=== PATIENT | male | born 1955 | race African-American/Black ===

== ENCOUNTER 2019-10-05 00:14 | Emergency (ER) | payer SELFPAY ==
--- OUTSIDE RECORDS SUMMARY | 2019-10-05 00:24 | XMS REPORT ---
:1955 Author Organization [facility] Address [address] [place] [address] Care Team Providers Name Role Phone KARIME HILLS Unavailable Unavailable Problems This patient has no known problems. Allergies, Adverse Reactions, Alerts This patient has no known allergies or adverse reactions. Medications This patient has no known medications. Results Test Description Test Time Test Comments Text Results Atomic Results Result Comments PROTHROMBIN TIME/INR 2017-04-21 08:17:00 Test Item Value Reference Range Comments PROTIME (BEAKER) (test rvqe=781) 22.7 seconds 11.7-14.7 INR (BEAKER) (test tbxl=096) 2.0 <=5.9 RECOMMENDED COUMADIN/WARFARIN INR THERAPY RANGESSTANDARD DOSE: 2.0 - 3.0 Includes: PROPHYLAXIS forvenous thrombosis, systemic embolization; TREATMENT for venous thrombosis and/or pulmonary embolus.HIGH RISK: Target INR is 2.5-3.5 for patients with mechanical heart valves.While on warfarin.BASIC METABOLIC [id number] 07:33:00 Test Item Value Reference Range Comments SODIUM (BEAKER) (test 139 meq/L 136-145 glkx=198) POTASSIUM (BEAKER) (test 4.4 meq/L 3.5-5.1 muwt=602) CHLORIDE (BEAKER) (test 107 meq/L 98-107 ecwm=095) CO2 (BEAKER) (test 24 meq/L 22-29 ndvf=283) BLOOD UREA NITROGEN 9 mg/dL 7-21 (BEAKER) (test nkue=307) CREATININE (BEAKER) (test 0.91 mg/dL 0.57-1.25 btuw=716) GLUCOSE RANDOM (BEAKER) 84 mg/dL 70-105 (test kjvu=239) CALCIUM (BEAKER) (test 9.4 mg/dL 8.4-10.2 iabl=030) EGFR (BEAKER) (test 102 mL/min/1.73 sq m ESTIMATED GFR IS NOT fxvu=7652) ACCURATE CREATININE CLEARANCE IN PREDICTING GLOMERULAR FILTRATION RATE. ESTIMATED GFR IS NOT APPLICABLE FOR DIALYSIS PATIENTS. CBC W/PLT COUNT & AUTO [id number] 05:54:00 Test Item Value Reference Range Comments WHITE BLOOD CELL COUNT (BEAKER) (test ndfu=541) 7.9 K/ L 3.5-10.5 RED BLOOD CELL COUNT (BEAKER) (test xlxp=061) 4.70 M/ L 4.63-6.08 HEMOGLOBIN (BEAKER) (test insb=603) 12.4 GM/DL 13.7-17.5 HEMATOCRIT (BEAKER) (test nkxb=097) 39.8 % 40.1-51.0 MEAN CORPUSCULAR VOLUME (BEAKER) (test yngt=810) 84.7 fL 79.0-92.2 MEAN CORPUSCULAR HEMOGLOBIN (BEAKER) (test 26.4 pg 25.7-32.2 khdo=603) MEAN CORPUSCULAR HEMOGLOBIN CONC (BEAKER) (test 31.2 GM/DL 32.3-36.5 hhsn=035) RED CELL DISTRIBUTION WIDTH (BEAKER) (test 13.8 % 11.6-14.4 myoq=317) PLATELET COUNT (BEAKER) (test kavk=119) 384 K/CU MM 150-450 MEAN PLATELET VOLUME (BEAKER) (test pyze=514) 11.4 fL 9.4-12.4 NUCLEATED RED BLOOD CELLS (BEAKER) (test 0 /100 WBC 0-0 wyqf=159) NEUTROPHILS RELATIVE PERCENT (BEAKER) (test 49 % foqs=902) LYMPHOCYTES RELATIVE PERCENT (BEAKER) (test 38 % jkks=437) MONOCYTES RELATIVE PERCENT (BEAKER) (test 10 % rwuz=740) EOSINOPHILS RELATIVE PERCENT (BEAKER) (test 2 % rkfu=878) BASOPHILS RELATIVE PERCENT (BEAKER) (test 1 % ggrx=598) NEUTROPHILS ABSOLUTE COUNT (BEAKER) (test 3.87 K/ L 1.78-5.38 xysa=719) LYMPHOCYTES ABSOLUTE COUNT (BEAKER) (test 2.97 K/ L 1.32-3.57 slmp=622) MONOCYTES ABSOLUTE COUNT (BEAKER) (test 0.75 K/ L 0.30-0.82 jecl=471) EOSINOPHILS ABSOLUTE COUNT (BEAKER) (test 0.17 K/ L 0.04-0.54 jzdc=216) BASOPHILS ABSOLUTE COUNT (BEAKER) (test 0.05 K/ L 0.01-0.08 vxoe=783) IMMATURE GRANULOCYTES-RELATIVE PERCENT (BEAKER) 1 % 0-1 (test txvj=4186) BASIC METABOLIC [id number] 06:43:00 Test Item Value Reference Range Comments SODIUM (BEAKER) (test 138 meq/L 136-145 zble=696) POTASSIUM (BEAKER) (test 4.9 meq/L 3.5-5.1 Specimen moderately untb=553) hemolyzed CHLORIDE (BEAKER) (test 106 meq/L 98-107 wdpe=822) CO2 (BEAKER) (test 26 meq/L 22-29 msar=147) BLOOD UREA NITROGEN 9 mg/dL 7-21 (BEAKER) (test gslz=678) CREATININE (BEAKER) (test 0.89 mg/dL 0.57-1.25 Specimen moderately kcxj=512) hemolyzed GLUCOSE RANDOM (BEAKER) 90 mg/dL 70-105 (test duti=126) CALCIUM (BEAKER) (test 9.0 mg/dL 8.4-10.2 ujqh=824) EGFR (BEAKER) (test 105 mL/min/1.73 sq m ESTIMATED GFR IS NOT ayke=1466) ACCURATE CREATININE CLEARANCE IN PREDICTING GLOMERULAR FILTRATION RATE. ESTIMATED GFR IS NOT APPLICABLE FOR DIALYSIS PATIENTS. PROTHROMBIN [id number] 06:25:00 Test Item Value Reference Range Comments PROTIME (BEAKER) (test dlns=411) 18.8 seconds 11.7-14.7 INR (BEAKER) (test hrcd=401) 1.6 <=5.9 RECOMMENDED COUMADIN/WARFARIN INR THERAPY RANGESSTANDARD DOSE: 2.0 - 3.0 Includes: PROPHYLAXIS forvenous thrombosis, systemic embolization; TREATMENT for venous thrombosis and/or pulmonary embolus.HIGH RISK: Target INR is 2.5-3.5 for patients with mechanical heart valves.While on warfarin.CBC W/PLT COUNT &amp ; AUTO [id number] 06:12:00 Test Item Value Reference Range Comments WHITE BLOOD CELL COUNT (BEAKER) (test rims=200) 8.3 K/ L 3.5-10.5 RED BLOOD CELL COUNT (BEAKER) (test btae=809) 4.50 M/ L 4.63-6.08 HEMOGLOBIN (BEAKER) (test otpu=227) 11.9 GM/DL 13.7-17.5 HEMATOCRIT (BEAKER) (test ahyr=995) 38.3 % 40.1-51.0 MEAN CORPUSCULAR VOLUME (BEAKER) (test fayy=871) 85.1 fL 79.0-92.2 MEAN CORPUSCULAR HEMOGLOBIN (BEAKER) (test 26.4 pg 25.7-32.2 vsvg=901) MEAN CORPUSCULAR HEMOGLOBIN CONC (BEAKER) (test 31.1 GM/DL 32.3-36.5 mmlz=456) RED CELL DISTRIBUTION WIDTH (BEAKER) (test 14.6 % 11.6-14.4 wnbj=296) PLATELET COUNT (BEAKER) (test zinu=187) 385 K/CU MM 150-450 MEAN PLATELET VOLUME (BEAKER) (test jxay=918) 11.3 fL 9.4-12.4 NUCLEATED RED BLOOD CELLS (BEAKER) (test 0 /100 WBC 0-0 nfsq=635) NEUTROPHILS RELATIVE PERCENT (BEAKER) (test 54 % nrmn=184) LYMPHOCYTES RELATIVE PERCENT (BEAKER) (test 34 % esbr=940) MONOCYTES RELATIVE PERCENT (BEAKER) (test 9 % ucjp=839) EOSINOPHILS RELATIVE PERCENT (BEAKER) (test 2 % tbjt=592) BASOPHILS RELATIVE PERCENT (BEAKER) (test 1 % lmrw=754) NEUTROPHILS ABSOLUTE COUNT (BEAKER) (test 4.49 K/ L 1.78-5.38 cmlw=810) LYMPHOCYTES ABSOLUTE COUNT (BEAKER) (test 2.81 K/ L 1.32-3.57 mhyc=741) MONOCYTES ABSOLUTE COUNT (BEAKER) (test 0.71 K/ L 0.30-0.82 ewlk=204) EOSINOPHILS ABSOLUTE COUNT (BEAKER) (test 0.20 K/ L 0.04-0.54 vzkh=441) BASOPHILS ABSOLUTE COUNT (BEAKER) (test 0.05 K/ L 0.01-0.08 zlcp=308) IMMATURE GRANULOCYTES-RELATIVE PERCENT (BEAKER) 1 % 0-1 (test xtza=6305) BASIC METABOLIC [id number] 10:54:00 Test Item Value Reference Range Comments SODIUM (BEAKER) (test 138 meq/L 136-145 vikp=086) POTASSIUM (BEAKER) (test 4.2 meq/L 3.5-5.1 dyiu=228) CHLORIDE (BEAKER) (test 105 meq/L 98-107 lwpl=403) CO2 (BEAKER) (test 24 meq/L 22-29 kelp=233) BLOOD UREA NITROGEN 9 mg/dL 7-21 (BEAKER) (test stmb=106) CREATININE (BEAKER) (test 0.90 mg/dL 0.57-1.25 lsyi=087) GLUCOSE RANDOM (BEAKER) 88 mg/dL 70-105 (test vxxv=803) CALCIUM (BEAKER) (test 9.0 mg/dL 8.4-10.2 zznq=017) EGFR (BEAKER) (test 103 mL/min/1.73 sq m ESTIMATED GFR IS NOT rtdl=2556) ACCURATE CREATININE CLEARANCE IN PREDICTING GLOMERULAR FILTRATION RATE. ESTIMATED GFR IS NOT APPLICABLE FOR DIALYSIS PATIENTS. CBC W/PLT COUNT & AUTO [id number] 07:36:00 Test Item Value Reference Range Comments WHITE BLOOD CELL COUNT (BEAKER) (test lzzv=379) 7.2 K/ L 3.5-10.5 RED BLOOD CELL COUNT (BEAKER) (test vzgs=384) 4.54 M/ L 4.63-6.08 HEMOGLOBIN (BEAKER) (test aqan=579) 11.8 GM/DL 13.7-17.5 HEMATOCRIT (BEAKER) (test uajy=836) 38.1 % 40.1-51.0 MEAN CORPUSCULAR VOLUME (BEAKER) (test vcgo=955) 83.9 fL 79.0-92.2 MEAN CORPUSCULAR HEMOGLOBIN (BEAKER) (test 26.0 pg 25.7-32.2 zakz=244) MEAN CORPUSCULAR HEMOGLOBIN CONC (BEAKER) (test 31.0 GM/DL 32.3-36.5 wvfd=561) RED CELL DISTRIBUTION WIDTH (BEAKER) (test 13.7 % 11.6-14.4 eaar=878) PLATELET COUNT (BEAKER) (test nqpo=331) 356 K/CU MM 150-450 MEAN PLATELET VOLUME (BEAKER) (test oedh=926) 11.3 fL 9.4-12.4 NUCLEATED RED BLOOD CELLS (BEAKER) (test 0 /100 WBC 0-0 llun=817) NEUTROPHILS RELATIVE PERCENT (BEAKER) (test 49 % tklr=899) LYMPHOCYTES RELATIVE PERCENT (BEAKER) (test 37 % qqhn=914) MONOCYTES RELATIVE PERCENT (BEAKER) (test 10 % neda=192) EOSINOPHILS RELATIVE PERCENT (BEAKER) (test 3 % rpny=760) BASOPHILS RELATIVE PERCENT (BEAKER) (test 1 % phex=526) NEUTROPHILS ABSOLUTE COUNT (BEAKER) (test 3.54 K/ L 1.78-5.38 szjn=389) LYMPHOCYTES ABSOLUTE COUNT (BEAKER) (test 2.64 K/ L 1.32-3.57 ulzi=711) MONOCYTES ABSOLUTE COUNT (BEAKER) (test 0.73 K/ L 0.30-0.82 ajhc=657) EOSINOPHILS ABSOLUTE COUNT (BEAKER) (test 0.19 K/ L 0.04-0.54 jejv=202) BASOPHILS ABSOLUTE COUNT (BEAKER) (test 0.04 K/ L 0.01-0.08 xbua=167) IMMATURE GRANULOCYTES-RELATIVE PERCENT (BEAKER) 0 % 0-1 (test dlwv=2939) [id number] 06:27:00 Test Item Value Reference Range Comments PARTIAL THROMBOPLASTIN TIME (BEAKER) (test 77.4 seconds 22.5-36.0 xwvp=050) PROTHROMBIN [id number] 06:25:00 Test Item Value Reference Range Comments PROTIME (BEAKER) (test ppwg=356) 16.1 seconds 11.7-14.7 INR (BEAKER) (test awdx=966) 1.3 <=5.9 RECOMMENDED COUMADIN/WARFARIN INR THERAPY RANGESSTANDARD DOSE: 2.0 - 3.0 Includes: PROPHYLAXIS forvenous thrombosis, systemic embolization; TREATMENT for venous thrombosis and/or pulmonary embolus.HIGH RISK: Target INR is 2.5-3.5 for patients with mechanical heart valves.While on warfarin.[id number] 21:27 :00 Test Item Value Reference Range Comments PARTIAL THROMBOPLASTIN TIME (BEAKER) (test 50.7 seconds 22.5-36.0 rnwy=989) [id number] 13:53:00 Test Item Value Reference Range Comments PARTIAL THROMBOPLASTIN TIME (BEAKER) (test 93.2 seconds 22.5-36.0 srak=724) [id number] 08:10:00 Test Item Value Reference Range Comments PARTIAL THROMBOPLASTIN TIME (BEAKER) (test 70.0 seconds 22.5-36.0 hwfb=111) BASIC METABOLIC [id number] 07:13:00 Test Item Value Reference Range Comments SODIUM (BEAKER) (test 140 meq/L 136-145 oant=981) POTASSIUM (BEAKER) (test 4.7 meq/L 3.5-5.1 Specimen slightly erzg=530) hemolyzed CHLORIDE (BEAKER) (test 107 meq/L 98-107 tctj=668) CO2 (BEAKER) (test 25 meq/L 22-29 iypy=922) BLOOD UREA NITROGEN 7 mg/dL 7-21 (BEAKER) (test lskg=520) CREATININE (BEAKER) (test 0.96 mg/dL 0.57-1.25 Specimen slightly xupj=571) hemolyzed GLUCOSE RANDOM (BEAKER) 99 mg/dL 70-105 (test txyt=169) CALCIUM (BEAKER) (test 9.2 mg/dL 8.4-10.2 nkal=775) EGFR (BEAKER) (test 96 mL/min/1.73 sq m ESTIMATED GFR IS NOT nbyx=4362) ACCURATE CREATININE CLEARANCE IN PREDICTING GLOMERULAR FILTRATION RATE. ESTIMATED GFR IS NOT APPLICABLE FOR DIALYSIS PATIENTS. CBC W/PLT COUNT & AUTO [id number] 07:07:00 Test Item Value Reference Range Comments WHITE BLOOD CELL COUNT (BEAKER) (test zhdu=908) 7.6 K/ L 3.5-10.5 RED BLOOD CELL COUNT (BEAKER) (test tnoo=006) 4.94 M/ L 4.63-6.08 HEMOGLOBIN (BEAKER) (test mawi=871) 13.0 GM/DL 13.7-17.5 HEMATOCRIT (BEAKER) (test qgub=419) 41.5 % 40.1-51.0 MEAN CORPUSCULAR VOLUME (BEAKER) (test bwup=560) 84.0 fL 79.0-92.2 MEAN CORPUSCULAR HEMOGLOBIN (BEAKER) (test 26.3 pg 25.7-32.2 lbkr=461) MEAN CORPUSCULAR HEMOGLOBIN CONC (BEAKER) (test 31.3 GM/DL 32.3-36.5 qqrh=566) RED CELL DISTRIBUTION WIDTH (BEAKER) (test 13.5 % 11.6-14.4 cjoz=742) PLATELET COUNT (BEAKER) (test kymx=859) 323 K/CU MM 150-450 MEAN PLATELET VOLUME (BEAKER) (test nhrx=047) 11.4 fL 9.4-12.4 NUCLEATED RED BLOOD CELLS (BEAKER) (test 0 /100 WBC 0-0 hfqc=900) NEUTROPHILS RELATIVE PERCENT (BEAKER) (test 53 % jnqe=299) LYMPHOCYTES RELATIVE PERCENT (BEAKER) (test 35 % qoue=053) MONOCYTES RELATIVE PERCENT (BEAKER) (test 10 % qsxn=338) EOSINOPHILS RELATIVE PERCENT (BEAKER) (test 2 % sdwo=731) BASOPHILS RELATIVE PERCENT (BEAKER) (test 0 % ohmc=621) NEUTROPHILS ABSOLUTE COUNT (BEAKER) (test 3.98 K/ L 1.78-5.38 buds=763) LYMPHOCYTES ABSOLUTE COUNT (BEAKER) (test 2.64 K/ L 1.32-3.57 qvle=732) MONOCYTES ABSOLUTE COUNT (BEAKER) (test 0.73 K/ L 0.30-0.82 kdrj=234) EOSINOPHILS ABSOLUTE COUNT (BEAKER) (test 0.16 K/ L 0.04-0.54 poem=134) BASOPHILS ABSOLUTE COUNT (BEAKER) (test 0.03 K/ L 0.01-0.08 exer=903) IMMATURE GRANULOCYTES-RELATIVE PERCENT (BEAKER) 0 % 0-1 (test vrlh=6556) PROTHROMBIN [id number] 06:24:00 Test Item Value Reference Range Comments PROTIME (BEAKER) (test gonc=866) 15.2 seconds 11.7-14.7 INR (BEAKER) (test cvlt=743) 1.2 <=5.9 RECOMMENDED COUMADIN/WARFARIN INR THERAPY RANGESSTANDARD DOSE: 2.0 - 3.0 Includes: PROPHYLAXIS forvenous thrombosis, systemic embolization; TREATMENT for venous thrombosis and/or pulmonary embolus.HIGH RISK: Target INR is 2.5-3.5 for patients with mechanical heart valves.[id number] 00:36:00 Test Item Value Reference Range Comments PARTIAL THROMBOPLASTIN TIME (BEAKER) (test 49.7 seconds 22.5-36.0 cdrs=033) POCT-GLUCOSE [id number] 20:48:00 Test Item Value Reference Range Comments POC-GLUCOSE METER (BEAKER) 126 mg/dL 70-110 TESTED AT [address] (test dxin=0035) [place] [address] [id number] 18:09:00 Test Item Value Reference Range Comments PARTIAL THROMBOPLASTIN TIME (BEAKER) (test 36.3 seconds 22.5-36.0 bniw=662) Prior to initiating [id number] 11:06:00 Test Item Value Reference Range Comments ACTIVATED CLOTTING TIME 202 sec TESTED AT [address] (BEAKER) (test omeg=694) [place] [address] [id number] 10:32:00 Test Item Value Reference Range Comments ACTIVATED CLOTTING TIME 224 sec TESTED AT [address] (BEAKER) (test jwrv=071) [place] [address] [id number] 10:32:00 Test Item Value Reference Range Comments ACTIVATED CLOTTING TIME 467 sec TESTED AT [address] (BEAKER) (test ivnn=801) [place] [address] [id number] 09:51:00 Test Item Value Reference Range Comments ACTIVATED CLOTTING TIME 114 sec TESTED AT [address] (BEAKER) (test nmoh=232) [place] [address] POCT-GLUCOSE [id number] 08:10:00 Test Item Value Reference Range Comments POC-GLUCOSE METER (BEAKER) 67 mg/dL 70-110 Notified MARI SOLER/TESTED AT [facility] (test rovj=3208) [address] [place] [address] BASIC METABOLIC [id number] 08:04:00 Test Item Value Reference Range Comments SODIUM (BEAKER) (test 139 meq/L 136-145 ykog=160) POTASSIUM (BEAKER) (test 4.0 meq/L 3.5-5.1 mbbw=426) CHLORIDE (BEAKER) (test 107 meq/L 98-107 drdv=415) CO2 (BEAKER) (test 23 meq/L 22-29 fvyc=069) BLOOD UREA NITROGEN 8 mg/dL 7-21 (BEAKER) (test mukp=895) CREATININE (BEAKER) (test 0.89 mg/dL 0.57-1.25 ifmb=434) GLUCOSE RANDOM (BEAKER) 83 mg/dL 70-105 (test bcsn=763) CALCIUM (BEAKER) (test 9.0 mg/dL 8.4-10.2 hkmv=604) EGFR (BEAKER) (test 105 mL/min/1.73 sq m ESTIMATED GFR IS NOT nfeq=0822) ACCURATE CREATININE CLEARANCE IN PREDICTING GLOMERULAR FILTRATION RATE. ESTIMATED GFR IS NOT APPLICABLE FOR DIALYSIS PATIENTS. CBC W/PLT COUNT & AUTO [id number] 07:11:00 Test Item Value Reference Range Comments WHITE BLOOD CELL COUNT (BEAKER) (test ytte=925) 6.5 K/ L 3.5-10.5 RED BLOOD CELL COUNT (BEAKER) (test pjpb=649) 4.85 M/ L 4.63-6.08 HEMOGLOBIN (BEAKER) (test ytda=799) 13.0 GM/DL 13.7-17.5 HEMATOCRIT (BEAKER) (test wclv=149) 40.4 % 40.1-51.0 MEAN CORPUSCULAR VOLUME (BEAKER) (test pazp=586) 83.3 fL 79.0-92.2 MEAN CORPUSCULAR HEMOGLOBIN (BEAKER) (test 26.8 pg 25.7-32.2 jdju=565) MEAN CORPUSCULAR HEMOGLOBIN CONC (BEAKER) (test 32.2 GM/DL 32.3-36.5 erdm=236) RED CELL DISTRIBUTION WIDTH (BEAKER) (test 13.6 % 11.6-14.4 fpiz=362) PLATELET COUNT (BEAKER) (test uepv=873) 293 K/CU MM 150-450 MEAN PLATELET VOLUME (BEAKER) (test suvo=260) 11.6 fL 9.4-12.4 NUCLEATED RED BLOOD CELLS (BEAKER) (test 0 /100 WBC 0-0 qzfx=962) NEUTROPHILS RELATIVE PERCENT (BEAKER) (test 49 % xlde=587) LYMPHOCYTES RELATIVE PERCENT (BEAKER) (test 37 % fgzc=858) MONOCYTES RELATIVE PERCENT (BEAKER) (test 11 % uekd=334) EOSINOPHILS RELATIVE PERCENT (BEAKER) (test 2 % nkrw=753) BASOPHILS RELATIVE PERCENT (BEAKER) (test 1 % bnnu=573) NEUTROPHILS ABSOLUTE COUNT (BEAKER) (test 3.15 K/ L 1.78-5.38 ojot=842) LYMPHOCYTES ABSOLUTE COUNT (BEAKER) (test 2.39 K/ L 1.32-3.57 zaax=424) MONOCYTES ABSOLUTE COUNT (BEAKER) (test 0.71 K/ L 0.30-0.82 mexd=506) EOSINOPHILS ABSOLUTE COUNT (BEAKER) (test 0.15 K/ L 0.04-0.54 npkw=203) BASOPHILS ABSOLUTE COUNT (BEAKER) (test 0.04 K/ L 0.01-0.08 hnvd=849) IMMATURE GRANULOCYTES-RELATIVE PERCENT (BEAKER) 1 % 0-1 (test eeet=8016) PET, CARDIAC PET, [id number] 15:39:00Reason for exam:->MIFINAL REPORT PROCEDURE: MYOCARDIAL METABOLISM PET IMAGING with Rest MYOCARDIAL PERFUSION PET IMAGING\XA9\ CPT CODE: 26420, 70078 INDICATION: History of DE/Assess Viability HISTORY: Cardiac risk factors: CAD, hypertension, stroke. Current cardiovascular- related medications: Lisinopril. PROTOCOL: Limited low-dose CT imaging was performed for attenuation correction. 39.0 mCi of Rb-82 chloride was injected iv at rest,and gated PET (positron emission tomography) images were obtained. After appropriate dextrose/insulin administration, 10.9 mCi of F-18 FDG was injected iv at rest; limited low-dose CT imaging was repeated; and PET images were obtained. PERFUSION IMAGING FINDINGS: Study quality is good. Images obtained after Rb-82 injection show marked decrease in tracer uptake at the LV apex, mid to apical anterior LV wall and inferoapical LV wall. LV volume appears mildly increased. RV volume appears normal. Gated images obtained at rest show abnormal LV motion. The anterior apical LV wall and LV apex are akinetic. The septal wall is severely hypokinetic. LVEF at rest is 49%. METABOLIC IMAGING FINDINGS: Study quality is good. Images obtained after F- 18 FDG injection show marked but incomplete improvement.. IMPRESSION: 1. Abnormal study. 2. Resting imaging was performed for cardiac perfusion and metabolism. 3. Abnormal myocardial perfusion. There is a severe, medium size, perfusion defect in the mid to apical anterior LV wall, inferior apical LV wall and the LV apex LV. 4. Abnormal resting LV function. 5. Abnormal cardiac metabolism. There is marked but incomplete improvement demonstrating significant viable myocardium. 6. Combination of perfusion and metabolic images show viable myocardium at the LV apex. 7. Extracardiac tracer distribution is normal. 8. No previous [facility] study forcomparison. Signed: Lidya Marshall Verified Date/Time: 04/16/2017 15:39:23 Reading Location: [facility] 3rd Flr [id number] Nuc Med Reading Room CT, BRAIN, WITHOUT [id number] 11:48:00FINAL REPORT CT head without contrast 04/16/2017 11:46 AM CLINICAL HISTORY: StrokeR frontal gyrus hemorrhagic covnersion, evaluate for interval increase. TECHNIQUE: Axial noncontrast CT images through the head were obtained. This examination was performed according to our departmental dose optimization program, which includes automated exposure control, adjustment of the mA and/or kV according to patient size, and/or use of iterated reconstruction technique. COMPARISON: 04/13/2017 FINDINGS: A small volume recent infarct with trace petechial hemorrhage but no mass effect in the anterior right frontal lobe is unchanged. There is no new hemorrhage, extra-axial collection, mass, hydrocephalus, or midline shift. There is generalized parenchymal volume loss. The visualized paranasal sinuses and mastoid air cells are well aerated. The skull is intact. IMPRESSION: Since 04/13/2017, no new intracranial abnormality and no remarkable change in intracranial appearance. Signed: Tito Baron Verified Date/Time: 04/16/2017 11: 48:54 Reading Location: [facility] B1 C013V Neuro Reading Room BASIC METABOLIC [id number] 05:46:00 Test Item Value Reference Range Comments SODIUM (BEAKER) (test 141 meq/L 136-145 hlam=665) POTASSIUM (BEAKER) (test 4.1 meq/L 3.5-5.1 pcrs=578) CHLORIDE (BEAKER) (test 109 meq/L 98-107 ygdj=446) CO2 (BEAKER) (test 23 meq/L 22-29 cfdx=646) BLOOD UREA NITROGEN 12 mg/dL 7-21 (BEAKER) (test ulem=113) CREATININE (BEAKER) (test 0.91 mg/dL 0.57-1.25 wkdp=923) GLUCOSE RANDOM (BEAKER) 93 mg/dL 70-105 (test slim=519) CALCIUM (BEAKER) (test 8.8 mg/dL 8.4-10.2 qroj=285) EGFR (BEAKER) (test 102 mL/min/1.73 sq m ESTIMATED GFR IS NOT lzeg=7357) ACCURATE CREATININE CLEARANCE IN PREDICTING GLOMERULAR FILTRATION RATE. ESTIMATED GFR IS NOT APPLICABLE FOR DIALYSIS PATIENTS. [id number] 05:31:00 Test Item Value Reference Range Comments PROTIME (BEAKER) (test ugwu=428) 16.3 seconds 11.7-14.7 INR (BEAKER) (test zoxa=496) 1.3 <=5.9 PARTIAL THROMBOPLASTIN TIME (BEAKER) (test 59.8 seconds 22.5-36.0 kypu=597) RECOMMENDED COUMADIN/WARFARIN INR THERAPY RANGESSTANDARD DOSE: 2.0 - 3.0 Includes: PROPHYLAXIS forvenous thrombosis, systemic embolization; TREATMENT for venous thrombosis and/or pulmonary embolus.HIGH RISK: Target INR is 2.5-3.5 for patients with mechanical heart valves.CBC W/PLT COUNT & AUTO [id number] 05:23:00 Test Item Value Reference Range Comments WHITE BLOOD CELL COUNT (BEAKER) (test sbzz=094) 7.4 K/ L 3.5-10.5 RED BLOOD CELL COUNT (BEAKER) (test iljk=699) 4.74 M/ L 4.63-6.08 HEMOGLOBIN (BEAKER) (test urwu=163) 12.4 GM/DL 13.7-17.5 HEMATOCRIT (BEAKER) (test obya=688) 39.6 % 40.1-51.0 MEAN CORPUSCULAR VOLUME (BEAKER) (test rcxx=566) 83.5 fL 79.0-92.2 MEAN CORPUSCULAR HEMOGLOBIN (BEAKER) (test 26.2 pg 25.7-32.2 ycoc=229) MEAN CORPUSCULAR HEMOGLOBIN CONC (BEAKER) (test 31.3 GM/DL 32.3-36.5 kboi=843) RED CELL DISTRIBUTION WIDTH (BEAKER) (test 13.6 % 11.6-14.4 ldpk=465) PLATELET COUNT (BEAKER) (test zpuv=259) 253 K/CU MM 150-450 MEAN PLATELET VOLUME (BEAKER) (test omfy=764) 11.1 fL 9.4-12.4 NUCLEATED RED BLOOD CELLS (BEAKER) (test 0 /100 WBC 0-0 lvbm=967) NEUTROPHILS RELATIVE PERCENT (BEAKER) (test 53 % ocsp=924) LYMPHOCYTES RELATIVE PERCENT (BEAKER) (test 34 % aiqr=368) MONOCYTES RELATIVE PERCENT (BEAKER) (test 10 % bliz=654) EOSINOPHILS RELATIVE PERCENT (BEAKER) (test 2 % oshy=035) BASOPHILS RELATIVE PERCENT (BEAKER) (test 0 % tucx=225) NEUTROPHILS ABSOLUTE COUNT (BEAKER) (test 3.89 K/ L 1.78-5.38 vngb=232) LYMPHOCYTES ABSOLUTE COUNT (BEAKER) (test 2.50 K/ L 1.32-3.57 wocu=097) MONOCYTES ABSOLUTE COUNT (BEAKER) (test 0.77 K/ L 0.30-0.82 awgm=939) EOSINOPHILS ABSOLUTE COUNT (BEAKER) (test 0.18 K/ L 0.04-0.54 srtb=084) BASOPHILS ABSOLUTE COUNT (BEAKER) (test 0.03 K/ L 0.01-0.08 vgzu=275) IMMATURE GRANULOCYTES-RELATIVE PERCENT (BEAKER) 0 % 0-1 (test ynxg=1166) [id number] 15:23:00 Test Item Value Reference Range Comments PARTIAL THROMBOPLASTIN TIME (BEAKER) (test 52.5 seconds 22.5-36.0 nusq=574) [id number] 14:59:00 Test Item Value Reference Range Comments PARTIAL THROMBOPLASTIN TIME 23.0 seconds 22.5-36.0 Please disregard result. (BEAKER) (test dyfx=435) Specimen for aPTT was found to be clotted post analysis. [id number] notified to redraw aPTT.This is a corrected result. Previous result was 23.0 seconds on 04/15/2017 at 1411 CDT Specimen for aPTT was found to be clotted. [id number] notified to redraw.CBC W/PLT COUNT & AUTO [id number] 12:19:00 Test Item Value Reference Range Comments WHITE BLOOD CELL COUNT (BEAKER) (test rofl=080) 6.0 K/ L 3.5-10.5 RED BLOOD CELL COUNT (BEAKER) (test ezgv=572) 3.78 M/ L 4.63-6.08 HEMOGLOBIN (BEAKER) (test gctm=880) 10.0 GM/DL 13.7-17.5 HEMATOCRIT (BEAKER) (test qiit=009) 32.2 % 40.1-51.0 MEAN CORPUSCULAR VOLUME (BEAKER) (test naem=109) 85.2 fL 79.0-92.2 MEAN CORPUSCULAR HEMOGLOBIN (BEAKER) (test 26.5 pg 25.7-32.2 jxey=812) MEAN CORPUSCULAR HEMOGLOBIN CONC (BEAKER) (test 31.1 GM/DL 32.3-36.5 ucer=348) RED CELL DISTRIBUTION WIDTH (BEAKER) (test 13.5 % 11.6-14.4 xgwq=491) PLATELET COUNT (BEAKER) (test thap=818) 177 K/CU MM 150-450 MEAN PLATELET VOLUME (BEAKER) (test hbwl=088) 11.7 fL 9.4-12.4 NUCLEATED RED BLOOD CELLS (BEAKER) (test 0 /100 WBC 0-0 pvju=500) NEUTROPHILS RELATIVE PERCENT (BEAKER) (test 55 % srwg=122) LYMPHOCYTES RELATIVE PERCENT (BEAKER) (test 32 % xcwv=312) MONOCYTES RELATIVE PERCENT (BEAKER) (test 9 % ibhk=901) EOSINOPHILS RELATIVE PERCENT (BEAKER) (test 3 % ohbz=067) BASOPHILS RELATIVE PERCENT (BEAKER) (test 0 % hdkv=223) NEUTROPHILS ABSOLUTE COUNT (BEAKER) (test 3.32 K/ L 1.78-5.38 awjh=259) LYMPHOCYTES ABSOLUTE COUNT (BEAKER) (test 1.94 K/ L 1.32-3.57 ynnr=451) MONOCYTES ABSOLUTE COUNT (BEAKER) (test 0.55 K/ L 0.30-0.82 obkt=279) EOSINOPHILS ABSOLUTE COUNT (BEAKER) (test 0.16 K/ L 0.04-0.54 bgxu=971) BASOPHILS ABSOLUTE COUNT (BEAKER) (test 0.02 K/ L 0.01-0.08 pfvp=200) IMMATURE GRANULOCYTES-RELATIVE PERCENT (BEAKER) 1 % 0-1 (test ftki=3633) (MANUAL DIFFERENTIAL)2017-04-15 12:19:00 Test Item Value Reference Range Comments TOTAL COUNTED (BEAKER) (test ruas=2224) WBC MORPHOLOGY (BEAKER) (test oeuc=489) Normal PLT MORPHOLOGY (BEAKER) (test icof=718) Normal RBC MORPHOLOGY (BEAKER) (test ltaa=387) Normal [id number] 08:48:00 Test Item Value Reference Range Comments POTASSIUM (BEAKER) (test slhc=574) 4.7 meq/L 3.5-5.1 Check Serum Potassium level 2 hours after oral potassium replacement completed or 30 min after intravenous potassium replacement.[id number] 08:26:00 Test Item Value Reference Range Comments PARTIAL THROMBOPLASTIN TIME (BEAKER) (test 53.7 seconds 22.5-36.0 zuvh=863) BASIC METABOLIC [id number] 07:59:00 Test Item Value Reference Range Comments SODIUM (BEAKER) (test 142 meq/L 136-145 vqce=794) POTASSIUM (BEAKER) (test 6.0 meq/L 3.5-5.1 fcmw=954) CHLORIDE (BEAKER) (test 114 meq/L 98-107 yvea=860) CO2 (BEAKER) (test 24 meq/L 22-29 yruu=921) BLOOD UREA NITROGEN 13 mg/dL 7-21 (BEAKER) (test abkf=525) CREATININE (BEAKER) (test 0.84 mg/dL 0.57-1.25 eham=519) GLUCOSE RANDOM (BEAKER) 74 mg/dL 70-105 (test eiqd=556) CALCIUM (BEAKER) (test 7.7 mg/dL 8.4-10.2 yfpc=892) EGFR (BEAKER) (test 112 mL/min/1.73 sq m ESTIMATED GFR IS NOT extw=7381) ACCURATE CREATININE CLEARANCE IN PREDICTING GLOMERULAR FILTRATION RATE. ESTIMATED GFR IS NOT APPLICABLE FOR DIALYSIS PATIENTS. [id number] 22:41:00 Test Item Value Reference Range Comments PARTIAL THROMBOPLASTIN TIME (BEAKER) (test 39.7 seconds 22.5-36.0 btjz=488) POCT-GLUCOSE [id number] 18:35:00 Test Item Value Reference Range Comments POC-GLUCOSE METER (BEAKER) 121 mg/dL 70-110 TESTED AT [address] (test dvio=6898) [facility] [address] [place], ESOPH, SWALLOW FUNCTION, WITH CINE OR [id number] 17:08:00Reason for exam:->dysphagiaFINAL REPORT Modified barium swallow. CLINICAL HISTORY: dysphagia. COMPARISONSTUDY: None available. FINDINGS: Under the direction of patient's speech pathologist, the patient ingested thin barium , thick barium, barium-coated crackers and barium pur\XE9\e. Penetration is seen with thin barium. Please refer to the speech pathology notes for further discussion. Fluoroscopy time: 1.3 minutes. One image. Signed: Ronald Garcia MDReport Verified Date/Time: 04/14/2017 17:08:52 Reading Location: [address] Ortho Consult Reading Room POCT-GLUCOSE [id number] 13:42:00 Test Item Value Reference Range Comments POC-GLUCOSE METER (BEAKER) 77 mg/dL 70-110 TESTED AT [address] (test hbyp=7914) [place] [address] [id number] 12:15:00 Test Item Value Reference Range Comments PARTIAL THROMBOPLASTIN TIME (BEAKER) (test 44.5 seconds 22.5-36.0 ekqm=309) POCT-GLUCOSE [id number] 12:00:00 Test Item Value Reference Range Comments POC-GLUCOSE METER (BEAKER) 119 mg/dL 70-110 TESTED AT [address] (test ohfv=7718) [place] [id number] POCT-GLUCOSE [id number] 11:11:00 Test Item Value Reference Range Comments POC-GLUCOSE METER (BEAKER) 167 mg/dL 70-110 TESTED AT [address] (test hkxx=1824) [place] [id number] POCT-GLUCOSE [id number] 10:29:00 Test Item Value Reference Range Comments POC-GLUCOSE METER (BEAKER) 83 mg/dL 70-110 TESTED AT [address] (test kqnd=8591) [place] [id number] TROPONIN [id number] 08:12:00 Test Item Value Reference Range Comments TROPONIN I (BEAKER) (test bdoy=500) 21.40 ng/mL 0.00-0.03 Troponin I (TnI) levels must be interpreted in the context of the presenting symptoms and the clinical findings. Elevated TnI levels indicate myocardial damage, but are not specific for ischemic heart disease. Elevated TnI levels are seen in patients with other cardiac conditions (including myocarditis and congestive heart failure), and slight TnI elevations occur in patients with other conditions, including sepsis, renal failure, acidosis, acute neurological disease, and persistent tachyarrhythmia.CREATINE KINASE (CK), TOTAL AND [id number] 08:05:00 Test Item Value Reference Range Comments CREATINE KINASE TOTAL (BEAKER) (test fvwy=253) 193 U/L 29-200 CREATINE KINASE-MB (BEAKER) (test tttz=977) 2.9 ng/mL 0.0-6.6 CREATINE KINASE-MB INDEX (BEAKER) (test tmms=417) 1.5 % CK-MB Reference Range:<6.7 Normal6.7-10.0 Borderline>10.0 AbnormalPT/[id number] 04:53:00 Test Item Value Reference Range Comments PROTIME (BEAKER) (test jotl=181) 17.1 seconds 11.7-14.7 INR (BEAKER) (test tywp=460) 1.4 <=5.9 PARTIAL THROMBOPLASTIN TIME (BEAKER) (test 53.3 seconds 22.5-36.0 rjbz=066) RECOMMENDED COUMADIN/WARFARIN INR THERAPY RANGESSTANDARD DOSE: 2.0 - 3.0 Includes: PROPHYLAXIS forvenous thrombosis, systemic embolization; TREATMENT for venous thrombosis and/or pulmonary embolus.HIGH RISK: Target INR is 2.5-3.5 for patients with mechanical heart valves.PROTHROMBIN TIME/[id number] 04:52: 00 Test Item Value Reference Range Comments PROTIME (BEAKER) (test bbfn=844) 17.1 seconds 11.7-14.7 INR (BEAKER) (test keco=298) 1.4 <=5.9 RECOMMENDED COUMADIN/WARFARIN INR THERAPY RANGESSTANDARD DOSE: 2.0 - 3.0 Includes: PROPHYLAXIS forvenous thrombosis, systemic embolization; TREATMENT for venous thrombosis and/or pulmonary embolus.HIGH RISK: Target INR is 2.5-3.5 for patients with mechanical heart valves.BASIC METABOLIC [id number] 04:52: 00 Test Item Value Reference Range Comments SODIUM (BEAKER) (test 145 meq/L 136-145 jvkk=768) POTASSIUM (BEAKER) (test 4.3 meq/L 3.5-5.1 nvvc=284) CHLORIDE (BEAKER) (test 109 meq/L 98-107 ejcr=487) CO2 (BEAKER) (test 26 meq/L 22-29 ndkv=347) BLOOD UREA NITROGEN 14 mg/dL 7-21 (BEAKER) (test trrh=108) CREATININE (BEAKER) (test 0.98 mg/dL 0.57-1.25 npbf=211) GLUCOSE RANDOM (BEAKER) 85 mg/dL 70-105 (test ddrc=874) CALCIUM (BEAKER) (test 8.7 mg/dL 8.4-10.2 nwaf=492) EGFR (BEAKER) (test 94 mL/min/1.73 sq m ESTIMATED GFR IS NOT yjkl=7567) ACCURATE CREATININE CLEARANCE IN PREDICTING GLOMERULAR FILTRATION RATE. ESTIMATED GFR IS NOT APPLICABLE FOR DIALYSIS PATIENTS. CBC W/PLT COUNT & AUTO [id number] 04:38:00 Test Item Value Reference Range Comments WHITE BLOOD CELL COUNT (BEAKER) (test fxcx=148) 7.9 K/ L 3.5-10.5 RED BLOOD CELL COUNT (BEAKER) (test zdrv=855) 4.75 M/ L 4.63-6.08 HEMOGLOBIN (BEAKER) (test vvkl=860) 12.5 GM/DL 13.7-17.5 HEMATOCRIT (BEAKER) (test svzw=967) 40.0 % 40.1-51.0 MEAN CORPUSCULAR VOLUME (BEAKER) (test lwxu=135) 84.2 fL 79.0-92.2 MEAN CORPUSCULAR HEMOGLOBIN (BEAKER) (test 26.3 pg 25.7-32.2 xrjz=907) MEAN CORPUSCULAR HEMOGLOBIN CONC (BEAKER) (test 31.3 GM/DL 32.3-36.5 sryg=480) RED CELL DISTRIBUTION WIDTH (BEAKER) (test 13.6 % 11.6-14.4 wwei=805) PLATELET COUNT (BEAKER) (test fegy=528) 194 K/CU MM 150-450 MEAN PLATELET VOLUME (BEAKER) (test ezyv=779) 11.7 fL 9.4-12.4 NUCLEATED RED BLOOD CELLS (BEAKER) (test 0 /100 WBC 0-0 gnst=679) NEUTROPHILS RELATIVE PERCENT (BEAKER) (test 50 % ptyg=975) LYMPHOCYTES RELATIVE PERCENT (BEAKER) (test 33 % jcgv=511) MONOCYTES RELATIVE PERCENT (BEAKER) (test 15 % vjfx=025) EOSINOPHILS RELATIVE PERCENT (BEAKER) (test 2 % popg=622) BASOPHILS RELATIVE PERCENT (BEAKER) (test 1 % chgk=826) NEUTROPHILS ABSOLUTE COUNT (BEAKER) (test 3.93 K/ L 1.78-5.38 lclk=055) LYMPHOCYTES ABSOLUTE COUNT (BEAKER) (test 2.58 K/ L 1.32-3.57 jvvn=071) MONOCYTES ABSOLUTE COUNT (BEAKER) (test 1.18 K/ L 0.30-0.82 waen=557) EOSINOPHILS ABSOLUTE COUNT (BEAKER) (test 0.15 K/ L 0.04-0.54 dqir=527) BASOPHILS ABSOLUTE COUNT (BEAKER) (test 0.04 K/ L 0.01-0.08 vnyd=616) IMMATURE GRANULOCYTES-RELATIVE PERCENT (BEAKER) 0 % 0-1 (test lbxb=8623) PT/[id number] 22:59:00 Test Item Value Reference Range Comments PROTIME (BEAKER) (test qxxm=621) 17.2 seconds 11.7-14.7 INR (BEAKER) (test loay=740) 1.4 <=5.9 PARTIAL THROMBOPLASTIN TIME (BEAKER) (test 23.8 seconds 22.5-36.0 garb=535) RECOMMENDED COUMADIN/WARFARIN INR THERAPY RANGESSTANDARD DOSE: 2.0 - 3.0 Includes: PROPHYLAXIS forvenous thrombosis, systemic embolization; TREATMENT for venous thrombosis and/or pulmonary embolus.HIGH RISK: Target INR is 2.5-3.5 for patients with mechanical heart valves.CT, BRAIN, WITHOUT [id number] 22:32:00FINAL REPORT CT, BRAIN, WITHOUT CONTRAST INDICATION: Stroke TECHNIQUE: Noncontrast axial imaging was obtained from the vertex to the skull base. Axial images were reconstructed using a bone algorithm. DOSE REDUCTION: Dose modulation, iterative reconstruction, and/or weight-basedadjustment of the mA/kV was utilized to reduce the radiation dose to as low as reasonably achievable. COMPARISON: Correlation to MRI examination approximately 21 hours prior FINDINGS: Newly conspicuoushyperattenuation in the region of right middle frontal gyrus infarct. Additionally, there is a faintblood in the region of the right parieto-occipital sulcus adjacent to known small cortical infarcts identified in the reference MR examination. Small , bilateral cortical infarcts are not well characterized in the current examination. There is no new large territory ischemic injury. No midline shift orhydrocephalus has developed. Osseous structures are unremarkable. IMPRESSION: Appearance is concerning for hemorrhagic conversion of infarct in the right middle frontal gyrus. Additionally, findings suspicious for small volume parenchymal and subarachnoid blood in the region of the right parieto-occipital sulcus. Findings communicated to neurology housestaff at the time of dictation. Signed: JR Lowery Robert MDReport Verified Date/Time: 04/13/2017 22:32: 02 Reading Location: [address] Reading Room [id number] 15:59:00 Test Item Value Reference Range Comments PARTIAL THROMBOPLASTIN TIME (BEAKER) (test 40.7 seconds 22.5-36.0 ownb=960) CREATINE KINASE (CK), TOTAL AND [id number] 11:03:00 Test Item Value Reference Range Comments CREATINE KINASE TOTAL (BEAKER) (test jfnd=918) 304 U/L 29-200 CREATINE KINASE-MB (BEAKER) (test xoci=441) 4.2 ng/mL 0.0-6.6 CREATINE KINASE-MB INDEX (BEAKER) (test nbjh=614) 1.4 % CK-MB Reference Range:<6.7 Normal6.7-10.0 Borderline>10.0 AbnormalTROPONIN [id number] 10:57:00 Test Item Value Reference Range Comments TROPONIN I (BEAKER) (test bbpz=213) 27.33 ng/mL 0.00-0.03 Troponin I (TnI) levels must be interpreted in the context of the presenting symptoms and the clinical findings. Elevated TnI levels indicate myocardial damage, but are not specific for ischemic heart disease. Elevated TnI levels are seen in patients with other cardiac conditions (including myocarditis and congestive heart failure), and slight TnI elevations occur in patients with other conditions, including sepsis, renal failure, acidosis, acute neurological disease, and persistent tachyarrhythmia.[id number] 10:29:00 Test Item Value Reference Range Comments PARTIAL THROMBOPLASTIN TIME (BEAKER) (test 50.5 seconds 22.5-36.0 tgmh=718) CBC W/PLT COUNT & AUTO [id number] 04:51:00 Test Item Value Reference Range Comments WHITE BLOOD CELL COUNT (BEAKER) (test bmaz=935) 8.3 K/ L 3.5-10.5 RED BLOOD CELL COUNT (BEAKER) (test fwzk=608) 4.72 M/ L 4.63-6.08 HEMOGLOBIN (BEAKER) (test xinw=423) 12.1 GM/DL 13.7-17.5 HEMATOCRIT (BEAKER) (test fhcm=895) 38.7 % 40.1-51.0 MEAN CORPUSCULAR VOLUME (BEAKER) (test hoxv=261) 82.0 fL 79.0-92.2 MEAN CORPUSCULAR HEMOGLOBIN (BEAKER) (test 25.6 pg 25.7-32.2 mdxl=562) MEAN CORPUSCULAR HEMOGLOBIN CONC (BEAKER) (test 31.3 GM/DL 32.3-36.5 kqed=961) RED CELL DISTRIBUTION WIDTH (BEAKER) (test 13.5 % 11.6-14.4 cndm=226) PLATELET COUNT (BEAKER) (test xlxd=677) 176 K/CU MM 150-450 MEAN PLATELET VOLUME (BEAKER) (test jueg=950) 12.2 fL 9.4-12.4 NUCLEATED RED BLOOD CELLS (BEAKER) (test 0 /100 WBC 0-0 kvuf=471) NEUTROPHILS RELATIVE PERCENT (BEAKER) (test 69 % mgch=105) LYMPHOCYTES RELATIVE PERCENT (BEAKER) (test 20 % jmyk=153) MONOCYTES RELATIVE PERCENT (BEAKER) (test 10 % yyfc=817) EOSINOPHILS RELATIVE PERCENT (BEAKER) (test 1 % qdhx=670) BASOPHILS RELATIVE PERCENT (BEAKER) (test 0 % quvk=016) NEUTROPHILS ABSOLUTE COUNT (BEAKER) (test 5.72 K/ L 1.78-5.38 mdhj=767) LYMPHOCYTES ABSOLUTE COUNT (BEAKER) (test 1.64 K/ L 1.32-3.57 rssr=913) MONOCYTES ABSOLUTE COUNT (BEAKER) (test 0.84 K/ L 0.30-0.82 tklk=620) EOSINOPHILS ABSOLUTE COUNT (BEAKER) (test 0.05 K/ L 0.04-0.54 cgqx=462) BASOPHILS ABSOLUTE COUNT (BEAKER) (test 0.02 K/ L 0.01-0.08 ptxv=697) IMMATURE GRANULOCYTES-RELATIVE PERCENT (BEAKER) 0 % 0-1 (test ktou=6916) BASIC METABOLIC [id number] 04:38:00 Test Item Value Reference Range Comments SODIUM (BEAKER) (test 141 meq/L 136-145 owwq=170) POTASSIUM (BEAKER) (test 3.8 meq/L 3.5-5.1 Specimen slightly hqfa=882) hemolyzed CHLORIDE (BEAKER) (test 107 meq/L 98-107 hpdm=745) CO2 (BEAKER) (test 26 meq/L 22-29 edzx=740) BLOOD UREA NITROGEN 15 mg/dL 7-21 (BEAKER) (test hwdt=588) CREATININE (BEAKER) (test 1.12 mg/dL 0.57-1.25 Specimen slightly mhpc=465) hemolyzed GLUCOSE RANDOM (BEAKER) 106 mg/dL 70-105 (test sijl=318) CALCIUM (BEAKER) (test 8.6 mg/dL 8.4-10.2 phyu=141) EGFR (BEAKER) (test 80 mL/min/1.73 sq m ESTIMATED GFR IS NOT cgeu=9829) ACCURATE CREATININE CLEARANCE IN PREDICTING GLOMERULAR FILTRATION RATE. ESTIMATED GFR IS NOT APPLICABLE FOR DIALYSIS PATIENTS. FastingLIPID [id number] 04:38:00 Test Item Value Reference Range Comments TRIGLYCERIDES (BEAKER) (test 97 mg/dL Specimen slightly hemolyzed icpy=866) CHOLESTEROL (BEAKER) (test 166 mg/dL Specimen slightly hemolyzed ebyt=649) HDL CHOLESTEROL (BEAKER) (test 32 mg/dL ctqw=924) LDL CHOLESTEROL CALCULATED 115 mg/dL (BEAKER) (test qmya=658) Triglyceride Reference Range: Low Risk <150 Borderline 150- 199 High Risk 200-499 Very High Risk >=500Cholesterol Reference Range: Low Risk <200 Borderline 200-239 High Risk > 240HDL Cholesterol Reference Range: Low Risk >=60 High Risk <40LDL Cholesterol Reference Range: Optimal <100 Near Optimal 100-129 Borderline 130-159 High 160-189 Very High >=190 FastingTROPONIN [id number] 02:32:00 Test Item Value Reference Range Comments TROPONIN I (BEAKER) (test fqwz=487) 33.95 ng/mL 0.00-0.03 Troponin I (TnI) levels must be interpreted in the context of the presenting symptoms and the clinical findings. Elevated TnI levels indicate myocardial damage, but are not specific for ischemic heart disease. Elevated TnI levels are seen in patients with other cardiac conditions (including myocarditis and congestive heart failure), and slight TnI elevations occur in patients with other conditions, including sepsis, renal failure, acidosis, acute neurological disease, and persistent tachyarrhythmia.CREATINE KINASE (CK), TOTAL AND [id number] 02:25:00 Test Item Value Reference Range Comments CREATINE KINASE TOTAL (BEAKER) (test pwjf=520) 373 U/L 29-200 CREATINE KINASE-MB (BEAKER) (test jnkm=680) 4.5 ng/mL 0.0-6.6 CREATINE KINASE-MB INDEX (BEAKER) (test xnbg=485) 1.2 % CK-MB Reference Range:<6.7 Normal6.7-10.0 Borderline>10.0 [id number] 02:01:00 Test Item Value Reference Range Comments PARTIAL THROMBOPLASTIN TIME (BEAKER) (test 54.0 seconds 22.5-36.0 xbcp=193) Prior to initiating heparinMR, BRAIN, WITHOUT [id number] 01:51:00FINAL REPORT MR, BRAIN, WITHOUT CONTRAST, MR, MRA, NECK, WITHOUT IV CONTRAST,MR, MRA, BRAIN, WITHOUT CONTRAST INDICATION: Strokewith LV thrombus TECHNIQUE: Multiplanar, multisequence MR images of the brain. 3-D time of flight MRA of the cranial and cervical circulation. 2-D time of flight MRA of the neck. 3D MIP angiographic post-processing was performed. Stenosis evaluation utilized NASCET criteria. COMPARISON: None FINDINGS: MRI BRAIN: There are multiple bilateral small supratentorial and infratentorial infarcts. The punctate infarcts involve the parietal lobes, left occipital lobe, left insular cortex, and both cerebellar lobes. There is a small to moderate-sized cortical infarct involving the right frontal lobe. There is correlating T2 and FLAIR signal abnormality. There is no hemorrhagic transformation. The overall distribution of these infarcts is consistent with the history of an LV thrombus. No acute hydrocephalus.Preserved flow voids in the major intracranial vascular structures. Symmetric globes.The paranasal sinuses and mastoid air cells are well aerated. MRA NECK: On the right, there is no significant atherosclerotic plaque at the CCA bifurcation. No flow-limiting stenosis or dissection.On the left, there is no significant atherosclerotic plaque at the CCA bifurcation. No flow-limiting stenosis or dissection.Co-dominant vertebral artery system. No flow-limiting stenosis of vertebral arteries. MRA HEAD: No flow-limiting stenosis, dissection, or aneurysmof the anterior circulation.No flow-limiting stenosis, dissection, or aneurysm of the posterior circulation. IMPRESSION:Multiple small bilateral supratentorial and infratentorial infarcts suggesting acentral embolic source. This is consistent with the history of an LV thrombus.Unremarkable MRA of the head and neck. Signed: Willian Sawyer MDReport Verified Date/Time: 04/13/2017 01:51:59 Reading Location: [address] Consult Reading Room MR, MRA, BRAIN, WITHOUT [id number] 01:51: 00FINAL REPORT MR, BRAIN, WITHOUT CONTRAST, MR, MRA, NECK , WITHOUT IV CONTRAST,MR, MRA, BRAIN, WITHOUT CONTRAST INDICATION: Strokewith LV thrombus TECHNIQUE: Multiplanar, multisequence MR images of the brain. 3-D time of flight MRA of the cranial and cervical circulation. 2-D time of flight MRA of the neck. 3D MIP angiographic post-processing was performed. Stenosis evaluation utilized NASCET criteria. COMPARISON: None FINDINGS: MRI BRAIN: There are multiple bilateral small supratentorial and infratentorial infarcts. The punctate infarcts involve the parietal lobes, left occipital lobe, left insular cortex, and both cerebellar lobes. There is a small to moderate-sized cortical infarct involving the right frontal lobe. There is correlating T2 and FLAIR signal abnormality. There is no hemorrhagic transformation. The overall distribution of these infarcts is consistent with the history of an LV thrombus. No acute hydrocephalus.Preserved flow voids in the major intracranial vascular structures. Symmetric globes.The paranasal sinuses and mastoid air cells are well aerated. MRA NECK: On the right, there is no significant atherosclerotic plaque at the CCA bifurcation. No flow-limiting stenosis or dissection.On the left, there is no significant atherosclerotic plaque at the CCA bifurcation. No flow-limiting stenosis or dissection.Co-dominant vertebral artery system. No flow-limiting stenosis of vertebral arteries. MRA HEAD: No flow-limiting stenosis, dissection, or aneurysmof the anterior circulation.No flow-limiting stenosis, dissection, or aneurysm of the posterior circulation. IMPRESSION:Multiple small bilateral supratentorial and infratentorial infarcts suggesting acentral embolic source. This is consistent with the history of an LV thrombus.Unremarkable MRA of the head and neck. Signed: Willian Sawyer MDReport Verified Date/Time: 04/13/2017 01:51:59 Reading Location: [address] Consult Reading Room MR, MRA, NECK, WITHOUT IV [id number] 01:51: 00FINAL REPORT MR, BRAIN, WITHOUT CONTRAST, MR, MRA, NECK , WITHOUT IV CONTRAST,MR, MRA, BRAIN, WITHOUT CONTRAST INDICATION: Strokewith LV thrombus TECHNIQUE: Multiplanar, multisequence MR images of the brain. 3-D time of flight MRA of the cranial and cervical circulation. 2-D time of flight MRA of the neck. 3D MIP angiographic post-processing was performed. Stenosis evaluation utilized NASCET criteria. COMPARISON: None FINDINGS: MRI BRAIN: There are multiple bilateral small supratentorial and infratentorial infarcts. The punctate infarcts involve the parietal lobes, left occipital lobe, left insular cortex, and both cerebellar lobes. There is a small to moderate-sized cortical infarct involving the right frontal lobe. There is correlating T2 and FLAIR signal abnormality. There is no hemorrhagic transformation. The overall distribution of these infarcts is consistent with the history of an LV thrombus. No acute hydrocephalus.Preserved flow voids in the major intracranial vascular structures. Symmetric globes.The paranasal sinuses and mastoid air cells are well aerated. MRA NECK: On the right, there is no significant atherosclerotic plaque at the CCA bifurcation. No flow-limiting stenosis or dissection.On the left, there is no significant atherosclerotic plaque at the CCA bifurcation. No flow-limiting stenosis or dissection.Co-dominant vertebral artery system. No flow-limiting stenosis of vertebral arteries. MRA HEAD: No flow-limiting stenosis, dissection, or aneurysmof the anterior circulation.No flow-limiting stenosis, dissection, or aneurysm of the posterior circulation. IMPRESSION:Multiple small bilateral supratentorial and infratentorial infarcts suggesting acentral embolic source. This is consistent with the history of an LV thrombus.Unremarkable MRA of the head and neck. Signed: Willian Sawyer MDReport Verified Date/Time: 04/13/2017 01:51:59 Reading Location: [facility] C0[facility] Consult Reading Room URINALYSIS W/ [id number] 00:39:00 Test Item Value Reference Range Comments COLOR (BEAKER) (test bplp=188) Colorless CLARITY (BEAKER) (test oalz=511) Clear SPECIFIC GRAVITY UA (BEAKER) (test ldqm=258) 1.002 1.001-1.035 PH UA (BEAKER) (test wbca=790) 5.5 5.0-8.0 PROTEIN UA (BEAKER) (test wczz=674) 50 mg/dL Negative GLUCOSE UA (BEAKER) (test yhqj=127) Negative Negative KETONES UA (BEAKER) (test fwrc=828) Negative Negative BILIRUBIN UA (BEAKER) (test yfhi=570) Negative Negative BLOOD UA (BEAKER) (test plzj=382) Trace Negative NITRITE UA (BEAKER) (test iqws=801) Negative Negative LEUKOCYTE ESTERASE UA (BEAKER) (test tqwu=216) Negative Negative UROBILINOGEN UA (BEAKER) (test cmyi=638) 0.2 mg/dL 0.2-1.0 RBC UA (BEAKER) (test beft=133) 0 /HPF WBC UA (BEAKER) (test mqey=021) 1 /HPF SQUAMOUS EPITHELIAL (BEAKER) (test dfko=419) < /HPF AMORPHOUS CRYSTALS (BEAKER) (test cxml=7969) Rare SOURCE(BEAKER) (test olrf=8754) Urine, Voided HEMOGLOBIN [id number] 22:15:00 Test Item Value Reference Range Comments HEMOGLOBIN A1C (BEAKER) (test tkak=218) 5.7 % 4.3-6.1 TROPONIN [id number] 21:26:00 Test Item Value Reference Range Comments TROPONIN I (BEAKER) (test jwub=772) 28.37 ng/mL 0.00-0.03 Troponin I (TnI) levels must be interpreted in the context of the presenting symptoms and the clinical findings. Elevated TnI levels indicate myocardial damage, but are not specific for ischemic heart disease. Elevated TnI levels are seen in patients with other cardiac conditions (including myocarditis and congestive heart failure), and slight TnI elevations occur in patients with other conditions, including sepsis, renal failure, acidosis, acute neurological disease, and persistent tachyarrhythmia.CREATINE KINASE (CK), TOTAL AND [id number] 21:14:00 Test Item Value Reference Range Comments CREATINE KINASE TOTAL (BEAKER) (test ujih=170) 366 U/L 29-200 CREATINE KINASE-MB (BEAKER) (test fzqn=133) 4.8 ng/mL 0.0-6.6 CREATINE KINASE-MB INDEX (BEAKER) (test rbhk=559) 1.3 % CK-MB Reference Range:<6.7 Normal6.7-10.0 Borderline>10.0 AbnormalCOMPREHENSIVE METABOLIC [id number] 21:06:00 Test Item Value Reference Range Comments TOTAL PROTEIN (BEAKER) 7.8 gm/dL 6.0-8.3 Specimen slightly (test hbwx=524) hemolyzed ALBUMIN (BEAKER) (test 3.5 g/dL 3.5-5.0 Specimen slightly iaso=8703) hemolyzed ALKALINE PHOSPHATASE 58 U/L 40-150 (BEAKER) (test udag=413) BILIRUBIN TOTAL (BEAKER) 0.4 mg/dL 0.2-1.2 Specimen slightly (test wgtt=050) hemolyzed SODIUM (BEAKER) (test 137 meq/L 136-145 brjy=339) POTASSIUM (BEAKER) (test 3.3 meq/L 3.5-5.1 Specimen slightly vofz=071) hemolyzed CHLORIDE (BEAKER) (test 103 meq/L 98-107 ivyv=929) CO2 (BEAKER) (test 24 meq/L 22-29 tkvp=646) BLOOD UREA NITROGEN 16 mg/dL 7-21 (BEAKER) (test lram=804) CREATININE (BEAKER) (test 1.08 mg/dL 0.57-1.25 Specimen slightly aeij=970) hemolyzed GLUCOSE RANDOM (BEAKER) 103 mg/dL 70-105 (test pigj=197) CALCIUM (BEAKER) (test 8.9 mg/dL 8.4-10.2 rpep=679) AST (SGOT) (BEAKER) (test 59 U/L 5-34 Specimen slightly xqer=182) hemolyzed ALT (SGPT) (BEAKER) (test 38 U/L 6-55 Specimen slightly bfnm=922) hemolyzed EGFR (BEAKER) (test 84 mL/min/1.73 sq m ESTIMATED GFR IS NOT tpok=[id number]) ACCURATE CREATININE CLEARANCE IN PREDICTING GLOMERULAR FILTRATION RATE. ESTIMATED GFR IS NOT APPLICABLE FOR DIALYSIS PATIENTS. PROTHROMBIN TIME/[id number] 21:02:00 Test Item Value Reference Range Comments PROTIME (BEAKER) (test zqsb=561) 17.4 seconds 11.7-14.7 INR (BEAKER) (test zilw=819) 1.4 <=5.9 RECOMMENDED COUMADIN/WARFARIN INR THERAPY RANGESSTANDARD DOSE: 2.0 - 3.0 Includes: PROPHYLAXIS forvenous thrombosis, systemic embolization; TREATMENT for venous thrombosis and/or pulmonary embolus.HIGH RISK: Target INR is 2.5-3.5 for patients with mechanical heart valves.[id number] 21:02:00 Test Item Value Reference Range Comments PROTIME (BEAKER) (test hyto=428) 17.4 seconds 11.7-14.7 INR (BEAKER) (test kjnn=954) 1.4 <=5.9 PARTIAL THROMBOPLASTIN TIME (BEAKER) (test 29.2 seconds 22.5-36.0 ijsc=950) RECOMMENDED COUMADIN/WARFARIN INR THERAPY RANGESSTANDARD DOSE: 2.0 - 3.0 Includes: PROPHYLAXIS forvenous thrombosis, systemic embolization; TREATMENT for venous thrombosis and/or pulmonary embolus.HIGH RISK: Target INR is 2.5-3.5 for patients with mechanical heart valves.[id number] 21:02:00 Test Item Value Reference Range Comments PARTIAL THROMBOPLASTIN TIME (BEAKER) (test 29.2 seconds 22.5-36.0 vaxf=858) CBC W/PLT COUNT & AUTO [id number] 20:56:00 Test Item Value Reference Range Comments WHITE BLOOD CELL COUNT (BEAKER) (test qtlc=853) 7.5 K/ L 3.5-10.5 RED BLOOD CELL COUNT (BEAKER) (test dreu=503) 4.75 M/ L 4.63-6.08 HEMOGLOBIN (BEAKER) (test tfup=889) 12.5 GM/DL 13.7-17.5 HEMATOCRIT (BEAKER) (test fvhh=979) 38.5 % 40.1-51.0 MEAN CORPUSCULAR VOLUME (BEAKER) (test hdqb=422) 81.1 fL 79.0-92.2 MEAN CORPUSCULAR HEMOGLOBIN (BEAKER) (test 26.3 pg 25.7-32.2 zqff=494) MEAN CORPUSCULAR HEMOGLOBIN CONC (BEAKER) (test 32.5 GM/DL 32.3-36.5 crzz=821) RED CELL DISTRIBUTION WIDTH (BEAKER) (test 13.4 % 11.6-14.4 pqqx=884) PLATELET COUNT (BEAKER) (test fczg=125) 174 K/CU MM 150-450 MEAN PLATELET VOLUME (BEAKER) (test jfud=117) 12.0 fL 9.4-12.4 NUCLEATED RED BLOOD CELLS (BEAKER) (test 0 /100 WBC 0-0 unaq=797) NEUTROPHILS RELATIVE PERCENT (BEAKER) (test 61 % lflh=146) LYMPHOCYTES RELATIVE PERCENT (BEAKER) (test 21 % wgfs=986) MONOCYTES RELATIVE PERCENT (BEAKER) (test 17 % fhgl=453) EOSINOPHILS RELATIVE PERCENT (BEAKER) (test 1 % natq=294) BASOPHILS RELATIVE PERCENT (BEAKER) (test 0 % twwa=710) NEUTROPHILS ABSOLUTE COUNT (BEAKER) (test 4.55 K/ L 1.78-5.38 jwcp=387) LYMPHOCYTES ABSOLUTE COUNT (BEAKER) (test 1.54 K/ L 1.32-3.57 subv=212) MONOCYTES ABSOLUTE COUNT (BEAKER) (test 1.29 K/ L 0.30-0.82 vrtn=887) EOSINOPHILS ABSOLUTE COUNT (BEAKER) (test 0.04 K/ L 0.04-0.54 oqtm=313) BASOPHILS ABSOLUTE COUNT (BEAKER) (test 0.03 K/ L 0.01-0.08 ozvv=064) IMMATURE GRANULOCYTES-RELATIVE PERCENT (BEAKER) 0 % 0-1 (test nbyv=1909)
--- NOTE | 2019-10-05 01:15 | ER ---
Nurse's Notes [facility] Name: Hui Guevara Age: 64 yrs Sex: Male : 1955 Arrival Date: 10/05/2019 Time: 00:19 Bed 17 Private MD: Diagnosis: Dyspnea Presentation: 10/04 00:30 Chief complaint: Patient states: Reports he has been having shortness of breath on and ea off for a few days, pt denies fever or cough. Denies pain at this time. Coronavirus screen: Patient denies fever greater than 100.4F, cough, shortness of breath, or difficulty breathing. Proceed with normal triage process. Ebola Screen: No symptoms or risks identified at this time. Initial Sepsis Screen: Does the patient meet any 2 criteria? No. Patient's initial sepsis screen is negative. Does the patient have a suspected source of infection? No. Patient's initial sepsis screen is negative. Risk Assessment: Do you want to hurt yourself or someone else? Patient reports no desire to harm self or others. 00:30 Method Of Arrival: Ambulatory ea 00:30 Acuity: REUBEN 3 ea Triage Assessment: 00:35 General: Appears in no apparent distress. Behavior is calm, cooperative, appropriate ea for age. Pain: Denies pain. Neuro: Level of Consciousness is awake, alert, obeys commands, Oriented to person, place, time, situation. Respiratory: Reports shortness of breath at rest Onset: The symptoms/episode began/occurred yesterday, the patient reports symptoms have resolved. Historical: - Allergies: 00:35 No Known Allergies; ea - PMHx: 00:35 psoriasis; kidney issues; Hypertension; heart stents; heart stents; ea - Immunization history:: Adult Immunizations up to date. - Social history:: Smoking status: Patient denies any tobacco usage or history of. Screenin:31 Abuse screen: Denies threats or abuse. Nutritional screening: No deficits noted. ea Tuberculosis screening: No symptoms or risk factors identified. Fall Risk None identified. Assessment: 00:34 General: Appears in no apparent distress. Behavior is calm, cooperative. Pain: Denies ah pain. Neuro: Level of Consciousness is awake, alert, Oriented to person, place, time, situation. Cardiovascular: Denies chest pain, Heart tones S1 S2 present Capillary refill < 3 seconds Patient's skin is warm and dry. Pulses are palpable in right radial artery, right dorsalis pedis artery, left radial artery and left dorsalis pedis artery Rhythm is sinus rhythm. Respiratory: Reports shortness of breath comes and goes Airway is patent Respiratory effort is even, unlabored, Respiratory pattern is regular, symmetrical, Breath sounds are clear bilaterally. Denies cough, pain with respiration. GI: No signs and/or symptoms were reported involving the gastrointestinal system. Bowel sounds present X 4 quads. Abd is soft and non tender. : No signs and/or symptoms were reported regarding the genitourinary system. EENT: No signs and/or symptoms were reported regarding the EENT system. Derm: No signs and/or symptoms reported regarding the dermatologic system. Musculoskeletal: No signs and/or symptoms reported regarding the musculoskeletal system. Vital Signs: 00:30 BP 148 / 67; Pulse 68; Resp 18; Temp 98.8; Pulse Ox 100% on R/A; Weight 122.47 kg; ea Height 5 ft. 9 in. (175.26 cm); Pain 0/10; 01:11 BP 122 / 65; Pulse 49; Resp 18; Pulse Ox 100% ; ah 00:30 Body Mass Index 39.87 (122.47 kg, 175.26 cm) ea ED Course: 00:19 Patient arrived in ED. cl3 00:31 Triage completed. ea 00:32 Pema Mayes FNP-C is PHCP. kb 00:32 Luana Sun MD is Attending Physician. kb 00:32 Patient has correct armband on for positive identification. Bed in low position. Call ea light in reach. Side rails up X2. 00:32 Arm band placed on right wrist. Patient placed in an exam room, on a stretcher, on ea pulse oximetry. 00:34 Roxana Yepez, RN is Primary Nurse. ah 00:43 EKG done, by ED staff. ah 00:57 Patient moved to radiology via wheelchair. ah 01:05 Chest Pa And Lat (2 Views) XRAY In Process Unspecified. EDMS 01:08 Patient moved back from radiology. ah 01:22 No provider procedures requiring assistance completed. Patient did not have IV access ah during this emergency room visit. Administered Medications: No medications were administered Outcome: 01:15 Discharge ordered by . kb 01:21 Discharged to home ambulatory. ah 01:21 Condition: good 01:21 Discharge instructions given to patient, Instructed on discharge instructions, follow up and referral plans. Demonstrated understanding of instructions, follow-up care. 01:25 Patient left the ED. Signatures: Dispatcher [employer] EDPema Randolph, MARCE-C LIGHT RAIL OPERATOR-Maria Jorgensen, RN Leonel Bolanos ea cl3 Roxana Yepez RN RN
--- NOTE | 2019-10-05 01:15 | EDPHYS ---
Physician Documentation [facility] Name: Hui Guevara Age: 64 yrs Sex: Male : 1955 Arrival Date: 10/05/2019 Time: 00:19 Bed 17 Private MD: ED Physician Luana Sun HPI: 10/04 01:11 This 64 yrs old Black Male presents to ER via Ambulatory with complaints of Shortness kb Of Breath. 01:11 The patient has shortness of breath at rest. Onset: The symptoms/episode began/occurred kb 2 day(s) ago. Duration: The symptoms are intermittent. The patient's shortness of breath is aggravated by nothing, is alleviated by nothing. Associated signs and symptoms: Pertinent negatives: chest pain, non-productive cough, productive cough, fever. Severity of symptoms: At their worst the symptoms were mild in the emergency department the symptoms have resolved. The patient has not experienced similar symptoms in the past. The patient has not recently seen a physician. Pt reports he has had episodes of "shallow breaths" over the last 2 days. Reports the episodes last for about 20 minutes then goes away. States he had an episode at 1100 and 2200 today, but now it is resolved. States he has no symptoms at this time. "I just heard that could be a symptom of that COVID19 stuff so I wanted to make sure I didn't have it." Pt denies cough, congestion, fever, chest pain or any other symptoms. Pt talking on cell phone, no distress. . Historical: - Allergies: 00:35 No Known Allergies; ea - PMHx: 00:35 psoriasis; kidney issues; Hypertension; heart stents; heart stents; ea - Immunization history:: Adult Immunizations up to date. - Social history:: Smoking status: Patient denies any tobacco usage or history of. ROS: 01:11 Constitutional: Negative for fever, chills, and weight loss, ENT: Negative for injury, kb pain, and discharge, Neck: Negative for injury, pain, and swelling, Cardiovascular: Negative for chest pain, palpitations, and edema, Abdomen/GI: Negative for abdominal pain, nausea, vomiting, diarrhea, and constipation, Back: Negative for injury and pain, MS/Extremity: Negative for injury and deformity, Skin: Negative for injury, rash, and discoloration, Neuro: Negative for headache, weakness, numbness, tingling, and seizure. 01:11 Constitutional: Negative for fever, chills, and weight loss. 01:11 Respiratory: Positive for shortness of breath, Negative for cough, dyspnea on exertion, hemoptysis, orthopnea, pleurisy, sputum production, wheezing. Exam: 01:11 Constitutional: This is a well developed, well nourished patient who is awake, alert, kb and in no acute distress. Head/Face: Normocephalic, atraumatic. ENT: Nares patent. No nasal discharge, no septal abnormalities noted. Tympanic membranes are normal and external auditory canals are clear. Oropharynx with no redness, swelling, or masses, exudates, or evidence of obstruction, uvula midline. Mucous membranes moist. Neck: Trachea midline, no thyromegaly or masses palpated, and no cervical lymphadenopathy. Supple, full range of motion without nuchal rigidity, or vertebral point tenderness. No Meningismus. Chest/axilla: Normal chest wall appearance and motion. Nontender with no deformity. No lesions are appreciated. Cardiovascular: Regular rate and rhythm with a normal S1 and S2. No gallops, murmurs, or rubs. Normal PMI, no JVD. No pulse deficits. Respiratory: Lungs have equal breath sounds bilaterally, clear to auscultation and percussion. No rales, rhonchi or wheezes noted. No increased work of breathing, no retractions or nasal flaring. Abdomen/GI: Soft, non-tender, with normal bowel sounds. No distension or tympany. No guarding or rebound. No evidence of tenderness throughout. Skin: Warm, dry with normal turgor. Normal color with no rashes, no lesions, and no evidence of cellulitis. MS/ Extremity: Pulses equal, no cyanosis. Neurovascular intact. Full, normal range of motion. Neuro: Awake and alert, GCS 15, oriented to person, place, time, and situation. Cranial nerves II-XII grossly intact. Motor strength 5/5 in all extremities. Sensory grossly intact. Cerebellar exam normal. Normal gait. 01:15 ECG was reviewed by the Attending Physician. kb Vital Signs: 00:30 BP 148 / 67; Pulse 68; Resp 18; Temp 98.8; Pulse Ox 100% on R/A; Weight 122.47 kg; ea Height 5 ft. 9 in. (175.26 cm); Pain 0/10; 01:11 BP 122 / 65; Pulse 49; Resp 18; Pulse Ox 100% ; ah 00:30 Body Mass Index 39.87 (122.47 kg, 175.26 cm) ea MDM: 00:32 Patient medically screened. kb 01:11 Data reviewed: vital signs, nurses notes. Data interpreted: Pulse oximetry: on room air kb is 100 %. Interpretation: normal. Counseling: I had a detailed discussion with the patient and/or guardian regarding: the historical points, exam findings, and any diagnostic results supporting the discharge/admit diagnosis, radiology results, the need for outpatient follow up, a family practitioner, to return to the emergency department if symptoms worsen or persist or if there are any questions or concerns that arise at home. 10/04 00:40 Order name: Chest Pa And Lat (2 Views) XRAY kb 10/04 00:40 Order name: EKG; Complete Time: 00:41 kb 10/04 00:40 Order name: EKG - Nurse/Tech; Complete Time: 00:41 kb EC:15 Rate is 50 beats/min. Rhythm is regular, Sinus bradycardia. Left axis deviation noted. kb OR interval is normal at 50 msec. QRS interval is normal at 110 msec. QT interval is normal at 430 msec. Administered Medications: No medications were administered Disposition: 02:07 Co-signature as Attending Physician, Luana Sun MD. ma2 Disposition: 10/05/19 01:15 Discharged to Home. Impression: Dyspnea. - Condition is Stable. - Discharge Instructions: Shortness of Breath, [id number]. - Medication Reconciliation Form, Thank You Letter, Antibiotic Education, Prescription Opioid Use form. - Follow up: Emergency Department; When: As needed; Reason: Worsening of condition. Follow up: Private Physician; When: 2 - 3 days; Reason: Recheck today's complaints, Continuance of care, Re-evaluation by your physician. Signatures: Dispatcher [employer] Pema Richey, Maria Pantoja RN RN ea Alzahri, Mohammad, MD MD ma2 Roxana Yepez RN MARI Corrections: (The following items were deleted from the chart) 01:25 01:15 10/05/2019 01:15 Discharged to Home. Impression: Dyspnea. Condition is Stable. ah Forms are Medication Reconciliation Form, Thank You Letter, Antibiotic Education, Prescription Opioid Use. Follow up: Emergency Department; When: As needed; Reason: Worsening of condition. Follow up: Private Physician; When: 2 - 3 days; Reason: Recheck today's complaints, Continuance of care, Re-evaluation by your physician. kb
[2019-10-05 01:32] VITALS: TEMP 98.8; O2SAT 100
[2019-10-05 01:33] VITALS: BP 122/65
--- NOTE | 2019-10-05 08:49 | EKG ---
Test Date: 2019-10-05 Test Time: 00:46:38 Spray Gun Striper: MILES MEASUREMENT RESULTS: Intervals: Rate: 50 IA: 212 QRSD: 110 QT: 430 QTc: 392 [place]: P: 44 IA: 212 QRS: -46 T: 41 INTERPRETIVE STATEMENTS: Sinus bradycardia with 1st degree AV block Left anterior fascicular block Septal infarct, age undetermined Possible Lateral infarct, age undetermined T wave abnormality, consider anterior ischemia Abnormal ECG Compared to ECG 04/12/2017 18:57:26 First degree AV block now present Left anterior fascicular block now present T-wave abnormality now present Possible ischemia now present Sinus tachycardia no longer present Left-axis deviation no longer present Myocardial infarct finding still present Electronically Signed On 10-05-19 08:49:11 CDT by Horacio Benoit
--- NOTE | 2019-10-05 12:30 | RAD REPORT ---
EXAM DESCRIPTION: RAD - Chest Pa And Lat (2 Views) - 10/05/2019 1:06 am CLINICAL HISTORY: DYSPNEA Chest pain. COMPARISON: Chest Single View dated 04/12/2017; CHEST SINGLE VIEW dated 06/18/2015 FINDINGS: The lungs are clear. The heart is normal in size. No displaced fractures. IMPRESSION: No acute or concerning finding suspected.
== END 2019-10-05 01:25 | disposition home or self-care (01) ==
LOC: ER 00:14
DX: R06.00 Dyspnea, unspecified (principal); I10 Essential (primary) hypertension; Z95.818 Presence of other cardiac implants and grafts
CPT/HCPCS: 71046; 93005; 99284

== ENCOUNTER 2021-03-16 15:29 | Emergency (ER) | payer OTHER, SELFPAY ==
--- OUTSIDE RECORDS SUMMARY | 2021-03-16 15:34 | XMS REPORT | Continuity of Care Document ---
:1955 Author Organization [facility] t Address [address] [place] [address] Care Team Providers Name Role Phone Sharpless Primary Care Physician ISRRAEL HILLS Attending Clinician Unavailable ISRRAEL HILLS Admitting Clinician Unavailable Problems Condition Condition Condition Status Onset Resolution Last Treating Co mments Source Name Details Category Date Date Treatment Clinician Date LV (left LV (left Disease [facility] Josi kes - r) mural r) mural 00:00: Medica l thrombus thrombus 00 Center with acute with acute CO CO Stroke Stroke Disease Active 2016-07 [facility] (cerebrum) (cerebrum) 0-04 Josi kes - 00:00: Medical 00 Center Allergies, Adverse Reactions, Alerts This patient has no known allergies or adverse reactions. Family History Family Member Diagnosis Comments Start Date Stop Date Source Natural brother Coronary artery [facility] Natural father Coronary artery [facility] S t [facility] Paternal grandmother Diabetes [facility] Social History Social Habit Start Date Stop Date Quantity Comments Source Sex Assigned At [facility] Tobacco use and 2017-04-19 2017-04-19 Never used [facility] - exposure 00:00:00 00:00:00 [place] Alcohol intake 2017-04-19 2017-04-19 Current [facility] es - 00:00:00 00:00:00 non-drinker of Medical Ce nter alcohol (finding) Smoking Status Start Date Stop Date Source Never smoker [facility] Center Medications Ordered Filled Start Stop Current Ordering Indication Dosage Frequency Signature Comments Components Source Medication Medication Date Date Medication? Clinician (SIG) Name Name lansoprazol 2016-07 Yes 30mg QD Take [address] [facility] 0[facility]13 [facility] - (PREVACID) 19:16: daily. Medic al 30 MG 56 Center capsule lisinopril 2016-07 Yes 20mg QD Take 2 [facility] (PRINIVIL,Z [facility]-12 tablets [facility] - ESTRIL) 10 00:00: (20 mg Medic al MG tablet 00 total) by Cente r mouth daily. Procedures This patient has no known procedures. Results Test Description Test Time Test Comments Results Result Comments Source PROTHROMBIN TIME/INR 2017-04-21 08:17:00 Test Item Value Reference Range Interpretation Comme nts PROTIME (BEAKER) (test code = 759) 22.7 seconds 11.7-14.7 H INR (BEAKER) (test code = 370) 2.0 <=5.9 RECOMMENDED COUMADIN/WARFARIN INR THERAPY RANGESSTANDARD DOSE: 2.0 - 3.0 Includes: PROPHYLAXIS forvenous thrombosis, systemic embolization; TREATMENT for venous thrombosis and/or pulmonary embolus.HIGH RISK: Target INR is 2.5-3.5 for patients with mechanical heart valves.While on warfarin.BASIC METABOLIC PANEL 2017-04-21 07:33:00 Test Item Value Reference Range Interpretation Comments SODIUM (BEAKER) 139 meq/L 136-145 (test code = 381) POTASSIUM (BEAKER) 4.4 meq/L 3.5-5.1 (test code = 379) CHLORIDE (BEAKER) 107 meq/L 98-107 (test code = 382) CO2 (BEAKER) (test 24 meq/L 22-29 code = 355) BLOOD UREA NITROGEN 9 mg/dL 7-21 (BEAKER) (test code = 354) CREATININE (BEAKER) 0.91 mg/dL 0.57-1.25 (test code = 358) GLUCOSE RANDOM 84 mg/dL 70-105 (BEAKER) (test code = 652) CALCIUM (BEAKER) 9.4 mg/dL 8.4-10.2 (test code = 697) EGFR (BEAKER) (test 102 mL/min/1.73 ESTIM ATED GFR IS code = 1092) sq m NOT ACCURATE CREATININE CLEARANCE IN PREDICTING GLOMERULAR FILTRATION RATE . ESTIMATED GFR I S NOT APPLICABLE FOR DIALYSIS PATIEN TS. CBC W/PLT COUNT & AUTO [id number] 05:54:00 Test Item Value Reference Range Interpretation Comments WHITE BLOOD CELL COUNT (BEAKER) 7.9 K/ L 3.5-10.5 (test code = 775) RED BLOOD CELL COUNT (BEAKER) 4.70 M/ L 4.63-6.08 (test code = 761) HEMOGLOBIN (BEAKER) (test code = 12.4 GM/DL 13.7-17.5 L 410) HEMATOCRIT (BEAKER) (test code = 39.8 % 40.1-51.0 L 411) MEAN CORPUSCULAR VOLUME (BEAKER) 84.7 fL 79.0-92.2 (test code = 753) MEAN CORPUSCULAR HEMOGLOBIN 26.4 pg 25.7-32.2 (BEAKER) (test code = 751) MEAN CORPUSCULAR HEMOGLOBIN CONC 31.2 GM/DL 32.3-36.5 L (BEAKER) (test code = 752) RED CELL DISTRIBUTION WIDTH 13.8 % 11.6-14.4 (BEAKER) (test code = 412) PLATELET COUNT (BEAKER) (test 384 K/CU MM 150-450 code = 756) MEAN PLATELET VOLUME (BEAKER) 11.4 fL 9.4-12.4 (test code = 754) NUCLEATED RED BLOOD CELLS 0 /100 WBC 0-0 (BEAKER) (test code = 413) NEUTROPHILS RELATIVE PERCENT 49 % (BEAKER) (test code = 429) LYMPHOCYTES RELATIVE PERCENT 38 % (BEAKER) (test code = 430) MONOCYTES RELATIVE PERCENT 10 % (BEAKER) (test code = 431) EOSINOPHILS RELATIVE PERCENT 2 % (BEAKER) (test code = 432) BASOPHILS RELATIVE PERCENT 1 % (BEAKER) (test code = 437) NEUTROPHILS ABSOLUTE COUNT 3.87 K/ L 1.78-5.38 (BEAKER) (test code = 670) LYMPHOCYTES ABSOLUTE COUNT 2.97 K/ L 1.32-3.57 (BEAKER) (test code = 414) MONOCYTES ABSOLUTE COUNT (BEAKER) 0.75 K/ L 0.30-0.82 (test code = 415) EOSINOPHILS ABSOLUTE COUNT 0.17 K/ L 0.04-0.54 (BEAKER) (test code = 416) BASOPHILS ABSOLUTE COUNT (BEAKER) 0.05 K/ L 0.01-0.08 (test code = 417) IMMATURE GRANULOCYTES-RELATIVE 1 % 0-1 PERCENT (BEAKER) (test code = 2801) BASIC METABOLIC [id number] 06:43:00 Test Item Value Reference Range Interpretation Comments SODIUM (BEAKER) 138 meq/L 136-145 (test code = 381) POTASSIUM (BEAKER) 4.9 meq/L 3.5-5.1 Specimen moderately (test code = 379) hemolyzed CHLORIDE (BEAKER) 106 meq/L 98-107 (test code = 382) CO2 (BEAKER) (test 26 meq/L 22-29 code = 355) BLOOD UREA NITROGEN 9 mg/dL 7-21 (BEAKER) (test code = 354) CREATININE (BEAKER) 0.89 mg/dL 0.57-1.25 Specimen moderately (test code = 358) hemolyzed GLUCOSE RANDOM 90 mg/dL 70-105 (BEAKER) (test code = 652) CALCIUM (BEAKER) 9.0 mg/dL 8.4-10.2 (test code = 697) EGFR (BEAKER) (test 105 mL/min/1.73 ESTIM ATED GFR IS code = 1092) sq m NOT ACCURATE CREATININE CLEARANCE IN PREDICTING GLOMERULAR FILTRATION RATE . ESTIMATED GFR I S NOT APPLICABLE FOR DIALYSIS PATIEN TS. PROTHROMBIN [id number] 06:25:00 Test Item Value Reference Range Interpretation Comments PROTIME (BEAKER) (test code = 18.8 seconds 11.7-14.7 H 759) INR (BEAKER) (test code = 370) 1.6 <=5.9 RECOMMENDED COUMADIN/WARFARIN INR THERAPY RANGESSTANDARD DOSE: 2.0 - 3.0 Includes: PROPHYLAXIS forvenous thrombosis, systemic embolization; TREATMENT for venous thrombosis and/or pulmonary embolus.HIGH RISK: Target INR is 2.5-3.5 for patients with mechanical heart valves.While on warfarin.CBC W/PLT COUNT & AUTO [id number] 06:12:00 Test Item Value Reference Range Interpretation Comments WHITE BLOOD CELL COUNT (BEAKER) 8.3 K/ L 3.5-10.5 (test code = 775) RED BLOOD CELL COUNT (BEAKER) 4.50 M/ L 4.63-6.08 L (test code = 761) HEMOGLOBIN (BEAKER) (test code = 11.9 GM/DL 13.7-17.5 L 410) HEMATOCRIT (BEAKER) (test code = 38.3 % 40.1-51.0 L 411) MEAN CORPUSCULAR VOLUME (BEAKER) 85.1 fL 79.0-92.2 (test code = 753) MEAN CORPUSCULAR HEMOGLOBIN 26.4 pg 25.7-32.2 (BEAKER) (test code = 751) MEAN CORPUSCULAR HEMOGLOBIN CONC 31.1 GM/DL 32.3-36.5 L (BEAKER) (test code = 752) RED CELL DISTRIBUTION WIDTH 14.6 % 11.6-14.4 H (BEAKER) (test code = 412) PLATELET COUNT (BEAKER) (test 385 K/CU MM 150-450 code = 756) MEAN PLATELET VOLUME (BEAKER) 11.3 fL 9.4-12.4 (test code = 754) NUCLEATED RED BLOOD CELLS 0 /100 WBC 0-0 (BEAKER) (test code = 413) NEUTROPHILS RELATIVE PERCENT 54 % (BEAKER) (test code = 429) LYMPHOCYTES RELATIVE PERCENT 34 % (BEAKER) (test code = 430) MONOCYTES RELATIVE PERCENT 9 % (BEAKER) (test code = 431) EOSINOPHILS RELATIVE PERCENT 2 % (BEAKER) (test code = 432) BASOPHILS RELATIVE PERCENT 1 % (BEAKER) (test code = 437) NEUTROPHILS ABSOLUTE COUNT 4.49 K/ L 1.78-5.38 (BEAKER) (test code = 670) LYMPHOCYTES ABSOLUTE COUNT 2.81 K/ L 1.32-3.57 (BEAKER) (test code = 414) MONOCYTES ABSOLUTE COUNT (BEAKER) 0.71 K/ L 0.30-0.82 (test code = 415) EOSINOPHILS ABSOLUTE COUNT 0.20 K/ L 0.04-0.54 (BEAKER) (test code = 416) BASOPHILS ABSOLUTE COUNT (BEAKER) 0.05 K/ L 0.01-0.08 (test code = 417) IMMATURE GRANULOCYTES-RELATIVE 1 % 0-1 PERCENT (BEAKER) (test code = 2801) BASIC METABOLIC [id number] 10:54:00 Test Item Value Reference Range Interpretation Comments SODIUM (BEAKER) 138 meq/L 136-145 (test code = 381) POTASSIUM (BEAKER) 4.2 meq/L 3.5-5.1 (test code = 379) CHLORIDE (BEAKER) 105 meq/L 98-107 (test code = 382) CO2 (BEAKER) (test 24 meq/L 22-29 code = 355) BLOOD UREA NITROGEN 9 mg/dL 7-21 (BEAKER) (test code = 354) CREATININE (BEAKER) 0.90 mg/dL 0.57-1.25 (test code = 358) GLUCOSE RANDOM 88 mg/dL 70-105 (BEAKER) (test code = 652) CALCIUM (BEAKER) 9.0 mg/dL 8.4-10.2 (test code = 697) EGFR (BEAKER) (test 103 mL/min/1.73 ESTIM ATED GFR IS code = 1092) sq m NOT ACCURATE CREATININE CLEARANCE IN PREDICTING GLOMERULAR FILTRATION RATE . ESTIMATED GFR I S NOT APPLICABLE FOR DIALYSIS PATIEN TS. CBC W/PLT COUNT & AUTO [id number] 07:36:00 Test Item Value Reference Range Interpretation Comments WHITE BLOOD CELL COUNT (BEAKER) 7.2 K/ L 3.5-10.5 (test code = 775) RED BLOOD CELL COUNT (BEAKER) 4.54 M/ L 4.63-6.08 L (test code = 761) HEMOGLOBIN (BEAKER) (test code = 11.8 GM/DL 13.7-17.5 L 410) HEMATOCRIT (BEAKER) (test code = 38.1 % 40.1-51.0 L 411) MEAN CORPUSCULAR VOLUME (BEAKER) 83.9 fL 79.0-92.2 (test code = 753) MEAN CORPUSCULAR HEMOGLOBIN 26.0 pg 25.7-32.2 (BEAKER) (test code = 751) MEAN CORPUSCULAR HEMOGLOBIN CONC 31.0 GM/DL 32.3-36.5 L (BEAKER) (test code = 752) RED CELL DISTRIBUTION WIDTH 13.7 % 11.6-14.4 (BEAKER) (test code = 412) PLATELET COUNT (BEAKER) (test 356 K/CU MM 150-450 code = 756) MEAN PLATELET VOLUME (BEAKER) 11.3 fL 9.4-12.4 (test code = 754) NUCLEATED RED BLOOD CELLS 0 /100 WBC 0-0 (BEAKER) (test code = 413) NEUTROPHILS RELATIVE PERCENT 49 % (BEAKER) (test code = 429) LYMPHOCYTES RELATIVE PERCENT 37 % (BEAKER) (test code = 430) MONOCYTES RELATIVE PERCENT 10 % (BEAKER) (test code = 431) EOSINOPHILS RELATIVE PERCENT 3 % (BEAKER) (test code = 432) BASOPHILS RELATIVE PERCENT 1 % (BEAKER) (test code = 437) NEUTROPHILS ABSOLUTE COUNT 3.54 K/ L 1.78-5.38 (BEAKER) (test code = 670) LYMPHOCYTES ABSOLUTE COUNT 2.64 K/ L 1.32-3.57 (BEAKER) (test code = 414) MONOCYTES ABSOLUTE COUNT (BEAKER) 0.73 K/ L 0.30-0.82 (test code = 415) EOSINOPHILS ABSOLUTE COUNT 0.19 K/ L 0.04-0.54 (BEAKER) (test code = 416) BASOPHILS ABSOLUTE COUNT (BEAKER) 0.04 K/ L 0.01-0.08 (test code = 417) IMMATURE GRANULOCYTES-RELATIVE 0 % 0-1 PERCENT (BEAKER) (test code = 2801) [id number] 06:27:00 Test Item Value Reference Range Interpretation Comments PARTIAL THROMBOPLASTIN TIME 77.4 seconds 22.5-36.0 H (BEAKER) (test code = 760) PROTHROMBIN [id number] 06:25:00 Test Item Value Reference Range Interpretation Comments PROTIME (BEAKER) (test code = 16.1 seconds 11.7-14.7 H 759) INR (BEAKER) (test code = 370) 1.3 <=5.9 RECOMMENDED COUMADIN/WARFARIN INR THERAPY RANGESSTANDARD DOSE: 2.0 - 3.0 Includes: PROPHYLAXIS forvenous thrombosis, systemic embolization; TREATMENT for venous thrombosis and/or pulmonary embolus.HIGH RISK: Target INR is 2.5-3.5 for patients with mechanical heart valves.While on warfarin.[id number] 21:27:00 Test Item Value Reference Range Interpretation Comments PARTIAL THROMBOPLASTIN TIME 50.7 seconds 22.5-36.0 H (BEAKER) (test code = 760) [id number] 13:53:00 Test Item Value Reference Range Interpretation Comments PARTIAL THROMBOPLASTIN TIME 93.2 seconds 22.5-36.0 H (BEAKER) (test code = 760) [id number] 08:10:00 Test Item Value Reference Range Interpretation Comments PARTIAL THROMBOPLASTIN TIME 70.0 seconds 22.5-36.0 H (BEAKER) (test code = 760) BASIC METABOLIC [id number] 07:13:00 Test Item Value Reference Range Interpretation Comments SODIUM (BEAKER) 140 meq/L 136-145 (test code = 381) POTASSIUM (BEAKER) 4.7 meq/L 3.5-5.1 Specimen slightly (test code = 379) hemolyzed CHLORIDE (BEAKER) 107 meq/L 98-107 (test code = 382) CO2 (BEAKER) (test 25 meq/L 22-29 code = 355) BLOOD UREA NITROGEN 7 mg/dL 7-21 (BEAKER) (test code = 354) CREATININE (BEAKER) 0.96 mg/dL 0.57-1.25 Specimen slightly (test code = 358) hemolyzed GLUCOSE RANDOM 99 mg/dL 70-105 (BEAKER) (test code = 652) CALCIUM (BEAKER) 9.2 mg/dL 8.4-10.2 (test code = 697) EGFR (BEAKER) (test 96 mL/min/1.73 ESTIMA BRITTANY GFR IS code = 1092) sq m NOT ACCURATE CREATININE CLEARANCE IN PREDICTING GLOMERULAR FILTRATION RATE . ESTIMATED GFR I S NOT APPLICABLE FOR DIALYSIS PATIEN TS. CBC W/PLT COUNT & AUTO [id number] 07:07:00 Test Item Value Reference Range Interpretation Comments WHITE BLOOD CELL COUNT (BEAKER) 7.6 K/ L 3.5-10.5 (test code = 775) RED BLOOD CELL COUNT (BEAKER) 4.94 M/ L 4.63-6.08 (test code = 761) HEMOGLOBIN (BEAKER) (test code = 13.0 GM/DL 13.7-17.5 L 410) HEMATOCRIT (BEAKER) (test code = 41.5 % 40.1-51.0 411) MEAN CORPUSCULAR VOLUME (BEAKER) 84.0 fL 79.0-92.2 (test code = 753) MEAN CORPUSCULAR HEMOGLOBIN 26.3 pg 25.7-32.2 (BEAKER) (test code = 751) MEAN CORPUSCULAR HEMOGLOBIN CONC 31.3 GM/DL 32.3-36.5 L (BEAKER) (test code = 752) RED CELL DISTRIBUTION WIDTH 13.5 % 11.6-14.4 (BEAKER) (test code = 412) PLATELET COUNT (BEAKER) (test 323 K/CU MM 150-450 code = 756) MEAN PLATELET VOLUME (BEAKER) 11.4 fL 9.4-12.4 (test code = 754) NUCLEATED RED BLOOD CELLS 0 /100 WBC 0-0 (BEAKER) (test code = 413) NEUTROPHILS RELATIVE PERCENT 53 % (BEAKER) (test code = 429) LYMPHOCYTES RELATIVE PERCENT 35 % (BEAKER) (test code = 430) MONOCYTES RELATIVE PERCENT 10 % (BEAKER) (test code = 431) EOSINOPHILS RELATIVE PERCENT 2 % (BEAKER) (test code = 432) BASOPHILS RELATIVE PERCENT 0 % (BEAKER) (test code = 437) NEUTROPHILS ABSOLUTE COUNT 3.98 K/ L 1.78-5.38 (BEAKER) (test code = 670) LYMPHOCYTES ABSOLUTE COUNT 2.64 K/ L 1.32-3.57 (BEAKER) (test code = 414) MONOCYTES ABSOLUTE COUNT (BEAKER) 0.73 K/ L 0.30-0.82 (test code = 415) EOSINOPHILS ABSOLUTE COUNT 0.16 K/ L 0.04-0.54 (BEAKER) (test code = 416) BASOPHILS ABSOLUTE COUNT (BEAKER) 0.03 K/ L 0.01-0.08 (test code = 417) IMMATURE GRANULOCYTES-RELATIVE 0 % 0-1 PERCENT (BEAKER) (test code = 2801) PROTHROMBIN [id number] 06:24:00 Test Item Value Reference Range Interpretation Comments PROTIME (BEAKER) (test code = 15.2 seconds 11.7-14.7 H 759) INR (BEAKER) (test code = 370) 1.2 <=5.9 RECOMMENDED COUMADIN/WARFARIN INR THERAPY RANGESSTANDARD DOSE: 2.0 - 3.0 Includes: PROPHYLAXIS forvenous thrombosis, systemic embolization; TREATMENT for venous thrombosis and/or pulmonary embolus.HIGH RISK: Target INR is 2.5-3.5 for patients with mechanical heart valves.[id number] 00:36:00 Test Item Value Reference Range Interpretation Comments PARTIAL THROMBOPLASTIN TIME 49.7 seconds 22.5-36.0 H ([facility]) (test code = 760) POCT-GLUCOSE [id number] 20:48:00 Test Item Value Reference Range Interpretation Comments POC-GLUCOSE METER 126 mg/dL 70-110 H TESTED AT [place] [address] ([facility]) (test code = JVBUZZ Judith [facility] 1538) [id number] 18:09:00 Test Item Value Reference Range Interpretation Comments PARTIAL THROMBOPLASTIN TIME 36.3 seconds 22.5-36.0 H ([facility]) (test code = 760) Prior to initiating [id number] 11:06:00 Test Item Value Reference Range Interpretation Comments ACTIVATED CLOTTING TIME 202 sec TEST ED AT [place] [address] ([facility]) (test code = CHERI Wong [facility] 441) [id number] 10:32:00 Test Item Value Reference Range Interpretation Comments ACTIVATED CLOTTING TIME 224 sec TEST ED AT [place] [address] ([facility]) (test code = CHERI Wong [facility] 441) [id number] 10:32:00 Test Item Value Reference Range Interpretation Comments ACTIVATED CLOTTING TIME 467 sec TEST ED AT [place] [address] ([facility]) (test code = CHERI Wong [facility] 441) [id number] 09:51:00 Test Item Value Reference Range Interpretation Comments ACTIVATED CLOTTING TIME 114 sec TEST ED AT [place] [address] ([facility]) (test code = CHERI Wong [facility] 441) [id number] POCT-GLUCOSE [id number] 08:10:00 Test Item Value Reference Range Interpretation Comments POC-GLUCOSE METER 67 mg/dL 70-110 L Notified R Lanny SOLER/TESTED AT ([facility]) (test code = [place] [address] NANDO 1538) [facility] 7703 0 BASIC METABOLIC [id number] 08:04:00 Test Item Value Reference Range Interpretation Comments SODIUM ([facility]) 139 meq/L 136-145 (test code = 381) POTASSIUM ([facility]) 4.0 meq/L 3.5-5.1 (test code = 379) CHLORIDE ([facility]) 107 meq/L 98-107 (test code = 382) CO2 (BEAKER) (test 23 meq/L 22-29 code = 355) BLOOD UREA NITROGEN 8 mg/dL 7-21 (BEAKER) (test code = 354) CREATININE (BEAKER) 0.89 mg/dL 0.57-1.25 (test code = 358) GLUCOSE RANDOM 83 mg/dL 70-105 (BEAKER) (test code = 652) CALCIUM (BEAKER) 9.0 mg/dL 8.4-10.2 (test code = 697) EGFR (BEAKER) (test 105 mL/min/1.73 ESTIM ATED GFR IS code = 1092) sq m NOT ACCURATE CREATININE CLEARANCE IN PREDICTING GLOMERULAR FILTRATION RATE . ESTIMATED GFR I S NOT APPLICABLE FOR DIALYSIS PATIEN TS. CBC W/PLT COUNT & AUTO [id number] 07:11:00 Test Item Value Reference Range Interpretation Comments WHITE BLOOD CELL COUNT (BEAKER) 6.5 K/ L 3.5-10.5 (test code = 775) RED BLOOD CELL COUNT (BEAKER) 4.85 M/ L 4.63-6.08 (test code = 761) HEMOGLOBIN (BEAKER) (test code = 13.0 GM/DL 13.7-17.5 L 410) HEMATOCRIT (BEAKER) (test code = 40.4 % 40.1-51.0 411) MEAN CORPUSCULAR VOLUME (BEAKER) 83.3 fL 79.0-92.2 (test code = 753) MEAN CORPUSCULAR HEMOGLOBIN 26.8 pg 25.7-32.2 (BEAKER) (test code = 751) MEAN CORPUSCULAR HEMOGLOBIN CONC 32.2 GM/DL 32.3-36.5 L (BEAKER) (test code = 752) RED CELL DISTRIBUTION WIDTH 13.6 % 11.6-14.4 (BEAKER) (test code = 412) PLATELET COUNT (BEAKER) (test 293 K/CU MM 150-450 code = 756) MEAN PLATELET VOLUME (BEAKER) 11.6 fL 9.4-12.4 (test code = 754) NUCLEATED RED BLOOD CELLS 0 /100 WBC 0-0 (BEAKER) (test code = 413) NEUTROPHILS RELATIVE PERCENT 49 % (BEAKER) (test code = 429) LYMPHOCYTES RELATIVE PERCENT 37 % (BEAKER) (test code = 430) MONOCYTES RELATIVE PERCENT 11 % (BEAKER) (test code = 431) EOSINOPHILS RELATIVE PERCENT 2 % (BEAKER) (test code = 432) BASOPHILS RELATIVE PERCENT 1 % (BEAKER) (test code = 437) NEUTROPHILS ABSOLUTE COUNT 3.15 K/ L 1.78-5.38 (BEAKER) (test code = 670) LYMPHOCYTES ABSOLUTE COUNT 2.39 K/ L 1.32-3.57 (BEAKER) (test code = 414) MONOCYTES ABSOLUTE COUNT (BEAKER) 0.71 K/ L 0.30-0.82 (test code = 415) EOSINOPHILS ABSOLUTE COUNT 0.15 K/ L 0.04-0.54 (BEAKER) (test code = 416) BASOPHILS ABSOLUTE COUNT (BEAKER) 0.04 K/ L 0.01-0.08 (test code = 417) IMMATURE GRANULOCYTES-RELATIVE 1 % 0-1 PERCENT (BEAKER) (test code = 2801) PET, CARDIAC PET, [id number] 15:39:00Reason for exam:->MIFINAL REPORT PROCEDURE: MYOCARDIAL METABOLISM PET IMAGING with Rest MYOCARDIAL PERFUSION PET IMAGING\XA9\ CPT CODE: 42220, 20638 INDICATION: History of CO/Assess Viability HISTORY: Cardiac risk factors: CAD, hypertension, [...] IMAGING FINDINGS: Study quality is good. Images o btained after Rb-82 injection show marked decrease in [...] Study quality is good. Images obtained after F-18 FDG injection show marked but incomplete improvement.. [...] tracer distribution is normal. 8. No previous [facility] study forcomparison. Signed: Ishaan Marshall Verified Date/Time: 04/16/2017 15:39:23 Reading Location: [address] P327B [facility] Med Reading Room CT, BRAIN, WITHOUT [id number] 11:48:00FINAL REPORT CT head without contrast 04/16/2017 [...] remarkable change in intracranial appearance. Signed: Tito Baronort Verified Date/Time: 04/16/2017 11:48:54 Reading Location: [facility] B1 C013V Neuro Reading Room C METABOLIC [id number] 05:46:00 Test Item Value Reference Range Interpretation Comments SODIUM (BEAKER) 141 meq/L 136-145 (test code = 381) POTASSIUM (BEAKER) 4.1 meq/L 3.5-5.1 (test code = 379) CHLORIDE (BEAKER) 109 meq/L 98-107 H (test code = 382) CO2 (BEAKER) (test 23 meq/L 22-29 code = 355) BLOOD UREA NITROGEN 12 mg/dL 7-21 (BEAKER) (test code = 354) CREATININE (BEAKER) 0.91 mg/dL 0.57-1.25 (test code = 358) GLUCOSE RANDOM 93 mg/dL 70-105 (BEAKER) (test code = 652) CALCIUM (BEAKER) 8.8 mg/dL 8.4-10.2 (test code = 697) EGFR (BEAKER) (test 102 mL/min/1.73 ESTIM ATED GFR IS code = 1092) sq m NOT ACCURATE CREATININE CLEARANCE IN PREDICTING GLOMERULAR FILTRATION RATE . ESTIMATED GFR I S NOT APPLICABLE FOR DIALYSIS PATIEN TS. [id number] 05:31:00 Test Item Value Reference Range Interpretation Comments PROTIME (BEAKER) (test code = 16.3 seconds 11.7-14.7 H 759) INR (BEAKER) (test code = 370) 1.3 <=5.9 PARTIAL THROMBOPLASTIN TIME 59.8 seconds 22.5-36.0 H (BEAKER) (test code = 760) RECOMMENDED COUMADIN/WARFARIN INR THERAPY RANGESSTANDARD DOSE: 2.0 - 3.0 Includes: PROPHYLAXIS forvenous thrombosis, systemic embolization; TREATMENT for venous thrombosis and/or pulmonary embolus.HIGH RISK: Target INR is 2.5-3.5 for patients with mechanical heart valves.CBC W/PLT COUNT & AUTO DIFFERENTIAL 2017-04-16 05:23:00 Test Item Value Reference Range Interpretation Comments WHITE BLOOD CELL COUNT (BEAKER) 7.4 K/ L 3.5-10.5 (test code = 775) RED BLOOD CELL COUNT (BEAKER) 4.74 M/ L 4.63-6.08 (test code = 761) HEMOGLOBIN (BEAKER) (test code = 12.4 GM/DL 13.7-17.5 L 410) HEMATOCRIT (BEAKER) (test code = 39.6 % 40.1-51.0 L 411) MEAN CORPUSCULAR VOLUME (BEAKER) 83.5 fL 79.0-92.2 (test code = 753) MEAN CORPUSCULAR HEMOGLOBIN 26.2 pg 25.7-32.2 (BEAKER) (test code = 751) MEAN CORPUSCULAR HEMOGLOBIN CONC 31.3 GM/DL 32.3-36.5 L (BEAKER) (test code = 752) RED CELL DISTRIBUTION WIDTH 13.6 % 11.6-14.4 (BEAKER) (test code = 412) PLATELET COUNT (BEAKER) (test 253 K/CU MM 150-450 code = 756) MEAN PLATELET VOLUME (BEAKER) 11.1 fL 9.4-12.4 (test code = 754) NUCLEATED RED BLOOD CELLS 0 /100 WBC 0-0 (BEAKER) (test code = 413) NEUTROPHILS RELATIVE PERCENT 53 % (BEAKER) (test code = 429) LYMPHOCYTES RELATIVE PERCENT 34 % (BEAKER) (test code = 430) MONOCYTES RELATIVE PERCENT 10 % (BEAKER) (test code = 431) EOSINOPHILS RELATIVE PERCENT 2 % (BEAKER) (test code = 432) BASOPHILS RELATIVE PERCENT 0 % (BEAKER) (test code = 437) NEUTROPHILS ABSOLUTE COUNT 3.89 K/ L 1.78-5.38 (BEAKER) (test code = 670) LYMPHOCYTES ABSOLUTE COUNT 2.50 K/ L 1.32-3.57 (BEAKER) (test code = 414) MONOCYTES ABSOLUTE COUNT (BEAKER) 0.77 K/ L 0.30-0.82 (test code = 415) EOSINOPHILS ABSOLUTE COUNT 0.18 K/ L 0.04-0.54 (BEAKER) (test code = 416) BASOPHILS ABSOLUTE COUNT (BEAKER) 0.03 K/ L 0.01-0.08 (test code = 417) IMMATURE GRANULOCYTES-RELATIVE 0 % 0-1 PERCENT (BEAKER) (test code = 2801) [id number] 15:23:00 Test Item Value Reference Range Interpretation Comments PARTIAL THROMBOPLASTIN TIME 52.5 seconds 22.5-36.0 H (BEAKER) (test code = 760) [id number] 14:59:00 Test Item Value Reference Range Interpretation Comments PARTIAL THROMBOPLASTIN 23.0 seconds 22.5-36.0 Pleas e disregard TIME (BEAKER) (test result. Specimen code = 760) for aPTT was fo und to be clotted p ost analysis. [id number] notified to red raw aPTT.This is a corrected resul t. Previous result was 23.0 second s on 04/15/2017 at 1411 CDT Specimen for aPTT was found to be clotted. [id number] notified to redraw.(MANUAL DIFFERENTIAL)2017-04-15 12:19:00 Test Item Value Reference Range Interpretation Comments TOTAL COUNTED (BEAKER) (test code = 1351) WBC MORPHOLOGY (BEAKER) (test code = Normal 487) PLT MORPHOLOGY (BEAKER) (test code = Normal 486) RBC MORPHOLOGY (BEAKER) (test code = Normal 762) CBC W/PLT COUNT & AUTO [id number] 12:19:00 Test Item Value Reference Range Interpretation Comments WHITE BLOOD CELL COUNT (BEAKER) 6.0 K/ L 3.5-10.5 (test code = 775) RED BLOOD CELL COUNT (BEAKER) 3.78 M/ L 4.63-6.08 L (test code = 761) HEMOGLOBIN (BEAKER) (test code = 10.0 GM/DL 13.7-17.5 L 410) HEMATOCRIT (BEAKER) (test code = 32.2 % 40.1-51.0 L 411) MEAN CORPUSCULAR VOLUME (BEAKER) 85.2 fL 79.0-92.2 (test code = 753) MEAN CORPUSCULAR HEMOGLOBIN 26.5 pg 25.7-32.2 (BEAKER) (test code = 751) MEAN CORPUSCULAR HEMOGLOBIN CONC 31.1 GM/DL 32.3-36.5 L (BEAKER) (test code = 752) RED CELL DISTRIBUTION WIDTH 13.5 % 11.6-14.4 (BEAKER) (test code = 412) PLATELET COUNT (BEAKER) (test 177 K/CU MM 150-450 code = 756) MEAN PLATELET VOLUME (BEAKER) 11.7 fL 9.4-12.4 (test code = 754) NUCLEATED RED BLOOD CELLS 0 /100 WBC 0-0 (BEAKER) (test code = 413) NEUTROPHILS RELATIVE PERCENT 55 % (BEAKER) (test code = 429) LYMPHOCYTES RELATIVE PERCENT 32 % (BEAKER) (test code = 430) MONOCYTES RELATIVE PERCENT 9 % (BEAKER) (test code = 431) EOSINOPHILS RELATIVE PERCENT 3 % (BEAKER) (test code = 432) BASOPHILS RELATIVE PERCENT 0 % (BEAKER) (test code = 437) NEUTROPHILS ABSOLUTE COUNT 3.32 K/ L 1.78-5.38 (BEAKER) (test code = 670) LYMPHOCYTES ABSOLUTE COUNT 1.94 K/ L 1.32-3.57 (BEAKER) (test code = 414) MONOCYTES ABSOLUTE COUNT (BEAKER) 0.55 K/ L 0.30-0.82 (test code = 415) EOSINOPHILS ABSOLUTE COUNT 0.16 K/ L 0.04-0.54 (BEAKER) (test code = 416) BASOPHILS ABSOLUTE COUNT (BEAKER) 0.02 K/ L 0.01-0.08 (test code = 417) IMMATURE GRANULOCYTES-RELATIVE 1 % 0-1 PERCENT (BEAKER) (test code = 2801) [id number] 08:48:00 Test Item Value Reference Range Interpretation Comments POTASSIUM (BEAKER) (test code = 4.7 meq/L 3.5-5.1 379) Check Serum Potassium level 2 hours after oral potassium replacement completed or 30 min after intravenous potassium replacement.[id number] 08:26:00 Test Item Value Reference Range Interpretation Comments PARTIAL THROMBOPLASTIN TIME 53.7 seconds 22.5-36.0 H (BEAKER) (test code = 760) BASIC METABOLIC [id number] 07:59:00 Test Item Value Reference Range Interpretation Comments SODIUM (BEAKER) 142 meq/L 136-145 (test code = 381) POTASSIUM (BEAKER) 6.0 meq/L 3.5-5.1 HH (test code = 379) CHLORIDE (BEAKER) 114 meq/L 98-107 H (test code = 382) CO2 (BEAKER) (test 24 meq/L 22-29 code = 355) BLOOD UREA NITROGEN 13 mg/dL 7-21 (BEAKER) (test code = 354) CREATININE (BEAKER) 0.84 mg/dL 0.57-1.25 (test code = 358) GLUCOSE RANDOM 74 mg/dL 70-105 (BEAKER) (test code = 652) CALCIUM (BEAKER) 7.7 mg/dL 8.4-10.2 L (test code = 697) EGFR (BEAKER) (test 112 mL/min/1.73 ESTIM ATED GFR IS code = 1092) sq m NOT ACCURATE CREATININE CLEARANCE IN PREDICTING GLOMERULAR FILTRATION RATE . ESTIMATED GFR I S NOT APPLICABLE FOR DIALYSIS PATIEN TS. [id number] 22:41:00 Test Item Value Reference Range Interpretation Comments PARTIAL THROMBOPLASTIN TIME 39.7 seconds 22.5-36.0 H ([facility]) (test code = 760) POCT-GLUCOSE [id number] 18:35:00 Test Item Value Reference Range Interpretation Comments POC-GLUCOSE METER 121 mg/dL 70-110 H TESTED AT [place] [address] ([facility]) (test code = [facility] 1538) [address] [place], ESOPH, SWALLOW FUNCTION, WITH CINE OR [id number] 17:08:00Reason for exam:->dysphagiaFINAL REPORT Modified barium swallow. CLINICAL HISTORY: dysphagia. COMPARISONSTUDY: None available. FINDINGS: Under the direction of patient's speech pathologist, the patient ingested thin barium, thick barium, barium-coated crackers and barium pur\XE9\[id number]. Penetration is seen with thin barium. Please refer to the speech pathology notes for further discussion. Fluoroscopy time: 1.3 minutes. One image. Signed: Ronald Garcia MDReport Verified Date/Time: 04/14/2017 17:08:52 Reading Location: [address] Consult Reading Room POCT-GLUCOSE [id number] 13:42:00 Test Item Value Reference Range Interpretation Comments POC-GLUCOSE METER 77 mg/dL 70-[address] [facility] [address] ([facility]) (test code = [facility] [address]38) [id number] 12:15:00 Test Item Value Reference Range Interpretation Comments PARTIAL THROMBOPLASTIN TIME 44.5 seconds 22.5-36.0 H ([facility]) (test code = 760) POCT-GLUCOSE [id number] 12:00:00 Test Item Value Reference Range Interpretation Comments POC-GLUCOSE METER 119 mg/dL 70-[address] [facility] [address] ([facility]) (test code = [facility] 1538) [address] POCT-GLUCOSE [id number] 11:11:00 Test Item Value Reference Range Interpretation Comments POC-GLUCOSE METER 167 mg/dL 70-[address] [facility] ([facility]) (test code = [place] 1538) [address] POCT-GLUCOSE [id number] 10:29:00 Test Item Value Reference Range Interpretation Comments POC-GLUCOSE METER 83 mg/dL 70-[address] [facility] [address] ([facility]) (test code = [place] [address] 1538) TROPONIN [id number] 08:12:00 Test Item Value Reference Range Interpretation Comments TROPONIN I ([facility]) (test code = 21.40 ng/mL 0.00-0.03 397) Troponin I (TnI) levels must be interpreted [...] and persistent tachyarrhythmia.CREATINE KINASE (CK), TOTAL AND MB 2017-04-14 08:05:00 Test Item Value Reference Range Interpretation Comments CREATINE KINASE TOTAL (BEAKER) 193 U/L 29-200 (test code = 380) CREATINE KINASE-MB (BEAKER) (test 2.9 ng/mL 0.0-6.6 code = 750) CREATINE KINASE-MB INDEX ([facility]) 1.5 % (test code = 395) CK-MB Reference Range:<6.7 Normal6.7-10.0 Borderline>10.0 AbnormalPT/[id number] 04:53:00 Test Item Value Reference Range Interpretation Comments PROTIME (BEAKER) (test code = 17.1 seconds 11.7-14.7 H 759) INR (BEAKER) (test code = 370) 1.4 <=5.9 PARTIAL THROMBOPLASTIN TIME 53.3 seconds 22.5-36.0 H (BEAKER) (test code = 760) RECOMMENDED COUMADIN/WARFARIN INR THERAPY RANGESSTANDARD DOSE: 2.0 - 3.0 Includes: PROPHYLAXIS forvenous thrombosis, systemic embolization; TREATMENT for venous thrombosis and/or pulmonary embolus.HIGH RISK: Target INR is 2.5-3.5 for patients with mechanical heart valves.PROTHROMBIN TIME/[id number] 04:52:00 Test Item Value Reference Range Interpretation Comments PROTIME (BEAKER) (test code = 17.1 seconds 11.7-14.7 H 759) INR (BEAKER) (test code = 370) 1.4 <=5.9 RECOMMENDED COUMADIN/WARFARIN INR THERAPY RANGESSTANDARD DOSE: 2.0 - 3.0 Includes: PROPHYLAXIS forvenous thrombosis, systemic embolization; TREATMENT for venous thrombosis and/or pulmonary embolus.HIGH RISK: Target INR is 2.5-3.5 for patients with mechanical heart valves.BASIC METABOLIC [id number] 04:52:00 Test Item Value Reference Range Interpretation Comments SODIUM (BEAKER) 145 meq/L 136-145 (test code = 381) POTASSIUM (BEAKER) 4.3 meq/L 3.5-5.1 (test code = 379) CHLORIDE (BEAKER) 109 meq/L 98-107 H (test code = 382) CO2 (BEAKER) (test 26 meq/L 22-29 code = 355) BLOOD UREA NITROGEN 14 mg/dL 7-21 (BEAKER) (test code = 354) CREATININE (BEAKER) 0.98 mg/dL 0.57-1.25 (test code = 358) GLUCOSE RANDOM 85 mg/dL 70-105 (BEAKER) (test code = 652) CALCIUM (BEAKER) 8.7 mg/dL 8.4-10.2 (test code = 697) EGFR (BEAKER) (test 94 mL/min/1.73 ESTIMA BRITTANY GFR IS code = 1092) sq m NOT ACCURATE CREATININE CLEARANCE IN PREDICTING GLOMERULAR FILTRATION RATE . ESTIMATED GFR I S NOT APPLICABLE FOR DIALYSIS PATIEN TS. CBC W/PLT COUNT & AUTO [id number] 04:38:00 Test Item Value Reference Range Interpretation Comments WHITE BLOOD CELL COUNT (BEAKER) 7.9 K/ L 3.5-10.5 (test code = 775) RED BLOOD CELL COUNT (BEAKER) 4.75 M/ L 4.63-6.08 (test code = 761) HEMOGLOBIN (BEAKER) (test code = 12.5 GM/DL 13.7-17.5 L 410) HEMATOCRIT (BEAKER) (test code = 40.0 % 40.1-51.0 L 411) MEAN CORPUSCULAR VOLUME (BEAKER) 84.2 fL 79.0-92.2 (test code = 753) MEAN CORPUSCULAR HEMOGLOBIN 26.3 pg 25.7-32.2 (BEAKER) (test code = 751) MEAN CORPUSCULAR HEMOGLOBIN CONC 31.3 GM/DL 32.3-36.5 L (BEAKER) (test code = 752) RED CELL DISTRIBUTION WIDTH 13.6 % 11.6-14.4 (BEAKER) (test code = 412) PLATELET COUNT (BEAKER) (test 194 K/CU MM 150-450 code = 756) MEAN PLATELET VOLUME (BEAKER) 11.7 fL 9.4-12.4 (test code = 754) NUCLEATED RED BLOOD CELLS 0 /100 WBC 0-0 (BEAKER) (test code = 413) NEUTROPHILS RELATIVE PERCENT 50 % (BEAKER) (test code = 429) LYMPHOCYTES RELATIVE PERCENT 33 % (BEAKER) (test code = 430) MONOCYTES RELATIVE PERCENT 15 % (BEAKER) (test code = 431) EOSINOPHILS RELATIVE PERCENT 2 % (BEAKER) (test code = 432) BASOPHILS RELATIVE PERCENT 1 % (BEAKER) (test code = 437) NEUTROPHILS ABSOLUTE COUNT 3.93 K/ L 1.78-5.38 (BEAKER) (test code = 670) LYMPHOCYTES ABSOLUTE COUNT 2.58 K/ L 1.32-3.57 (BEAKER) (test code = 414) MONOCYTES ABSOLUTE COUNT (BEAKER) 1.18 K/ L 0.30-0.82 H (test code = 415) EOSINOPHILS ABSOLUTE COUNT 0.15 K/ L 0.04-0.54 (BEAKER) (test code = 416) BASOPHILS ABSOLUTE COUNT (BEAKER) 0.04 K/ L 0.01-0.08 (test code = 417) IMMATURE GRANULOCYTES-RELATIVE 0 % 0-1 PERCENT (BEAKER) (test code = 2801) PT/[id number] 22:59:00 Test Item Value Reference Range Interpretation Comments PROTIME (BEAKER) (test code = 17.2 seconds 11.7-14.7 H 759) INR (BEAKER) (test code = 370) 1.4 <=5.9 PARTIAL THROMBOPLASTIN TIME 23.8 seconds 22.5-36.0 (BEAKER) (test code = 760) RECOMMENDED COUMADIN/WARFARIN INR THERAPY RANGESSTANDARD DOSE: 2.0 - 3.0 Includes: PROPHYLAXIS forvenous thrombosis, systemic embolization; TREATMENT for venous thrombosis and/or pulmonary embolus.HIGH RISK: Target INR is 2.5-3.5 for patients with mechanical heart valves.CT, BRAIN, WITHOUT [id number] 22:32:00FINAL REPORT CT, BRAIN, WITHOUT CONTRAST INDICATION: [...] frontal gyrus infarct. Additionally, there is a faint blood in the region of the right parieto-occipital sulcus adjacent to known small cortical infarcts identified in the reference MR examination. Small, bilateral cortical infarcts are not well characterized [...] JR Lowery Robert MDReport Verified Date/Time: 04/13/2017 22:32:02 Reading Location: [address] Reading Room APTT 2017-04-13 15:59:00 Test Item Value Reference Range Interpretation Comments PARTIAL THROMBOPLASTIN TIME 40.7 seconds 22.5-36.0 H (BEAKER) (test code = 760) CREATINE KINASE (CK), TOTAL AND [id number] 11:03:00 Test Item Value Reference Range Interpretation Comments CREATINE KINASE TOTAL (BEAKER) 304 U/L 29-200 H (test code = 380) CREATINE KINASE-MB (BEAKER) (test 4.2 ng/mL 0.0-6.6 code = 750) CREATINE KINASE-MB INDEX (BEAKER) 1.4 % (test code = 395) CK-MB Reference Range:<6.7 Normal6.7-10.0 Borderline>10.0 AbnormalTROPONIN [id number] 10:57:00 Test Item Value Reference Range Interpretation Comments TROPONIN I (BEAKER) (test code = 27.33 ng/mL 0.00-0.03 HH 397) Troponin I (TnI) levels must be interpreted [...] failure, acidosis, acute neurological disease, and persistent tachyarrhythmia.[id number] 10:29:00 Test Item Value Reference Range Interpretation Comments PARTIAL THROMBOPLASTIN TIME 50.5 seconds 22.5-36.0 H (BEAKER) (test code = 760) CBC W/PLT COUNT & AUTO [id number] 04:51:00 Test Item Value Reference Range Interpretation Comments WHITE BLOOD CELL COUNT (BEAKER) 8.3 K/ L 3.5-10.5 (test code = 775) RED BLOOD CELL COUNT (BEAKER) 4.72 M/ L 4.63-6.08 (test code = 761) HEMOGLOBIN (BEAKER) (test code = 12.1 GM/DL 13.7-17.5 L 410) HEMATOCRIT (BEAKER) (test code = 38.7 % 40.1-51.0 L 411) MEAN CORPUSCULAR VOLUME (BEAKER) 82.0 fL 79.0-92.2 (test code = 753) MEAN CORPUSCULAR HEMOGLOBIN 25.6 pg 25.7-32.2 L (BEAKER) (test code = 751) MEAN CORPUSCULAR HEMOGLOBIN CONC 31.3 GM/DL 32.3-36.5 L (BEAKER) (test code = 752) RED CELL DISTRIBUTION WIDTH 13.5 % 11.6-14.4 (BEAKER) (test code = 412) PLATELET COUNT (BEAKER) (test 176 K/CU MM 150-450 code = 756) MEAN PLATELET VOLUME (BEAKER) 12.2 fL 9.4-12.4 (test code = 754) NUCLEATED RED BLOOD CELLS 0 /100 WBC 0-0 (BEAKER) (test code = 413) NEUTROPHILS RELATIVE PERCENT 69 % (BEAKER) (test code = 429) LYMPHOCYTES RELATIVE PERCENT 20 % (BEAKER) (test code = 430) MONOCYTES RELATIVE PERCENT 10 % (BEAKER) (test code = 431) EOSINOPHILS RELATIVE PERCENT 1 % (BEAKER) (test code = 432) BASOPHILS RELATIVE PERCENT 0 % (BEAKER) (test code = 437) NEUTROPHILS ABSOLUTE COUNT 5.72 K/ L 1.78-5.38 H (BEAKER) (test code = 670) LYMPHOCYTES ABSOLUTE COUNT 1.64 K/ L 1.32-3.57 (BEAKER) (test code = 414) MONOCYTES ABSOLUTE COUNT (BEAKER) 0.84 K/ L 0.30-0.82 H (test code = 415) EOSINOPHILS ABSOLUTE COUNT 0.05 K/ L 0.04-0.54 (BEAKER) (test code = 416) BASOPHILS ABSOLUTE COUNT (BEAKER) 0.02 K/ L 0.01-0.08 (test code = 417) IMMATURE GRANULOCYTES-RELATIVE 0 % 0-1 PERCENT (BEAKER) (test code = 2801) BASIC METABOLIC [id number] 04:38:00 Test Item Value Reference Range Interpretation Comments SODIUM (BEAKER) 141 meq/L 136-145 (test code = 381) POTASSIUM (BEAKER) 3.8 meq/L 3.5-5.1 Specimen slightly (test code = 379) hemolyzed CHLORIDE (BEAKER) 107 meq/L 98-107 (test code = 382) CO2 (BEAKER) (test 26 meq/L 22-29 code = 355) BLOOD UREA NITROGEN 15 mg/dL 7-21 (BEAKER) (test code = 354) CREATININE (BEAKER) 1.12 mg/dL 0.57-1.25 Specimen slightly (test code = 358) hemolyzed GLUCOSE RANDOM 106 mg/dL 70-105 H (BEAKER) (test code = 652) CALCIUM (BEAKER) 8.6 mg/dL 8.4-10.2 (test code = 697) EGFR (BEAKER) (test 80 mL/min/1.73 ESTIMA BRITTANY GFR IS code = 1092) sq m NOT ACCURATE CREATININE CLEARANCE IN PREDICTING GLOMERULAR FILTRATION RATE . ESTIMATED GFR I S NOT APPLICABLE FOR DIALYSIS PATIEN TS. FastingLIPID [id number] 04:38:00 Test Item Value Reference Range Interpretation Comments TRIGLYCERIDES (BEAKER) 97 mg/dL Speci men slightly (test code = 540) hemolyzed CHOLESTEROL (BEAKER) 166 mg/dL Specime n slightly (test code = 631) hemolyzed HDL CHOLESTEROL (BEAKER) 32 mg/dL (test code = 976) LDL CHOLESTEROL 115 mg/dL CALCULATED (BEAKER) (test code = 633) Triglyceride Reference Range: Low Risk <150 Borderline 150-199 High Risk 200-499 Very High Risk >=500Cholesterol Reference Range: Low Risk <200 Borderline 200-239 High Risk >240HDL Cholesterol Reference Range: Low Risk >=60 High Risk <40LDL Cholesterol Reference Range: Optimal <100 Near Optimal 100-129 Borderline 130-159 High 160-189 Very High >=190 FastingTROPONIN [id number] 02:32:00 Test Item Value Reference Range Interpretation Comments TROPONIN I (BEAKER) (test code = 33.95 ng/mL 0.00-0.03 HH 397) Troponin I (TnI) levels must be interpreted [...] and persistent tachyarrhythmia.CREATINE KINASE (CK), TOTAL AND MB 2017-04-13 02:25:00 Test Item Value Reference Range Interpretation Comments CREATINE KINASE TOTAL (BEAKER) 373 U/L 29-200 H (test code = 380) CREATINE KINASE-MB (BEAKER) (test 4.5 ng/mL 0.0-6.6 code = 750) CREATINE KINASE-MB INDEX (BEAKER) 1.2 % (test code = 395) CK-MB Reference Range:<6.7 Normal6.7-10.0 Borderline>10.0 [id number] 02:01:00 Test Item Value Reference Range Interpretation Comments PARTIAL THROMBOPLASTIN TIME 54.0 seconds 22.5-36.0 H (BEAKER) (test code = 760) Prior to initiating heparinMR, BRAIN, WITHOUT [id number] 01:51:00FINAL REPORT MR, BRAIN, WITHOUT CONTRAST, MR, [...] MDReport Verified Date/Time: 04/13/2017 01:51:59 Reading Location: [address] Reading Room Electronically signed by: WILLIAN SAWYER MD on 01:51 AMMR, MRA, BRAIN, WITHOUT [id number] 01:51:00FINAL REPORT MR, BRAIN, WITHOUT CONTRAST, MR, [...] MDReport Verified Date/Time: 04/13/2017 01:51:59 Reading Location: [address] Consult Reading Room Electronically signed by: WILLIAN SAWYER MD on 01:51 AMMR, MRA, NECK, WITHOUT IV [id number] 01:51:00FINAL REPORT MR, BRAIN, WITHOUT CONTRAST, MR, [...] MDReport Verified Date/Time: 04/13/2017 01:51:59 Reading Location: [address] Consult Reading Room Electronically signed by: WILLIAN SAWYER MD on 1 01:51 AMURINALYSIS W/ [id number] 00:39:00 Test Item Value Reference Range Interpretation Comments COLOR (BEAKER) (test code = Colorless 470) CLARITY (BEAKER) (test code = Clear 469) SPECIFIC GRAVITY UA (BEAKER) 1.002 1.001-1.035 (test code = 468) PH UA (BEAKER) (test code = 5.5 5.0-8.0 467) PROTEIN UA (BEAKER) (test code 50 mg/dL Negative A = 464) GLUCOSE UA (BEAKER) (test code Negative Negative = 365) KETONES UA (BEAKER) (test code Negative Negative = 371) BILIRUBIN UA (BEAKER) (test Negative Negative code = 462) BLOOD UA (BEAKER) (test code = Trace Negative A 461) NITRITE UA (BEAKER) (test code Negative Negative = 465) LEUKOCYTE ESTERASE UA (BEAKER) Negative Negative (test code = 466) UROBILINOGEN UA (BEAKER) (test 0.2 mg/dL 0.2-1.0 code = 463) RBC UA (BEAKER) (test code = 0 /HPF 519) WBC UA (BEAKER) (test code = 1 /HPF 520) SQUAMOUS EPITHELIAL (BEAKER) < /HPF (test code = 516) AMORPHOUS CRYSTALS (BEAKER) Rare (test code = 1584) SOURCE(BEAKER) (test code = Urine, Voided 2525) HEMOGLOBIN [id number] 22:15:00 Test Item Value Reference Range Interpretation Comments HEMOGLOBIN A1C (BEAKER) (test code = 5.7 % 4.3-6.1 368) TROPONIN [id number] 21:26:00 Test Item Value Reference Range Interpretation Comments TROPONIN I (BEAKER) (test code = 28.37 ng/mL 0.00-0.03 HH 397) Troponin I (TnI) levels must be interpreted [...] and persistent tachyarrhythmia.CREATINE KINASE (CK), TOTAL AND MB 2017-04-12 21:14:00 Test Item Value Reference Range Interpretation Comments CREATINE KINASE TOTAL (BEAKER) 366 U/L 29-200 H (test code = 380) CREATINE KINASE-MB (BEAKER) (test 4.8 ng/mL 0.0-6.6 code = 750) CREATINE KINASE-MB INDEX (BEAKER) 1.3 % (test code = 395) CK-MB Reference Range:<6.7 Normal6.7-10.0 Borderline>10.0 AbnormalCOMPREHENSIVE METABOLIC [id number] 21:06:00 Test Item Value Reference Range Interpretation Comments TOTAL PROTEIN 7.8 gm/dL 6.0-8.3 Specimen sligh tly (BEAKER) (test code = hemoly zed 770) ALBUMIN (BEAKER) 3.5 g/dL 3.5-5.0 Specimen sl ightly (test code = 1145) hemolyzed ALKALINE PHOSPHATASE 58 U/L 40-150 (BEAKER) (test code = 346) BILIRUBIN TOTAL 0.4 mg/dL 0.2-1.2 Specimen sli ghtly (BEAKER) (test code = hemoly zed 377) SODIUM (BEAKER) (test 137 meq/L 136-145 code = 381) POTASSIUM (BEAKER) 3.3 meq/L 3.5-5.1 L Specimen slightly (test code = 379) hemolyzed CHLORIDE (BEAKER) 103 meq/L 98-107 (test code = 382) CO2 (BEAKER) (test 24 meq/L 22-29 code = 355) BLOOD UREA NITROGEN 16 mg/dL 7-21 (BEAKER) (test code = 354) CREATININE (BEAKER) 1.08 mg/dL 0.57-1.25 Specimen slightly (test code = 358) hemolyzed GLUCOSE RANDOM 103 mg/dL 70-105 (BEAKER) (test code = 652) CALCIUM (BEAKER) 8.9 mg/dL 8.4-10.2 (test code = 697) AST (SGOT) (BEAKER) 59 U/L 5-34 H Specimen slightly (test code = 353) hemolyzed ALT (SGPT) (BEAKER) 38 U/L 6-55 Specimen slightly (test code = 347) hemolyzed EGFR (BEAKER) (test 84 mL/min/1.73 ESTIMA BRITTANY GFR IS code = 1092) sq m NOT ACCURATE CREATININE CLEARANCE IN PREDICTING GLOMERULAR FILTRATION RATE . ESTIMATED GFR I S NOT APPLICABLE FOR DIALYSIS PATIEN TS. PROTHROMBIN TIME/[id number] 21:02:00 Test Item Value Reference Range Interpretation Comments PROTIME (BEAKER) (test code = 17.4 seconds 11.7-14.7 H 759) INR (BEAKER) (test code = 370) 1.4 <=5.9 RECOMMENDED COUMADIN/WARFARIN INR THERAPY RANGESSTANDARD DOSE: 2.0 - 3.0 Includes: PROPHYLAXIS forvenous thrombosis, systemic embolization; TREATMENT for venous thrombosis and/or pulmonary embolus.HIGH RISK: Target INR is 2.5-3.5 for patients with mechanical heart valves.PT/[id number] 21:02:00 Test Item Value Reference Range Interpretation Comments PROTIME (BEAKER) (test code = 17.4 seconds 11.7-14.7 H 759) INR (BEAKER) (test code = 370) 1.4 <=5.9 PARTIAL THROMBOPLASTIN TIME 29.2 seconds 22.5-36.0 (BEAKER) (test code = 760) RECOMMENDED COUMADIN/WARFARIN INR THERAPY RANGESSTANDARD DOSE: 2.0 - 3.0 Includes: PROPHYLAXIS forvenous thrombosis, systemic embolization; TREATMENT for venous thrombosis and/or pulmonary embolus.HIGH RISK: Target INR is 2.5-3.5 for patients with mechanical heart valves.[id number] 21:02:00 Test Item Value Reference Range Interpretation Comments PARTIAL THROMBOPLASTIN TIME 29.2 seconds 22.5-36.0 (BEAKER) (test code = 760) CBC W/PLT COUNT & AUTO [id number] 20:56:00 Test Item Value Reference Range Interpretation Comments WHITE BLOOD CELL COUNT (BEAKER) 7.5 K/ L 3.5-10.5 (test code = 775) RED BLOOD CELL COUNT (BEAKER) 4.75 M/ L 4.63-6.08 (test code = 761) HEMOGLOBIN (BEAKER) (test code = 12.5 GM/DL 13.7-17.5 L 410) HEMATOCRIT (BEAKER) (test code = 38.5 % 40.1-51.0 L 411) MEAN CORPUSCULAR VOLUME (BEAKER) 81.1 fL 79.0-92.2 (test code = 753) MEAN CORPUSCULAR HEMOGLOBIN 26.3 pg 25.7-32.2 (BEAKER) (test code = 751) MEAN CORPUSCULAR HEMOGLOBIN CONC 32.5 GM/DL 32.3-36.5 (BEAKER) (test code = 752) RED CELL DISTRIBUTION WIDTH 13.4 % 11.6-14.4 (BEAKER) (test code = 412) PLATELET COUNT (BEAKER) (test 174 K/CU MM 150-450 code = 756) MEAN PLATELET VOLUME (BEAKER) 12.0 fL 9.4-12.4 (test code = 754) NUCLEATED RED BLOOD CELLS 0 /100 WBC 0-0 (BEAKER) (test code = 413) NEUTROPHILS RELATIVE PERCENT 61 % (BEAKER) (test code = 429) LYMPHOCYTES RELATIVE PERCENT 21 % (BEAKER) (test code = 430) MONOCYTES RELATIVE PERCENT 17 % (BEAKER) (test code = 431) EOSINOPHILS RELATIVE PERCENT 1 % (BEAKER) (test code = 432) BASOPHILS RELATIVE PERCENT 0 % (BEAKER) (test code = 437) NEUTROPHILS ABSOLUTE COUNT 4.55 K/ L 1.78-5.38 (BEAKER) (test code = 670) LYMPHOCYTES ABSOLUTE COUNT 1.54 K/ L 1.32-3.57 (BEAKER) (test code = 414) MONOCYTES ABSOLUTE COUNT (BEAKER) 1.29 K/ L 0.30-0.82 H (test code = 415) EOSINOPHILS ABSOLUTE COUNT 0.04 K/ L 0.04-0.54 (BEAKER) (test code = 416) BASOPHILS ABSOLUTE COUNT (BEAKER) 0.03 K/ L 0.01-0.08 (test code = 417) IMMATURE GRANULOCYTES-RELATIVE 0 % 0-1 PERCENT (BEAKER) (test code = 2875)
--- NOTE | 2021-03-16 16:23 | EDPHYS ---
Physician Documentation [facility] Name: Hui Guevara Age: 65 yrs Sex: Male : 1955 Arrival Date: 03/16/2021 Time: 15:41 Bed DX3 Private MD: ED Physician Ruperto Owens HPI: 03/16 16:17 This 65 yrs old Black Male presents to ER via Ambulatory with complaints of low heart laina rate. 16:17 The patient presents with a history of irregular heart beat. Context: The symptoms laina occur at rest. Onset: The symptoms/episode began/occurred 1 hour(s) ago, sent for low hr on a physical. Duration: The patient or guardian reports a single episode, that lasted an unknown period of time. Modifying factors: The symptoms are aggravated by nothing. The symptoms are alleviated by nothing. Associated signs and symptoms: The patient has no apparent associated signs or symptoms. The patient has experienced similar episodes in the past, chronically. Historical: - Allergies: 15:57 No Known Allergies; ll1 - PMHx: 15:57 heart stents; Hypertension; kidney issues; psoriasis; ll1 - PSHx: 15:57 heart stents; ll1 - Immunization history:: Client reports receiving the 2nd dose of the Covid vaccine, Flu vaccine status is unknown. - Social history:: Smoking status: Patient denies any tobacco usage or history of. - Family history:: not pertinent. ROS: 16:17 Constitutional: Negative for fever, chills, and weight loss, Eyes: Negative for injury, laina pain, redness, and discharge, ENT: Negative for injury, pain, and discharge, Neck: Negative for injury, pain, and swelling, Respiratory: Negative for shortness of breath, cough, wheezing, and pleuritic chest pain, Abdomen/GI: Negative for abdominal pain, nausea, vomiting, diarrhea, and constipation, Back: Negative for injury and pain, : Negative for injury, bleeding, discharge, and swelling, MS/Extremity: Negative for injury and deformity, Skin: Negative for injury, rash, and discoloration, Neuro: Negative for headache, weakness, numbness, tingling, and seizure. 16:17 Cardiovascular: Negative for chest pain, orthopnea, palpitations, paroxysmal nocturnal dyspnea. 16:17 MS/extremity: Positive for swelling. Exam: 16:17 Constitutional: This is a well developed, well nourished patient who is awake, alert, laina and in no acute distress. Head/Face: Normocephalic, atraumatic. Eyes: Pupils equal round and reactive to light, extra-ocular motions intact. Lids and lashes normal. Conjunctiva and sclera are non-icteric and not injected. Cornea within normal limits. Periorbital areas with no swelling, redness, or edema. ENT: Nares patent. No nasal discharge, no septal abnormalities noted. Tympanic membranes are normal and external auditory canals are clear. Oropharynx with no redness, swelling, or masses, exudates, or evidence of obstruction, uvula midline. Mucous membranes moist. Neck: Trachea midline, no thyromegaly or masses palpated, and no cervical lymphadenopathy. Supple, full range of motion without nuchal rigidity, or vertebral point tenderness. No Meningismus. Chest/axilla: Normal chest wall appearance and motion. Nontender with no deformity. No lesions are appreciated. Respiratory: Lungs have equal breath sounds bilaterally, clear to auscultation and percussion. No rales, rhonchi or wheezes noted. No increased work of breathing, no retractions or nasal flaring. Abdomen/GI: Soft, non-tender, with normal bowel sounds. No distension or tympany. No guarding or rebound. No evidence of tenderness throughout. Back: No spinal tenderness. No costovertebral tenderness. Full range of motion. Male : Normal genitalia with no discharge or lesions. Skin: Warm, dry with normal turgor. Normal color with no rashes, no lesions, and no evidence of cellulitis. Neuro: Awake and alert, GCS 15, oriented to person, place, time, and situation. Cranial nerves II-XII grossly intact. Motor strength 5/5 in all extremities. Sensory grossly intact. Cerebellar exam normal. Normal gait. Psych: Awake, alert, with orientation to person, place and time. Behavior, mood, and affect are within normal limits. 16:17 Cardiovascular: Rate: bradycardic, actual rate is 50 bpm, Rhythm: regular, Pulses: Pulses are 4+ in bilateral radial, brachial, femoral, popliteal, posterior tibial and and dorsalis pedis arteries.. Heart sounds: normal, Edema: is not appreciated, JVD: is not appreciated. 16:17 Musculoskeletal/extremity: ROM: no acute changes, intact in all extremities, full active range of motion, full passive range of motion, Circulation is intact in all extremities. Sensation intact. Compartment Syndrome exam of affected extremity: is normal. DVT Exam: no pain, no tenderness, negative Homans' sign noted on exam, no appreciated bluish discoloration, no erythema, no increased warmth, swelling. Vital Signs: 15:58 BP 129 / 75; Pulse 52; Resp 18; Temp 98.0; Pulse Ox 99% ; Weight 122.02 kg; Height 5 ll1 ft. 9 in. (175.26 cm); Pain 2/10; 15:58 Body Mass Index 39.73 (122.02 kg, 175.26 cm) ll1 MDM: 16:17 Patient medically screened. laina 16:21 Differential diagnosis: arrythmia. Data reviewed: vital signs, nurses notes. Data laina interpreted: residential monitor: not applicable for this patient encounter. rate is 50 beats/min, Pulse oximetry: on room air is 99 %. Test interpretation: by ED physician or midlevel provider: ECG. 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 Administered Medications: No medications were administered Disposition Summary: 03/16/21 16:22 Discharge Ordered Location: Home laina Problem: new laina Symptoms: have improved laina Condition: Stable laina Diagnosis - Bradycardia, unspecified laina Followup: laina - With: Private Physician - When: 2 - 3 days - Reason: Recheck today's complaints, Continuance of care, Re-evaluation by your physician Followup: laina - With: Horacio Benoit MD - When: 2 - 3 days - Reason: Recheck today's complaints, Re-evaluation by your physician Discharge Instructions: - Discharge Summary Sheet laina - Bradycardia, Adult laina - Edema laina - Edema, [id number] laina Forms: - Medication Reconciliation Form laina - Thank You Letter laina - Antibiotic Education laina - Prescription Opioid Use laina Signatures: Ruperto Owens MD MD cha Lewis, Lynsay RN RN ll1 Corrections: (The following items were deleted from the chart) 15:58 15:57 PMHx: heart stents; ll1 ll1 15:58 15:57 PSHx: Coronary artery bypass graft; ll1 ll1
--- NOTE | 2021-03-16 16:23 | ER ---
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 ll1 HR was 46 sitting, 53 standing. So they told him to come in and get checked. States he doesn't feel bad. Coronavirus screen: Vaccine status: Patient reports receiving the 2nd dose of the covid vaccine. Client denies travel out of the [place] in the last 14 days. At this time, the client does not indicate any symptoms associated with coronavirus-19. Ebola Screen: Patient denies travel to an Ebola-affected area in the 21 days before illness onset. Initial Sepsis Screen: Does the patient meet any 2 criteria? No. Patient's initial sepsis screen is negative. Does the patient have a suspected source of infection? No. Patient's initial sepsis screen is negative. Risk Assessment: Do you want to hurt yourself or someone else? Patient reports no desire to harm self or others. Onset of symptoms was March 16, 2021. 15:58 Method Of Arrival: Ambulatory ll1 15:58 Acuity: REUBEN 3 ll1 Historical: - Allergies: 15:57 No Known Allergies; ll1 - PMHx: 15:57 heart stents; Hypertension; kidney issues; psoriasis; ll1 - PSHx: 15:57 heart stents; ll1 - Immunization history:: Client reports receiving the 2nd dose of the Covid vaccine, Flu vaccine status is unknown. - Social history:: Smoking status: Patient denies any tobacco usage or history of. - Family history:: not pertinent. Screenin:40 Abuse screen: Denies threats or abuse. Denies injuries from another. Nutritional ss screening: No deficits noted. Tuberculosis screening: Never had TB. Fall Risk None identified. Assessment: 16:40 General: Appears in no apparent distress. comfortable, Behavior is calm, cooperative. ss Neuro: Level of Consciousness is awake, alert, obeys commands, Oriented to person, place, time, situation. Respiratory: Airway is patent Respiratory effort is even, unlabored, Respiratory pattern is regular, symmetrical. Derm: Skin is intact, is healthy with good turgor, Skin is dry, Skin is pink, warm \T\ dry. normal. Vital Signs: 15:58 BP 129 / 75; Pulse 52; Resp 18; Temp 98.0; Pulse Ox 99% ; Weight 122.02 kg; Height 5 ll1 ft. 9 in. (175.26 cm); Pain 2/10; 15:58 Body Mass Index 39.73 (122.02 kg, 175.26 cm) ll1 ED Course: 15:41 Patient arrived in ED. am2 15:57 Arm band placed on. ll1 16:03 Triage completed. 1 16:16 Ruperto Owens MD is Attending Physician. [facility] 16:22 Horacio Benoit MD is Referral Physician. [facility] 16:40 Sendy Tucker, RN is Primary Nurse. ss 16:40 Patient has correct armband on for positive identification. Bed in low position. Call ss light in reach. 16:40 No provider procedures requiring assistance completed. Patient did not have IV access ss during this emergency room visit. Administered Medications: No medications were administered Outcome: 16:22 Discharge ordered by . [facility] 16:40 Discharged to home ambulatory. 16:40 Condition: good 16:40 Discharge instructions given to patient, Instructed on discharge instructions, follow up and referral plans. Demonstrated understanding of instructions, follow-up care. 16:41 Patient left the ED. ss Signatures: Ruperto Owens MD MD cha Smirch, Shelby, RN RN Sarina Kathleen on license of [facility] Leo Amador RN RN ll1 Corrections: (The following items were deleted from the chart) 15:58 15:57 PMHx: heart stents; ll1 ll1 15:58 15:57 PSHx: Coronary artery bypass graft; ll1 ll1
[2021-03-16 17:10] VITALS: BP 129/75; TEMP 98; O2SAT 99
--- NOTE | 2021-03-17 11:28 | EKG ---
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
== END 2021-03-16 16:41 | disposition home or self-care (01) ==
LOC: ER 15:29
DX: R00.1 Bradycardia, unspecified (principal); I10 Essential (primary) hypertension; Z95.818 Presence of other cardiac implants and grafts
CPT/HCPCS: 93005; 99281

== ENCOUNTER 2021-09-23 01:43 | Emergency (ER) | payer OTHER ==
--- OUTSIDE RECORDS SUMMARY | 2021-09-23 01:48 | XMS REPORT | Continuity of Care Document ---
:1955 Author Organization [facility] t Address [address] [place] [address] Care Team Providers Name Role Phone Sharpless Primary Care Physician KALYANI MACKEY Attending Clinician Unavailable TEREZA Attending Clinician Unavailable Sagar LR Attending Clinician Unavailable Shikha STARKS Attending Clinician Unavailable Shikha STARKS Attending Clinician Unavailable QUINTON Attending Clinician Unavailable ISRRAEL HILLS Attending Clinician Unavailable ISRRAEL HILLS Admitting Clinician Unavailable Payers Payer Name Policy Type Policy Number Effective Date Expiration Date Sylvia KELLY [id number] 2020 PLUS CLASSIC/VALUE 00:00:00 MEDICARE PART A [id number] 2019 \T\ B 00:00:00 Problems Condition Condition Condition Status Onset Resolution Last Treating Co mments Source Name Details Category Date Date Treatment Clinician Date LV (left LV (left Disease [facility] Josi kes - r) mural r) mural 00:00: Medica l thrombus thrombus 00 Center with acute with acute SD SD Stroke Stroke Disease Active 2016-[address] [facility] [address] (cerebrum) (cerebrum) 0-04 Josi kes - 00:00: Medical 00 Center Allergies, Adverse Reactions, Alerts Allergy Allergy Status Severity Reaction(s) Onset Inactive Treating Comm ents Source Name Type Date Date Clinician NO KNOWN Drug Active Univers ALLERGIE Class ity of S [facility] Family History Family Member Diagnosis Comments Start Date Stop Date Source Natural brother Coronary artery [facility] Natural father Coronary artery [facility] Paternal grandmother Diabetes [facility] Social History Social Habit Start Date Stop Date Quantity Comments Source Sex Assigned At [facility] Tobacco use and 2017-04-19 2017-04-19 Never used [facility] - exposure 00:00:00 00:00:00 [facility] Alcohol intake 2017-04-19 2017-04-19 Current [facility] es - 00:00:00 00:00:00 non-drinker of Medical Ce nter alcohol (finding) Smoking Status Start Date Stop Date Source Never smoker [facility] Medications Ordered Filled Start Stop Current Ordering Indication Dosage Frequency Signature Comments Components Source Medication Medication Date Date Medication? Clinician (SIG) Name Name lansoprazol 2016-07 Yes 30mg QD Take [address] [facility] 0[facility]13 [facility] - (PREVACID[facility] 19:16: daily. Medic al 30 [facility] Center capsule lisinopril 2016-07 Yes 20mg QD Take 2 [facility] (PRINIVIL,Z 0-12 tablets [facility] - ESTRIL) 10 00:00: (20 mg Medic al MG tablet 00 total) by Cente r mouth daily. Procedures This patient has no known procedures. Encounters Start End Encounter Admission Attending Care Care Encounter Source Date/Time Date/Time Type Type Clinicians Facility Department ID 2021-03-10 2021-03-10 Outpatient R [facility] [id number] Univers 11:00:00 11:00:00 [id number] [facility] 2021-03-10 2021-03-10 [facility] [id number] Univers 11:00:00 11:00:00 KALYANI [facility] 2020-12-30 2020-12-30 Outpatient R [facility] [id number] Univers 10:15:00 10:15:00 [id number] [facility] 2020-12-30 2020-12-30 Outpatient Judith MACKEY [facility] [place] [id number] Univers 10:15:00 10:15:00 [facility] 2020-09-21 2020-09-21 Outpatient R [facility] [place] [id number] Univers 13:30:00 13:30:00 [id number] [facility] 2020-09-21 2020-09-21 Outpatient R TEREZA [facility] [place] [id number] Univers 10:00:00 10:00:00 KINDRA [facility] 2020-09-03 2020-09-03 Outpatient R BE, [facility] [place] [id number] Univers 09:10:00 09:10:00 HOLLIE [id number] [facility] 2020-09-03 2020-09-03 Outpatient R BE, [facility] [place] [id number] Univers 09:10:00 09:10:00 HOLLIE [facility] 2020-08-27 2020-08-27 Outpatient R BE, [facility] [place] [id number] Univers 09:10:00 09:10:00 HOLLIE [id number] [facility] 2020-08-27 2020-08-27 Outpatient R BE, [facility] [place] [id number] Univers 09:10:00 09:10:00 HOLLIE [facility] 2020-08-06 2020-08-06 Outpatient R BE, [facility] [place] [id number] Univers 08:40:00 08:40:00 HOLLIE [id number] [facility] 2020-08-06 2020-08-06 Outpatient R BE, [facility] [place] [id number] Univers 08:40:00 08:40:00 HOLLIE [facility] 2020-06-25 2020-06-25 Outpatient R [facility] [id number] Univers 11:00:00 11:00:00 [id number] [facility] 2020-06-25 2020-06-25 Outpatient R GILA STARKS [facility] [id number] Univers 11:00:00 11:00:00 GILA STARKS i [facility] 2020-03-23 2020-03-23 Outpatient R [facility] [id number] -[id number] Univers 09:30:00 09:30:00 [id number] [facility] 2020-03-23 2020-03-23 Outpatient R TEREZA [facility] [id number] Univers 09:30:00 09:30:00 KINDRA judge of [facility] 2020-01-30 2020-01-30 Outpatient R QUINTON [facility] [id number] Univers 08:40:00 08:40:00 CORA judge [facility] 2020-01-30 2020-01-30 Outpatient R [facility] [id number] -[id number] Univers 08:20:00 08:20:00 [id number] ity [facility] 2020-01-30 2020-01-30 Outpatient R [facility] [id number] 325 [facility] 08:20:00 08:20:00 [facility] Results Test Description Test Time Test Comments Results Result Comments Source PROTHROMBIN TIME (PT) 2021-09-22 07:11:26 Test Item Value Reference Range Interpretation Comme nts PROTHROMBIN TIME (PT) (test 20.1 SECONDS 12.5-14.7 H code = 1402) INR (test code = 34919) 1.7 SEE BELOW CURRENT RECOMMENDATIONS ARE FOR AN INR OF 2.0-3.0 FOR ALL PATIENTS ON VIT JOAQUIN K ANTAGONISTS, EX CEPT THOSE WITH PROSTH ETIC HEART VALVES, FOR WHO M INR OF 2.5-3.5 IS RE COMMENDED. UNLESS OTHERWIS E INDICATED, ALL TESTING PERFORM ED ATCLINICAL PATHOLOGY LABOR [facility] [address] [place] [address] LABORATO DIRECTOR: KEYSHAWN CARDENAS M.D. CLIA NUMBER [id number] CAP ACCREDITATION N O. [id number] SARS-CoV-2 (COVID-19), RT-PCR/[id number] 16:29:48 Test Item Value Reference Interpretation Comments Range SARS-CoV-2 NEGATIVE SEE NOTE SARS-CoV-2 RNA NOT INTERPRETATION DETECTEDNegat ebonie (test code = 19488) results do not preclude SARS-CoV-2 infe ction and should notb e used as the sole bas is for patient managem ent decisions. Negativeresults must be combined with c linical observations, p atient history,and epidemiological information. Op timum specimen types and timingfor peak viral levels during infections caus ed by SARS-CoV-2 have notbeen determined. Col lection of multiple spe cimens or types ofspec imens may be necessar y to detect virus. I mproper specimencollect ion and handling, seque nce variability und er primers/probes, or organism presen t below the limit of de tection may lead to falsenegative r esults. Positive and ne gative predictive valu es oftesting are h ighly dependent on prevalence. Fal se negative testre sults are more likely when prevalence is h igh. SOURCE (test code = NASOPHARYNGEAL Note: [place] [address]) Jd Devi [place] l-Time RT-PCR. The exp ected result or ref erence range is NEGATI VE (Not Detected). For more information reg arding COVID-19 testin g to include clinicalinforma tion, methodology det ail, intended use, F DA authorization andrecommended fact sheets for eric ents or healthcare prov iders, see NewTest Announcement: SARS-CoV-2 (COV ID-19) by NAAT at URL below (note,fact shee ts are provided by met hod given in report:https:// www.BuzzElement abs.com/clinici ans/clie nt-communicatio ns/ Alternatively, see downloadable PD F fact sheet at:https://www. mobintent/COVID-19-RT -PCR UNLESS OTHERW ISE INDICATED, ALL TESTING PERFORMED [facility] [address] [place] [address] 4 LABORATORY DI SHARMIN: Xavi ALMONTE [id number] CAP ACCREDITATION N O. [id number] PROTHROMBIN TIME/[id number] 08:17:00 Test Item Value Reference Range Interpretation Comments PROTIME (BEAKER) (test code = 22.7 seconds 11.7-14.7 H 759) INR (BEAKER) (test code = 370) 2.0 [...] PATIEN TS. CBC W/PLT COUNT & AUTO [id number] 05:54:00 Test Item Value Reference Range Interpretation [...] (BEAKER) (test code = 2801) BASIC METABOLIC [id number] 06:43:00 Test Item Value Reference Range Interpretation [...] NOT APPLICABLE FOR DIALYSIS PATIEN TS. PROTHROMBIN TIME/[id number] 06:25:00 Test Item Value Reference Range Interpretation [...] valves.While on warfarin.CBC W/PLT COUNT & AUTO [id number] 06:12:00 Test Item Value Reference Range Interpretation [...] (BEAKER) (test code = 2801) BASIC METABOLIC [id number] 10:54:00 Test Item Value Reference Range Interpretation [...] PATIEN TS. CBC W/PLT COUNT & AUTO [id number] 07:36:00 Test Item Value Reference Range Interpretation [...] 0-1 PERCENT (BEAKER) (test code = 2801) [id number] 06:27:00 Test Item Value Reference Range Interpretation Comments PARTIAL THROMBOPLASTIN TIME 77.4 seconds 22.5-36.0 H (BEAKER) (test code = 760) PROTHROMBIN TIME/[id number] 06:25:00 Test Item Value Reference Range Interpretation Comments PROTIME (BEAKER) (test code = 16.1 seconds 11.7-14.7 H 759) INR (BEAKER) (test code = 370) 1.3 <=5.9 RECOMMENDED COUMADIN/WARFARIN INR THERAPY RANGESSTANDARD DOSE: 2.0 - 3.0 Includes: PROPHYLAXIS forvenous thrombosis, systemic embolization; TREATMENT for venous thrombosis and/or pulmonary embolus.HIGH RISK: Target INR is 2.5-3.5 for patients with mechanical heart valves.While on warfarin.[id number] 21:27:00 Test Item Value Reference Range Interpretation Comments PARTIAL THROMBOPLASTIN TIME 50.7 seconds 22.5-36.0 H (BEAKER) (test code = 760) [id number] 13:53:00 Test Item Value Reference Range Interpretation Comments PARTIAL THROMBOPLASTIN TIME 93.2 seconds 22.5-36.0 H (BEAKER) (test code = 760) [id number] 08:10:00 Test Item Value Reference Range Interpretation Comments PARTIAL THROMBOPLASTIN TIME 70.0 seconds 22.5-36.0 H (BEAKER) (test code = 760) BASIC METABOLIC [id number] 07:13:00 Test Item Value Reference Range Interpretation [...] PATIEN TS. CBC W/PLT COUNT & AUTO [id number] 07:07:00 Test Item Value Reference Range Interpretation [...] 417) IMMATURE GRANULOCYTES-RELATIVE 0 % 0-1 PERCENT ([facility]) (test code = 2801) PROTHROMBIN TIME/[id number] 06:24:00 Test Item Value Reference Range Interpretation Comments PROTIME ([facility]) (test code = 15.2 seconds 11.7-14.7 H 759) INR ([facility]) (test code = 370) 1.2 <=5.9 RECOMMENDED COUMADIN/WARFARIN INR THERAPY RANGESSTANDARD DOSE: 2.0 - 3.0 Includes: PROPHYLAXIS forvenous thrombosis, systemic embolization; TREATMENT for venous thrombosis and/or pulmonary embolus.HIGH RISK: Target INR is 2.5-3.5 for patients with mechanical heart valves.[id number] 00:36:00 Test Item Value Reference Range Interpretation Comments PARTIAL THROMBOPLASTIN TIME 49.7 seconds 22.5-36.0 H ([facility]) (test code = 760) POCT-GLUCOSE [id number] 20:48:00 Test Item Value Reference Range Interpretation Comments POC-GLUCOSE METER 126 mg/dL 70-110 H TESTED AT [place] [address] ([facility]) (test code = JVBUZZ Judith [place] 1538) [address] [id number] 18:09:00 Test Item Value Reference Range Interpretation Comments PARTIAL THROMBOPLASTIN TIME 36.3 seconds 22.5-36.0 H ([facility]) (test code = 760) Prior to initiating [id number] 11:06:00 Test Item Value Reference Range Interpretation Comments ACTIVATED CLOTTING TIME 202 sec TEST ED AT [place] [address] ([facility]) (test code = JVBUZZ [place] [address]) [address] [id number] 10:32:00 Test Item Value Reference Range Interpretation Comments ACTIVATED CLOTTING TIME 224 sec TEST ED AT [place] [address] ([facility]) (test code = JVBUZZ [place] [address]) [address] [id number] 10:32:00 Test Item Value Reference Range Interpretation Comments ACTIVATED CLOTTING TIME 467 sec TEST ED AT [place] [address] ([facility]) (test code = CHERI [place] [address]) [address] [id number] 09:51:00 Test Item Value Reference Range Interpretation Comments ACTIVATED CLOTTING TIME 114 [address] [facility] 6720 (BEAKER) (test code = CHERI Judith [place] [address]) [address] POCT-GLUCOSE [id number] 08:10:00 Test Item Value Reference Range Interpretation Comments POC-GLUCOSE METER 67 mg/dL 70-110 L Notified R Lanny MD/TESTED AT (BEAKER) (test code = [facility] [address] 1538) [place] [address] BASIC METABOLIC [id number] 08:04:00 Test Item Value Reference Range Interpretation Comments SODIUM (BEAKER) 139 meq/L 136-145 (test code = 381) POTASSIUM (BEAKER) 4.0 meq/L 3.5-5.1 (test code = 379) [...] PATIEN TS. CBC W/PLT COUNT & AUTO [id number] 07:11:00 Test Item Value Reference Range Interpretation [...] (test code = 2801) PET, CARDIAC PET, [id number] 15:39:00Reason for exam:->MIFINAL REPORT PROCEDURE: MYOCARDIAL METABOLISM PET IMAGING with Rest MYOCARDIAL PERFUSION PET IMAGING\XA9\ CPT CODE: 07133, 07823 INDICATION: History of SD/Assess Viability HISTORY: Cardiac risk factors: CAD, hypertension, [...] is normal. 8. No previous [facility] study forcomparison. Signed: [facility] Verified Date/Time: 04/16/2017 15:39:23 Reading Location: [address] CT, BRAIN, WITHOUT [id number] 11:48:00FINAL REPORT CT head without contrast 04/16/2017 [...] remarkable change in intracranial appearance. Signed: Tito Paez Verified Date/Time: 04/16/2017 11:48:54 Reading Location: [address] Neuro Reading Room C METABOLIC [id number] 05:46:00 Test Item Value Reference Range Interpretation [...] S NOT APPLICABLE FOR DIALYSIS PATIEN TS. [id number] 05:31:00 Test Item Value Reference Range Interpretation [...] 0-1 PERCENT (BEAKER) (test code = 2801) [id number] 15:23:00 Test Item Value Reference Range Interpretation Comments PARTIAL THROMBOPLASTIN TIME 52.5 seconds 22.5-36.0 H (BEAKER) (test code = 760) [id number] 14:59:00 Test Item Value Reference Range Interpretation Comments PARTIAL THROMBOPLASTIN 23.0 seconds 22.5-36.0 Pleas e disregard TIME (BEAKER) (test result. Specimen code = 760) for aPTT was fo und to be clotted p ost analysis. B#[id number] notified to red raw aPTT.This is a corrected resul t. Previous result was 23.0 second s on 04/15/2017 at 1411 CDT Specimen for aPTT was found to be clotted. B#[id number] notified to redraw.CBC W/PLT COUNT & AUTO [id number] 12:19:00 Test Item Value Reference Range Interpretation [...] 0-1 PERCENT (BEAKER) (test code = 2801) (MANUAL DIFFERENTIAL)2017-04-15 12:19:00 Test Item Value Reference Range Interpretation Comments TOTAL COUNTED (BEAKER) (test code = 1351) WBC MORPHOLOGY (BEAKER) (test code = Normal 487) PLT MORPHOLOGY (BEAKER) (test code = Normal 486) RBC MORPHOLOGY (BEAKER) (test code = Normal 762) [id number] 08:48:00 Test Item Value Reference Range Interpretation Comments POTASSIUM (BEAKER) (test code = 4.7 meq/L 3.5-5.1 379) Check Serum Potassium level 2 hours after oral potassium replacement completed or 30 min after intravenous potassium replacement.[id number] 08:26:00 Test Item Value Reference Range Interpretation Comments PARTIAL THROMBOPLASTIN TIME 53.7 seconds 22.5-36.0 H (BEAKER) (test code = 760) BASIC METABOLIC [id number] 07:59:00 Test Item Value Reference Range Interpretation [...] S NOT APPLICABLE FOR DIALYSIS PATIEN TS. [id number] 22:41:00 Test Item Value Reference Range Interpretation Comments PARTIAL THROMBOPLASTIN TIME 39.7 seconds 22.5-36.0 H (BEAKER) (test code = 760) POCT-GLUCOSE [id number] 18:35:00 Test Item Value Reference Range Interpretation Comments POC-GLUCOSE METER 121 mg/dL 70-[address] [facility] 67[address] (BEAKER) (test code = CHERI [place] [address]) [address] [place], ESOPH, SWALLOW FUNCTION, WITH CINE OR [id number] 17:08:00Reason for exam:->dysphagiaFINAL REPORT Modified barium swallow. CLINICAL HISTORY: dysphagia. COMPARISONSTUDY: None available. FINDINGS: Under the direction of patient's speech pathologist, the patient ingested thin barium, thick barium, barium-coated crackers and barium pur\XE9\e. Penetration is seen with thin barium. Please refer to the speech pathology notes for further discussion. Fluoroscopy time: 1.3 minutes. One image. Signed: Ronald Garciaeport Verified Date/Time: 04/14/2017 17:08:52 Reading Location: [address] Consult Reading Room POCT-GLUCOSE [id number] 13:42:00 Test Item Value Reference Range Interpretation Comments POC-GLUCOSE METER 77 mg/dL 70-[address] [facility] 6720 ([facility]) (test code = CHERI Wong [facility] [address]) [id number] 12:15:00 Test Item Value Reference Range Interpretation Comments PARTIAL THROMBOPLASTIN TIME 44.5 seconds 22.5-36.0 H ([facility]) (test code = 760) POCT-GLUCOSE [id number] 12:00:00 Test Item Value Reference Range Interpretation Comments POC-GLUCOSE METER 119 mg/dL 70-[address] [facility] 6720 ([facility]) (test code = [facility] Judith [facility] 1538) [address] POCT-GLUCOSE [id number] 11:11:00 Test Item Value Reference Range Interpretation Comments POC-GLUCOSE METER 167 mg/dL 70-110 H TESTED AT [place] [address] ([facility]) (test code = [facility] Judith [facility] 1538) [address] POCT-GLUCOSE [id number] 10:29:00 Test Item Value Reference Range Interpretation Comments POC-GLUCOSE METER 83 mg/dL 70-[address] [facility] 67 ([facility]) (test code = [facility] Judith [facility] [address]) TROPONIN [id number] 08:12:00 Test Item Value Reference Range Interpretation Comments TROPONIN I ([facility]) (test code = 21.40 ng/mL 0.00-0.03 397) [...] Reference Range Interpretation Comments CREATINE KINASE TOTAL ([facility]) 193 U/L 29-200 (test code = 380) CREATINE KINASE-MB ([facility]) (test 2.9 ng/mL 0.0-6.6 code = 750) CREATINE KINASE-MB INDEX (BEAKER) 1.5 % (test code = 395) CK-MB Reference Range:<6.7 Normal6.7-10.0 Borderline>10.0 AbnormalPT/[id number] 04:53:00 Test Item Value Reference Range Interpretation [...] 2.5-3.5 for patients with mechanical heart valves.PROTHROMBIN TIME/[id number] 04:52:00 Test Item Value Reference Range Interpretation Comments PROTIME (BEAKER) (test code = 17.1 seconds 11.7-14.7 H 759) INR (BEAKER) (test code = 370) 1.4 <=5.9 RECOMMENDED COUMADIN/WARFARIN INR THERAPY RANGESSTANDARD DOSE: 2.0 - 3.0 Includes: PROPHYLAXIS forvenous thrombosis, systemic embolization; TREATMENT for venous thrombosis and/or pulmonary embolus.HIGH RISK: Target INR is 2.5-3.5 for patients with mechanical heart valves.BASIC METABOLIC [id number] 04:52:00 Test Item Value Reference Range Interpretation [...] PATIEN TS. CBC W/PLT COUNT & AUTO [id number] 04:38:00 Test Item Value Reference Range Interpretation [...] 0-1 PERCENT (BEAKER) (test code = 2801) [id number] 22:59:00 Test Item Value Reference Range Interpretation [...] patients with mechanical heart valves.CT, BRAIN, WITHOUT [id number] 22:32:00FINAL REPORT CT, BRAIN, WITHOUT CONTRAST INDICATION: [...] at the time of dictation. Signed: JR Beverley, Shelli Raquel Verified Date/Time: 04/13/2017 22:32:02 Reading Location: [address] Reading Room APTT 2017-04-13 15:59:00 Test Item Value Reference Range Interpretation Comments PARTIAL THROMBOPLASTIN TIME 40.7 seconds 22.5-36.0 H (BEAKER) (test code = 760) CREATINE KINASE (CK), TOTAL AND [id number] 11:03:00 Test Item Value Reference Range Interpretation Comments CREATINE KINASE TOTAL (BEAKER) 304 U/L 29-200 H (test code = 380) CREATINE KINASE-MB (BEAKER) (test 4.2 ng/mL 0.0-6.6 code = 750) CREATINE KINASE-MB INDEX (BEAKER) 1.4 % (test code = 395) CK-MB Reference Range:<6.7 Normal6.7-10.0 Borderline>10.0 AbnormalTROPONIN [id number] 10:57:00 Test Item Value Reference Range Interpretation [...] failure, acidosis, acute neurological disease, and persistent tachyarrhythmia.[id number] 10:29:00 Test Item Value Reference Range Interpretation Comments PARTIAL THROMBOPLASTIN TIME 50.5 seconds 22.5-36.0 H (BEAKER) (test code = 760) CBC W/PLT COUNT & AUTO [id number] 04:51:00 Test Item Value Reference Range Interpretation [...] (BEAKER) (test code = 2801) BASIC METABOLIC [id number] 04:38:00 Test Item Value Reference Range Interpretation [...] NOT APPLICABLE FOR DIALYSIS PATIEN TS. FastingLIPID [id number] 04:38:00 Test Item Value Reference Range Interpretation [...] 130-159 High 160-189 Very High >=190 FastingTROPONIN [id number] 02:32:00 Test Item Value Reference Range Interpretation [...] = 395) CK-MB Reference Range:<6.7 Normal6.7-10.0 Borderline>10.0 [id number] 02:01:00 Test Item Value Reference Range Interpretation Comments PARTIAL THROMBOPLASTIN TIME 54.0 seconds 22.5-36.0 H (BEAKER) (test code = 760) Prior to initiating heparinMR, BRAIN, WITHOUT [id number] 01:51:00FINAL REPORT MR, BRAIN, WITHOUT CONTRAST, MR, [...] MRA of the head and neck. Signed: Gio Lovett MDReport Verified Date/Time: 04/13/2017 01:51:59 Reading Location: [facility] C013X Ortho Consult Reading Room Electronically signed by: GIO LOVETT MD on 1 01:51 AMMR, MRA, BRAIN, WITHOUT [id number] 01:51:00FINAL REPORT MR, BRAIN, WITHOUT CONTRAST, MR, [...] MRA of the head and neck. Signed: Gio Lovett MDReport Verified Date/Time: 04/13/2017 01:51:59 Reading Location: [address] Ortho Consult Reading Room Electronically signed by: GIO LOVETT MD on 1 01:51 AMMR, MRA, NECK, WITHOUT IV [id number] 01:51:00FINAL REPORT MR, BRAIN, WITHOUT CONTRAST, MR, [...] MRA of the head and neck. Signed: Gio Lovett MDReport Verified Date/Time: 04/13/2017 01:51:59 Reading Location: [facility] [facility] B1 C013X Ortho Consult Reading Room Electronically signed by: GIO LOVETT MD on 01:51 AMURINALYSIS W/ [id number] 00:39:00 Test Item Value Reference Range Interpretation [...] 1584) SOURCE(BEAKER) (test code = Urine, Voided 0139) HEMOGLOBIN [id number] 22:15:00 Test Item Value Reference Range Interpretation Comments HEMOGLOBIN A1C (BEAKER) (test code = 5.7 % 4.3-6.1 368) TROPONIN [id number] 21:26:00 Test Item Value Reference Range Interpretation [...] CK-MB Reference Range:<6.7 Normal6.7-10.0 Borderline>10.0 AbnormalCOMPREHENSIVE METABOLIC [id number] 21:06:00 Test Item Value Reference Range Interpretation [...] NOT APPLICABLE FOR DIALYSIS PATIEN TS. PROTHROMBIN [id number] 21:02:00 Test Item Value Reference Range Interpretation Comments PROTIME (BEAKER) (test code = 17.4 seconds 11.7-14.7 H 759) INR (BEAKER) (test code = 370) 1.4 <=5.9 RECOMMENDED COUMADIN/WARFARIN INR THERAPY RANGESSTANDARD DOSE: 2.0 - 3.0 Includes: PROPHYLAXIS forvenous thrombosis, systemic embolization; TREATMENT for venous thrombosis and/or pulmonary embolus.HIGH RISK: Target INR is 2.5-3.5 for patients with mechanical heart valves.PT/[id number] 21:02:00 Test Item Value Reference Range Interpretation [...] is 2.5-3.5 for patients with mechanical heart valves.[id number] 21:02:00 Test Item Value Reference Range Interpretation Comments PARTIAL THROMBOPLASTIN TIME 29.2 seconds 22.5-36.0 (BEAKER) (test code = 760) CBC W/PLT COUNT & AUTO [id number] 20:56:00 Test Item Value Reference Range Interpretation [...]
[2021-09-23] MEDS ORDERED: IBUPROFEN 200 MG TAB PO ONE (03:48)
[2021-09-23] MEDS ORDERED: IBUPROFEN 400 MG TAB ONE (03:49)
--- NOTE | 2021-09-23 05:37 | ER ---
Nurse's Notes [facility] Name: Hui Guevara Jr Age: 66 yrs Sex: Male : 1955 Arrival Date: 09/23/2021 Time: 01:47 Bed 8 Private MD: Diagnosis: Unspecified symptoms and signs involving the musculoskeletal system-right upper arm;Strain of muscle, fascia and tendon of long head of biceps Presentation: 09/23 02:18 Chief complaint: Patient states: "My arm hurts and sometimes I can't lift it up" as6 started 3 days ago. Coronavirus screen: At this time, the client does not indicate any symptoms associated with coronavirus-19. Ebola Screen: No symptoms or risks identified at this time. Initial Sepsis Screen: Does the patient meet any 2 criteria? No. Patient's initial sepsis screen is negative. Does the patient have a suspected source of infection? No. Patient's initial sepsis screen is negative. Risk Assessment: Do you want to hurt yourself or someone else? Patient reports no desire to harm self or others. Onset of symptoms was September 19, 2021. 02:18 Method Of Arrival: Ambulatory as6 02:18 Acuity: REUBEN 2 as6 Triage Assessment: 02:24 General: Appears in no apparent distress. Behavior is calm, cooperative. Pain: as6 Complains of pain in right arm Pain radiates to right supraclavicular area and right clavicle. Historical: - Allergies: 02:22 No Known Allergies; as6 - Home Meds: 02:22 "blood pressure" [Active]; "Blood thinner" [Active]; as6 - PMHx: 02:22 Hypertension; Cerebrovascular accident; Myocardial infarction; as6 - PSHx: 02:22 Heart Stents; as6 - Immunization history:: Client reports receiving the 2nd dose of the Covid vaccine, [employer]. - Social history:: Smoking status: Patient denies any tobacco usage or history of. Screenin:54 Abuse screen: Denies threats or abuse. Nutritional screening: No deficits noted. sf1 Tuberculosis screening: No symptoms or risk factors identified. Fall Risk None identified. Assessment: 05:50 General: Appears in no apparent distress. Behavior is calm, cooperative. sf1 Musculoskeletal: Reports pain in right shoulder. 05:51 Musculoskeletal:. sf1 Vital Signs: 02:18 BP 125 / 73; Pulse 49; Resp 18 S; Temp 97.7(TE); Pulse Ox 100% on R/A; Weight 127.01 kg as6 (R); Height 5 ft. 9 in. (175.26 cm) (R); Pain 8/10; 05:54 BP 132 / 68; Pulse 52; Resp 20; Pulse Ox 98% on R/A; sf1 02:18 Body Mass Index 41.35 (127.01 kg, 175.26 cm) as6 ED Course: 01:47 Patient arrived in ED. wm 02:22 Triage completed. as6 02:24 Arm band placed on. as6 02:36 EKG completed in triage. Results shown to MD. as6 02:54 Abilio Pino MD is Attending Physician. kdr 03:55 Shoulder Right (2 View) XRAY In Process Unspecified. EDMS 03:55 Elbow Right 3 View XRAY In Process Unspecified. EDMS 05:54 Patient has correct armband on for positive identification. sf1 05:54 No provider procedures requiring assistance completed. Patient did not have IV access sf1 during this emergency room visit. Administered Medications: 03:47 Drug: Ibuprofen 600 mg Route: PO; sf1 Outcome: 05:37 Discharge ordered by . kdr 05:54 Discharged to home ambulatory. sf1 05:54 Condition: stable 05:54 Discharge instructions given to patient, Instructed on discharge instructions, follow up and referral plans. Demonstrated understanding of instructions, follow-up care, wound care, Prescriptions given X 1. 05:56 Patient left the ED. sf1 Signatures: Dispatcher [employer] EDDC Abilio Pino MD MD [facility] Iyv Doll Philippe Mayfield RN RN as6 Lina Reynolds RN RN sf1 Corrections: (The following items were deleted from the chart) 02:24 02:22 PMHx: kidney issues; as6 as 02:24 02:22 PMHx: psoriasis; as6 02:24 02:22 PMHx: heart stents; as6 as6 05:53 05:50 Musculoskeletal: Reports pain in left clavicle sf1 sf1 05:53 05:50 Musculoskeletal: Reports pain in left clavicle sf1 sf1
--- NOTE | 2021-09-23 05:37 | EDPHYS ---
Physician Documentation [facility] Name: Hui Guevara Jr Age: 66 yrs Sex: Male : 1955 Arrival Date: 09/23/2021 Time: 01:47 Bed 8 Private MD: ED Physician Abilio Pino Historical: - Allergies: 09/23 02:22 No Known Allergies; as6 - Home Meds: 02:22 "blood pressure" [Active]; "Blood thinner" [Active]; as6 - PMHx: 02:22 Hypertension; Cerebrovascular accident; Myocardial infarction; as6 - PSHx: 02:22 Heart Stents; as6 - Immunization history:: Client reports receiving the 2nd dose of the Covid vaccine, [employer]. - Social history:: Smoking status: Patient denies any tobacco usage or history of. Exam: 05:30 ECG was reviewed by the Attending Physician. kdr Vital Signs: 02:18 BP 125 / 73; Pulse 49; Resp 18 S; Temp 97.7(TE); Pulse Ox 100% on R/A; Weight 127.01 kg as6 (R); Height 5 ft. 9 in. (175.26 cm) (R); Pain 8/10; 05:54 BP 132 / 68; Pulse 52; Resp 20; Pulse Ox 98% on R/A; sf1 02:18 Body Mass Index 41.35 (127.01 kg, 175.26 cm) as6 MDM: 05:37 Patient medically screened. kdr 09/23 03:26 Order name: Shoulder Right (2 View) XRAY kdr 09/23 03:26 Order name: Elbow Right 3 View XRAY kdr EC:30 Rate is 46 beats/min. Rhythm is regular, Sinus bradycardia with No ectopy. QRS [place] is kdr Normal. IA interval is normal. QRS interval is normal. Clinical impression: Sinus arrythmia and Sinus bradycardia. Administered Medications: 03:47 Drug: Ibuprofen 600 mg Route: PO; sf1 Disposition Summary: 09/23/21 05:37 Discharge Ordered Location: Home kdr Problem: new kdr Symptoms: have improved kdr Condition: Stable kdr Diagnosis - Unspecified symptoms and signs involving the musculoskeletal system - right upper kdr arm - Strain of muscle, fascia and tendon of long head of biceps kdr Followup: kdr - With: Private Physician - When: 2 - 3 days - Reason: If symptoms return, Further diagnostic work-up, Recheck today's complaints, Continuance of care, Re-evaluation by your physician Discharge Instructions: - Discharge Summary Sheet kdr - Muscle Pain, Adult kdr - Muscle Strain, [id number] kdr Forms: - Medication Reconciliation Form kdr - Thank You Letter kdr Prescriptions: - Ibuprofen 800 mg Oral Tablet - take 1 tablet by ORAL route every 8 hours As needed take with food; 20 tablet; kdr Refills: 0, Product Selection Permitted Signatures: Dispatcher [employer] Abilio Anderson MD MD kdr Philippe Mayfield RN RN as6 FillersLina RN RN sf1 Corrections: (The following items were deleted from the chart) 02:24 02:22 PMHx: kidney issues; as6 as6 02:24 02:22 PMHx: psoriasis; as6 as6 02:24 02:22 PMHx: heart stents; as6 as6
[2021-09-23 06:03] VITALS: TEMP 97.7
[2021-09-23 06:05] VITALS: BP 132/68; O2SAT 98
--- NOTE | 2021-09-23 11:29 | RAD REPORT ---
EXAM DESCRIPTION: RAD - Elbow Right 3 View - 09/23/2021 3:55 am CLINICAL HISTORY: PAIN Elbow Right 3 View COMPARISON: None. TECHNIQUE: XR ELBOW 3 VIEWS 09/23/2021 3:26 AM CDT FINDINGS: There is no fracture. Joint spaces are preserved. Soft tissues are unremarkable. IMPRESSION: No acute osseous findings. Electronically signed by: Israel Bazan MD 09/23/2021 4:45 AM CDT Due to temporary technical issues with the PACS/Fluency reporting system, reports are being signed by the in house radiologists without review as a courtesy to insure prompt reporting. The interpreting radiologist is fully responsible for the content of the report.
--- NOTE | 2021-09-23 14:12 | RAD REPORT ---
EXAM DESCRIPTION: RAD - Shoulder Right 2 View - 09/23/2021 3:55 am CLINICAL HISTORY: PAIN Shoulder Right 2 View COMPARISON: None. TECHNIQUE: XR SHOULDER 2 OR MORE VIEWS 09/23/2021 3:26 AM CDT FINDINGS: There is no fracture. Joint spaces are preserved. Soft tissues are unremarkable. IMPRESSION: No acute osseous findings. Electronically signed by: Israel Bazan MD 09/23/2021 4:46 AM CDT Due to temporary technical issues with the PACS/Fluency reporting system, reports are being signed by the in house radiologists without review as a courtesy to insure prompt reporting. The interpreting radiologist is fully responsible for the content of the report.
--- NOTE | 2021-09-27 08:32 | EKG ---
Test Date: 2021-09-23 Test Time: 01:29:14 Mixer Runner: MEASUREMENT RESULTS: Intervals: Rate: 46 WA: 240 QRSD: 106 QT: 472 QTc: 413 [place]: P: 51 WA: 240 QRS: -41 T: 50 INTERPRETIVE STATEMENTS: Sinus bradycardia with 1st degree AV block Left axis deviation Anterolateral infarct, age undetermined Abnormal ECG Compared to ECG 03/16/2021 16:06:57 Left-axis deviation now present Myocardial infarct finding still present Electronically Signed On 09-27-21 08:23:56 CDT by Horacio Benoit
== END 2021-09-23 05:56 | disposition home or self-care (01) ==
LOC: ER 01:43
DX: S46.111A Strain of muscle, fascia and tendon of long head of biceps, right arm, initial encounter (principal); I10 Essential (primary) hypertension; I25.2 Old myocardial infarction; Z95.818 Presence of other cardiac implants and grafts; Z79.01 Long term (current) use of anticoagulants
CPT/HCPCS: 93005; 99283

== ENCOUNTER 2022-11-07 03:38 | Emergency (ER) | payer OTHER, SELFPAY ==
--- OUTSIDE RECORDS SUMMARY | 2022-11-07 03:49 | XMS REPORT | Continuity of Care Document ---
:1955 Author Organization [facility] t Address [address] [facility] [place] [address] Care Team Providers Name Role Phone RAFA CONWAY Primary Care Physician Unavailable CARINE PATTERSON Attending Clinician Unavailable Carine Patterson MD Attending Clinician Doctor Unassigned, [place] Attending Clinician Unavailable KALYANI MACKEY Attending Clinician Unavailable KINDRA STARKS Attending Clinician Unavailable HOLLIE LR Attending Clinician Unavailable GILA STARKS Attending Clinician Unavailable GILA STARKS Attending Clinician Unavailable CORA ALCANTARA Attending Clinician Unavailable KARIME HILLS Attending Clinician Unavailable KARIME HILLS Admitting Clinician Unavailable Payers Payer Name Policy Type Policy Number Effective Date Expiration Date [facility] [place] [facility] [id number] 2020 CLASSIC NO PREMIUM 00:00:00 HMO MEDICARE PART A [id number] 2019 \T\ B 00:00:00 Problems Condition Condition Condition Status Onset Resolution Last Treating Co mments Source Name Details Category Date Date Treatment Clinician Date Morbid Morbid Disease Active 2021-07 [facility] obesity obesity 0-14 ity of 00:00: [place] 00 Medical Branch Coronary Coronary Disease Active 2021-07 Unive rs artery artery 0-14 ity of disease disease 00:00: [place] involving involving 00 [facility] [place] coronary coronary artery of artery of [place] heart without without angina angina pectoris pectoris 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 Unive rs ventricula ventricula 0-14 it y of r) mural r) mural 00:00: [place] thrombus thrombus 00 Medica l Branch Bradycardi Bradycardi Disease Active 2021-07 U nivers a a 0-14 ity of 00:00: [place] 00 Medical Branch Hyperlipid Hyperlipid Disease Active 2021-07 U nivers emia, emia, 0-14 ity of unspecifie [place] Medical hyperlipid hyperlipid Br anch emia type emia type Primary Primary Disease Active 2021-07 Univers hypertensi hypertensi 0-14 it y of on on 00:00: [place] 00 Medical Branch History of History of Disease Active 2021-07 U nivers stroke stroke 0-14 ity of 00:00: [place] 00 Medical Branch LV (left LV (left Disease Recurre 2016-[address] [facility] ventricula ventricula nce 0-07 Josi kes r) mural r) mural 00:00: Medica l thrombus thrombus 00 Center with acute with acute NE NE LV (left LV (left Disease Recurre 2016-[address] [facility] ventricula ventricula nce 0-07 Josi kes r) mural r) mural 00:00: Medica l thrombus thrombus 00 Center with acute with acute NE NE Stroke Stroke Disease Recurre 2016-[address] [facility] (cerebrum) (cerebrum) nce 0-04 Josi kes 00:00: Medical 00 Center No known No known Disease Unive rs active active ity of problems problems [facility] Allergies, Adverse Reactions, Alerts Allergy Allergy Status Severity Reaction(s) Onset Inactive Treating Comm ents Source Name Type Date Date Clinician NO KNOWN Drug Active Univers ALLERGIE Class ity of S [facility] NO KNOWN Allergy Active [facility] Family History Family Member Diagnosis Comments Start Date Stop Date Source Natural brother Coronary artery [facility] Natural father Coronary artery [facility] Paternal grandmother Diabetes [facility] Social History Social Habit Start Date Stop Date Quantity Comments Source Exposure to 2022-08-01 2022-08-11 Not sure [facility]-CoV-2 00:00:00 10:59:00 [place] Medical (event) Branch Alcohol intake 2017-04-19 2017-04-[address] [facility] 00:[facility]:00 00:00:00 non-drinker of Medical nter alcohol (finding) Tobacco use and 2017-04-13 2017-04-13 Smokeless tobacco [facility] exposure 00:[facility]00 00:00:00 [facility]user [facility] Sex Assigned At [address] [facility] 00:[facility] Smoking Status Start Date Stop Date Source Never smoked tobacco [facility] Medications Ordered Filled Start Stop Current Ordering Indication Dosage Frequency Signature Comments Components Source Medication Medication Date Date Medication? Clinician (SIG) Name Name metoprolol 2022- No 50mg Take 50 mg Univers tartrate 25 2-02 02-02 by mouth ity of mg tablet 11:30: 00:00 in the [place] 43 :00 morning. Medical Branch metoprolol 2022- No 50mg Take 50 mg Univers tartrate 25 2-02 02-02 by mouth ity of mg tablet 11:30: 00:00 in the [place] 43 :00 morning. Medical Branch clopidogreL Yes 75mg Take 75 mg Univers 75 mg 2-02 by mouth ity of tablet 11:18: in the [place] [address] morning. Medical Branch aspirin 81 Yes 81mg Take 81 mg U nivers mg chewable 2-02 by mouth ity of tablet 11:18: in the [place] [address] morning. Medical Branch atorvastati Yes 40mg Take 40 mg Univers n 40 mg 2-02 by mouth ity of tablet 11:18: at [place] [address] bedtime. Medical Branch clopidogreL 0 Yes 75mg Take 75 mg Univers 75 mg 2-02 by mouth ity of tablet 11:18: in the [place] [address] morning. Medical Branch aspirin 81 0 Yes 81mg Take 81 mg U nivers mg chewable 2-02 by mouth ity of tablet 11:18: in the [place] [address] morning. Medical Branch atorvastati 0 Yes 40mg Take 40 mg Univers n 40 mg 2-02 by mouth ity of tablet 11:18: at [place] [address] bedtime. Medical Branch lisinopril 2021-07 Yes 20mg Take 20 mg U nivers (PRINIVIL,Z 0-14 by mouth ity of ESTRIL) 20 10:48: daily. [place] mg tablet 48 Medical Branch warfarin 1 2021-07 Yes 1mg Take 1 mg [place] mg tablet 0-14 by mouth. ity o f 10:48: [place] 48 Medical Branch metoprolol 2021-07 Yes 50mg Take 50 mg U nivers tartrate 25 0-14 by mouth ity of mg tablet 10:48: in the [place] 48 morning. Medical Branch clopidogreL 2021-07 Yes 75mg Take 75 mg Univers 75 mg 0-14 by mouth ity of tablet 10:48: in the [place] 48 morning. Medical Branch aspirin 81 2021-07 Yes 81mg Take 81 mg U nivers mg chewable 0-14 by mouth ity of tablet 10:48: in the [place] 48 morning. Medical Branch warfarin 6 2021-07 Yes 6mg Take 6 mg [place] mg tablet 0-14 by mouth ity of 10:48: every [place] [address] evening. Medical Branch lisinopriL- 2021-07 Yes 1{tbl} Take 1 [place] hydrochloro 0-14 tablet by ity of thiazide 10:48: mouth in [place] 20-25 mg 48 the Medical per tablet morning. Bran h atorvastati 2021-07 Yes 40mg Take 40 mg Univers n 40 mg 0-14 by mouth ity of tablet 10:48: at [place] [address] bedtime. Medical Branch lisinopril 2021-07 Yes 20mg Take 20 mg U nivers (PRINIVIL,Z 0-14 by mouth ity of ESTRIL) 20 10:48: daily. [place] mg tablet 48 Medical Branch warfarin 1 2021-07 Yes 1mg Take 1 mg [place] mg tablet 0-14 by mouth. ity o f 10:48: [place] 48 Medical Branch metoprolol 2021-07 Yes 50mg Take 50 mg U nivers tartrate 25 0-14 by mouth ity of mg tablet 10:48: in the [place] 48 morning. Medical Branch clopidogreL 2021-07 Yes 75mg Take 75 mg Univers 75 mg 0-14 by mouth ity of tablet 10:48: in the [place] 48 morning. Medical Branch aspirin 81 2021-07 Yes 81mg Take 81 mg U nivers mg chewable 0-14 by mouth ity of tablet 10:48: in the [place] 48 morning. Medical Branch warfarin 6 2021-07 Yes 6mg Take 6 mg [place] mg tablet 0-14 by mouth ity of 10:48: every [place] 48 evening. Medical Branch lisinopriL- 2021-07 Yes 1{tbl} Take 1 [place] hydrochloro 0-14 tablet by ity of thiazide 10:48: mouth in [place] 20-25 mg 48 the Medical per tablet morning. Bran h atorvastati 2021-07 Yes 40mg Take 40 mg Univers n 40 mg 0-14 by mouth ity of tablet 10:48: at [place] [address] bedtime. Medical Branch lisinopril 2021-07 Yes 20mg Take 20 mg U nivers (PRINIVIL,Z 0-14 by mouth ity of ESTRIL) 20 10:48: daily. [place] mg tablet 48 Medical Branch warfarin 1 2021-07 Yes 1mg Take 1 mg [place] mg tablet 0-14 by mouth. ity o f 10:48: [place] 48 Medical Branch metoprolol 2021-07 Yes 50mg Take 50 mg U nivers tartrate 25 0-14 by mouth ity of mg tablet 10:48: in the [place] 48 morning. Medical Branch clopidogreL 2021-07 Yes 75mg Take 75 mg Univers 75 mg 0-14 by mouth ity of tablet 10:48: in the [place] 48 morning. Medical Branch aspirin 81 2021-07 Yes 81mg Take 81 mg U nivers mg chewable 0-14 by mouth ity of tablet 10:48: in the [place] 48 morning. Medical Branch warfarin 6 2021-07 Yes 6mg Take 6 mg [place] mg tablet 0-14 by mouth ity of 10:48: every [place] 48 evening. Medical Branch lisinopriL- 2021-07 Yes 1{tbl} Take 1 [place] hydrochloro 0-14 tablet by ity of thiazide 10:48: mouth in [place] 20-25 mg 48 the Medical per tablet morning. Bran h atorvastati 2021-07 Yes 40mg Take 40 mg Univers n 40 mg 0-14 by mouth ity of tablet 10:48: at [place] [address] bedtime. Medical Branch lisinopril 2021-07 Yes 20mg Take 20 mg U nivers (PRINIVIL,Z 0-14 by mouth ity of ESTRIL) 20 10:48: daily. [place] mg tablet 48 Medical Branch warfarin 1 2021-07 Yes 1mg Take 1 mg [place] mg tablet 0-14 by mouth. ity o f 10:48: [place] 48 Medical Branch metoprolol 2021-07 Yes 50mg Take 50 mg U nivers tartrate 25 0-14 by mouth ity of mg tablet 10:48: in the [place] [address] morning. Medical Branch clopidogreL 2021-07 Yes 75mg Take 75 mg Univers 75 mg 0-14 by mouth ity of tablet 10:48: in the [place] 48 morning. Medical Branch aspirin 81 2021-07 Yes 81mg Take 81 mg U nivers mg chewable 0-14 by mouth ity of tablet 10:48: in the [place] [address] morning. Medical Branch warfarin 6 2021-07 Yes 6mg Take 6 mg [place] mg tablet 0-14 by mouth ity of 10:48: every [place] [address] evening. Medical Branch lisinopriL- 2021-07 Yes 1{tbl} Take 1 [place] hydrochloro 0-14 tablet by ity of thiazide 10:48: mouth in [place] 20-25 mg 48 the Medical per tablet morning. [facility] atorvastati 2021-07 Yes 40mg Take 40 mg Univers n 40 mg 0-14 by mouth ity of tablet 10:48: at [place] [address] bedtime. Medical Branch lisinopril 2021-07 Yes 20mg Take 20 mg U nivers (PRINIVIL,Z 0-14 by mouth ity of ESTRIL) 20 10:48: daily. [place] mg tablet 48 Medical Branch warfarin 1 2021-07 Yes 1mg Take 1 mg [place] mg tablet 0-14 by mouth. ity o f 10:48: [place] 48 Medical Branch warfarin 6 2021-07 Yes 6mg Take 6 mg [place] mg tablet 0-14 by mouth ity of 10:48: every [place] 48 evening. Medical Branch lisinopriL- 2021-07 Yes 1{tbl} Take 1 [place] hydrochloro 0-14 tablet by ity of thiazide 10:48: mouth in [place] 20-25 mg 48 the Medical per tablet morning. Bran h lisinopril 2021-07 Yes 20mg Take 20 mg U nivers (PRINIVIL,Z 0-14 by mouth ity of ESTRIL) 20 10:48: daily. [place] mg tablet 48 Medical Branch warfarin 1 2021-07 Yes 1mg Take 1 mg [place] mg tablet 0-14 by mouth. ity o f 10:48: [place] 48 Medical Branch warfarin 6 2021-07 Yes 6mg Take 6 mg [place] mg tablet 0-14 by mouth ity of 10:48: every [place] 48 evening. Medical Branch lisinopriL- 2021-07 Yes 1{tbl} Take 1 [place] hydrochloro 0-14 tablet by ity of thiazide 10:48: mouth in [place] 20-25 mg 48 the Medical per tablet morning. [facility] lisinopril 2021-07 Yes 20mg Take 20 mg U nivers (PRINIVIL,Z 0-14 by mouth ity of ESTRIL) 20 08:07: daily. [place] mg tablet 02 Medical Branch METOPROLOL 2021-0 No TARTRATE 9-10 50MG TAB 00:00: 00 METOPROLOL 2-0 No TARTRATE 9-10 50MG TAB 00:00: 00 METOPROLOL 2-0 No TARTRATE 9-10 50MG TAB 00:00: 00 warfarin 1 2021-0 No 1mg mg tablet 12-28 00:00: 00 warfarin 6 2021-0 No 1mg mg tablet 12-28 00:00: 00 Dose 2022-0 No Unknown 12-28 00:00: 00 clopidogrel 2022-0 No 1mg 75 mg 6-21 tablet 00:00: 00 metoprolol 2022-0 No 1mg tartrate 50 6-21 mg tablet 00:00: 00 amoxicillin 2022-0 No 1mg 875 mg 6-21 tablet 00:00: 00 acitretin 2022-0 No 1mg 25 mg 6-21 capsule 00:00: 00 chlorhexidi 2022-0 No 10% ne 6-21 gluconate 00:00: 0.12 % 00 mouthwash warfarin 1 2021-0 No 1mg mg tablet 12-28 00:00: 00 warfarin 6 2-0 No 1mg mg tablet 12-28 00:00: 00 Dose 2022-0 No Unknown 12-28 00:00: 00 clopidogrel 2022-0 No 1mg 75 mg 6-21 tablet 00:00: 00 metoprolol 2022-0 No 1mg tartrate 50 6-21 mg tablet 00:00: 00 amoxicillin 2022-0 No 1mg 875 mg 6-21 tablet 00:00: 00 acitretin 2022-0 No 1mg 25 mg 6-21 capsule 00:00: 00 chlorhexidi 2022-0 No 10% ne 6-21 gluconate 00:00: 0.12 % 00 mouthwash warfarin 1 2-0 No 1mg mg tablet 6 00:00: 00 warfarin 6 2-0 No 1mg mg tablet 6 00:00: 00 Dose 2022-0 No Unknown 621 00:00: 00 clopidogrel 2022-0 No 1mg 75 mg 6-21 tablet 00:00: 00 metoprolol 2022-0 No 1mg tartrate 50 6-21 mg tablet 00:00: 00 amoxicillin 2022-0 No 1mg 875 mg 6-21 tablet 00:00: 00 acitretin 2022-0 No 1mg 25 mg 6-21 capsule 00:00: 00 chlorhexidi 2022-0 No 10% ne 6-21 gluconate 00:00: 0.12 % 00 mouthwash warfarin 1 2-0 No 1mg mg tablet 6 00:00: 00 warfarin 1 2-0 No 1mg mg tablet 614 00:00: 00 warfarin 1 2-0 No 1mg mg tablet 614 00:00: 00 warfarin 1 2022-0 No 1mg mg tablet 3-17 00:00: 00 Dose 2022-0 No Unknown 3-17 00:00: 00 Dose 2022-0 No Unknown 3-17 00:00: 00 Dose 2022-0 No Unknown 3-17 00:00: 00 Dose 2022-0 No Unknown 3-17 00:00: 00 Dose 2022-0 No Unknown 3-17 00:00: 00 Dose 2022-0 No Unknown 3-17 00:00: 00 Dose 2022-0 No Unknown 3-17 00:00: 00 Dose 2022-0 No Unknown 3-17 00:00: 00 Dose 2022-0 No Unknown 3-17 00:00: 00 Dose 2022-0 No Unknown 3-17 00:00: 00 Dose 2022-0 No Unknown 3-17 00:00: 00 Dose 2022-0 No Unknown 3-17 00:00: 00 warfarin 1 2022-0 No 1mg mg tablet 3-17 00:00: 00 Dose 2022-0 No Unknown 3-17 00:00: 00 Dose 2022-0 No Unknown 3-17 00:00: 00 Dose 2022-0 No Unknown 3-17 00:00: 00 Dose 2022-0 No Unknown 3-17 00:00: 00 Dose 2022-0 No Unknown 3-17 00:00: 00 Dose 2022-0 No Unknown 3-17 00:00: 00 Dose 2022-0 No Unknown 3-17 00:00: 00 Dose 2022-0 No Unknown 3-17 00:00: 00 Dose 2022-0 No Unknown 3-17 00:00: 00 Dose 2022-0 No Unknown 3-17 00:00: 00 Dose 2022-0 No Unknown 3-17 00:00: 00 Dose 2022-0 No Unknown 3-17 00:00: 00 warfarin 1 2022-0 No 1mg mg tablet 3-17 00:00: 00 Dose 2022-0 No Unknown 3-17 00:00: 00 Dose 2022-0 No Unknown 3-17 00:00: 00 Dose 2022-0 No Unknown 3-17 00:00: 00 Dose 2022-0 No Unknown 3-17 00:00: 00 Dose 2022-0 No Unknown 3-17 00:00: 00 Dose 2022-0 No Unknown 3-17 00:00: 00 Dose 2022-0 No Unknown 3-17 00:00: 00 Dose 2022-0 No Unknown 3-17 00:00: 00 Dose 2022-0 No Unknown 3-17 00:00: 00 Dose 2022-0 No Unknown 3-17 00:00: 00 Dose 2022-0 No Unknown 3-17 00:00: 00 Dose 2022-0 No Unknown 3-17 00:00: 00 Dose 2022-0 No Unknown 3-14 00:00: 00 Dose 2022-0 No Unknown 3-14 00:00: 00 Dose 2022-0 No Unknown 3-14 00:00: 00 Dose 2022-0 No Unknown 3-14 00:00: 00 Dose 2022-0 No Unknown 3-14 00:00: 00 Dose 2022-0 No Unknown 3-14 00:00: 00 Dose 2022-0 No Unknown 3-14 00:00: 00 Dose 2022-0 No Unknown 3-14 00:00: 00 Dose 2022-0 No Unknown 3-14 00:00: 00 Dose 2022-0 No Unknown 3-14 00:00: 00 Dose 2022-0 No Unknown 3-14 00:00: 00 Dose 2022-0 No Unknown 3-14 00:00: 00 Dose 2022-0 No Unknown 3-14 00:00: 00 Dose 2022-0 No Unknown 3-14 00:00: 00 Dose 2022-0 No Unknown 3-14 00:00: 00 Dose 2022-0 No Unknown 3-14 00:00: 00 Dose 2022-0 No Unknown 3-14 00:00: 00 Dose 2022-0 No Unknown 3-14 00:00: 00 metoprolol 2022-0 No 1mg tartrate 50 2-08 mg tablet 00:00: 00 lisinopril 2022-0 No 1mg 20 2-08 mg-hydrochl 00:00: orothiazide 00 25 mg tablet clopidogrel 2022-0 No 1mg 75 mg 2-08 tablet 00:00: 00 warfarin 6 2022-0 No 1mg mg tablet 2-08 00:00: 00 diclofenac 2022-0 No 1mg sodium 75 2-08 mg 00:00: tablet,bucky 00 yed release metoprolol 2022-0 No 1mg tartrate 50 2-08 mg tablet 00:00: 00 lisinopril 2022-0 No 1mg 20 2-08 mg-hydrochl 00:00: orothiazide 00 25 mg tablet clopidogrel 2022-0 No 1mg 75 mg 2-08 tablet 00:00: 00 warfarin 6 2022-0 No 1mg mg tablet 2-08 00:00: 00 diclofenac 2022-0 No 1mg sodium 75 2-08 mg 00:00: tablet,bucky 00 yed release metoprolol 2022-0 No 1mg tartrate 50 2-08 mg tablet 00:00: 00 lisinopril 2022-0 No 1mg 20 2-08 mg-hydrochl 00:00: orothiazide 00 25 mg tablet clopidogrel 2022-0 No 1mg 75 mg 2-08 tablet 00:00: 00 warfarin 6 2022-0 No 1mg mg tablet 2-08 00:00: 00 diclofenac 2022-0 No 1mg sodium 75 2-08 mg 00:00: tablet,bucky 00 yed release clopidogrel 2022-0 No 1mg 75 mg 1-27 tablet 00:00: 00 metoprolol 2022-0 No 1mg tartrate 50 1-27 mg tablet 00:00: 00 Dose 2022-0 No Unknown 1-27 00:00: 00 acitretin 2022-0 No 1mg 10 mg 1-27 capsule 00:00: 00 clopidogrel 2022-0 No 1mg 75 mg 1-27 tablet 00:00: 00 metoprolol 2022-0 No 1mg tartrate 50 1-27 mg tablet 00:00: 00 Dose 2022-0 No Unknown 1-27 00:00: 00 acitretin 2022-0 No 1mg 10 mg 1-27 capsule 00:00: 00 clopidogrel 2022-0 No 1mg 75 mg 1-27 tablet 00:00: 00 metoprolol 2022-0 No 1mg tartrate 50 1-27 mg tablet 00:00: 00 Dose 2022-0 No Unknown 1-27 00:00: 00 acitretin 2022-0 No 1mg 10 mg 1-27 capsule 00:00: 00 lisinopril 2021-1 No 1mg 20 1-10 mg-hydrochl 00:00: orothiazide 00 25 mg tablet metoprolol 1-1 No 1mg tartrate 50 1-10 mg tablet 00:00: 00 clopidogrel 2021-1 No 1mg 75 mg 1-10 tablet 00:00: 00 Soriatane 1-1 No 1mg 10 mg 1-10 capsule 00:00: 00 Soriatane 2021-1 No 1mg 10 mg 1-10 capsule 00:00: 00 lisinopril 2021-1 No 1mg 20 1-10 mg-hydrochl 00:00: orothiazide 00 25 mg tablet metoprolol 1-1 No 1mg tartrate 50 1-10 mg tablet 00:00: 00 clopidogrel 2021-1 No 1mg 75 mg 1-10 tablet 00:00: 00 Soriatane 2021-1 No 1mg 10 mg 1-10 capsule 00:00: 00 Soriatane 1-1 No 1mg 10 mg 1-10 capsule 00:00: 00 lisinopril 2021-1 No 1mg 20 1-10 mg-hydrochl 00:00: orothiazide 00 25 mg tablet metoprolol 1-1 No 1mg tartrate 50 1-10 mg tablet 00:00: 00 clopidogrel 1-1 No 1mg 75 mg 1-10 tablet 00:00: 00 Soriatane 1-1 No 1mg 10 mg 1-10 capsule 00:00: 00 Soriatane 1-1 No 1mg 10 mg 1-10 capsule 00:00: 00 warfarin 6 1-0 No 1mg mg tablet 03-24 00:00: 00 warfarin 6 1-0 No 1mg mg tablet 03-24 00:00: 00 warfarin 6 1-0 No 1mg mg tablet 03-24 00:00: 00 warfarin 5 1-0 No 1mg mg tablet 03-04 00:00: 00 warfarin 1 1-0 No 5mg mg tablet 03-04 00:00: 00 clopidogrel 1-0 No 1mg 75 mg 8-26 tablet 00:00: 00 metoprolol 1-0 No 1mg tartrate 50 8-26 mg tablet 00:00: 00 pantoprazol 1-0 No 1mg e 40 mg - tablet,bucky 00:00: yed release 00 Dose 1-0 No Unknown 03-04 00:00: 00 atorvastati 1-0 No 1mg n 80 mg - tablet 00:00: 00 warfarin 5 1-0 No 1mg mg tablet 03-04 00:00: 00 warfarin 1 1-0 No 5mg mg tablet 03-04 00:00: 00 clopidogrel 1-0 No 1mg 75 mg 8-26 tablet 00:00: 00 metoprolol 1-0 No 1mg tartrate 50 8-26 mg tablet 00:00: 00 pantoprazol 1-0 No 1mg e 40 mg - tablet,bucky 00:00: yed release 00 Dose 1-0 No Unknown 03-04 00:00: 00 atorvastati 1-0 No 1mg n 80 mg 8-26 tablet 00:00: 00 warfarin 5 1-0 No 1mg mg tablet 03-04 00:00: 00 warfarin 1 1-0 No 5mg mg tablet 03-04 00:00: 00 clopidogrel 2021-0 No 1mg 75 mg 8-26 tablet 00:00: 00 metoprolol 2021-0 No 1mg tartrate 50 8-26 mg tablet 00:00: 00 pantoprazol 2021-0 No 1mg e 40 mg 8-26 tablet,bucky 00:00: yed release 00 Dose 2021-0 No Unknown 8- 00:00: 00 atorvastati 2021-0 No 1mg n 80 mg 8-26 tablet 00:00: 00 clopidogrel 2021-0 No 1mg 75 mg 7-13 tablet 00:00: 00 warfarin 1 2021-0 No 5mg mg tablet 7 00:00: 00 warfarin 5 2021-0 No 1mg mg tablet 7 00:00: 00 clopidogrel 2021-0 No 1mg 75 mg 7-13 tablet 00:00: 00 warfarin 1 2021-0 No 5mg mg tablet 7 00:00: 00 warfarin 5 2021-0 No 1mg mg tablet 7 00:00: 00 clopidogrel 2021-0 No 1mg 75 mg 7-13 tablet 00:00: 00 warfarin 1 2021-0 No 5mg mg tablet 7 00:00: 00 warfarin 5 1-0 No 1mg mg tablet 7 00:00: 00 pantoprazol 2021-0 No 1mg e 40 mg 7-09 tablet,bucky 00:00: yed release 00 lisinopril 2021-0 No 1mg 20 7-09 mg-hydrochl 00:00: orothiazide 00 25 mg tablet metoprolol 1-0 No 1mg tartrate 50 7-09 mg tablet 00:00: 00 clopidogrel 2021-0 No 1mg 75 mg 7-09 tablet 00:00: 00 atorvastati 2021-0 No 1mg n 80 mg 7-09 tablet 00:00: 00 pantoprazol 2021-0 No 1mg e 40 mg 7-09 tablet,bucky 00:00: yed release 00 lisinopril 2021-0 No 1mg 20 7-09 mg-hydrochl 00:00: orothiazide 00 25 mg tablet metoprolol 2021-0 No 1mg tartrate 50 7-09 mg tablet 00:00: 00 clopidogrel 2021-0 No 1mg 75 mg 7-09 tablet 00:00: 00 atorvastati 2021-0 No 1mg n 80 mg 7-09 tablet 00:00: 00 pantoprazol 2021-0 No 1mg e 40 mg 7-09 tablet,bucky 00:00: yed release 00 lisinopril 2021-0 No 1mg 20 7-09 mg-hydrochl 00:00: orothiazide 00 25 mg tablet metoprolol 2021-0 No 1mg tartrate 50 7-09 mg tablet 00:00: 00 clopidogrel 2021-0 No 1mg 75 mg 7-09 tablet 00:00: 00 atorvastati 2021-0 No 1mg n 80 mg 7-09 tablet 00:00: 00 warfarin 1 1-0 No 5mg mg tablet 08-04 00:00: 00 warfarin 5 1-0 No 1mg mg tablet 08-04 00:00: 00 lisinopril 1-0 No 1mg 20 1-26 mg-hydrochl 00:00: orothiazide 00 25 mg tablet metoprolol 1-0 No 1mg tartrate 50 1-26 mg tablet 00:00: 00 pantoprazol 1-0 No 1mg e 40 mg -26 tablet,bucky 00:00: yed release 00 clopidogrel 1-0 No 1mg 75 mg 1-26 tablet 00:00: 00 warfarin 1 1-0 No 5mg mg tablet 08-04 00:00: 00 warfarin 5 1-0 No 1mg mg tablet 08-04 00:00: 00 warfarin 1 1-0 No 5mg mg tablet 08-04 00:00: 00 warfarin 5 1-0 No 1mg mg tablet 08-04 00:00: 00 lisinopril 1-0 No 1mg 20 1-26 mg-hydrochl 00:00: orothiazide 00 25 mg tablet metoprolol 1-0 No 1mg tartrate 50 1-26 mg tablet 00:00: 00 pantoprazol 2021-0 No 1mg e 40 mg 1-26 tablet,bucky 00:00: yed release 00 clopidogrel 1-0 No 1mg 75 mg 1-26 tablet 00:00: 00 warfarin 1 1-0 No 5mg mg tablet 08-04 00:00: 00 warfarin 5 1-0 No 1mg mg tablet 08-04 00:00: 00 warfarin 1 2021-0 No 5mg mg tablet 08-04 00:00: 00 warfarin 5 1-0 No 1mg mg tablet 08-04 00:00: 00 lisinopril 1-0 No 1mg 20 1-26 mg-hydrochl 00:00: orothiazide 00 25 mg tablet metoprolol 1-0 No 1mg tartrate 50 1-26 mg tablet 00:00: 00 pantoprazol 1-0 No 1mg e 40 mg -26 tablet,bucky 00:00: yed release 00 clopidogrel 1-0 No 1mg 75 mg -26 tablet 00:00: 00 warfarin 1 1-0 No 5mg mg tablet 08-04 00:00: 00 warfarin 5 1-0 No 1mg mg tablet 08-04 00:00: 00 warfarin 5 1-0 No 1mg mg tablet 07-30 00:00: 00 atorvastati 1-0 No 1mg n 80 mg 1-21 tablet 00:00: 00 atorvastati 1-0 No 1mg n 80 mg 1-21 tablet 00:00: 00 metoprolol 1-0 No 1mg tartrate 50 1-21 mg tablet 00:00: 00 clopidogrel 2021-0 No 1mg 75 mg 1-21 tablet 00:00: 00 pantoprazol 1-0 No 1mg e 40 mg 1-21 tablet,bucky 00:00: yed release 00 lisinopril 1-0 No 1mg 20 1-21 mg-hydrochl 00:00: orothiazide 00 25 mg tablet warfarin 1 2020-0 No 5mg mg tablet 07-30 00:00: 00 warfarin 5 1-0 No 1mg mg tablet 07-30 00:00: 00 atorvastati 1-0 No 1mg n 80 mg 1-21 tablet 00:00: 00 atorvastati 2021-0 No 1mg n 80 mg 1-21 tablet 00:00: 00 metoprolol 2021-0 No 1mg tartrate 50 1-21 mg tablet 00:00: 00 clopidogrel 2021-0 No 1mg 75 mg 1-21 tablet 00:00: 00 pantoprazol 2021-0 No 1mg e 40 mg 1-21 tablet,bucky 00:00: yed release 00 lisinopril 1-0 No 1mg 20 1-21 mg-hydrochl 00:00: orothiazide 00 25 mg tablet warfarin 1 1-0 No 5mg mg tablet 07-30 00:00: 00 warfarin 5 1-0 No 1mg mg tablet 07-30 00:00: 00 atorvastati 2021-0 No 1mg n 80 mg 1-21 tablet 00:00: 00 atorvastati 2021-0 No 1mg n 80 mg 1-21 tablet 00:00: 00 metoprolol 2021-0 No 1mg tartrate 50 1-21 mg tablet 00:00: 00 clopidogrel 2021-0 No 1mg 75 mg 1-21 tablet 00:00: 00 pantoprazol 2021-0 No 1mg e 40 mg 1-21 tablet,bucky 00:00: yed release 00 lisinopril 2021-0 No 1mg 20 1-21 mg-hydrochl 00:00: orothiazide 00 25 mg tablet warfarin 1 1-0 No 5mg mg tablet 07-30 00:00: 00 pantoprazol 2020-0 No 1mg e 40 mg 9-30 tablet,bucky 00:00: yed release 00 lisinopril 2020-0 No 1mg 20 9-30 mg-hydrochl 00:00: orothiazide 00 25 mg tablet metoprolol 2020-0 No 1mg tartrate 50 9-30 mg tablet 00:00: 00 clopidogrel 2020-0 No 1mg 75 mg 9-30 tablet 00:00: 00 atorvastati 2020-0 No 1mg n 80 mg 9-30 tablet 00:00: 00 pantoprazol 2020-0 No 1mg e 40 mg 9-30 tablet,bucky 00:00: yed release 00 lisinopril 2020-0 No 1mg 20 9-30 mg-hydrochl 00:00: orothiazide 00 25 mg tablet metoprolol 2020-0 No 1mg tartrate 50 9-30 mg tablet 00:00: 00 clopidogrel 2020-0 No 1mg 75 mg 9-30 tablet 00:00: 00 atorvastati 2020-0 No 1mg n 80 mg 9-30 tablet 00:00: 00 pantoprazol 2020-0 No 1mg e 40 mg 9-30 tablet,bucky 00:00: yed release 00 lisinopril 2020-0 No 1mg 20 9-30 mg-hydrochl 00:00: orothiazide 00 25 mg tablet metoprolol 2019-0 No 1mg tartrate 50 9-30 mg tablet 00:00: 00 clopidogrel 2020-0 No 1mg 75 mg 9-30 tablet 00:00: 00 atorvastati 2019-0 No 1mg n 80 mg 9-30 tablet 00:00: 00 warfarin 1 2020-0 No 5mg mg tablet 04-02 00:00: 00 warfarin 5 2019-0 No 1mg mg tablet 04-02 00:00: 00 warfarin 1 2020-0 No 5mg mg tablet 04-02 00:00: 00 warfarin 5 2019-0 No 1mg mg tablet 04-02 00:00: 00 warfarin 1 2020-0 No 5mg mg tablet 04-02 00:00: 00 warfarin 5 2020-0 No 1mg mg tablet 04-02 00:00: 00 acitretin 2020-0 Yes [id number] 10mg Take 1 U nivers 10 mg 9-14 capsule by ity of capsule 00:00: mouth [place] 00 daily with Medical breakfast. Branch acitretin 2020-0 Yes [id number] 10mg Take 1 U nivers 10 mg 9-14 capsule by ity of capsule 00:00: mouth [place] 00 daily with Medical breakfast. Branch acitretin 2020-0 Yes [id number] 10mg Take 1 U nivers 10 mg 9-14 capsule by ity of capsule 00:00: mouth [place] 00 daily with Medical breakfast. Branch acitretin 2020-0 Yes [id number] 10mg Take 1 U nivers 10 mg 9-14 capsule by ity of capsule 00:00: mouth [place] 00 daily with Medical breakfast. Branch acitretin 2020-0 Yes [id number] 10mg Take 1 U nivers 10 mg 9-14 capsule by ity of capsule 00:00: mouth [place] 00 daily with Medical breakfast. Branch acitretin 2020-0 Yes [id number] 10mg Take 1 U nivers 10 mg 9-14 capsule by ity of capsule 00:00: mouth [place] 00 daily with Medical breakfast. Branch acitretin 2020-0 Yes [id number] 10mg Take 1 U nivers 10 mg 9-14 capsule by ity of capsule 00:00: mouth [place] 00 daily with Medical breakfast. Branch warfarin 1 2019-0 No 5mg mg tablet 11-11 00:00: 00 warfarin 5 2020-0 No 1mg mg tablet 5-05 00:00: 00 clopidogrel 2020-0 No 1mg 75 mg 5-05 tablet 00:00: 00 pantoprazol 2020-0 No 1mg e 40 mg 5-05 tablet,bucky 00:00: yed release 00 lisinopril 2020-0 No 1mg 20 5-05 mg-hydrochl 00:00: orothiazide 00 25 mg tablet warfarin 1 2020-0 No 5mg mg tablet 5-05 00:00: 00 warfarin 5 2020-0 No 1mg mg tablet 5-05 00:00: 00 aspirin 81 2020-0 No 1mg mg 5-05 tablet,bucky 00:00: yed release 00 metoprolol 2020-0 No 1mg tartrate 50 5-05 mg tablet 00:00: 00 atorvastati 2020-0 No 1mg n 80 mg 5-05 tablet 00:00: 00 Levitra 10 2020-0 No mg mg tablet 5-05 00:00: 00 warfarin 1 2020-0 No 5mg mg tablet 5-05 00:00: 00 warfarin 5 2020-0 No 1mg mg tablet 5-05 00:00: 00 clopidogrel 2020-0 No 1mg 75 mg 5-05 tablet 00:00: 00 pantoprazol 2020-0 No 1mg e 40 mg 5-05 tablet,bucky 00:00: yed release 00 lisinopril 2020-0 No 1mg 20 5-05 mg-hydrochl 00:00: orothiazide 00 25 mg tablet warfarin 1 2020-0 No 5mg mg tablet 5-05 00:00: 00 warfarin 5 2020-0 No 1mg mg tablet 5-05 00:00: 00 aspirin 81 2020-0 No 1mg mg 5-05 tablet,bucky 00:00: yed release 00 metoprolol 2020-0 No 1mg tartrate 50 5-05 mg tablet 00:00: 00 atorvastati 2020-0 No 1mg n 80 mg 5-05 tablet 00:00: 00 Levitra 10 2020-0 No mg mg tablet 5-05 00:00: 00 warfarin 1 2020-0 No 5mg mg tablet 5-05 00:00: 00 warfarin 5 2020-0 No 1mg mg tablet 5-05 00:00: 00 clopidogrel 2020-0 No 1mg 75 mg 5-05 tablet 00:00: 00 pantoprazol 2020-0 No 1mg e 40 mg 5-05 tablet,bucky 00:00: yed release 00 lisinopril 2020-0 No 1mg 20 5-05 mg-hydrochl 00:00: orothiazide 00 25 mg tablet warfarin 1 2020-0 No 5mg mg tablet - 00:00: 00 warfarin 5 2020-0 No 1mg mg tablet - 00:00: 00 aspirin 81 2020-0 No 1mg mg 5-05 tablet,bucky 00:00: yed release 00 metoprolol 2020-0 No 1mg tartrate 50 5-05 mg tablet 00:00: 00 atorvastati 2020-0 No 1mg n 80 mg 5-05 tablet 00:00: 00 Levitra 10 2020-0 No mg mg tablet 11-11 00:00: 00 aspirin 81 2020-0 No 1mg mg 1-28 tablet,bucky 00:00: yed release 00 metoprolol 2020-0 No 1mg tartrate 50 1-28 mg tablet 00:00: 00 warfarin 1 2020-0 No 5mg mg tablet 08-06 00:00: 00 warfarin 5 2020-0 No 1mg mg tablet 08-06 00:00: 00 pantoprazol 2020-0 No 1mg e 40 mg -28 tablet,bucky 00:00: yed release 00 lisinopril 2020-0 No 1mg 20 1-28 mg-hydrochl 00:00: orothiazide 00 25 mg tablet levofloxaci 2020-0 No 1mg n 500 mg 1-28 tablet 00:00: 00 clopidogrel 2020-0 No 1mg 75 mg -28 tablet 00:00: 00 pantoprazol 2020-0 No 1mg e 40 mg -28 tablet,bucky 00:00: yed release 00 lisinopril 2020-0 No 1mg 20 1-28 mg-hydrochl 00:00: orothiazide 00 25 mg tablet warfarin 1 2020-0 No 5mg mg tablet 28 00:00: 00 warfarin 5 2020-0 No 1mg mg tablet 28 00:00: 00 aspirin 81 2020-0 No 1mg mg 1-28 tablet,bucky 00:00: yed release 00 metoprolol 2020-0 No 1mg tartrate 50 1-28 mg tablet 00:00: 00 metronidazo 2020-0 No 1mg le 500 mg -28 tablet 00:00: 00 atorvastati 2020-0 No 1mg n 80 mg -28 tablet 00:00: 00 Levitra 10 2020-0 No mg mg tablet 08-06 00:00: 00 Levitra 10 2020-0 No mg mg tablet 08-06 00:00: 00 aspirin 81 2020-0 No 1mg mg -28 tablet,bucky 00:00: yed release 00 metoprolol 2020-0 No 1mg tartrate 50 1-28 mg tablet 00:00: 00 warfarin 1 2020-0 No 5mg mg tablet 08-06 00:00: 00 warfarin 5 2020-0 No 1mg mg tablet 08-06 00:00: 00 pantoprazol 2020-0 No 1mg e 40 mg -28 tablet,bucky 00:00: yed release 00 lisinopril 2020-0 No 1mg 20 -28 mg-hydrochl 00:00: orothiazide 00 25 mg tablet levofloxaci 2020-0 No 1mg n 500 mg - tablet 00:00: 00 clopidogrel 2020-0 No 1mg 75 mg -28 tablet 00:00: 00 pantoprazol 2020-0 No 1mg e 40 mg -28 tablet,bucky 00:00: yed release 00 lisinopril 2020-0 No 1mg 20 -28 mg-hydrochl 00:00: orothiazide 00 25 mg tablet warfarin 1 2020-0 No 5mg mg tablet 08-06 00:00: 00 warfarin 5 2020-0 No 1mg mg tablet 08-06 00:00: 00 aspirin 81 2020-0 No 1mg mg -28 tablet,bucky 00:00: yed release 00 metoprolol 2020-0 No 1mg tartrate 50 1-28 mg tablet 00:00: 00 metronidazo 2020-0 No 1mg le 500 mg -28 tablet 00:00: 00 atorvastati 2020-0 No 1mg n 80 mg -28 tablet 00:00: 00 Levitra 10 2020-0 No mg mg tablet 08-06 00:00: 00 Levitra 10 2020-0 No mg mg tablet 08-06 00:00: 00 aspirin 81 2020-0 No 1mg mg -28 tablet,bucky 00:00: yed release 00 metoprolol 2020-0 No 1mg tartrate 50 1-28 mg tablet 00:00: 00 warfarin 1 2020-0 No 5mg mg tablet 08-06 00:00: 00 warfarin 5 2020-0 No 1mg mg tablet 08-06 00:00: 00 pantoprazol 2020-0 No 1mg e 40 mg -28 tablet,bucky 00:00: yed release 00 lisinopril 2020-0 No 1mg 20 -28 mg-hydrochl 00:00: orothiazide 00 25 mg tablet levofloxaci 2020-0 No 1mg n 500 mg -28 tablet 00:00: 00 clopidogrel 2020-0 No 1mg 75 mg -28 tablet 00:00: 00 pantoprazol 2020-0 No 1mg e 40 mg - tablet,bucky 00:00: yed release 00 lisinopril 2020-0 No 1mg 20 -28 mg-hydrochl 00:00: orothiazide 00 25 mg tablet warfarin 1 2020-0 No 5mg mg tablet 08-06 00:00: 00 warfarin 5 2020-0 No 1mg mg tablet 08-06 00:00: 00 aspirin 81 2020-0 No 1mg mg -28 tablet,bucky 00:00: yed release 00 metoprolol 2020-0 No 1mg tartrate 50 1-28 mg tablet 00:00: 00 metronidazo 2020-0 No 1mg le 500 mg - tablet 00:00: 00 atorvastati 2020-0 No 1mg n 80 mg -28 tablet 00:00: 00 Levitra 10 2020-0 No mg mg tablet 08-06 00:00: 00 Levitra 10 2020-0 No mg mg tablet 08-06 00:00: 00 lisinopril 2019-1 No 1mg 20 1-12 mg-hydrochl 00:00: orothiazide 00 25 mg tablet pantoprazol 2019-1 No 1mg e 40 mg -12 tablet,bucky 00:00: yed release 00 warfarin 5 2019-1 No 1mg mg tablet 07-21 00:00: 00 warfarin 1 2019-1 No 5mg mg tablet 07-21 00:00: 00 metoprolol 2019-1 No 1mg tartrate 50 1-12 mg tablet 00:00: 00 aspirin 81 2019-1 No 1mg mg -12 tablet,bucky 00:00: yed release 00 Levitra 10 2018-1 No mg mg tablet 1-12 00:00: 00 lisinopril 2019-1 No 1mg 20 1-12 mg-hydrochl 00:00: orothiazide 00 25 mg tablet pantoprazol 2018-1 No 1mg e 40 mg 1-12 tablet,bucky 00:00: yed release 00 warfarin 5 2018-1 No 1mg mg tablet 1-12 00:00: 00 warfarin 1 2018-1 No 5mg mg tablet 1-12 00:00: 00 metoprolol 2018-1 No 1mg tartrate 50 1-12 mg tablet 00:00: 00 aspirin 81 2018-1 No 1mg mg 1-12 tablet,bucky 00:00: yed release 00 Levitra 10 2018-1 No mg mg tablet -12 00:00: 00 lisinopril 2018-1 No 1mg 20 1-12 mg-hydrochl 00:00: orothiazide 00 25 mg tablet pantoprazol 2018- No 1mg e 40 mg 1-12 tablet,bucky 00:00: yed release 00 warfarin 5 2018- No 1mg mg tablet 1-12 00:00: 00 warfarin 1 2018-1 No 5mg mg tablet 1-12 00:00: 00 metoprolol 2018-1 No 1mg tartrate 50 1-12 mg tablet 00:00: 00 aspirin 81 2018-1 No 1mg mg 1-12 tablet,bucky 00:00: yed release 00 Levitra 10 2018-1 No mg mg tablet 1-12 00:00: 00 metronidazo 2019-0 No 1mg le 500 mg 8-06 tablet 00:00: 00 metronidazo 2019-0 No 1mg le 500 mg 8-06 tablet 00:00: 00 metronidazo 2019-0 No 1mg le 500 mg 8-06 tablet 00:00: 00 aspirin 81 2019-0 No 1mg mg 6-18 tablet,bucky 00:00: yed release 00 Levitra 10 2019-0 No mg mg tablet 6-18 00:00: 00 lisinopril 2019-0 No 1mg 20 6-18 mg-hydrochl 00:00: orothiazide 00 25 mg tablet pantoprazol 2019-0 No 1mg e 40 mg 6-18 tablet,bucky 00:00: yed release 00 warfarin 5 2018-0 No 1mg mg tablet 6-18 00:00: 00 warfarin 1 2019-0 No 5mg mg tablet 6-18 00:00: 00 metoprolol 2019-0 No 1mg tartrate 50 6-18 mg tablet 00:00: 00 aspirin 81 2019-0 No 1mg mg 6-18 tablet,bucky 00:00: yed release 00 Levitra 10 2019-0 No mg mg tablet 618 00:00: 00 lisinopril 2019-0 No 1mg 20 6-18 mg-hydrochl 00:00: orothiazide 00 25 mg tablet pantoprazol 2019-0 No 1mg e 40 mg 6-18 tablet,bucky 00:00: yed release 00 warfarin 5 2019-0 No 1mg mg tablet 618 00:00: 00 warfarin 1 2019-0 No 5mg mg tablet 18 00:00: 00 metoprolol 2019-0 No 1mg tartrate 50 6-18 mg tablet 00:00: 00 aspirin 81 2019-0 No 1mg mg 6-18 tablet,bucky 00:00: yed release 00 Levitra 10 2019-0 No mg mg tablet 18 00:00: 00 lisinopril 2019-0 No 1mg 20 6-18 mg-hydrochl 00:00: orothiazide 00 25 mg tablet pantoprazol 2019-0 No 1mg e 40 mg 6-18 tablet,bucky 00:00: yed release 00 warfarin 5 2019-0 No 1mg mg tablet 18 00:00: 00 warfarin 1 2019-0 No 5mg mg tablet 18 00:00: 00 metoprolol 2019-0 No 1mg tartrate 50 6-18 mg tablet 00:00: 00 Levitra 10 2019-0 No mg mg tablet 6-14 00:00: 00 Levitra 10 2019-0 No mg mg tablet 6-14 00:00: 00 Levitra 10 2019-0 No mg mg tablet 6-14 00:00: 00 lisinopril 2019-0 No 1mg 20 6-12 mg-hydrochl 00:00: orothiazide 00 25 mg tablet pantoprazol 2019-0 No 1mg e 40 mg 6-12 tablet,bucky 00:00: yed release 00 warfarin 5 2019-0 No 1mg mg tablet 6-12 00:00: 00 metoprolol 2019-0 No 1mg tartrate 50 6-12 mg tablet 00:00: 00 aspirin 81 2019-0 No 1mg mg 6-12 tablet,bucky 00:00: yed release 00 lisinopril 2019-0 No 1mg 20 6-12 mg-hydrochl 00:00: orothiazide 00 25 mg tablet pantoprazol 2019-0 No 1mg e 40 mg 6-12 tablet,bucky 00:00: yed release 00 warfarin 5 2019-0 No 1mg mg tablet 6-12 00:00: 00 metoprolol 2019-0 No 1mg tartrate 50 6-12 mg tablet 00:00: 00 aspirin 81 2019-0 No 1mg mg 6-12 tablet,bucky 00:00: yed release 00 lisinopril 2019-0 No 1mg 20 6-12 mg-hydrochl 00:00: orothiazide 00 25 mg tablet pantoprazol 2019-0 No 1mg e 40 mg 6-12 tablet,bucky 00:00: yed release 00 warfarin 5 2019-0 No 1mg mg tablet 6-12 00:00: 00 metoprolol 2019-0 No 1mg tartrate 50 6-12 mg tablet 00:00: 00 aspirin 81 2019-0 No 1mg mg 6-12 tablet,bucky 00:00: yed release 00 lisinopril 2019-0 No 1mg 20 3-19 mg-hydrochl 00:00: orothiazide 00 25 mg tablet pantoprazol 2019-0 No 1mg e 40 mg 3-19 tablet,bucky 00:00: yed release 00 warfarin 5 2019-0 No 1mg mg tablet 3-19 00:00: 00 warfarin 1 2019-0 No 5mg mg tablet 3-19 00:00: 00 metoprolol 2019-0 No 1mg tartrate 50 3-19 mg tablet 00:00: 00 Levitra 10 2019-0 No mg mg tablet 3-19 00:00: 00 lisinopril 2019-0 No 1mg 20 3-19 mg-hydrochl 00:00: orothiazide 00 25 mg tablet pantoprazol 2019-0 No 1mg e 40 mg 3-19 tablet,bucky 00:00: yed release 00 lisinopril 2019-0 No 1mg 20 3-19 mg-hydrochl 00:00: orothiazide 00 25 mg tablet pantoprazol 2019-0 No 1mg e 40 mg 3-19 tablet,bucky 00:00: yed release 00 warfarin 5 2019-0 No 1mg mg tablet 3-19 00:00: 00 warfarin 5 2019-0 No 1mg mg tablet 3-19 00:00: 00 warfarin 1 2019-0 No 5mg mg tablet 3-19 00:00: 00 metoprolol 2019-0 No 1mg tartrate 50 3-19 mg tablet 00:00: 00 Levitra 10 2019-0 No mg mg tablet 3-19 00:00: 00 warfarin 1 2019-0 No 5mg mg tablet 3- 00:00: 00 metoprolol 2019-0 No 1mg tartrate 50 3-19 mg tablet 00:00: 00 Levitra 10 2019-0 No mg mg tablet 3- 00:00: 00 Levitra 10 2018-1 No mg mg tablet 2- 00:00: 00 Levitra 10 2018-1 No mg mg tablet 2- 00:00: 00 Levitra 10 2017-1 No mg mg tablet 2- 00:00: 00 lisinopril 2018-1 No 1mg 20 2-11 mg-hydrochl 00:00: orothiazide 00 25 mg tablet pantoprazol 2018-1 No 1mg e 40 mg 2-11 tablet,bucky 00:00: yed release 00 aspirin 81 2018-1 No 1mg mg 2-11 tablet,bucky 00:00: yed release 00 warfarin 5 2017-1 No 1mg mg tablet 2-11 00:00: 00 warfarin 1 2017-1 No 5mg mg tablet 2-11 00:00: 00 metoprolol 2018-1 No 1mg tartrate 50 2-11 mg tablet 00:00: 00 lisinopril 2018-1 No 1mg 20 2-11 mg-hydrochl 00:00: orothiazide 00 25 mg tablet pantoprazol 2018-1 No 1mg e 40 mg 2-11 tablet,bucky 00:00: yed release 00 aspirin 81 2018-1 No 1mg mg 2-11 tablet,bucky 00:00: yed release 00 warfarin 5 2017-1 No 1mg mg tablet 2-11 00:00: 00 warfarin 1 2017-1 No 5mg mg tablet 2-11 00:00: 00 metoprolol 2018-1 No 1mg tartrate 50 2-11 mg tablet 00:00: 00 lisinopril 2017- No 1mg 20 2-11 mg-hydrochl 00:00: orothiazide 00 25 mg tablet pantoprazol 2017- No 1mg e 40 mg 2-11 tablet,bucky 00:00: yed release 00 aspirin 81 2017- No 1mg mg 2-11 tablet,bucky 00:00: yed release 00 warfarin 5 2017- No 1mg mg tablet 2-11 00:00: 00 warfarin 1 2017- No 5mg mg tablet 2-11 00:00: 00 metoprolol 2017- No 1mg tartrate 50 2-11 mg tablet 00:00: 00 warfarin 5 2017- No 1mg mg tablet 2-05 00:00: 00 warfarin 1 2017- No 5mg mg tablet 2-05 00:00: 00 metoprolol 2017- No 1mg tartrate 50 2-05 mg tablet 00:00: 00 lisinopril 2017- No 1mg 20 2-05 mg-hydrochl 00:00: orothiazide 00 25 mg tablet pantoprazol 2017- No 1mg e 40 mg 2-05 tablet,bucky 00:00: yed release 00 aspirin 81 2017- No 1mg mg 2-05 tablet,bucky 00:00: yed release 00 lisinopril 2017- No 1mg 20 2-05 mg-hydrochl 00:00: orothiazide 00 25 mg tablet pantoprazol 2017- No 1mg e 40 mg 2-05 tablet,bucky 00:00: yed release 00 aspirin 81 2017- No 1mg mg 2-05 tablet,bucky 00:00: yed release 00 warfarin 5 2017- No 1mg mg tablet 2-05 00:00: 00 warfarin 1 2017- No 5mg mg tablet 2-05 00:00: 00 metoprolol 2017- No 1mg tartrate 50 2-05 mg tablet 00:00: 00 warfarin 5 2017- No 1mg mg tablet 2-05 00:00: 00 warfarin 1 2017- No 5mg mg tablet 2-05 00:00: 00 metoprolol 2017- No 1mg tartrate 50 2-05 mg tablet 00:00: 00 lisinopril 2017- No 1mg 20 2-05 mg-hydrochl 00:00: orothiazide 00 25 mg tablet pantoprazol 2017- No 1mg e 40 mg 2-05 tablet,bucky 00:00: yed release 00 aspirin 81 2017- No 1mg mg 2-05 tablet,bucky 00:00: yed release 00 lisinopril 2017- No 1mg 20 2-05 mg-hydrochl 00:00: orothiazide 00 25 mg tablet pantoprazol 2017- No 1mg e 40 mg 2-05 tablet,bucky 00:00: yed release 00 aspirin 81 2017- No 1mg mg 2-05 tablet,bucky 00:00: yed release 00 warfarin 5 2017- No 1mg mg tablet 2-05 00:00: 00 warfarin 1 2017- No 5mg mg tablet 2-05 00:00: 00 metoprolol 2017- No 1mg tartrate 50 2-05 mg tablet 00:00: 00 warfarin 5 2017- No 1mg mg tablet 2-05 00:00: 00 warfarin 1 2017- No 5mg mg tablet 2-05 00:00: 00 metoprolol 2017- No 1mg tartrate 50 2-05 mg tablet 00:00: 00 lisinopril 2017- No 1mg 20 2-05 mg-hydrochl 00:00: orothiazide 00 25 mg tablet pantoprazol 2017- No 1mg e 40 mg 2-05 tablet,bucky 00:00: yed release 00 aspirin 81 2017- No 1mg mg 2-05 tablet,bucky 00:00: yed release 00 lisinopril 2017- No 1mg 20 2-05 mg-hydrochl 00:00: orothiazide 00 25 mg tablet pantoprazol 2017- No 1mg e 40 mg 2-05 tablet,bucky 00:00: yed release 00 aspirin 81 2017- No 1mg mg 2-05 tablet,bucky 00:00: yed release 00 warfarin 5 2017- No 1mg mg tablet 2-05 00:00: 00 warfarin 1 2017- No 5mg mg tablet 2-05 00:00: 00 metoprolol 2017- No 1mg tartrate 50 2-05 mg tablet 00:00: 00 acitretin 2017- Yes 20mg Take 2 Un[facility] s 10 mg 1-15 capsules ity of capsule 00:00: by mouth [place] 00 daily with Medical breakfast. Branch acitretin 2017- Yes 20mg Take 2 [facility] 10 mg 1-15 capsules ity of capsule 00:00: by mouth [place] 00 daily with Medical breakfast. Branch acitretin 2017- Yes 20mg Take 2 Un[facility] 10 mg 1-15 capsules ity of capsule 00:00: by mouth [place] 00 daily with Medical breakfast. Branch acitretin 2017- Yes 20mg Take 2 Un[facility] 10 mg 1-15 capsules ity of capsule 00:00: by mouth [place] 00 daily with Medical breakfast. Branch acitretin 2017- Yes 20mg Take 2 Un[facility] 10 mg 1-15 capsules ity of capsule 00:00: by mouth [place] 00 daily with Medical breakfast. Branch acitretin 2017- Yes 20mg Take 2 Un[facility] 10 mg 1-15 capsules ity of capsule 00:00: by mouth [place] 00 daily with Medical breakfast. Branch acitretin 2017-07 Yes 20mg Take 2 Un[facility] s 10 mg 1-15 capsules ity of capsule 00:00: by mouth [place] 00 daily with Medical breakfast. Branch warfarin 5 0 No 1mg mg tablet 03-20 00:00: 00 warfarin 1 2017-0 No 5mg mg tablet 03-20 00:00: 00 warfarin 5 2017-0 No 1mg mg tablet 03-20 00:00: 00 warfarin 1 2017-0 No 5mg mg tablet 03-20 00:00: 00 warfarin 5 2017-0 No 1mg mg tablet 03-20 00:00: 00 warfarin 1 2017-0 No 5mg mg tablet 03-20 00:00: 00 nystatin 2018-0 No 1unit/g 100,000 9-05 elaine unit/gram 00:00: topical 00 cream nystatin 2017-0 No 1unit/g 100,000 9-05 elaine unit/gram 00:00: topical 00 cream nystatin 2018-0 No 1unit/g 100,000 9-05 elaine unit/gram 00:00: topical 00 cream lisinopril 2018-0 No 1mg 20 8-28 mg-hydrochl 00:00: orothiazide 00 25 mg tablet warfarin 5 2017-0 No 1mg mg tablet 03-06 00:00: 00 warfarin 1 2017-0 No 5mg mg tablet 03-06 00:00: 00 metoprolol 2018-0 No 1mg tartrate 50 8-28 mg tablet 00:00: 00 lisinopril 2018-0 No 1mg 20 8-28 mg-hydrochl 00:00: orothiazide 00 25 mg tablet warfarin 5 2018-0 No 1mg mg tablet 03-06 00:00: 00 warfarin 1 2018-0 No 5mg mg tablet 03-06 00:00: 00 metoprolol 2018-0 No 1mg tartrate 50 8-28 mg tablet 00:00: 00 lisinopril 2018-0 No 1mg 20 8-28 mg-hydrochl 00:00: orothiazide 00 25 mg tablet warfarin 5 2018-0 No 1mg mg tablet 03-06 00:00: 00 warfarin 1 2018-0 No 5mg mg tablet 03-06 00:00: 00 metoprolol 2018-0 No 1mg tartrate 50 8-28 mg tablet 00:00: 00 pantoprazol 2018-0 No 1mg e 40 mg 8-21 tablet,bucky 00:00: yed release 00 pantoprazol 2018-0 No 1mg e 40 mg 8-21 tablet,bucky 00:00: yed release 00 pantoprazol 2018-0 No 1mg e 40 mg 8-21 tablet,bucky 00:00: yed release 00 warfarin 1 2018-0 No 5mg mg tablet 01-15 00:00: 00 warfarin 5 2018-0 No 1mg mg tablet 01-15 00:00: 00 lisinopril 2018-0 No 1mg 20 01-15 mg-hydrochl 00:00: orothiazide 00 25 mg tablet aspirin 81 2018-0 No 1mg mg 01-15 tablet,bucky 00:00: yed release 00 warfarin 1 2018-0 No 5mg mg tablet 01-15 00:00: 00 warfarin 5 2018-0 No 1mg mg tablet 01-15 00:00: 00 lisinopril 2018-0 No 1mg 20 - mg-hydrochl 00:00: orothiazide 00 25 mg tablet aspirin 81 2018-0 No 1mg mg 01-15 tablet,bucky 00:00: yed release 00 warfarin 1 2018-0 No 5mg mg tablet 01-15 00:00: 00 warfarin 5 2018-0 No 1mg mg tablet 7-09 00:00: 00 lisinopril 2018-0 No 1mg 20 7-09 mg-hydrochl 00:00: orothiazide 00 25 mg tablet aspirin 81 2018-0 No 1mg mg 7-09 tablet,bucky 00:00: yed release 00 pantoprazol 2018-0 No 1mg e 40 mg 5-07 tablet,bucky 00:00: yed release 00 metoprolol 2018-0 No 1mg tartrate 50 5-07 mg tablet 00:00: 00 pantoprazol 2018-0 No 1mg e 40 mg 5-07 tablet,bucky 00:00: yed release 00 metoprolol 2018-0 No 1mg tartrate 50 5-07 mg tablet 00:00: 00 pantoprazol 2018-0 No 1mg e 40 mg 5-07 tablet,bucky 00:00: yed release 00 metoprolol 2018-0 No 1mg tartrate 50 5-07 mg tablet 00:00: 00 warfarin 5 2018-0 No 1mg mg tablet 5- 00:00: 00 warfarin 1 2018-0 No 5mg mg tablet 5- 00:00: 00 warfarin 5 2018-0 No 1mg mg tablet 5- 00:00: 00 warfarin 1 2018-0 No 5mg mg tablet 5- 00:00: 00 warfarin 5 2018-0 No 1mg mg tablet 5- 00:00: 00 warfarin 1 2018-0 No 5mg mg tablet 5- 00:00: 00 lisinopril 2018-0 No 1mg 20 4-09 mg-hydrochl 00:00: orothiazide 00 25 mg tablet lisinopril 2018-0 No 1mg 20 4-09 mg-hydrochl 00:00: orothiazide 00 25 mg tablet lisinopril 2018-0 No 1mg 20 4-09 mg-hydrochl 00:00: orothiazide 00 25 mg tablet phenazopyri 2018-0 No 1mg dine 200 mg 3-30 tablet 00:00: 00 phenazopyri 2018-0 No 1mg dine 200 mg 3-30 tablet 00:00: 00 phenazopyri 2018-0 No 1mg dine 200 mg 3-30 tablet 00:00: 00 lisinopril 2018-0 No 1mg 20 mg 3-26 tablet 00:00: 00 phenazopyri 2018-0 No 1mg dine 200 mg 3-26 tablet 00:00: 00 lisinopril 2018-0 No 1mg 20 mg 3-26 tablet 00:00: 00 phenazopyri 2018-0 No 1mg dine 200 mg 3-26 tablet 00:00: 00 lisinopril 2018-0 No 1mg 20 mg 3-26 tablet 00:00: 00 phenazopyri 2018-0 No 1mg dine 200 mg 3-26 tablet 00:00: 00 warfarin 1 2018-0 No 5mg mg tablet 3-19 00:00: 00 warfarin 5 2018-0 No 1mg mg tablet 3- 00:00: 00 warfarin 1 2018-0 No 5mg mg tablet 3- 00:00: 00 warfarin 5 2018-0 No 1mg mg tablet 3- 00:00: 00 warfarin 1 2018-0 No 5mg mg tablet 3 00:00: 00 warfarin 5 2018-0 No 1mg mg tablet 3 00:00: 00 pantoprazol 2018-0 No 1mg e 40 mg 2-12 tablet,bucky 00:00: yed release 00 metoprolol 2018-0 No 2mg tartrate 25 2-12 mg tablet 00:00: 00 metoprolol 2018-0 No 1mg tartrate 25 2-12 mg tablet 00:00: 00 pantoprazol 2018-0 No 1mg e 40 mg 2-12 tablet,bucky 00:00: yed release 00 metoprolol 2018-0 No 2mg tartrate 25 2-12 mg tablet 00:00: 00 metoprolol 2018-0 No 1mg tartrate 25 2-12 mg tablet 00:00: 00 pantoprazol 2018-0 No 1mg e 40 mg 2-12 tablet,bucky 00:00: yed release 00 metoprolol 2018-0 No 2mg tartrate 25 2-12 mg tablet 00:00: 00 metoprolol 2018-0 No 1mg tartrate 25 2-12 mg tablet 00:00: 00 warfarin 5 2018-0 No 1mg mg tablet 1-24 00:00: 00 warfarin 1 2018-0 No 5mg mg tablet 1-24 00:00: 00 warfarin 5 2018-0 No 1mg mg tablet 1-24 00:00: 00 warfarin 1 2018-0 No 5mg mg tablet 1-24 00:00: 00 warfarin 5 2018-0 No 1mg mg tablet 1-24 00:00: 00 warfarin 1 2018-0 No 5mg mg tablet 1-24 00:00: 00 warfarin 6 2017-0 No 1mg mg tablet 1-08 00:00: 00 lisinopril 2018-0 No 1mg 20 mg 1-08 tablet 00:00: 00 warfarin 6 2018-0 No 1mg mg tablet 1-08 00:00: 00 lisinopril 2018-0 No 1mg 20 mg 1-08 tablet 00:00: 00 warfarin 6 2018-0 No 1mg mg tablet 1-08 00:00: 00 lisinopril 2018-0 No 1mg 20 mg 1-08 tablet 00:00: 00 warfarin 6 2016-1 No 1mg mg tablet 2-10 00:00: 00 clarithromy 2017- No 1mg rylan 500 mg 2-10 tablet 00:00: 00 metronidazo 2016- No 1mg le 500 mg 2-10 tablet 00:00: 00 pantoprazol 2016- No 1mg e 40 mg 2-10 tablet,bucky 00:00: yed release 00 warfarin 6 2016-07 No 1mg mg tablet 2-10 00:00: 00 clarithromy 2016- No 1mg rylan 500 mg 2-10 tablet 00:00: 00 metronidazo 2016- No 1mg le 500 mg 2-10 tablet 00:00: 00 pantoprazol 2016- No 1mg e 40 mg 2-10 tablet,bucky 00:00: yed release 00 warfarin 6 2016-07 No 1mg mg tablet 2-10 00:00: 00 clarithromy 2016- No 1mg rylan 500 mg 2-10 tablet 00:00: 00 metronidazo 2016- No 1mg le 500 mg 2-10 tablet 00:00: 00 pantoprazol 2016- No 1mg e 40 mg 2-10 tablet,bucky 00:00: yed release 00 cyclobenzap 2016- No 12mg rine 5 mg 2-04 tablet 00:00: 00 cyclobenzap 2016- No 12mg rine 5 mg 2-04 tablet 00:00: 00 cyclobenzap 2016- No 12mg rine 5 mg 2-04 tablet 00:00: 00 cyclobenzap 2016- No 12mg rine 5 mg 2-04 tablet 00:00: 00 cyclobenzap 2016- No 12mg rine 5 mg 2-04 tablet 00:00: 00 cyclobenzap 2016- No 12mg rine 5 mg 2-04 tablet 00:00: 00 pantoprazol 2016- No 1mg e 40 mg 1-13 tablet,bucky 00:00: yed release 00 aspirin 81 2016- No 1mg mg 1-13 tablet,bucky 00:00: yed release 00 prednisone 2016- No 1mg 20 mg 1-13 tablet 00:00: 00 metoprolol 2016- No 1mg tartrate 25 1-13 mg tablet 00:00: 00 promethazin 2016- No 10mg/5 e-DM 6.25 1-13 mL mg-15 mg/5 00:00: mL syrup 00 pantoprazol 2016- No 1mg e 40 mg 1-13 tablet,bucky 00:00: yed release 00 aspirin 81 2016-07 No 1mg mg 1-13 tablet,bucky 00:00: yed release 00 prednisone 2016- No 1mg 20 mg 1-13 tablet 00:00: 00 metoprolol 2016- No 1mg tartrate 25 1-13 mg tablet 00:00: 00 promethazin 2016- No 10mg/5 e-DM 6.25 1-13 mL mg-15 mg/5 00:00: mL syrup 00 pantoprazol 2016-07 No 1mg e 40 mg 1-13 tablet,bucky 00:00: yed release 00 aspirin 81 2016-07 No 1mg mg 1-13 tablet,bucky 00:00: yed release 00 prednisone 2016- No 1mg 20 mg 1-13 tablet 00:00: 00 metoprolol 2016- No 1mg tartrate 25 1-13 mg tablet 00:00: 00 promethazin 2016- No 10mg/5 e-DM 6.25 1-13 mL mg-15 mg/5 00:00: mL syrup 00 warfarin 5 2016-07 No 1mg mg tablet 0-30 00:00: 00 lisinopril 2016- No 1mg 20 mg 0-30 tablet 00:00: 00 warfarin 5 2016-07 No 1mg mg tablet 0-30 00:00: 00 lisinopril 2016- No 1mg 20 mg 0-30 tablet 00:00: 00 warfarin 5 2016-07 No 1mg mg tablet 0-30 00:00: 00 lisinopril 2016-07 No 1mg 20 mg 0-30 tablet 00:00: 00 aspirin 81 2016-07 No 1mg mg 0-18 tablet,bucky 00:00: yed release 00 lisinopril 2016-07 No 1mg 10 mg 0-18 tablet 00:00: 00 metoprolol 2016-07 No 1mg tartrate 25 0-18 mg tablet 00:00: 00 aspirin 81 2016-07 No 1mg mg 0-18 tablet,bucky 00:00: yed release 00 lisinopril 2016-07 No 1mg 10 mg 0-18 tablet 00:00: 00 metoprolol 2016-07 No 1mg tartrate 25 0-18 mg tablet 00:00: 00 aspirin 81 2016-07 No 1mg mg 0-18 tablet,bucky 00:00: yed release 00 lisinopril 2016-07 No 1mg 10 mg 0-18 tablet 00:00: 00 metoprolol 2016-07 No 1mg tartrate 25 0-18 mg tablet 00:00: 00 warfarin 5 2016-07 No 1mg mg tablet 0-17 00:00: 00 warfarin 5 2016-07 No 1mg mg tablet 0-17 00:00: 00 warfarin 5 2016-07 No 1mg mg tablet 0-17 00:00: 00 lansoprazol 2016-07 Yes 30mg QD Take [address] [facility]:16: daily. [facility] 30 [facility] capsule lansoprazol 2016-07 Yes 30mg QD Take [address] [facility] 19:16: daily. [facility] 30 [facility] capsule lansoprazol 2016-07 Yes 30mg QD Take [address] [facility]) 19:16: daily. Medic al 30 [facility] capsule lansoprazol 2016-07 Yes 30mg QD Take [address] [facility]) 19:16: daily. Medic al 30 MG [facility] capsule lansoprazol 2016-07 Yes 30mg QD Take [address] [facility]) 19:16: daily. Medic al 30 MG [facility] capsule lansoprazol 2016-07 Yes 30mg QD Take [address] [facility]) 19:16: daily. Medic al 30 MG [facility] capsule lansoprazol 2016-07 Yes 30mg QD Take [address] [facility]) 19:16: daily. Medic al 30 MG [facility] capsule lansoprazol 2016-07 Yes 30mg QD Take [address] [facility]) 19:16: daily. Medic al 30 MG [facility] capsule lansoprazol 2016-07 Yes 30mg QD Take [address] [facility]) 19:16: daily. Medic al 30 MG [facility] capsule lansoprazol 2016-07 Yes 30mg QD Take [address] [facility] ([facility]) 19:16: daily. Medic al 30 MG [facility] capsule lansoprazol 2016-07 Yes 30mg QD Take [address] [facility]) 19:16: daily. Medic al 30 MG [facility] capsule lansoprazol 2016-07 Yes 30mg QD Take [address] [facility]) 19:16: daily. Medic al 30 MG [facility] capsule lisinopril 2016-07 Yes 20mg QD [facility] E[facility]IL) 10 00:00: (20 mg Medic al MG tablet 00 total) by Cente r mouth daily. lisinopril 2017- Yes 20mg QD [facility] E[facility]) 10 00:00: (20 mg Medic al MG tablet 00 total) by Cente r mouth daily. lisinopril 2017- Yes 20mg QD Take [facility] E[facility]IL) 10 00:00: (20 mg Medic al MG tablet 00 total) by Cente r mouth daily. lisinopril 2017- Yes 20mg QD Take [facility] E[facility]IL) 10 00:00: (20 mg Medic al MG tablet 00 total) by Cente r mouth daily. lisinopril 2017- Yes 20mg QD Take [facility] E[facility]) 10 00:00: (20 mg Medic al MG tablet 00 total) by Cente r mouth daily. lisinopril 2017-1 Yes 20mg QD Take 2 [facility] E[facility]IL) 10 00:00: (20 mg Medic al MG tablet 00 total) by Cente r mouth daily. lisinopril 2016- Yes 20mg QD Take [facility] E[facility]IL) 10 00:00: (20 mg Medic al MG tablet 00 total) by Cente r mouth daily. lisinopril 2016- Yes 20mg QD Take [facility] ESTRIL) 10 00:00: (20 mg Medic al MG tablet 00 total) by Cente r mouth daily. lisinopril 2016- Yes 20mg QD Take [facility] ESTRIL) 10 00:00: (20 mg Medic al MG tablet 00 total) by Cente r mouth daily. lisinopril 2017- Yes 20mg QD Take [facility] ESTRIL) 10 00:00: (20 mg Medic al MG tablet 00 total) by Cente r mouth daily. lisinopril 2016- Yes 20mg QD Take [facility] E[facility]IL) 10 00:00: (20 mg Medic al MG tablet 00 total) by Cente r mouth daily. lisinopril 2016- Yes 20mg QD Take [facility] ESTRIL) 10 00:00: (20 mg Medic al MG tablet 00 total) by Cente r mouth daily. amoxicillin No 2mg 500 mg 9-29 capsule 00:00: 00 amoxicillin No 2mg 500 mg 9-29 capsule 00:00: 00 amoxicillin No 2mg 500 mg 9-29 capsule 00:00: 00 urea 40 % Yes Apply to [facility] ers cream 9-13 area(s) ity of 00:00: daily. [facility] urea 40 % 2017-0 Yes Apply to Univ ers cream 9-13 area(s) ity of 00:00: daily. [facility] urea 40 % 2017-0 Yes Apply to Univ ers cream 9-13 area(s) ity of 00:00: daily. [facility] urea 40 % 2017-0 Yes Apply to Univ ers cream 9-13 area(s) ity of 00:00: daily. [facility] urea 40 % 2017-0 Yes Apply to Univ ers cream 9-13 area(s) ity of 00:00: daily. [facility] urea 40 % 2017-0 Yes Apply to Univ ers cream 9-13 area(s) ity of 00:00: daily. [facility] urea 40 % 2017-0 Yes Apply to Univ ers cream 9-13 area(s) ity of 00:00: daily. [address] Branch lisinopril 2017-0 No 1mg 20 mg 6-12 tablet 00:00: 00 metronidazo 2017-0 No 3mg le 500 mg 6-12 tablet 00:00: 00 amlodipine 2017-0 No 1mg 10 mg 6-12 tablet 00:00: 00 terazosin 1 2017-0 No 1mg mg capsule 6-12 00:00: 00 lisinopril 2017-0 No 1mg 20 mg 6-12 tablet 00:00: 00 metronidazo 2017-0 No 3mg le 500 mg 6-12 tablet 00:00: 00 amlodipine 2017-0 No 1mg 10 mg 6-12 tablet 00:00: 00 terazosin 1 2017-0 No 1mg mg capsule 6-12 00:00: 00 lisinopril 2017-0 No 1mg 20 mg 6-12 tablet 00:00: 00 metronidazo 2017-0 No 3mg le 500 mg 6-12 tablet 00:00: 00 amlodipine 2017-0 No 1mg 10 mg 6-12 tablet 00:00: 00 terazosin 1 2017-0 No 1mg mg capsule 6-12 00:00: 00 lisinopril 2017-0 No 1mg 20 mg 5-23 tablet 00:00: 00 lisinopril 2017-0 No 1mg 20 mg 5-23 tablet 00:00: 00 lisinopril 2017-0 No 1mg 20 mg 5-23 tablet 00:00: 00 terazosin 2 2017-0 No 1mg mg capsule 5-15 00:00: 00 terazosin 2 2017-0 No 1mg mg capsule 5-15 00:00: 00 terazosin 2 2017-0 No 1mg mg capsule 5-15 00:00: 00 amlodipine 2017-0 No 1mg 10 mg 5-08 tablet 00:00: 00 lisinopril 2017-0 No 1mg 20 5-08 mg-hydrochl 00:00: orothiazide 00 25 mg tablet amlodipine 2017-0 No 1mg 10 mg 5-08 tablet 00:00: 00 lisinopril 2017-0 No 1mg 20 5-08 mg-hydrochl 00:00: orothiazide 00 25 mg tablet amlodipine 2017-0 No 1mg 10 mg 5-08 tablet 00:00: 00 lisinopril 2017-0 No 1mg 20 5-08 mg-hydrochl 00:00: orothiazide 00 25 mg tablet amlodipine 2017-0 No 1mg 10 mg 4-24 tablet 00:00: 00 lisinopril 2017-0 No 1mg 20 4-24 mg-hydrochl 00:00: orothiazide 00 25 mg tablet amlodipine 2017-0 No 1mg 10 mg 4-24 tablet 00:00: 00 lisinopril 2017-0 No 1mg 20 4-24 mg-hydrochl 00:00: orothiazide 00 25 mg tablet lisinopril 2017-0 No 1mg 20 4-24 mg-hydrochl 00:00: orothiazide 00 25 mg tablet amlodipine 2017-0 No 1mg 10 mg 4-24 tablet 00:00: 00 metronidazo 2017-0 No 1mg le 500 mg 4-24 tablet 00:00: 00 metronidazo 2017-0 No 1mg le 500 mg 4-24 tablet 00:00: 00 lisinopril 2017-0 No 1mg 20 4-24 mg-hydrochl 00:00: orothiazide 00 25 mg tablet amlodipine 2017-0 No 1mg 10 mg 4-24 tablet 00:00: 00 metronidazo 2017-0 No 1mg le 500 mg 4-24 tablet 00:00: 00 amlodipine 2017-0 No 1mg 10 mg 4-24 tablet 00:00: 00 lisinopril 2017-0 No 1mg 20 4-24 mg-hydrochl 00:00: orothiazide 00 25 mg tablet lisinopril No 1mg 20 4-24 mg-hydrochl 00:00: orothiazide 00 25 mg tablet amlodipine No 1mg 10 mg 4-24 tablet 00:00: 00 metronidazo 0 No 1mg le 500 mg 4-24 tablet 00:00: 00 metronidazo 0 No 1mg le 500 mg 4-24 tablet 00:00: 00 metronidazo 0 No 1mg le 500 mg 4-24 tablet 00:00: 00 urea Yes Apply to Univers (CARMOL) 20 9-10 area(s) at it y of % cream 00:00: bedtime. [address] urea Yes Apply to Univers (CARMOL) 20 9-10 area(s) at it y of % cream 00:00: bedtime. [place] [facility] urea Yes Apply to Univers (CARMOL) 20 9-10 area(s) at it y of % cream 00:00: bedtime. [place] [facility] urea Yes Apply to Univers (CARMOL) 20 9-10 area(s) at it y of % cream 00:00: bedtime. [facility] urea Yes Apply to Univers (CARMOL) 20 9-10 area(s) at it y of % cream 00:00: bedtime. [facility] urea Yes Apply to Univers (CARMOL) 20 9-10 area(s) at it y of % cream 00:00: bedtime. [facility] urea Yes Apply to Univers (CARMOL) 20 9-10 area(s) at it y of % cream 00:00: bedtime. [address] Immunizations Ordered Filled Immunization Date Status Comments [facility] e Immunization Name Name Influenza Virus 2022-04-22 Completed Universit y of Vaccine,quad 00:00:00 [place] [facility] 65+ Influenza Virus 2022-04-22 Completed Universit y of Vaccine,quad 00:00:00 [place] [facility] 65+ Influenza Virus 2022-04-22 Completed Universit y of Vaccine,quad 00:00:00 [place] [facility] 65+ Influenza Virus 2022-04-22 Completed Universit y of Vaccine,quad 00:00:00 [place] [facility] 65+ Influenza Virus 2022-04-22 Completed Universit y of Vaccine,quad 00:00:00 [place] [facility] 65+ Influenza Virus 2022-04-22 Completed Universit y of Vaccine,quad 00:00:00 [place] [facility] 65+ Pfizer COVID-19 2021-08-05 Completed Vaccine 00:00:00 Pfizer COVID-19 2021-08-05 Completed Vaccine 00:00:00 Pfizer COVID-19 2021-08-05 Completed Vaccine 00:00:00 SARS-COV-2 COVID-19 2020-09-03 Completed Unive rsity of PFIZER VACCINE 00:00:00 [facility] SARS-COV-2 COVID-19 2020-09-03 Completed Unive rsity of PFIZER VACCINE 00:00:00 [facility] SARS-COV-2 COVID-19 2020-09-03 Completed Unive rsity of PFIZER VACCINE 00:00:00 [facility] SARS-COV-2 COVID-19 2020-09-03 Completed Unive rsity of PFIZER VACCINE 00:00:00 [facility] SARS-COV-2 COVID-19 2020-09-03 Completed Unive rsity of PFIZER VACCINE 00:00:00 [facility] SARS-COV-2 COVID-19 2020-09-03 Completed Unive rsity of PFIZER VACCINE 00:00:00 [facility] SARS-COV-2 COVID-19 2020-09-03 Completed Unive rsity of PFIZER VACCINE 00:00:00 [facility] SARS-COV-2 COVID-19 2020-08-06 Completed Unive rsity of PFIZER VACCINE 00:00:00 [facility] SARS-COV-2 COVID-19 2020-08-06 Completed Unive rsity of PFIZER VACCINE 00:00:00 [facility] SARS-COV-2 COVID-19 2020-08-06 Completed Unive rsity of PFIZER VACCINE 00:00:00 [facility] SARS-COV-2 COVID-19 2020-08-06 Completed Unive rsity of PFIZER VACCINE 00:00:00 [facility] SARS-COV-2 COVID-19 2020-08-06 Completed Unive rsity of PFIZER VACCINE 00:00:00 [facility] SARS-COV-2 COVID-19 2020-08-06 Completed Unive rsity of PFIZER VACCINE 00:00:00 [facility] SARS-COV-2 COVID-19 2020-08-06 Completed Unive rsity of PFIZER VACCINE 00:00:00 [facility] Vital Signs Vital Name Observation Time Observation Value Comments Source Systolic blood 2022-08-11 17:13:00 120 mm[Hg] Univer sity of pressure [facility] Diastolic blood 2022-08-11 17:13:00 63 mm[Hg] Unive rsity of pressure [facility] Heart rate 2022-08-11 17:13:00 50 /min Universi ty of [facility] Body temperature 2022-08-11 17:13:00 36.22 Zayra Univ ersity of [facility] Body weight 2022-08-11 17:13:00 122.018 kg Universi ty of [facility] BMI 2022-08-11 17:13:00 39.72 kg/m2 Universi ty of [facility] Oxygen saturation in 2022-08-11 17:13:00 97 /min University of Arterial blood by [facility] Pulse oximetry Branch Systolic blood 2022-04-22 15:49:00 124 mm[Hg] Univer sity of pressure [facility] Diastolic blood 2022-04-22 15:49:00 69 mm[Hg] Unive rsity of pressure [facility] Heart rate 2022-04-22 15:49:00 48 /min Universi ty of [facility] Body height 2022-04-22 15:49:00 175.3 cm Universi ty of [facility] Body weight 2022-04-22 15:49:00 122.925 kg Universi ty of [facility] BMI 2022-04-22 15:49:00 40.02 kg/m2 Universi ty of [facility] Oxygen saturation in 2022-04-22 15:49:00 97 /min University of Arterial blood by [facility] Pulse oximetry Branch BP Systolic 2022-06-29 14:50:00 160 mm[Hg] BP Diastolic 2022-06-29 14:50:00 83 mm[Hg] Weight Measured 2022-06-29 14:50:00 275.60 pounds Height Measured 2022-06-29 14:50:00 67.00 inches Body Temperature 2022-06-29 14:50:00 98.40 degrees Heart Rate 2022-06-29 14:50:00 64.00 /min Respiratory Rate 2022-06-29 14:50:00 BP Systolic 2022-03-23 15:39:00 138 mm[Hg] BP Diastolic 2022-03-23 15:39:00 85 mm[Hg] Weight Measured 2022-03-23 15:39:00 274.40 pounds Height Measured 2022-03-23 15:39:00 67.00 inches Body Temperature 2022-03-23 15:39:00 98.00 degrees Heart Rate 2022-03-23 15:39:00 55.00 /min Respiratory Rate 2022-03-23 15:39:00 17.00 /min BP Systolic 2021-12-28 08:17:00 152 mm[Hg] BP Diastolic 2021-12-28 08:17:00 85 mm[Hg] Weight Measured 2021-12-28 08:17:00 271.80 pounds Height Measured 2021-12-28 08:17:00 67.00 inches Body Temperature 2021-12-28 08:17:00 98.20 degrees Heart Rate 2021-12-28 08:17:00 66.00 /min Respiratory Rate 2021-12-28 08:17:00 17.00 /min BP Systolic 2021-08-26 13:54:00 143 mm[Hg] BP Diastolic 2021-08-26 13:54:00 68 mm[Hg] Weight Measured 2021-08-26 13:54:00 275.50 pounds Height Measured 2021-08-26 13:54:00 33.46 inches Body Temperature 2021-08-26 13:54:00 98.60 degrees Heart Rate 2021-08-26 13:54:00 69.00 /min Respiratory Rate 2021-08-26 13:54:00 16.00 /min BP Systolic 2021-08-17 12:01:00 139 mm[Hg] BP Diastolic 2021-08-17 12:01:00 85 mm[Hg] Weight Measured 2021-08-17 12:01:00 274.00 pounds Height Measured 2021-08-17 12:01:00 33.46 inches Body Temperature 2021-08-17 12:01:00 97.90 degrees Heart Rate 2021-08-17 12:01:00 65.00 /min Respiratory Rate 2021-08-17 12:01:00 17.00 /min BP Systolic 2021-08-05 17:14:00 132 mm[Hg] BP Diastolic 2021-08-05 17:14:00 79 mm[Hg] Weight Measured 2021-08-05 17:14:00 272.40 pounds Height Measured 2021-08-05 17:14:00 67.00 inches Body Temperature 2021-08-05 17:14:00 98.00 degrees Heart Rate 2021-08-05 17:14:00 66.00 /min Respiratory Rate 2021-08-05 17:14:00 16.00 /min BP Systolic 2021-05-19 15:54:00 116 mm[Hg] BP Diastolic 2021-05-19 15:54:00 57 mm[Hg] Weight Measured 2021-05-19 15:54:00 999.99 pounds Height Measured 2021-05-19 15:54:00 67.00 inches Body Temperature 2021-05-19 15:54:00 98.20 degrees Heart Rate 2021-05-19 15:54:00 64.00 /min Respiratory Rate 2021-05-19 15:54:00 BP Systolic 2021-05-19 14:48:00 116 mm[Hg] BP Diastolic 2021-05-19 14:48:00 57 mm[Hg] Weight Measured 2021-05-19 14:48:00 270.00 pounds Height Measured 2021-05-19 14:48:00 67.00 inches Body Temperature 2021-05-19 14:48:00 98.20 degrees Heart Rate 2021-05-19 14:48:00 64.00 /min Respiratory Rate 2021-05-19 14:48:00 BP Systolic 2021-01-12 11:04:00 136 mm[Hg] BP Diastolic 2021-01-12 11:04:00 70 mm[Hg] Weight Measured 2021-01-12 11:04:00 270.60 pounds Height Measured 2021-01-12 11:04:00 67.00 inches Body Temperature 2021-01-12 11:04:00 97.90 degrees Heart Rate 2021-01-12 11:04:00 58.00 /min Respiratory Rate 2021-01-12 11:04:00 16.00 /min BP Systolic 2020-08-04 15:43:00 144 mm[Hg] BP Diastolic 2020-08-04 15:43:00 79 mm[Hg] Weight Measured 2020-08-04 15:43:00 274.40 pounds Height Measured 2020-08-04 15:43:00 67.00 inches Body Temperature 2020-08-04 15:43:00 98.50 degrees Heart Rate 2020-08-04 15:43:00 57.00 /min Respiratory Rate 2020-08-04 15:43:00 16.00 /min BP Systolic 2020-08-04 15:39:00 BP Diastolic 2020-08-04 15:39:00 Weight Measured 2020-08-04 15:39:00 Height Measured 2020-08-04 15:39:00 67.00 inches Body Temperature 2020-08-04 15:39:00 Heart Rate 2020-08-04 15:39:00 Respiratory Rate 2020-08-04 15:39:00 BP Systolic 2020-04-08 16:52:00 146 mm[Hg] BP Diastolic 2020-04-08 16:52:00 84 mm[Hg] Weight Measured 2020-04-08 16:52:00 270.40 pounds Height Measured 2020-04-08 16:52:00 67.00 inches Body Temperature 2020-04-08 16:52:00 97.00 degrees Heart Rate 2020-04-08 16:52:00 58.00 /min Respiratory Rate 2020-04-08 16:52:00 Procedures Procedure Date / Time Performing Clinician Source Performed REFERRAL- 2022-07-08 06:01:00 Doctor Tito, [facility] REQUEST/RESPONSE [facility] INSURANCE CORRESPONDENCE 2022-05-03 05:01:00 Doctor Unassigned, [facility] FLU 2022-04-22 15:45:19 Leonardo [facility] [place] VACC([id number]),65+YR,0.5 Medica l Branch ML,IM,ADJUVANTED,QUAD(FLU AD) ASSIGNMENT OF BENEFITS 2022-04-22 15:35:05 [facility] [place] [facility] Plan of Care Planned Activity Planned Date Details Comments Source Goal Plan of Care Note [code = 94160-9] Goal Plan of Care Note [code = 17750-4] Goal Plan of Care Note [code = 84625-6] Goal Plan of Care Note [code = 58408-0] Goal Plan of Care Note [code = 05842-2] Goal Plan of Care Note [code = 89495-9] Goal Plan of Care Note [code = 98931-0] Goal Plan of Care Note [code = 20130-1] Goal Plan of Care Note [code = 77854-1] Goal Plan of Care Note [code = 06618-1] Goal Plan of Care Note [code = 04449-6] Goal Plan of Care Note [code = 13536-4] Goal Plan of Care Note [code = 96208-3] Goal Plan of Care Note [code = 24226-1] Goal Plan of Care Note [code = 43122-9] Goal Plan of Care Note [code = 21548-4] Goal Plan of Care Note [code = 75699-4] Goal Plan of Care Note [code = 18810-6] Goal Plan of Care Note [code = 12856-7] Goal Plan of Care Note [code = 02820-7] Goal Plan of Care Note [code = 87647-8] Goal Plan of Care Note [code = 23836-4] Goal Plan of Care Note [code = 40764-0] Goal Plan of Care Note [code = 86725-5] Goal Plan of Care Note [code = 27586-4] Goal Plan of Care Note [code = 46419-4] Goal Plan of Care Note [code = 53195-4] Goal Plan of Care Note [code = 71670-1] Goal Plan of Care Note [code = 27070-6] Goal Plan of Care Note [code = 88831-8] Goal Plan of Care Note [code = 48154-3] Goal Plan of Care Note [code = 05823-7] Goal Plan of Care Note [code = 95227-4] Goal Plan of Care Note [code = 51134-1] Goal Plan of Care Note [code = 53716-4] Goal Plan of Care Note [code = 54065-5] Goal Plan of Care Note [code = 23066-9] Goal Plan of Care Note [code = 70542-1] Goal Plan of Care Note [code = 46832-7] Goal Plan of Care Note [code = 21977-6] Goal Plan of Care Note [code = 42612-7] Goal Plan of Care Note [code = 00858-2] Goal Plan of Care Note [code = 80217-3] Goal Plan of Care Note [code = 17884-1] Goal Plan of Care Note [code = 23059-6] Goal Plan of Care Note [code = 93735-2] Goal Plan of Care Note [code = 62311-7] Goal Plan of Care Note [code = 36934-1] Goal Plan of Care Note [code = 41778-9] Goal Plan of Care Note [code = 00188-2] Goal Plan of Care Note [code = 69936-6] Goal Plan of Care Note [code = 49394-3] Goal Plan of Care Note [code = 01730-0] Goal Plan of Care Note [code = 75801-5] Goal Plan of Care Note [code = 88389-9] Goal Plan of Care Note [code = 51821-0] Goal Plan of Care Note [code = 17015-0] Goal Plan of Care Note [code = 04426-4] Goal Plan of Care Note [code = 36749-0] Goal Plan of Care Note [code = 89789-7] Goal Plan of Care Note [code = 70208-6] Goal Plan of Care Note [code = 89165-7] Goal Plan of Care Note [code = 26018-0] Goal Plan of Care Note [code = 94257-3] Goal Plan of Care Note [code = 01997-3] Goal Plan of Care Note [code = 30214-4] Goal Plan of Care Note [code = 40837-4] Goal Plan of Care Note [code = 41779-8] Goal Plan of Care Note [code = 27920-7] Goal Plan of Care Note [code = 76763-6] Goal Plan of Care Note [code = 62475-2] Goal Plan of Care Note [code = 86726-9] Goal Plan of Care Note [code = 25383-9] Goal Plan of Care Note [code = 64430-7] Goal Plan of Care Note [code = 20751-6] Goal Plan of Care Note [code = 47812-0] Goal Plan of Care Note [code = 94395-7] Goal Plan of Care Note [code = 39749-8] Goal Plan of Care Note [code = 37947-0] Goal Plan of Care Note [code = 77367-6] Goal Plan of Care Note [code = 85087-0] Goal Plan of Care Note [code = 35637-0] Goal Plan of Care Note [code = 70872-2] Goal Plan of Care Note [code = 23813-4] Goal Plan of Care Note [code = 15735-5] Goal Plan of Care Note [code = 47521-1] Goal Plan of Care Note [code = 14605-2] Goal Plan of Care Note [code = 06306-2] Goal Plan of Care Note [code = 22408-0] Goal Plan of Care Note [code = 50089-9] Goal Plan of Care Note [code = 15425-2] Goal Plan of Care Note [code = 28184-8] Goal Plan of Care Note [code = 16859-8] Goal Plan of Care Note [code = 23107-9] Goal Plan of Care Note [code = 47470-4] Goal Plan of Care Note [code = 65135-0] Goal Plan of Care Note [code = 05215-5] Goal Plan of Care Note [code = 47676-5] Goal Plan of Care Note [code = 27582-3] Goal Plan of Care Note [code = 20519-5] Goal Plan of Care Note [code = 00180-7] Goal Plan of Care Note [code = 69258-9] Goal Plan of Care Note [code = 94030-8] Goal Plan of Care Note [code = 61483-0] Encounters Start End Encounter Admission Attending Care Care Encounter Source Date/Time Date/Time Type Type Clinicians Facility Department ID 2022-11-07 2022-11-07 Outpatient Judith PATTERSON [facility] [id number] Univers 15:00:00 15:00:00 QIANGJUN ity o [facility] 2022-08-30 2022-08-30 Outpatient [facility] [id number] Eddie 15:27:39 15:27:39 0221 [facility] 2022-08-17 2022-08-17 Outpatient [facility] [id number] Eddie 13:03:47 13:03:47 0208 [facility] [place] 2022-08-11 2022-08-11 [facility] [id number] Univers 11:20:00 11:34:09 CARINE judge o [facility] 2022-08-11 2022-08-11 Office [facility] [id number] [facility] 11:20:00 11:34:09 Visit Carine GASTELUM 350.1.13.10 ity [facility] [id number] [address] 2022-07-14 2022-07-14 Outpatient [facility] [id number] Eddie 11:35:09 11:35:09 0105 [facility] 2022-07-08 2022-07-08 Orders Doctor BURTON [id number] [facility] 00:00:00 00:00:00 Only Unassigned, SAIDA 350.1.13.10 ity of [place] [facility] 4.2.7.2.686 Josse as [id number] [address] 2022-06-29 2022-06-29 Outpatient [facility] [id number] Eddie 14:41:34 14:41:34 1221 [facility] 2022-06-29 2022-06-29 Outpatient [id number] 00:00:00 00:00:00 Visit [id number] 2022-05-25 2022-05-25 [facility] [id number] Univers 10:20:00 10:20:00 CARINE nu o [facility] 2022-05-10 2022-05-10 [facility] [id number] Univers 08:00:00 08:00:00 CARINE ugartezakiya christina [facility] 2022-05-03 2022-05-03 Orders Doctor BURTON [id number] Univers 00:00:00 00:00:00 Only Unassigned, SAIDA 350.1.13.10 ity of [facility] 4.2.7.2.686 Josse as [id number] [address] 2022-04-28 2022-04-28 Outpatient R LEONARDO, [facility] [id number] Univers 10:40:00 10:40:00 CARINE vasquez [facility] 2022-04-22 2022-04-22 Outpatient R LEONARDO, [facility] [id number] Univers 15:20:00 15:20:00 CARINE vasquez [facility] 2022-04-22 2022-04-22 Outpatient R LEONARDO, [facility] [id number] Univers 10:40:00 11:19:52 CARINE vasquez [facility] 2022-04-22 2022-04-22 Office Leonardo, [facility] 1.2.840.114 [id number] Univers 10:40:00 11:19:52 Visit Carine NIRAV 350.1.13.10 [place] [phone] [place] [id number] [facility] 2022-04-22 2022-04-22 Orders Doctor BURTON 1.2.840.114 [id number] Univers 00:00:00 00:00:00 Only Unassigned, SAIDA 350.1.13.10 ity of [facility] 4.2.7.2.686 Josse as [id number] [place] [address] [place] 2022-04-21 2022-04-21 Outpatient SFA SFA [id number] Eddie 15:19:08 15:19:08 [address] [place] 2022-04-19 2022-04-19 Outpatient SFA SFA [id number] Eddie 13:03:10 13:03:10 [address] [place] 2022-03-23 2022-03-23 Outpatient [id number] 00:00:00 00:00:00 Visit [id number] 4d0-7d55-o -x46r-qr9 51d-fa28be [id number] 2022-03-19 2022-03-19 Outpatient [id number]- [id number] hctj35-4 00:00:00 00:00:00 Visit 50fc-49ac 0fc-49ac-a -a659-z7h [id number]-b3f7cf [id number] 4d9a6b 2021-03-10 2021-03-10 Outpatient Judith MACKEY [facility] [id number] Univers 11:00:00 11:00:00 [facility] 2020-12-30 2020-12-30 Outpatient Judith MACKEY [facility] [id number] Univers 10:15:00 10:15:00 [facility] 2020-09-21 2020-09-21 Outpatient Judith STARKS [facility] [id number] Univers 10:00:00 10:00:00 [facility] 2020-09-03 2020-09-03 Outpatient Judith LR [facility] [id number] Univers 09:10:00 09:10:00 [facility] 2020-08-27 2020-08-27 Outpatient Judith LR [facility] [id number] Univers 09:10:00 09:10:00 [facility] 2020-08-06 2020-08-06 Outpatient Judith LR [facility] [id number] Univers 08:40:00 08:40:00 HOLLIE [facility] 2020-06-25 2020-06-25 Outpatient GILA MOON [facility] [id number] Univers 11:00:00 11:00:00 GILA STARKS i [facility] 2020-03-23 2020-03-23 Outpatient Judith STARKS [facility] [id number] Univers 09:30:00 09:30:[facility] 2020-[facility]-30 Outpatient Judith ALCANTARA [facility] [id number] Univers 08:40:00 08:40:00 CORA nu [facility] 2020-01-30 2020-01-30 Outpatient R [facility] [id number] Univers 08:20:00 08:20:00 [facility] Results Test Description Test Time Test Comments Results Result Comments Source PROTHROMBIN TIME (PT) 2022-08-18 03:47:02 Test Item Value Reference Range Interpretation Comme nts PROTHROMBIN TIME (PT) (test 31.3 SECONDS 12.5-14.7 H code = 1402) INR (test code = 46425) 3.0 SEE BELOW CUR RENT RECOMMENDATIONS ARE FOR AN INR OF 2.0-3 .0 FOR ALL PATIENTS ON VIT JOAQUIN K ANTAGONISTS, EX CEPT THOSE WITH PROSTHETIC HEAR T VALVES, FOR WHOM INR OF 2.5 -3.5 IS RECOMMENDED. * [facility] has important patho logy staff changes effecti ve 09/07/2022. New patholo gy staff will provide uninter rupted, excellent patient care a nd clinical consultation. S ee URL: [email or web address]. UNLESS OTHERWIS E INDICATED, ALL TESTING PERFORM ED AT CLINICAL PATHOLOGY LABOR [facility]. [address] [place] [address] CLIA: [id number], CAP : [id number] COMPREHENSIVE METABOLIC [id number] 04:45:18 Test Item Value Reference Range Interpretation Comments GLUCOSE (test code = 112 MG/DL 70-99 H 2216) BUN (test code = 17 MG/DL 8-23 2207) CREATININE (test 1.15 MG/DL 0.80-1.40 code = 2214) eGFR (2020 CKD-EPI) 69 ML/MIN/1.73 >60 (test code = 53572) CALC BUN/CREAT (test 15 RATIO 6-28 code = 2235) SODIUM (test code = 140 MEQ/L 656-820 6998) POTASSIUM (test code 3.9 MEQ/L 3.5-5.4 = 2228) CHLORIDE (test code 103 MEQ/L 95-107 = 2215) CARBON DIOXIDE (test 24 MEQ/L 19-31 code = 2206) CALCIUM (test code = 9.2 MG/DL 8.5-10.5 2208) PROTEIN, TOTAL (test 7.3 G/DL 6.1-8.3 code = 2229) ALBUMIN (test code = 4.1 G/DL 3.5-5.2 2200) CALC GLOBULIN (test 3.2 G/DL 1.9-3.7 code = 2240) CALC A/G RATIO (test 1.3 RATIO 1.0-2.6 code = 2234) BILIRUBIN, TOTAL 0.4 MG/DL See_Comment [Automated message] (test code = 2207) The syste m which generated this result transmit brittany reference range : <=1.2. The refe rence range was not u sed to interpret th is result as normal/abnormal . ALKALINE PHOSPHATASE 47 U/L 40-125 (test code = 2204) AST (test code = 24 U/L 9-50 2217) ALT (test code = 15 U/L 5-50 2218) LIPID [id number] 04:45:18 Test Item Value Reference Range Interpretation Comments CHOLESTEROL (test 198 MG/DL <200 code = 2210) TRIGLYCERIDES (test 112 MG/DL <150 code = 2232) HDL CHOLESTEROL (test 53 MG/DL >39 code = 2220) CALC LDL CHOL (test 123 MG/DL <100 H NOTE: C ALCULATED LDL code = 2237) IS BASED ON NATO-ROB METHOD WHICHINCLUDES ADJUSTABLE TRIGLYCERIDE:VL DL CHOLESTEROL RAT IO.THIS FACTOR VARIES B Y MEASURED TRIGLY CERIDE AND NON-HDLCHOL ESTEROL CONCENTRATIONS WITH INCREASED CALCU LATED LDL SEENIN HIGH ER TRIGLYCERIDE OR LOWER NON-HDL SPECIME NS. FOR MOREINFORMATION , SEE CLIENT ANNOUNCE MENT AT [email or web address] [email or web address] LDL/HDL 2.32 RATIO <3.55 (test code = 2238) PROTHROMBIN TIME (PT)2022-07-15 02:58:04 Test Item Value Reference Range Interpretation Comments PROTHROMBIN TIME 21.0 SECONDS 12.5-14.7 H (PT) (test code = 1402) INR (test code = 1.8 SEE BELOW CURRENT 47665) RECOMMENDATIONS ARE FOR AN INR OF 2 .0-3.0 FOR ALL PATIENT S ON VITAMIN K ANTAG ONISTS, EXCEPT THOSE WI TH PROSTHETIC HEAR T VALVES, FOR WHO M INR OF 2.5-3.5 IS RECOMMENDED. UN LESS OTHERWISE INDIC ATED, ALL TESTING PER FORMED ATCLINICAL PATH OLOGY LABORATORIES, I [place]. [address] [place] [address] [facility] DIRECTOR: KEYSHAWN VIVEROS M.D. IA NUMBER [id number] [facility] ACCREDITATION N O. [id number] COMPREHENSIVE METABOLIC [id number] 04:00:48 Test Item Value Reference Range Interpretation Comments GLUCOSE (test code = 91 MG/DL 70-99 2216) BUN (test code = 18 MG/DL 8-23 2207) CREATININE (test 1.11 MG/DL 0.80-1.40 code = 221) eGFR (2020 CKD-EPI) 72 ML/MIN/1.73 >60 (test code = 03386) CALC BUN/CREAT (test 16 RATIO 6-28 code = 2235) SODIUM (test code = 141 MEQ/L 743-596 7028) POTASSIUM (test code 4.3 MEQ/L 3.5-5.4 = 2227) CHLORIDE (test code 103 MEQ/L 95-107 = 2214) CARBON DIOXIDE (test 25 MEQ/L 19-31 code = 220) CALCIUM (test code = 9.4 MG/DL 8.5-10.5 2208) PROTEIN, TOTAL (test 7.3 G/DL 6.1-8.3 code = 222) ALBUMIN (test code = 4.2 G/DL 3.5-5.2 2200) CALC GLOBULIN (test 3.1 G/DL 1.9-3.7 code = 2240) CALC A/G RATIO (test 1.4 RATIO 1.0-2.6 code = 2234) BILIRUBIN, TOTAL 0.3 MG/DL See_Comment [Automated message] (test code = 2207) The syste m which generated this result transmit brittany reference range : <=1.2. The refe rence range was not u sed to interpret th is result as normal/abnormal . ALKALINE PHOSPHATASE 50 U/L 40-125 (test code = 2204) AST (test code = 23 U/L 9-50 2217) ALT (test code = 15 U/L 5-50 2218) LIPID [id number] 04:00:48 Test Item Value Reference Range Interpretation Comments CHOLESTEROL (test 191 MG/DL <200 code = 2210) TRIGLYCERIDES (test 73 MG/DL <150 code = 2232) HDL CHOLESTEROL (test 59 MG/DL >39 code = 2220) CALC LDL CHOL (test 115 MG/DL <100 H NOTE: C ALCULATED LDL code = 2237) IS BASED ON NATO-ROB METHOD WHICHINCLUDES ADJUSTABLE TRIGLYCERIDE:VL DL CHOLESTEROL RAT IO.THIS FACTOR VARIES B Y MEASURED TRIGLY CERIDE AND NON-HDLCHOL ESTEROL CONCENTRATIONS WITH INCREASED CALCU LATED LDL SEENIN HIGH ER TRIGLYCERIDE OR LOWER NON-HDL SPECIME NS. FOR MOREINFORMATION , SEE CLIENT ANNOUNCE MENT AT [email or web address] [email or web address] LDL/HDL 1.95 RATIO <3.55 (test code = 2238) PROTHROMBIN TIME (PT)2022-04-20 03:03:00 Test Item Value Reference Range Interpretation Comments PROTHROMBIN TIME 32.6 SECONDS 12.5-14.7 H (PT) (test code = 1402) INR (test code = 3.1 SEE BELOW CURRENT 90144) RECOMMENDATIONS ARE FOR AN INR OF 2 .0-3.0 FOR ALL PATIENT S ON VITAMIN K ANTAG ONISTS, EXCEPT THOSE WI TH PROSTHETIC HEAR T VALVES, FOR WHO M INR OF 2.5-3.5 IS RECOMMENDED. UN LESS OTHERWISE INDIC ATED, ALL TESTING PER FORMED ATCLINICAL PATH OLOGY LABORATORIES, [facility]. [address] [place] [address] LABOR ATORY DIRECTOR: KEYSHAWN VIVEROS M.D. CLIA NUMBER [id number] CAP ACCREDITATION N O. [id number] HEMOGLOBIN [id number] 01:51:38 Test Item Value Reference Range Interpretation Comments HEMOGLOBIN A1c (test code = 95857) 5.8 % 4.2-5.6 H HEMOGLOBIN [id number] 00:00:00 Test Item Value Reference Range Interpretation Comments HEMOGLOBIN A1c (test code = 13992) 5.8 % HEMOGLOBIN [id number] 00:00:00 Test Item Value Reference Range Interpretation Comments HEMOGLOBIN A1c (test code = 78085) 5.8 % COMPREHENSIVE METABOLIC [id number] 00:00:00 Test Item Value Reference Range Interpretation Comments GLUCOSE (test code = 2217) 91 MG/DL BUN (test code = 2208) 18 MG/DL CREATININE (test code = 2214) 1.11 MG/DL eGFR (2020 CKD-EPI) (test code 72 ML/MIN/1.73 = 55641) CALC BUN/CREAT (test code = 16 RATIO 2235) SODIUM (test code = 2231) 141 MEQ/L POTASSIUM (test code = 2228) 4.3 MEQ/L CHLORIDE (test code = 2215) 103 MEQ/L CARBON DIOXIDE (test code = 25 MEQ/L 2206) CALCIUM (test code = 2209) 9.4 MG/DL PROTEIN, TOTAL (test code = 7.3 G/DL 2228) ALBUMIN (test code = 2201) 4.2 G/DL CALC GLOBULIN (test code = 3.1 G/DL 2240) CALC A/G RATIO (test code = 1.4 RATIO 2234) BILIRUBIN, TOTAL (test code = 0.3 MG/DL 2206) ALKALINE PHOSPHATASE (test 50 U/L code = 220) AST (test code = 2218) 23 U/L ALT (test code = 2219) 15 U/L COMPREHENSIVE METABOLIC [id number] 00:00:00 Test Item Value Reference Range Interpretation Comments GLUCOSE (test code = 2217) 91 MG/DL BUN (test code = 2208) 18 MG/DL CREATININE (test code = 2214) 1.11 MG/DL eGFR (2020 CKD-EPI) (test code 72 ML/MIN/1.73 = 69646) CALC BUN/CREAT (test code = 16 RATIO 2235) SODIUM (test code = 2231) 141 MEQ/L POTASSIUM (test code = 2228) 4.3 MEQ/L CHLORIDE (test code = 2215) 103 MEQ/L CARBON DIOXIDE (test code = 25 MEQ/L 2205) CALCIUM (test code = 2209) 9.4 MG/DL PROTEIN, TOTAL (test code = 7.3 G/DL 9) ALBUMIN (test code = 2201) 4.2 G/DL CALC GLOBULIN (test code = 3.1 G/DL 2240) CALC A/G RATIO (test code = 1.4 RATIO 2234) BILIRUBIN, TOTAL (test code = 0.3 MG/DL 2206) ALKALINE PHOSPHATASE (test 50 U/L code = 2204) AST (test code = 2218) 23 U/L ALT (test code = 2219) 15 U/L LIPID [id number] 00:00:00 Test Item Value Reference Range Interpretation Comments CHOLESTEROL (test code = 2210) 191 MG/DL TRIGLYCERIDES (test code = 2232) 73 MG/DL HDL CHOLESTEROL (test code = 2220) 59 MG/DL CALC LDL CHOL (test code = 2237) 115 MG/DL RISK RATIO LDL/HDL (test code = 1.95 RATIO 2238) LIPID [id number] 00:00:00 Test Item Value Reference Range Interpretation Comments CHOLESTEROL (test code = 2210) 191 MG/DL TRIGLYCERIDES (test code = 2232) 73 MG/DL HDL CHOLESTEROL (test code = 2220) 59 MG/DL CALC LDL CHOL (test code = 2237) 115 MG/DL RISK RATIO LDL/HDL (test code = 1.95 RATIO 2238) PROTHROMBIN TIME (PT)2022-04-20 00:00:00 Test Item Value Reference Range Interpretation Comments PROTHROMBIN TIME (PT) (test code 32.6 SECONDS = 1402) INR (test code = 60087) 3.1 PROTHROMBIN TIME (PT)2022-04-20 00:00:00 Test Item Value Reference Range Interpretation Comments PROTHROMBIN TIME (PT) (test code 32.6 SECONDS = 1402) INR (test code = 41226) 3.1 HEMOGLOBIN [id number] 00:00:00 Test Item Value Reference Range Interpretation Comments HEMOGLOBIN A1c (test code = 52288) 5.8 % PROTHROMBIN TIME (PT)2021-09-22 07:11:26 Test Item Value Reference Range Interpretation Comments PROTHROMBIN TIME 20.1 SECONDS 12.5-14.7 H (PT) (test code = 1402) INR (test code = 1.7 SEE BELOW CURRENT 92255) RECOMMENDATIONS ARE FOR AN INR OF 2 .0-3.0 FOR ALL PATIENT S ON VITAMIN K ANTAG ONISTS, EXCEPT THOSE WI TH PROSTHETIC HEAR T VALVES, FOR WHO M INR OF 2.5-3.5 IS RECOMMENDED. U NLESS OTHERWISE INDIC ATED, ALL TESTING PER FORMED ATCLINICAL PATH OLOGY LABORATORIES, [place]. [address] [facility] [place] [address] [facility] DIRECTOR: KEYSHAWN VIVEROS M.D. CLIA NUMBER [id number] CAP ACCREDITATION N O. [id number] PROTHROMBIN TIME (PT)2021-09-22 00:00:00 Test Item Value Reference Range Interpretation Comments PROTHROMBIN TIME (PT) (test code 20.1 SECONDS = 1402) INR (test code = 73286) 1.7 PROTHROMBIN TIME (PT)2021-09-22 00:00:00 Test Item Value Reference Range Interpretation Comments PROTHROMBIN TIME (PT) (test code 20.1 SECONDS = 1402) INR (test code = 32449) 1.7 PROTHROMBIN TIME (PT)2021-09-22 00:00:00 Test Item Value Reference Range Interpretation Comments PROTHROMBIN TIME (PT) (test code 20.1 SECONDS = 1402) INR (test code = 20831) 1.7 PROTHROMBIN TIME (PT)2021-09-22 00:00:00 Test Item Value Reference Range Interpretation Comments PROTHROMBIN TIME (PT) (test code 20.1 SECONDS = 1402) INR (test code = 64797) 1.7 PROTHROMBIN TIME (PT)2021-09-22 00:00:00 Test Item Value Reference Range Interpretation Comments PROTHROMBIN TIME (PT) (test code 20.1 SECONDS = 1402) INR (test code = 38095) 1.7 PROTHROMBIN TIME (PT)2021-09-22 00:00:00 Test Item Value Reference Range Interpretation Comments PROTHROMBIN TIME (PT) (test code 20.1 SECONDS = 1402) INR (test code = 98477) 1.7 SARS-CoV-2 (COVID-19), RT-PCR/[id number] 16:29:48 Test Item Value Reference Interpretation Comments Range SARS-CoV-2 NEGATIVE SEE NOTE SARS-CoV-2 RNA NOT INTERPRETATION DETECTEDNegat ebonie (test code = 85318) results do not preclude SARS-C oV-2 infection and s hould notbe used as t he sole basis for patie nt management deci sions. Negativeresults must be combined wit h clinical observ ations, patient history ,and epidemiological information. Op timum specimen types and timingfor peak viral levels during infections caus ed by SARS-CoV-2 have notbeen determi guy. Collection of m ultiple specimens or ty pes ofspecimens may be necessary to de tect virus. Improper specimencollect ion and handling, seque nce variability und er primers/probes, or organism presen t below the limit of de tection may lead to falsenegative r esults. Positive and ne gative predictive valu es oftesting are h ighly dependent on prevalence. Fal se negative testre sults are more likely when prevalence is h igh. SOURCE (test code = NASOPHARYNGEAL Note: [place] [address]) Jd Devi [place] l-Time RT-PCR. The exp ected result or refer ence range is NEGATI VE (Not Detected). For more information reg arding COVID-19 testin g to include clinicalinforma tion, methodology det ail, intended use, F DA authorization andrecommended fact sheets for eric ents or healthcare prov iders, see [facility] Announcement: SARS-CoV-2 (COV ID-19) by NAAT at URL below (note,fact shee ts are provided by met hod given in report:https:// [email or web address]/[email or web address] ians/cl ient-[email or web address] ions/ Alternatively, see downloadable PD F fact sheet at:[email or web address]://www. [email or web address]/[email or web address]-R T-PCR UNLESS OTHERWIS E INDICATED, ALL TESTING PERFORMED [facility] PATHOLOGY [facility], [address] DIRECTOR: KEYSHAWN VIVEROS M.D. CLIA NUMBER [id number] CAP ACCREDITATION N O. [id number] SARS-CoV-2 (COVID-19) by RT-PCR (HIGH RISK)2021-07-18 00:00:00 Test Item Value Reference Range Interpretation Comments SARS-CoV-2 INTERPRETATION NEGATIVE (test code = 09722) SOURCE (test code = 30045) NASOPHARYNGEAL SARS-CoV-2 (COVID-19) by RT-PCR (HIGH RISK)2021-07-18 00:00:00 Test Item Value Reference Range Interpretation Comments SARS-CoV-2 INTERPRETATION NEGATIVE (test code = 25964) SOURCE (test code = 23763) NASOPHARYNGEAL SARS-CoV-2 (COVID-19) by RT-PCR (HIGH RISK)2021-07-18 00:00:00 Test Item Value Reference Range Interpretation Comments SARS-CoV-2 INTERPRETATION NEGATIVE (test code = 31765) SOURCE (test code = 11488) NASOPHARYNGEAL SARS-CoV-2 (COVID-19) by RT-PCR (HIGH RISK)2021-07-18 00:00:00 Test Item Value Reference Range Interpretation Comments SARS-CoV-2 INTERPRETATION NEGATIVE (test code = 78432) SOURCE (test code = 43858) NASOPHARYNGEAL SARS-CoV-2 (COVID-19) by RT-PCR (HIGH RISK)2021-07-18 00:00:00 Test Item Value Reference Range Interpretation Comments SARS-CoV-2 INTERPRETATION NEGATIVE (test code = 12242) SOURCE (test code = 31493) NASOPHARYNGEAL SARS-CoV-2 (COVID-19) by RT-PCR (HIGH RISK)2021-07-18 00:00:00 Test Item Value Reference Range Interpretation Comments SARS-CoV-2 INTERPRETATION NEGATIVE (test code = 10889) SOURCE (test code = 75517) NASOPHARYNGEAL CBC W/AUTO [id number] 00:00:00 Test Item Value Reference Range Interpretation Comments WBC (test code = 1001) 4.8 K/UL RBC (test code = 1002) 4.77 M/UL HEMOGLOBIN (test code = 1003) 13.0 G/DL HEMATOCRIT (test code = 1004) 38.8 % MCV (test code = 1005) 81.3 fL MCH (test code = 1006) 27.3 PG MCHC (test code = 1007) 33.5 G/DL RDW (test code = 1038) 13.3 % NEUTROPHILS (test code = 1008) 44.6 % LYMPHOCYTES (test code = 1010) 42.2 % MONOCYTES (test code = 1011) 10.9 % EOSINOPHILS (test code = 1012) 1.7 % BASOPHILS (test code = 1013) 0.4 % IMMATURE GRANULOCYTES (test 0.2 % code = 1036) NUCLEATED RBCS (test code = 0.0 /100WBC'S 1065) PLATELET COUNT (test code = 171 K/UL 1015) ABSOLUTE NEUTROPHILS (test code 2.12 K/UL = 1066) ABSOLUTE LYMPHOCYTES (test code 2.01 K/UL = 1067) ABSOLUTE MONOCYTES (test code = 0.52 K/UL 1068) ABSOLUTE EOSINOPHILS (test code 0.08 K/UL = 1040) ABSOLUTE BASOPHILS (test code = 0.02 K/UL 1069) ABS IMMATURE GRANULOCYTES (test 0.01 K/UL code = 1020) ABS NUCLEATED RBCS (test code = 0.00 K/UL 09358) CBC W/AUTO [id number] 00:00:00 Test Item Value Reference Range Interpretation Comments WBC (test code = 1001) 4.8 K/UL RBC (test code = 1002) 4.77 M/UL HEMOGLOBIN (test code = 1003) 13.0 G/DL HEMATOCRIT (test code = 1004) 38.8 % MCV (test code = 1005) 81.3 fL MCH (test code = 1006) 27.3 PG MCHC (test code = 1007) 33.5 G/DL RDW (test code = 1038) 13.3 % NEUTROPHILS (test code = 1008) 44.6 % LYMPHOCYTES (test code = 1010) 42.2 % MONOCYTES (test code = 1011) 10.9 % EOSINOPHILS (test code = 1012) 1.7 % BASOPHILS (test code = 1013) 0.4 % IMMATURE GRANULOCYTES (test 0.2 % code = 1036) NUCLEATED RBCS (test code = 0.0 /100WBC'S 1065) PLATELET COUNT (test code = 171 K/UL 1015) ABSOLUTE NEUTROPHILS (test code 2.12 K/UL = 1066) ABSOLUTE LYMPHOCYTES (test code 2.01 K/UL = 1067) ABSOLUTE MONOCYTES (test code = 0.52 K/UL 1068) ABSOLUTE EOSINOPHILS (test code 0.08 K/UL = 1040) ABSOLUTE BASOPHILS (test code = 0.02 K/UL 1069) ABS IMMATURE GRANULOCYTES (test 0.01 K/UL code = 1020) ABS NUCLEATED RBCS (test code = 0.00 K/UL 56922) HEMOGLOBIN [id number] 00:00:00 Test Item Value Reference Range Interpretation Comments HEMOGLOBIN A1c (test code = 87700) 6.0 % HEMOGLOBIN [id number] 00:00:00 Test Item Value Reference Range Interpretation Comments HEMOGLOBIN A1c (test code = 21818) 6.0 % HEMOGLOBIN [id number] 00:00:00 Test Item Value Reference Range Interpretation Comments HEMOGLOBIN A1c (test code = 20088) 6.0 % LIPID [id number] 00:00:00 Test Item Value Reference Range Interpretation Comments CHOLESTEROL (test code = 2210) 165 MG/DL TRIGLYCERIDES (test code = 2232) 97 MG/DL HDL CHOLESTEROL (test code = 2220) 63 MG/DL CALC LDL CHOL (test code = 2237) 83 MG/DL RISK RATIO LDL/HDL (test code = 1.32 RATIO 2238) LIPID [id number] 00:00:00 Test Item Value Reference Range Interpretation Comments CHOLESTEROL (test code = 2210) 165 MG/DL TRIGLYCERIDES (test code = 2232) 97 MG/DL HDL CHOLESTEROL (test code = 2220) 63 MG/DL CALC LDL CHOL (test code = 2237) 83 MG/DL RISK RATIO LDL/HDL (test code = 1.32 RATIO 2238) PROTHROMBIN TIME (PT)2021-05-20 00:00:00 Test Item Value Reference Range Interpretation Comments PROTHROMBIN TIME (PT) (test code 18.2 SECONDS = 1402) INR (test code = 07441) 1.5 PROTHROMBIN TIME (PT)2021-05-20 00:00:00 Test Item Value Reference Range Interpretation Comments PROTHROMBIN TIME (PT) (test code 18.2 SECONDS = 1402) INR (test code = 41755) 1.5 CBC W/AUTO [id number] 00:00:00 Test Item Value Reference Range Interpretation Comments WBC (test code = 1001) 4.8 K/UL RBC (test code = 1002) 4.77 M/UL HEMOGLOBIN (test code = 1003) 13.0 G/DL HEMATOCRIT (test code = 1004) 38.8 % MCV (test code = 1005) 81.3 fL MCH (test code = 1006) 27.3 PG MCHC (test code = 1007) 33.5 G/DL RDW (test code = 1038) 13.3 % NEUTROPHILS (test code = 1008) 44.6 % LYMPHOCYTES (test code = 1010) 42.2 % MONOCYTES (test code = 1011) 10.9 % EOSINOPHILS (test code = 1012) 1.7 % BASOPHILS (test code = 1013) 0.4 % IMMATURE GRANULOCYTES (test 0.2 % code = 1036) NUCLEATED RBCS (test code = 0.0 /100WBC'S 1065) PLATELET COUNT (test code = 171 K/UL 1015) ABSOLUTE NEUTROPHILS (test code 2.12 K/UL = 1066) ABSOLUTE LYMPHOCYTES (test code 2.01 K/UL = 1067) ABSOLUTE MONOCYTES (test code = 0.52 K/UL 1068) ABSOLUTE EOSINOPHILS (test code 0.08 K/UL = 1040) ABSOLUTE BASOPHILS (test code = 0.02 K/UL 1069) ABS IMMATURE GRANULOCYTES (test 0.01 K/UL code = 1020) ABS NUCLEATED RBCS (test code = 0.00 K/UL 92773) CBC W/AUTO [id number] 00:00:00 Test Item Value Reference Range Interpretation Comments WBC (test code = 1001) 4.8 K/UL RBC (test code = 1002) 4.77 M/UL HEMOGLOBIN (test code = 1003) 13.0 G/DL HEMATOCRIT (test code = 1004) 38.8 % MCV (test code = 1005) 81.3 fL MCH (test code = 1006) 27.3 PG MCHC (test code = 1007) 33.5 G/DL RDW (test code = 1038) 13.3 % NEUTROPHILS (test code = 1008) 44.6 % LYMPHOCYTES (test code = 1010) 42.2 % MONOCYTES (test code = 1011) 10.9 % EOSINOPHILS (test code = 1012) 1.7 % BASOPHILS (test code = 1013) 0.4 % IMMATURE GRANULOCYTES (test 0.2 % code = 1036) NUCLEATED RBCS (test code = 0.0 /100WBC'S 1065) PLATELET COUNT (test code = 171 K/UL 1015) ABSOLUTE NEUTROPHILS (test code 2.12 K/UL = 1066) ABSOLUTE LYMPHOCYTES (test code 2.01 K/UL = 1067) ABSOLUTE MONOCYTES (test code = 0.52 K/UL 1068) ABSOLUTE EOSINOPHILS (test code 0.08 K/UL = 1040) ABSOLUTE BASOPHILS (test code = 0.02 K/UL 1069) ABS IMMATURE GRANULOCYTES (test 0.01 K/UL code = 1020) ABS NUCLEATED RBCS (test code = 0.00 K/UL 74463) CBC W/AUTO [id number] 00:00:00 Test Item Value Reference Range Interpretation Comments WBC (test code = 1001) 4.8 K/UL RBC (test code = 1002) 4.77 M/UL HEMOGLOBIN (test code = 1003) 13.0 G/DL HEMATOCRIT (test code = 1004) 38.8 % MCV (test code = 1005) 81.3 fL MCH (test code = 1006) 27.3 PG MCHC (test code = 1007) 33.5 G/DL RDW (test code = 1038) 13.3 % NEUTROPHILS (test code = 1008) 44.6 % LYMPHOCYTES (test code = 1010) 42.2 % MONOCYTES (test code = 1011) 10.9 % EOSINOPHILS (test code = 1012) 1.7 % BASOPHILS (test code = 1013) 0.4 % IMMATURE GRANULOCYTES (test 0.2 % code = 1036) NUCLEATED RBCS (test code = 0.0 /100WBC'S 1065) PLATELET COUNT (test code = 171 K/UL 1015) ABSOLUTE NEUTROPHILS (test code 2.12 K/UL = 1066) ABSOLUTE LYMPHOCYTES (test code 2.01 K/UL = 1067) ABSOLUTE MONOCYTES (test code = 0.52 K/UL 1068) ABSOLUTE EOSINOPHILS (test code 0.08 K/UL = 1040) ABSOLUTE BASOPHILS (test code = 0.02 K/UL 1069) ABS IMMATURE GRANULOCYTES (test 0.01 K/UL code = 1020) ABS NUCLEATED RBCS (test code = 0.00 K/UL 49697) HEMOGLOBIN [id number] 00:00:00 Test Item Value Reference Range Interpretation Comments HEMOGLOBIN A1c (test code = 57735) 6.0 % HEMOGLOBIN [id number] 00:00:00 Test Item Value Reference Range Interpretation Comments HEMOGLOBIN A1c (test code = 89204) 6.0 % HEMOGLOBIN [id number] 00:00:00 Test Item Value Reference Range Interpretation Comments HEMOGLOBIN A1c (test code = 49236) 6.0 % LIPID [id number] 00:00:00 Test Item Value Reference Range Interpretation Comments CHOLESTEROL (test code = 2210) 165 MG/DL TRIGLYCERIDES (test code = 2232) 97 MG/DL HDL CHOLESTEROL (test code = 2220) 63 MG/DL CALC LDL CHOL (test code = 2237) 83 MG/DL RISK RATIO LDL/HDL (test code = 1.32 RATIO 2238) LIPID [id number] 00:00:00 Test Item Value Reference Range Interpretation Comments CHOLESTEROL (test code = 2210) 165 MG/DL TRIGLYCERIDES (test code = 2232) 97 MG/DL HDL CHOLESTEROL (test code = 2220) 63 MG/DL CALC LDL CHOL (test code = 2237) 83 MG/DL RISK RATIO LDL/HDL (test code = 1.32 RATIO 2238) PROTHROMBIN TIME (PT)2021-05-20 00:00:00 Test Item Value Reference Range Interpretation Comments PROTHROMBIN TIME (PT) (test code 18.2 SECONDS = 1402) INR (test code = 77327) 1.5 PROTHROMBIN TIME (PT)2021-05-20 00:00:00 Test Item Value Reference Range Interpretation Comments PROTHROMBIN TIME (PT) (test code 18.2 SECONDS = 1402) INR (test code = 69543) 1.5 CBC W/AUTO [id number] 00:00:00 Test Item Value Reference Range Interpretation Comments WBC (test code = 1001) 4.8 K/UL RBC (test code = 1002) 4.77 M/UL HEMOGLOBIN (test code = 1003) 13.0 G/DL HEMATOCRIT (test code = 1004) 38.8 % MCV (test code = 1005) 81.3 fL MCH (test code = 1006) 27.3 PG MCHC (test code = 1007) 33.5 G/DL RDW (test code = 1038) 13.3 % NEUTROPHILS (test code = 1008) 44.6 % LYMPHOCYTES (test code = 1010) 42.2 % MONOCYTES (test code = 1011) 10.9 % EOSINOPHILS (test code = 1012) 1.7 % BASOPHILS (test code = 1013) 0.4 % IMMATURE GRANULOCYTES (test 0.2 % code = 1036) NUCLEATED RBCS (test code = 0.0 /100WBC'S 1065) PLATELET COUNT (test code = 171 K/UL 1015) ABSOLUTE NEUTROPHILS (test code 2.12 K/UL = 1066) ABSOLUTE LYMPHOCYTES (test code 2.01 K/UL = 1067) ABSOLUTE MONOCYTES (test code = 0.52 K/UL 1068) ABSOLUTE EOSINOPHILS (test code 0.08 K/UL = 1040) ABSOLUTE BASOPHILS (test code = 0.02 K/UL 1069) ABS IMMATURE GRANULOCYTES (test 0.01 K/UL code = 1020) ABS NUCLEATED RBCS (test code = 0.00 K/UL 35633) CBC W/AUTO [id number] 00:00:00 Test Item Value Reference Range Interpretation Comments WBC (test code = 1001) 4.8 K/UL RBC (test code = 1002) 4.77 M/UL HEMOGLOBIN (test code = 1003) 13.0 G/DL HEMATOCRIT (test code = 1004) 38.8 % MCV (test code = 1005) 81.3 fL MCH (test code = 1006) 27.3 PG MCHC (test code = 1007) 33.5 G/DL RDW (test code = 1038) 13.3 % NEUTROPHILS (test code = 1008) 44.6 % LYMPHOCYTES (test code = 1010) 42.2 % MONOCYTES (test code = 1011) 10.9 % EOSINOPHILS (test code = 1012) 1.7 % BASOPHILS (test code = 1013) 0.4 % IMMATURE GRANULOCYTES (test 0.2 % code = 1036) NUCLEATED RBCS (test code = 0.0 /100WBC'S 1065) PLATELET COUNT (test code = 171 K/UL 1015) ABSOLUTE NEUTROPHILS (test code 2.12 K/UL = 1066) ABSOLUTE LYMPHOCYTES (test code 2.01 K/UL = 1067) ABSOLUTE MONOCYTES (test code = 0.52 K/UL 1068) ABSOLUTE EOSINOPHILS (test code 0.08 K/UL = 1040) ABSOLUTE BASOPHILS (test code = 0.02 K/UL 1069) ABS IMMATURE GRANULOCYTES (test 0.01 K/UL code = 1020) ABS NUCLEATED RBCS (test code = 0.00 K/UL 06815) CBC W/AUTO [id number] 00:00:00 Test Item Value Reference Range Interpretation Comments WBC (test code = 1001) 4.8 K/UL RBC (test code = 1002) 4.77 M/UL HEMOGLOBIN (test code = 1003) 13.0 G/DL HEMATOCRIT (test code = 1004) 38.8 % MCV (test code = 1005) 81.3 fL MCH (test code = 1006) 27.3 PG MCHC (test code = 1007) 33.5 G/DL RDW (test code = 1038) 13.3 % NEUTROPHILS (test code = 1008) 44.6 % LYMPHOCYTES (test code = 1010) 42.2 % MONOCYTES (test code = 1011) 10.9 % EOSINOPHILS (test code = 1012) 1.7 % BASOPHILS (test code = 1013) 0.4 % IMMATURE GRANULOCYTES (test 0.2 % code = 1036) NUCLEATED RBCS (test code = 0.0 /100WBC'S 1065) PLATELET COUNT (test code = 171 K/UL 1015) ABSOLUTE NEUTROPHILS (test code 2.12 K/UL = 1066) ABSOLUTE LYMPHOCYTES (test code 2.01 K/UL = 1067) ABSOLUTE MONOCYTES (test code = 0.52 K/UL 1068) ABSOLUTE EOSINOPHILS (test code 0.08 K/UL = 1040) ABSOLUTE BASOPHILS (test code = 0.02 K/UL 1069) ABS IMMATURE GRANULOCYTES (test 0.01 K/UL code = 1020) ABS NUCLEATED RBCS (test code = 0.00 K/UL 25184) HEMOGLOBIN [id number] 00:00:00 Test Item Value Reference Range Interpretation Comments HEMOGLOBIN A1c (test code = 09105) 6.0 % HEMOGLOBIN [id number] 00:00:00 Test Item Value Reference Range Interpretation Comments HEMOGLOBIN A1c (test code = 20793) 6.0 % HEMOGLOBIN [id number] 00:00:00 Test Item Value Reference Range Interpretation Comments HEMOGLOBIN A1c (test code = 39273) 6.0 % LIPID [id number] 00:00:00 Test Item Value Reference Range Interpretation Comments CHOLESTEROL (test code = 2210) 165 MG/DL TRIGLYCERIDES (test code = 2232) 97 MG/DL HDL CHOLESTEROL (test code = 2220) 63 MG/DL CALC LDL CHOL (test code = 2237) 83 MG/DL RISK RATIO LDL/HDL (test code = 1.32 RATIO 2238) LIPID [id number] 00:00:00 Test Item Value Reference Range Interpretation Comments CHOLESTEROL (test code = 2210) 165 MG/DL TRIGLYCERIDES (test code = 2232) 97 MG/DL HDL CHOLESTEROL (test code = 2220) 63 MG/DL CALC LDL CHOL (test code = 2237) 83 MG/DL RISK RATIO LDL/HDL (test code = 1.32 RATIO 2238) PROTHROMBIN TIME (PT)2021-05-20 00:00:00 Test Item Value Reference Range Interpretation Comments PROTHROMBIN TIME (PT) (test code 18.2 SECONDS = 1402) INR (test code = 45304) 1.5 PROTHROMBIN TIME (PT)2021-05-20 00:00:00 Test Item Value Reference Range Interpretation Comments PROTHROMBIN TIME (PT) (test code 18.2 SECONDS = 1402) INR (test code = 31770) 1.5 CBC W/AUTO [id number] 00:00:00 Test Item Value Reference Range Interpretation Comments WBC (test code = 1001) 4.8 K/UL RBC (test code = 1002) 4.77 M/UL HEMOGLOBIN (test code = 1003) 13.0 G/DL HEMATOCRIT (test code = 1004) 38.8 % MCV (test code = 1005) 81.3 fL MCH (test code = 1006) 27.3 PG MCHC (test code = 1007) 33.5 G/DL RDW (test code = 1038) 13.3 % NEUTROPHILS (test code = 1008) 44.6 % LYMPHOCYTES (test code = 1010) 42.2 % MONOCYTES (test code = 1011) 10.9 % EOSINOPHILS (test code = 1012) 1.7 % BASOPHILS (test code = 1013) 0.4 % IMMATURE GRANULOCYTES (test 0.2 % code = 1036) NUCLEATED RBCS (test code = 0.0 /100WBC'S 1065) PLATELET COUNT (test code = 171 K/UL 1015) ABSOLUTE NEUTROPHILS (test code 2.12 K/UL = 1066) ABSOLUTE LYMPHOCYTES (test code 2.01 K/UL = 1067) ABSOLUTE MONOCYTES (test code = 0.52 K/UL 1068) ABSOLUTE EOSINOPHILS (test code 0.08 K/UL = 1040) ABSOLUTE BASOPHILS (test code = 0.02 K/UL 1069) ABS IMMATURE GRANULOCYTES (test 0.01 K/UL code = 1020) ABS NUCLEATED RBCS (test code = 0.00 K/UL 15112) PROTHROMBIN TIME (PT)2021-03-05 00:00:00 Test Item Value Reference Range Interpretation Comments PROTHROMBIN TIME (PT) (test code 16.3 SECONDS = 1402) INR (test code = 36768) 1.3 LIPID [id number] 00:00:00 Test Item Value Reference Range Interpretation Comments CHOLESTEROL (test code = 2210) 188 MG/DL TRIGLYCERIDES (test code = 2232) 117 MG/DL HDL CHOLESTEROL (test code = 2220) 62 MG/DL CALC LDL CHOL (test code = 2237) 105 MG/DL RISK RATIO LDL/HDL (test code = 1.69 RATIO 2238) LIPID [id number] 00:00:00 Test Item Value Reference Range Interpretation Comments CHOLESTEROL (test code = 2210) 188 MG/DL TRIGLYCERIDES (test code = 2232) 117 MG/DL HDL CHOLESTEROL (test code = 2220) 62 MG/DL CALC LDL CHOL (test code = 2237) 105 MG/DL RISK RATIO LDL/HDL (test code = 1.69 RATIO 2238) PROTHROMBIN TIME (PT)2021-03-05 00:00:00 Test Item Value Reference Range Interpretation Comments PROTHROMBIN TIME (PT) (test code 16.3 SECONDS = 1402) INR (test code = 89394) 1.3 PROTHROMBIN TIME (PT)2021-03-05 00:00:00 Test Item Value Reference Range Interpretation Comments PROTHROMBIN TIME (PT) (test code 16.3 SECONDS = 1402) INR (test code = 94297) 1.3 LIPID [id number] 00:00:00 Test Item Value Reference Range Interpretation Comments CHOLESTEROL (test code = 2210) 188 MG/DL TRIGLYCERIDES (test code = 2232) 117 MG/DL HDL CHOLESTEROL (test code = 2220) 62 MG/DL CALC LDL CHOL (test code = 2237) 105 MG/DL RISK RATIO LDL/HDL (test code = 1.69 RATIO 2238) LIPID [id number] 00:00:00 Test Item Value Reference Range Interpretation Comments CHOLESTEROL (test code = 2210) 188 MG/DL TRIGLYCERIDES (test code = 2232) 117 MG/DL HDL CHOLESTEROL (test code = 2220) 62 MG/DL CALC LDL CHOL (test code = 2237) 105 MG/DL RISK RATIO LDL/HDL (test code = 1.69 RATIO 2238) PROTHROMBIN TIME (PT)2021-03-05 00:00:00 Test Item Value Reference Range Interpretation Comments PROTHROMBIN TIME (PT) (test code 16.3 SECONDS = 1402) INR (test code = 39740) 1.3 PROTHROMBIN TIME (PT)2021-03-05 00:00:00 Test Item Value Reference Range Interpretation Comments PROTHROMBIN TIME (PT) (test code 16.3 SECONDS = 1402) INR (test code = 00550) 1.3 LIPID [id number] 00:00:00 Test Item Value Reference Range Interpretation Comments CHOLESTEROL (test code = 2210) 188 MG/DL TRIGLYCERIDES (test code = 2232) 117 MG/DL HDL CHOLESTEROL (test code = 2220) 62 MG/DL CALC LDL CHOL (test code = 2237) 105 MG/DL RISK RATIO LDL/HDL (test code = 1.69 RATIO 2238) LIPID [id number] 00:00:00 Test Item Value Reference Range Interpretation Comments CHOLESTEROL (test code = 2210) 188 MG/DL TRIGLYCERIDES (test code = 2232) 117 MG/DL HDL CHOLESTEROL (test code = 2220) 62 MG/DL CALC LDL CHOL (test code = 2237) 105 MG/DL RISK RATIO LDL/HDL (test code = 1.69 RATIO 2238) PROTHROMBIN TIME (PT)2021-03-05 00:00:00 Test Item Value Reference Range Interpretation Comments PROTHROMBIN TIME (PT) (test code 16.3 SECONDS = 1402) INR (test code = 23082) 1.3 PROTHROMBIN TIME (PT)2020-05-23 00:00:00 Test Item Value Reference Range Interpretation Comments PROTHROMBIN TIME (PT) (test code 19.1 SECONDS = 1402) INR (test code = 36929) 1.6 PROTHROMBIN TIME (PT)2020-05-23 00:00:00 Test Item Value Reference Range Interpretation Comments PROTHROMBIN TIME (PT) (test code 19.1 SECONDS = 1402) INR (test code = 47338) 1.6 PROTHROMBIN TIME (PT)2020-05-23 00:00:00 Test Item Value Reference Range Interpretation Comments PROTHROMBIN TIME (PT) (test code 19.1 SECONDS = 1402) INR (test code = 36089) 1.6 PROTHROMBIN TIME (PT)2020-05-23 00:00:00 Test Item Value Reference Range Interpretation Comments PROTHROMBIN TIME (PT) (test code 19.1 SECONDS = 1402) INR (test code = 87295) 1.6 PROTHROMBIN TIME (PT)2020-05-23 00:00:00 Test Item Value Reference Range Interpretation Comments PROTHROMBIN TIME (PT) (test code 19.1 SECONDS = 1402) INR (test code = 12167) 1.6 PROTHROMBIN TIME (PT)2020-05-23 00:00:00 Test Item Value Reference Range Interpretation Comments PROTHROMBIN TIME (PT) (test code 19.1 SECONDS = 1402) INR (test code = 84919) 1.6 PROTHROMBIN TIME (PT)2019-11-13 00:00:00 Test Item Value Reference Range Interpretation Comments PROTHROMBIN TIME (PT) (test code 38.4 SECONDS = 1402) INR (test code = 12015) 3.6 PROTHROMBIN TIME (PT)2019-11-13 00:00:00 Test Item Value Reference Range Interpretation Comments PROTHROMBIN TIME (PT) (test code 38.4 SECONDS = 1402) INR (test code = 06250) 3.6 PROTHROMBIN TIME (PT)2019-11-13 00:00:00 Test Item Value Reference Range Interpretation Comments PROTHROMBIN TIME (PT) (test code 38.4 SECONDS = 1402) INR (test code = 05457) 3.6 PROTHROMBIN TIME (PT)2019-11-13 00:00:00 Test Item Value Reference Range Interpretation Comments PROTHROMBIN TIME (PT) (test code 38.4 SECONDS = 1402) INR (test code = 60164) 3.6 PROTHROMBIN TIME (PT)2019-11-13 00:00:00 Test Item Value Reference Range Interpretation Comments PROTHROMBIN TIME (PT) (test code 38.4 SECONDS = 1402) INR (test code = 70649) 3.6 PROTHROMBIN TIME (PT)2019-11-13 00:00:00 Test Item Value Reference Range Interpretation Comments PROTHROMBIN TIME (PT) (test code 38.4 SECONDS = 1402) INR (test code = 77280) 3.6 PROTHROMBIN TIME (PT)2019-08-07 00:00:00 Test Item Value Reference Range Interpretation Comments PROTHROMBIN TIME (PT) (test code 17.7 SECONDS = 1402) INR (test code = 06323) 1.4 PROTHROMBIN TIME (PT)2019-08-07 00:00:00 Test Item Value Reference Range Interpretation Comments PROTHROMBIN TIME (PT) (test code 17.7 SECONDS = 1402) INR (test code = 90024) 1.4 CHLAMYDIA, AMPLIFIED, [id number] 00:00:00 Test Item Value Reference Range Interpretation Comments CHLAMYDIA, TMA (test code = 38134) NEGATIVE CHLAMYDIA, AMPLIFIED, [id number] 00:00:00 Test Item Value Reference Range Interpretation Comments CHLAMYDIA, TMA (test code = 59797) NEGATIVE GC, AMPLIFIED, [id number] 00:00:00 Test Item Value Reference Range Interpretation Comments GONORRHEA, TMA (test code = 32146) NEGATIVE GC, AMPLIFIED, [id number] 00:00:00 Test Item Value Reference Range Interpretation Comments GONORRHEA, TMA (test code = 95886) NEGATIVE PROTHROMBIN TIME (PT)2019-08-07 00:00:00 Test Item Value Reference Range Interpretation Comments PROTHROMBIN TIME (PT) (test code 17.7 SECONDS = 1402) INR (test code = 89697) 1.4 PROTHROMBIN TIME (PT)2019-08-07 00:00:00 Test Item Value Reference Range Interpretation Comments PROTHROMBIN TIME (PT) (test code 17.7 SECONDS = 1402) INR (test code = 74892) 1.4 CHLAMYDIA, AMPLIFIED, [id number] 00:00:00 Test Item Value Reference Range Interpretation Comments CHLAMYDIA, TMA (test code = 49005) NEGATIVE CHLAMYDIA, AMPLIFIED, [id number] 00:00:00 Test Item Value Reference Range Interpretation Comments CHLAMYDIA, TMA (test code = 64503) NEGATIVE GC, AMPLIFIED, [id number] 00:00:00 Test Item Value Reference Range Interpretation Comments GONORRHEA, TMA (test code = 24905) NEGATIVE GC, AMPLIFIED, [id number] 00:00:00 Test Item Value Reference Range Interpretation Comments GONORRHEA, TMA (test code = 33462) NEGATIVE PROTHROMBIN TIME (PT)2019-08-07 00:00:00 Test Item Value Reference Range Interpretation Comments PROTHROMBIN TIME (PT) (test code 17.7 SECONDS = 1402) INR (test code = 57702) 1.4 PROTHROMBIN TIME (PT)2019-08-07 00:00:00 Test Item Value Reference Range Interpretation Comments PROTHROMBIN TIME (PT) (test code 17.7 SECONDS = 1402) INR (test code = 64357) 1.4 CHLAMYDIA, AMPLIFIED, [id number] 00:00:00 Test Item Value Reference Range Interpretation Comments CHLAMYDIA, TMA (test code = 65167) NEGATIVE CHLAMYDIA, AMPLIFIED, [id number] 00:00:00 Test Item Value Reference Range Interpretation Comments CHLAMYDIA, TMA (test code = 79133) NEGATIVE GC, AMPLIFIED, [id number] 00:00:00 Test Item Value Reference Range Interpretation Comments GONORRHEA, TMA (test code = 10199) NEGATIVE GC, AMPLIFIED, [id number] 00:00:00 Test Item Value Reference Range Interpretation Comments GONORRHEA, TMA (test code = 66127) NEGATIVE PROTHROMBIN TIME (PT)2019-05-30 00:00:00 Test Item Value Reference Range Interpretation Comments PROTHROMBIN TIME (PT) (test code 19.8 SECONDS = 1402) INR (test code = 38303) 1.6 PROTHROMBIN TIME (PT)2019-05-30 00:00:00 Test Item Value Reference Range Interpretation Comments PROTHROMBIN TIME (PT) (test code 19.8 SECONDS = 1402) INR (test code = 92270) 1.6 PROTHROMBIN TIME (PT)2019-05-30 00:00:00 Test Item Value Reference Range Interpretation Comments PROTHROMBIN TIME (PT) (test code 19.8 SECONDS = 1402) INR (test code = 25637) 1.6 PROTHROMBIN TIME (PT)2019-05-30 00:00:00 Test Item Value Reference Range Interpretation Comments PROTHROMBIN TIME (PT) (test code 19.8 SECONDS = 1402) INR (test code = 30810) 1.6 PROTHROMBIN TIME (PT)2019-05-30 00:00:00 Test Item Value Reference Range Interpretation Comments PROTHROMBIN TIME (PT) (test code 19.8 SECONDS = 1402) INR (test code = 10265) 1.6 PROTHROMBIN TIME (PT)2019-05-30 00:00:00 Test Item Value Reference Range Interpretation Comments PROTHROMBIN TIME (PT) (test code 19.8 SECONDS = 1402) INR (test code = 13239) 1.6 CHLAMYDIA, AMPLIFIED, [id number] 00:00:00 Test Item Value Reference Range Interpretation Comments CHLAMYDIA, TMA (test code = 90810) NEGATIVE CHLAMYDIA, AMPLIFIED, [id number] 00:00:00 Test Item Value Reference Range Interpretation Comments CHLAMYDIA, TMA (test code = 62213) NEGATIVE CHLAMYDIA, AMPLIFIED, [id number] 00:00:00 Test Item Value Reference Range Interpretation Comments CHLAMYDIA, TMA (test code = 09744) NEGATIVE CHLAMYDIA, AMPLIFIED, [id number] 00:00:00 Test Item Value Reference Range Interpretation Comments CHLAMYDIA, TMA (test code = 20086) NEGATIVE CHLAMYDIA, AMPLIFIED, [id number] 00:00:00 Test Item Value Reference Range Interpretation Comments CHLAMYDIA, TMA (test code = 54190) NEGATIVE CHLAMYDIA, AMPLIFIED, [id number] 00:00:00 Test Item Value Reference Range Interpretation Comments CHLAMYDIA, TMA (test code = 69594) NEGATIVE PROTHROMBIN TIME (PT)2018-09-26 00:00:00 Test Item Value Reference Range Interpretation Comments PROTHROMBIN TIME (PT) (test code 17.8 SECONDS = 1402) INR (test code = 81736) 1.4 PROTHROMBIN TIME (PT)2018-09-26 00:00:00 Test Item Value Reference Range Interpretation Comments PROTHROMBIN TIME (PT) (test code 17.8 SECONDS = 1402) INR (test code = 71733) 1.4 PROTHROMBIN TIME (PT)2018-09-26 00:00:00 Test Item Value Reference Range Interpretation Comments PROTHROMBIN TIME (PT) (test code 17.8 SECONDS = 1402) INR (test code = 29719) 1.4 PROTHROMBIN TIME (PT)2018-09-26 00:00:00 Test Item Value Reference Range Interpretation Comments PROTHROMBIN TIME (PT) (test code 17.8 SECONDS = 1402) INR (test code = 34508) 1.4 PROTHROMBIN TIME (PT)2018-09-26 00:00:00 Test Item Value Reference Range Interpretation Comments PROTHROMBIN TIME (PT) (test code 17.8 SECONDS = 1402) INR (test code = 33319) 1.4 PROTHROMBIN TIME (PT)2018-09-26 00:00:00 Test Item Value Reference Range Interpretation Comments PROTHROMBIN TIME (PT) (test code 17.8 SECONDS = 1402) INR (test code = 71618) 1.4 TRICHOMONAS, [id number] 00:00:00 Test Item Value Reference Range Interpretation Comments TRICHOMONAS, MALE (test code = NEGATIVE 02170) TRICHOMONAS, MALE [ADDED]2018-04-02 00:00:00 Test Item Value Reference Range Interpretation Comments TRICHOMONAS, MALE (test code = NEGATIVE 30865) TRICHOMONAS, [id number] 00:00:00 Test Item Value Reference Range Interpretation Comments TRICHOMONAS, MALE (test code = NEGATIVE 12547) TRICHOMONAS, MALE [ADDED]2018-04-02 00:00:00 Test Item Value Reference Range Interpretation Comments TRICHOMONAS, MALE (test code = NEGATIVE 94977) TRICHOMONAS, [id number] 00:00:00 Test Item Value Reference Range Interpretation Comments TRICHOMONAS, MALE (test code = NEGATIVE 18272) TRICHOMONAS, [id number] 00:00:00 Test Item Value Reference Range Interpretation Comments TRICHOMONAS, MALE (test code = NEGATIVE 17325) TRICHOMONAS, MALE [ADDED]2018-04-02 00:00:00 Test Item Value Reference Range Interpretation Comments TRICHOMONAS, MALE (test code = NEGATIVE 62201) TRICHOMONAS, MALE [ADDED]2018-04-02 00:00:00 Test Item Value Reference Range Interpretation Comments TRICHOMONAS, MALE (test code = NEGATIVE 24177) TRICHOMONAS, MALE [ADDED]2018-04-02 00:00:00 Test Item Value Reference Range Interpretation Comments TRICHOMONAS, MALE (test code = NEGATIVE 15782) TRICHOMONAS, MALE [ADDED]2018-04-02 00:00:00 Test Item Value Reference Range Interpretation Comments TRICHOMONAS, MALE (test code = NEGATIVE 42631) TRICHOMONAS, [id number] 00:00:00 Test Item Value Reference Range Interpretation Comments TRICHOMONAS, MALE (test code = NEGATIVE 93831) TRICHOMONAS, [id number] 00:00:00 Test Item Value Reference Range Interpretation Comments TRICHOMONAS, MALE (test code = NEGATIVE 51159) TRICHOMONAS, URINE, [id number] 00:00:00 Test Item Value Reference Range Interpretation Comments TRICHOMONAS, URINE, AMP TEST NOT PERFORMED (test code = 75681) TRICHOMONAS, URINE, [id number] 00:00:00 Test Item Value Reference Range Interpretation Comments TRICHOMONAS, URINE, AMP TEST NOT PERFORMED (test code = 18760) TRICHOMONAS, URINE, [id number] 00:00:00 Test Item Value Reference Range Interpretation Comments TRICHOMONAS, URINE, AMP TEST NOT PERFORMED (test code = 25742) TRICHOMONAS, URINE, [id number] 00:00:00 Test Item Value Reference Range Interpretation Comments TRICHOMONAS, URINE, AMP TEST NOT PERFORMED (test code = 71587) TRICHOMONAS, URINE, [id number] 00:00:00 Test Item Value Reference Range Interpretation Comments TRICHOMONAS, URINE, AMP TEST NOT PERFORMED (test code = 85039) TRICHOMONAS, URINE, [id number] 00:00:00 Test Item Value Reference Range Interpretation Comments TRICHOMONAS, URINE, AMP TEST NOT PERFORMED (test code = 17217) PROTHROMBIN TIME (PT)2018-03-15 00:00:00 Test Item Value Reference Range Interpretation Comments PROTHROMBIN TIME (PT) (test code 24.9 SECONDS = 1402) INR (test code = 07692) 2.2 PROTHROMBIN TIME (PT)2018-03-15 00:00:00 Test Item Value Reference Range Interpretation Comments PROTHROMBIN TIME (PT) (test code 24.9 SECONDS = 1402) INR (test code = 62645) 2.2 PROTHROMBIN TIME (PT)2018-03-15 00:00:00 Test Item Value Reference Range Interpretation Comments PROTHROMBIN TIME (PT) (test code 24.9 SECONDS = 1402) INR (test code = 05307) 2.2 PROTHROMBIN TIME (PT)2018-03-15 00:00:00 Test Item Value Reference Range Interpretation Comments PROTHROMBIN TIME (PT) (test code 24.9 SECONDS = 1402) INR (test code = 25501) 2.2 PROTHROMBIN TIME (PT)2018-03-15 00:00:00 Test Item Value Reference Range Interpretation Comments PROTHROMBIN TIME (PT) (test code 24.9 SECONDS = 1402) INR (test code = 86381) 2.2 PROTHROMBIN TIME (PT)2018-03-15 00:00:00 Test Item Value Reference Range Interpretation Comments PROTHROMBIN TIME (PT) (test code 24.9 SECONDS = 1402) INR (test code = 62541) 2.2 PROTHROMBIN TIME (PT)2017-11-14 00:00:00 Test Item Value Reference Range Interpretation Comments PROTHROMBIN TIME (PT) (test code 23.0 SECONDS = 1402) INR (test code = 86904) 2.0 PROTHROMBIN TIME (PT)2017-11-14 00:00:00 Test Item Value Reference Range Interpretation Comments PROTHROMBIN TIME (PT) (test code 23.0 SECONDS = 1402) INR (test code = 40935) 2.0 PROTHROMBIN TIME (PT)2017-11-14 00:00:00 Test Item Value Reference Range Interpretation Comments PROTHROMBIN TIME (PT) (test code 23.0 SECONDS = 1402) INR (test code = 26350) 2.0 PROTHROMBIN TIME (PT)2017-11-14 00:00:00 Test Item Value Reference Range Interpretation Comments PROTHROMBIN TIME (PT) (test code 23.0 SECONDS = 1402) INR (test code = 32399) 2.0 PROTHROMBIN TIME (PT)2017-11-14 00:00:00 Test Item Value Reference Range Interpretation Comments PROTHROMBIN TIME (PT) (test code 23.0 SECONDS = 1402) INR (test code = 47242) 2.0 PROTHROMBIN TIME (PT)2017-11-14 00:00:00 Test Item Value Reference Range Interpretation Comments PROTHROMBIN TIME (PT) (test code 23.0 SECONDS = 1402) INR (test code = 37821) 2.0 HERPES SIMPLEX 1/2 [id number] 00:00:00 Test Item Value Reference Range Interpretation Comments HERPES SIMPLEX 1 IgG (test code = >5.00 INDEX 55402) HERPES SIMPLEX 2 IgG (test code = 0.21 INDEX 90404) HERPES SIMPLEX 1/2 [id number] 00:00:00 Test Item Value Reference Range Interpretation Comments HERPES SIMPLEX 1 IgG (test code = >5.00 INDEX 90730) HERPES SIMPLEX 2 IgG (test code = 0.21 INDEX 18030) HERPES SIMPLEX 1/2 [id number] 00:00:00 Test Item Value Reference Range Interpretation Comments HERPES SIMPLEX 1 IgG (test code = >5.00 INDEX 81934) HERPES SIMPLEX 2 IgG (test code = 0.21 INDEX 26937) HERPES SIMPLEX 1/2 [id number] 00:00:00 Test Item Value Reference Range Interpretation Comments HERPES SIMPLEX 1 IgG (test code = >5.00 INDEX 23666) HERPES SIMPLEX 2 IgG (test code = 0.21 INDEX 62538) HERPES SIMPLEX 1/2 [id number] 00:00:00 Test Item Value Reference Range Interpretation Comments HERPES SIMPLEX 1 IgG (test code = >5.00 INDEX 63257) HERPES SIMPLEX 2 IgG (test code = 0.21 INDEX 95221) HERPES SIMPLEX 1/2 [id number] 00:00:00 Test Item Value Reference Range Interpretation Comments HERPES SIMPLEX 1 IgG (test code = >5.00 INDEX 67462) HERPES SIMPLEX 2 IgG (test code = 0.21 INDEX 70362) PROTHROMBIN TIME (PT)2017-10-03 00:00:00 Test Item Value Reference Range Interpretation Comments PROTHROMBIN TIME (PT) (test code 22.9 SECONDS = 1402) INR (test code = 97315) 1.9 PROTHROMBIN TIME (PT)2017-10-03 00:00:00 Test Item Value Reference Range Interpretation Comments PROTHROMBIN TIME (PT) (test code 22.9 SECONDS = 1402) INR (test code = 73338) 1.9 PROTHROMBIN TIME (PT)2017-10-03 00:00:00 Test Item Value Reference Range Interpretation Comments PROTHROMBIN TIME (PT) (test code 22.9 SECONDS = 1402) INR (test code = 52974) 1.9 PROTHROMBIN TIME (PT)2017-10-03 00:00:00 Test Item Value Reference Range Interpretation Comments PROTHROMBIN TIME (PT) (test code 22.9 SECONDS = 1402) INR (test code = 67130) 1.9 PROTHROMBIN TIME (PT)2017-10-03 00:00:00 Test Item Value Reference Range Interpretation Comments PROTHROMBIN TIME (PT) (test code 22.9 SECONDS = 1402) INR (test code = 04230) 1.9 PROTHROMBIN TIME (PT)2017-10-03 00:00:00 Test Item Value Reference Range Interpretation Comments PROTHROMBIN TIME (PT) (test code 22.9 SECONDS = 1402) INR (test code = 32173) 1.9 TRICHOMONAS, MALE [ADDED]2017-08-24 00:00:00 Test Item Value Reference Range Interpretation Comments TRICHOMONAS, MALE (test code = NEGATIVE 22574) TRICHOMONAS, MALE [ADDED]2017-08-24 00:00:00 Test Item Value Reference Range Interpretation Comments TRICHOMONAS, MALE (test code = NEGATIVE 28746) TRICHOMONAS, MALE [ADDED]2017-08-24 00:00:00 Test Item Value Reference Range Interpretation Comments TRICHOMONAS, MALE (test code = NEGATIVE 25674) TRICHOMONAS, MALE [ADDED]2017-08-24 00:00:00 Test Item Value Reference Range Interpretation Comments TRICHOMONAS, MALE (test code = NEGATIVE 16528) TRICHOMONAS, MALE [ADDED]2017-08-24 00:00:00 Test Item Value Reference Range Interpretation Comments TRICHOMONAS, MALE (test code = NEGATIVE 90634) TRICHOMONAS, MALE [ADDED]2017-08-24 00:00:00 Test Item Value Reference Range Interpretation Comments TRICHOMONAS, MALE (test code = NEGATIVE 25129) TRICHOMONAS, URINE, [id number] 00:00:00 Test Item Value Reference Range Interpretation Comments TRICHOMONAS, URINE, AMP TEST NOT PERFORMED (test code = 87435) TRICHOMONAS, URINE, [id number] 00:00:00 Test Item Value Reference Range Interpretation Comments TRICHOMONAS, URINE, AMP TEST NOT PERFORMED (test code = 34433) TRICHOMONAS, URINE, [id number] 00:00:00 Test Item Value Reference Range Interpretation Comments TRICHOMONAS, URINE, AMP TEST NOT PERFORMED (test code = 18153) TRICHOMONAS, URINE, [id number] 00:00:00 Test Item Value Reference Range Interpretation Comments TRICHOMONAS, URINE, AMP TEST NOT PERFORMED (test code = 43552) TRICHOMONAS, URINE, [id number] 00:00:00 Test Item Value Reference Range Interpretation Comments TRICHOMONAS, URINE, AMP TEST NOT PERFORMED (test code = 59934) TRICHOMONAS, URINE, [id number] 00:00:00 Test Item Value Reference Range Interpretation Comments TRICHOMONAS, URINE, AMP TEST NOT PERFORMED (test code = 98665) PROTHROMBIN TIME (PT)2017-08-22 00:00:00 Test Item Value Reference Range Interpretation Comments PROTHROMBIN TIME (PT) (test code 32.6 SECONDS = 1402) INR (test code = 54698) 3.0 PROTHROMBIN TIME (PT)2017-08-22 00:00:00 Test Item Value Reference Range Interpretation Comments PROTHROMBIN TIME (PT) (test code 32.6 SECONDS = 1402) INR (test code = 45752) 3.0 PROTHROMBIN TIME (PT)2017-08-22 00:00:00 Test Item Value Reference Range Interpretation Comments PROTHROMBIN TIME (PT) (test code 32.6 SECONDS = 1402) INR (test code = 36198) 3.0 PROTHROMBIN TIME (PT)2017-08-22 00:00:00 Test Item Value Reference Range Interpretation Comments PROTHROMBIN TIME (PT) (test code 32.6 SECONDS = 1402) INR (test code = 87854) 3.0 PROTHROMBIN TIME (PT)2017-08-22 00:00:00 Test Item Value Reference Range Interpretation Comments PROTHROMBIN TIME (PT) (test code 32.6 SECONDS = 1402) INR (test code = 63689) 3.0 PROTHROMBIN TIME (PT)2017-08-22 00:00:00 Test Item Value Reference Range Interpretation Comments PROTHROMBIN TIME (PT) (test code 32.6 SECONDS = 1402) INR (test code = 33707) 3.0 PROTHROMBIN TIME (PT)2017-08-01 00:00:00 Test Item Value Reference Range Interpretation Comments PROTHROMBIN TIME (PT) (test code 37.3 SECONDS = 1402) INR (test code = 63414) 3.6 PROTHROMBIN TIME (PT)2017-08-01 00:00:00 Test Item Value Reference Range Interpretation Comments PROTHROMBIN TIME (PT) (test code 37.3 SECONDS = 1402) INR (test code = 40821) 3.6 H[employer], [id number] 00:00:00 Test Item Value Reference Range Interpretation Comments H[employer], STOOL (test code = NEGATIVE 64481) H[employer], [id number] 00:00:00 Test Item Value Reference Range Interpretation Comments H. PYL[employer], STOOL (test code = NEGATIVE 93614) PROTHROMBIN TIME (PT)2017-08-01 00:00:00 Test Item Value Reference Range Interpretation Comments PROTHROMBIN TIME (PT) (test code 37.3 SECONDS = 1402) INR (test code = 75976) 3.6 PROTHROMBIN TIME (PT)2017-08-01 00:00:00 Test Item Value Reference Range Interpretation Comments PROTHROMBIN TIME (PT) (test code 37.3 SECONDS = 1402) INR (test code = 91040) 3.6 H[employer], [id number] 00:00:00 Test Item Value Reference Range Interpretation Comments H[employer], STOOL (test code = NEGATIVE 32041) H[employer], [id number] 00:00:00 Test Item Value Reference Range Interpretation Comments H[employer] PYL[employer] AG, STOOL (test code = NEGATIVE 59356) PROTHROMBIN TIME (PT)2017-08-01 00:00:00 Test Item Value Reference Range Interpretation Comments PROTHROMBIN TIME (PT) (test code 37.3 SECONDS = 1402) INR (test code = 15288) 3.6 PROTHROMBIN TIME (PT)2017-08-01 00:00:00 Test Item Value Reference Range Interpretation Comments PROTHROMBIN TIME (PT) (test code 37.3 SECONDS = 1402) INR (test code = 62460) 3.6 H[employer], [id number] 00:00:00 Test Item Value Reference Range Interpretation Comments H[employer], STOOL (test code = NEGATIVE 86765) [employer], [id number] 00:00:00 Test Item Value Reference Range Interpretation Comments H[employer], STOOL (test code = NEGATIVE 69554) TRICHOMONAS, URINE, [id number] 00:00:00 Test Item Value Reference Range Interpretation Comments TRICHOMONAS, URINE, AMP (test code = (NOTE) 86310) TRICHOMONAS, URINE, [id number] 00:00:00 Test Item Value Reference Range Interpretation Comments TRICHOMONAS, URINE, AMP (test code = (NOTE) 83266) TRICHOMONAS, URINE, [id number] 00:00:00 Test Item Value Reference Range Interpretation Comments TRICHOMONAS, URINE, AMP (test code = (NOTE) 88574) TRICHOMONAS, URINE, [id number] 00:00:00 Test Item Value Reference Range Interpretation Comments TRICHOMONAS, URINE, AMP (test code = (NOTE) 94696) TRICHOMONAS, URINE, [id number] 00:00:00 Test Item Value Reference Range Interpretation Comments TRICHOMONAS, URINE, AMP (test code = (NOTE) 41226) TRICHOMONAS, URINE, [id number] 00:00:00 Test Item Value Reference Range Interpretation Comments TRICHOMONAS, URINE, AMP (test code = (NOTE) 08313) TRICHOMONAS, MALE [ADDED]2017-06-17 00:00:00 Test Item Value Reference Range Interpretation Comments TRICHOMONAS, MALE (test code = NEGATIVE 75492) TRICHOMONAS, MALE [ADDED]2017-06-17 00:00:00 Test Item Value Reference Range Interpretation Comments TRICHOMONAS, MALE (test code = NEGATIVE 88540) TRICHOMONAS, MALE [ADDED]2017-06-17 00:00:00 Test Item Value Reference Range Interpretation Comments TRICHOMONAS, MALE (test code = NEGATIVE 85818) TRICHOMONAS, MALE [ADDED]2017-06-17 00:00:00 Test Item Value Reference Range Interpretation Comments TRICHOMONAS, MALE (test code = NEGATIVE 99283) TRICHOMONAS, MALE [ADDED]2017-06-17 00:00:00 Test Item Value Reference Range Interpretation Comments TRICHOMONAS, MALE (test code = NEGATIVE 12365) TRICHOMONAS, MALE [ADDED]2017-06-17 00:00:00 Test Item Value Reference Range Interpretation Comments TRICHOMONAS, MALE (test code = NEGATIVE 83145) GC AND CHLAMYDIA, AMPLIFIED, [id number] 00:00:00 Test Item Value Reference Range Interpretation Comments GONORRHEA, TMA (test code = 57054) NEGATIVE CHLAMYDIA, TMA (test code = 16274) NEGATIVE GC AND CHLAMYDIA, AMPLIFIED, [id number] 00:00:00 Test Item Value Reference Range Interpretation Comments GONORRHEA, TMA (test code = 27656) NEGATIVE CHLAMYDIA, TMA (test code = 13263) NEGATIVE GC AND CHLAMYDIA, AMPLIFIED, [id number] 00:00:00 Test Item Value Reference Range Interpretation Comments GONORRHEA, TMA (test code = 87157) NEGATIVE CHLAMYDIA, TMA (test code = 50201) NEGATIVE GC AND CHLAMYDIA, AMPLIFIED, [id number] 00:00:00 Test Item Value Reference Range Interpretation Comments GONORRHEA, TMA (test code = 38109) NEGATIVE CHLAMYDIA, TMA (test code = 75692) NEGATIVE GC AND CHLAMYDIA, AMPLIFIED, [id number] 00:00:00 Test Item Value Reference Range Interpretation Comments GONORRHEA, TMA (test code = 21997) NEGATIVE CHLAMYDIA, TMA (test code = 77695) NEGATIVE GC AND CHLAMYDIA, AMPLIFIED, [id number] 00:00:00 Test Item Value Reference Range Interpretation Comments GONORRHEA, TMA (test code = 41437) NEGATIVE CHLAMYDIA, TMA (test code = 60857) NEGATIVE H. PYLORI IgG, [id number] 00:00:00 Test Item Value Reference Range Interpretation Comments H. PYLORI IgG, QUAL (test code = POSITIVE 4565) PROTIME AND [id number] 00:00:00 Test Item Value Reference Range Interpretation Comments PROTHROMBIN TIME (PT) (test code 22.7 SECONDS = 1402) INR (test code = 42700) 1.9 PTT (test code = 1403) 37.6 SECONDS PROTIME AND [id number] 00:00:00 Test Item Value Reference Range Interpretation Comments PROTHROMBIN TIME (PT) (test code 22.7 SECONDS = 1402) INR (test code = 99318) 1.9 PTT (test code = 1403) 37.6 SECONDS H. PYLORI IgG, [id number] 00:00:00 Test Item Value Reference Range Interpretation Comments H. PYLORI IgG, QUAL (test code = POSITIVE 4565) PROTIME AND [id number] 00:00:00 Test Item Value Reference Range Interpretation Comments PROTHROMBIN TIME (PT) (test code 22.7 SECONDS = 1402) INR (test code = 76661) 1.9 PTT (test code = 1403) 37.6 SECONDS PROTIME AND [id number] 00:00:00 Test Item Value Reference Range Interpretation Comments PROTHROMBIN TIME (PT) (test code 22.7 SECONDS = 1402) INR (test code = 24793) 1.9 PTT (test code = 1403) 37.6 SECONDS H. PYLORI IgG, [id number] 00:00:00 Test Item Value Reference Range Interpretation Comments H. PYLORI IgG, QUAL (test code = POSITIVE 4565) PROTIME AND [id number] 00:00:00 Test Item Value Reference Range Interpretation Comments PROTHROMBIN TIME (PT) (test code 22.7 SECONDS = 1402) INR (test code = 21335) 1.9 PTT (test code = 1403) 37.6 SECONDS PROTIME AND [id number] 00:00:00 Test Item Value Reference Range Interpretation Comments PROTHROMBIN TIME (PT) (test code 22.7 SECONDS = 1402) INR (test code = 88984) 1.9 PTT (test code = 1403) 37.6 SECONDS PROTIME AND [id number] 00:00:00 Test Item Value Reference Range Interpretation Comments PROTHROMBIN TIME (PT) (test code 23.5 SECONDS = 1402) INR (test code = 56456) 2.0 PTT (test code = 1403) 31.9 SECONDS PROTIME AND [id number] 00:00:00 Test Item Value Reference Range Interpretation Comments PROTHROMBIN TIME (PT) (test code 23.5 SECONDS = 1402) INR (test code = 87587) 2.0 PTT (test code = 1403) 31.9 SECONDS PROTIME AND [id number] 00:00:00 Test Item Value Reference Range Interpretation Comments PROTHROMBIN TIME (PT) (test code 23.5 SECONDS = 1402) INR (test code = 55700) 2.0 PTT (test code = 1403) 31.9 SECONDS PROTIME AND [id number] 00:00:00 Test Item Value Reference Range Interpretation Comments PROTHROMBIN TIME (PT) (test code 23.5 SECONDS = 1402) INR (test code = 38934) 2.0 PTT (test code = 1403) 31.9 SECONDS PROTIME AND [id number] 00:00:00 Test Item Value Reference Range Interpretation Comments PROTHROMBIN TIME (PT) (test code 23.5 SECONDS = 1402) INR (test code = 33206) 2.0 PTT (test code = 1403) 31.9 SECONDS PROTIME AND [id number] 00:00:00 Test Item Value Reference Range Interpretation Comments PROTHROMBIN TIME (PT) (test code 23.5 SECONDS = 1402) INR (test code = 14333) 2.0 PTT (test code = 1403) 31.9 SECONDS PROTHROMBIN TIME/[id number] 08:17:00 Test Item Value Reference Range Interpretation Comments PROTIME (BEAKER) (test code = 22.7 seconds 11.7-14.7 H 759) INR (BEAKER) (test code = 370) 2.0 <=5.9 RECOMMENDED COUMADIN/WARFARIN INR THERAPY RANGESSTANDARD DOSE: 2.0 - 3.0 Includes: PROPHYLAXIS for venous thrombosis, systemic embolization; TREATMENT for venous thrombosis and/or pulmonary embolus.HIGH RISK: Target INR is 2.5-3.5 for patients with mechanical heart valves.While on warfarin.BASIC METABOLIC [id number] 07:33:00 Test Item Value Reference Range Interpretation [...] PATIEN TS. CBC W/PLT COUNT & AUTO [id number] 05:54:00 Test Item Value Reference Range Interpretation [...] (BEAKER) (test code = 2801) BASIC METABOLIC [id number] 06:43:00 Test Item Value Reference Range Interpretation [...] NOT APPLICABLE FOR DIALYSIS PATIEN TS. PROTHROMBIN [id number] 06:25:00 Test Item Value Reference Range Interpretation Comments PROTIME (BEAKER) (test code = 18.8 seconds 11.7-14.7 H 759) INR (BEAKER) (test code = 370) 1.6 <=5.9 RECOMMENDED COUMADIN/WARFARIN INR THERAPY RANGESSTANDARD DOSE: 2.0 - 3.0 Includes: PROPHYLAXIS for venous thrombosis, systemic embolization; TREATMENT for venous thrombosis and/or pulmonary embolus.HIGH RISK: Target INR is 2.5-3.5 for patients with mechanical heart valves.While on warfarin.CBC W/PLT COUNT & AUTO [id number] 06:12:00 Test Item Value Reference Range Interpretation [...] (BEAKER) (test code = 2801) BASIC METABOLIC [id number] 10:54:00 Test Item Value Reference Range Interpretation [...] PATIEN TS. CBC W/PLT COUNT & AUTO [id number] 07:36:00 Test Item Value Reference Range Interpretation [...] 0-1 PERCENT (BEAKER) (test code = 2801) [id number] 06:27:00 Test Item Value Reference Range Interpretation Comments PARTIAL THROMBOPLASTIN TIME 77.4 seconds 22.5-36.0 H (BEAKER) (test code = 760) PROTHROMBIN TIME/[id number] 06:25:00 Test Item Value Reference Range Interpretation Comments PROTIME (BEAKER) (test code = 16.1 seconds 11.7-14.7 H 759) INR (BEAKER) (test code = 370) 1.3 <=5.9 RECOMMENDED COUMADIN/WARFARIN INR THERAPY RANGESSTANDARD DOSE: 2.0 - 3.0 Includes: PROPHYLAXIS for venous thrombosis, systemic embolization; TREATMENT for venous thrombosis and/or pulmonary embolus.HIGH RISK: Target INR is 2.5-3.5 for patients with mechanical heart valves.While on warfarin.[id number] 21:27:00 Test Item Value Reference Range Interpretation Comments PARTIAL THROMBOPLASTIN TIME 50.7 seconds 22.5-36.0 H (BEAKER) (test code = 760) [id number] 13:53:00 Test Item Value Reference Range Interpretation Comments PARTIAL THROMBOPLASTIN TIME 93.2 seconds 22.5-36.0 H (BEAKER) (test code = 760) [id number] 08:10:00 Test Item Value Reference Range Interpretation Comments PARTIAL THROMBOPLASTIN TIME 70.0 seconds 22.5-36.0 H (BEAKER) (test code = 760) BASIC METABOLIC [id number] 07:13:00 Test Item Value Reference Range Interpretation [...] PATIEN TS. CBC W/PLT COUNT & AUTO [id number] 07:07:00 Test Item Value Reference Range Interpretation [...] PERCENT (BEAKER) (test code = 2801) PROTHROMBIN [id number] 06:24:00 Test Item Value Reference Range Interpretation Comments PROTIME (BEAKER) (test code = 15.2 seconds 11.7-14.7 H 759) INR (BEAKER) (test code = 370) 1.2 <=5.9 RECOMMENDED COUMADIN/WARFARIN INR THERAPY RANGESSTANDARD DOSE: 2.0 - 3.0 Includes: PROPHYLAXIS for venous thrombosis, systemic embolization; TREATMENT for venous thrombosis and/or pulmonary embolus.HIGH RISK: Target INR is 2.5-3.5 for patients with mechanical heart valves.[id number] 00:36:00 Test Item Value Reference Range Interpretation Comments PARTIAL THROMBOPLASTIN TIME 49.7 seconds 22.5-36.0 H (BEAKER) (test code = 760) POCT-GLUCOSE [id number] 20:48:00 Test Item Value Reference Range Interpretation Comments POC-GLUCOSE METER 126 mg/dL 70-110 H TESTED AT [facility] 6720 ([facility]) (test code = CHERI MANN 1538) [address] [id number] 18:09:00 Test Item Value Reference Range Interpretation Comments PARTIAL THROMBOPLASTIN TIME 36.3 seconds 22.5-36.0 H ([facility]) (test code = 760) Prior to initiating [id number] 11:06:00 Test Item Value Reference Range Interpretation Comments ACTIVATED CLOTTING TIME 202 sec TEST ED AT [place] [address] ([facility]) (test code = CHERI Wong [facility] 441) [address] [id number] 10:32:00 Test Item Value Reference Range Interpretation Comments ACTIVATED CLOTTING TIME 224 sec TEST ED AT [place] [address] ([facility]) (test code = CHERI Wong [facility] 441) [address] [id number] 10:32:00 Test Item Value Reference Range Interpretation Comments ACTIVATED CLOTTING TIME 467 sec TEST ED AT [place] [address] ([facility]) (test code = CHERI Wong [place] [address]) [address] [id number] 09:51:00 Test Item Value Reference Range Interpretation Comments ACTIVATED CLOTTING TIME 114 sec TEST ED AT [place] [address] ([facility]) (test code = CHERI Wong [place] [address]) [address] POCT-GLUCOSE [id number] 08:10:00 Test Item Value Reference Range Interpretation Comments POC-GLUCOSE METER 67 mg/dL 70-110 L Notified R Lanny MD/TESTED AT ([facility]) (test code = [place] [address] [place] 1538) [facility] [address] BASIC METABOLIC [id number] 08:04:00 Test Item Value Reference Range Interpretation [...] PATIEN TS. CBC W/PLT COUNT & AUTO [id number] 07:11:00 Test Item Value Reference Range Interpretation [...] (test code = 2801) PET, CARDIAC PET, [id number] 15:39:00Reason for exam:->MIFINAL REPORT PROCEDURE: MYOCARDIAL METABOLISM PET IMAGING with Rest MYOCARDIALPERFUSION PET IMAGING\XA9\ CPT CODE: 47050, 71294 INDICATION: History of NE/Assess Viability HISTORY: Cardiac risk factors: CAD, hypertension, stroke. Current cardiovascular-related medications: Lisinopril. PROTOCOL: Limited low-dose CT imaging was performed for attenuation correction. 39.0 mCi of Rb-82 chloride was injected iv at rest, and gated PET (positron emission tomography) images were [...] rest show abnormal LV motion. The anterior apic al LV wall and LV apex are akinetic. [...] 6. Combination of perfusion and metabolic images showviable myocardium at the LV apex. 7. Extracardiac tracer distribution is normal. 8. No previous [facility] study for comparison. Signed: Ishaan Marshall Verified Date/Time: 04/16/2017 15:39:23 Reading Location: [address] CT, BRAIN, WITHOUT [id number] 11:48:00FINAL REPORT CT head without contrast 04/16/2017 11:46 AM CLINICAL HISTORY: StrokeR frontal gyrus hemorrhagic covnersion, evaluate for interval increase. TECHNIQUE: Axial noncontrast CT images through the head were obtained. This examination was performed according to our departmental dose optimization program, which includes automated exposure control, adjustment of the mA and/or kV according to patient size, and/or use of iterated reconstruction technique. COMPARISON: 04/13/2017FINDINGS: A small volume recent infarct with trace petechial hemorrhage but no mass effect in the anterior right frontal lobe is unchanged. There is no new hemorrhage, extra-axial collection, mass, hydr ocephalus, or midline shift. There is generalized parenchymal volume loss. The visualized paranasal sinuses and mastoid air cells are well aerated. The skull is intact. IMPRESSION: Since 04/13/2017, no new intracranial abnormality and no remarkable change in intracranial appearance. Signed: Tito Paez MDReport Verified Date/Time: 04/16/2017 11:48:54 Reading Location: [address] Neuro Reading Room BASIC METABOLIC [id number] 05:46:00 Test Item Value Reference Range Interpretation [...] S NOT APPLICABLE FOR DIALYSIS PATIEN TS. [id number] 05:31:00 Test Item Value Reference Range Interpretation Comments PROTIME (BEAKER) (test code = 16.3 seconds 11.7-14.7 H 759) INR (BEAKER) (test code = 370) 1.3 <=5.9 PARTIAL THROMBOPLASTIN TIME 59.8 seconds 22.5-36.0 H (BEAKER) (test code = 760) RECOMMENDED COUMADIN/WARFARIN INR THERAPY RANGESSTANDARD DOSE: 2.0 - 3.0 Includes: PROPHYLAXIS for venous thrombosis, systemic embolization; TREATMENT for venous thrombosis and/or pulmonary embolus.HIGH RISK: Target INR is 2.5-3.5 for patients with mechanical heart valves.CBC W/PLT COUNT & AUTO [id number] 05:23:00 Test Item Value Reference Range Interpretation [...] 0-1 PERCENT (BEAKER) (test code = 2801) [id number] 15:23:00 Test Item Value Reference Range Interpretation Comments PARTIAL THROMBOPLASTIN TIME 52.5 seconds 22.5-36.0 H (BEAKER) (test code = 760) [id number] 14:59:00 Test Item Value Reference Range Interpretation Comments PARTIAL THROMBOPLASTIN 23.0 seconds 22.5-36.0 Pleas e disregard TIME (BEAKER) (test result. Specimen code = 760) for aPTT was fo und to be clotted p ost analysis. [id number] notified to red raw aPTT.This is a corrected resul t. Previous result was 23.0 second s on 04/15/2017 at 1411 CDT Specimen for aPTT was found to be clotted. [id number] notified to redraw.CBC W/PLT COUNT & AUTO [id number] 12:19:00 Test Item Value Reference Range Interpretation [...] MORPHOLOGY (BEAKER) (test code = Normal 762) [id number] 08:48:00 Test Item Value Reference Range Interpretation Comments POTASSIUM (BEAKER) (test code = 4.7 meq/L 3.5-5.1 379) Check Serum Potassium level 2 hours after oral potassium replacement completed or 30 min after intravenous potassium replacement.[id number] 08:26:00 Test Item Value Reference Range Interpretation Comments PARTIAL THROMBOPLASTIN TIME 53.7 seconds 22.5-36.0 H (BEAKER) (test code = 760) BASIC METABOLIC [id number] 07:59:00 Test Item Value Reference Range Interpretation [...] S NOT APPLICABLE FOR DIALYSIS PATIEN TS. [id number] 22:41:00 Test Item Value Reference Range Interpretation Comments PARTIAL THROMBOPLASTIN TIME 39.7 seconds 22.5-36.0 H (BEAKER) (test code = 760) POCT-GLUCOSE [id number] 18:35:00 Test Item Value Reference Range Interpretation Comments POC-GLUCOSE METER 121 mg/dL 70-110 H TESTED AT [facility] 6720 (BEAKER) (test code = [place] 1538) [address] [place], ESOPH, SWALLOW FUNCTION, WITH CINE OR [id number] 17:08:00Reason for exam:->dysphagiaFINAL REPORT Modified barium swallow. CLINICAL HISTORY: dysphagia. COMPARISON STUDY: None available. FINDINGS: Under the direction of patient's speech pathologist, the patient ingested thin barium, thick barium, barium-coated crackers and barium pur\XE9\e. Penetration is seen withthin barium. Please refer to the speech pathology notes for further discussion. Fluoroscopy time: 1.3 minutes. One image. Signed: Ronald Garcia MDReport Verified Date/Time: 04/14/2017 17:08:52 Reading Location: [facility] C013X Ortho Consult Reading Room POCT-GLUCOSE [id number] 13:42:00 Test Item Value Reference Range Interpretation Comments POC-GLUCOSE METER 77 mg/dL 70-110 TESTED AT [place] [address] ([facility]) (test code = [facility] [address] 1538) [id number] 12:15:00 Test Item Value Reference Range Interpretation Comments PARTIAL THROMBOPLASTIN TIME 44.5 seconds 22.5-36.0 H ([facility]) (test code = 760) POCT-GLUCOSE [id number] 12:00:00 Test Item Value Reference Range Interpretation Comments POC-GLUCOSE METER 119 mg/dL 70-110 H TESTED AT [place] [address] ([facility]) (test code = [facility] 1538) [address] POCT-GLUCOSE [id number] 11:11:00 Test Item Value Reference Range Interpretation Comments POC-GLUCOSE METER 167 mg/dL 70-110 H TESTED AT [place] [address] ([facility]) (test code = [facility] 1538) [address] POCT-GLUCOSE [id number] 10:29:00 Test Item Value Reference Range Interpretation Comments POC-GLUCOSE METER 83 mg/dL 70-110 TESTED AT [place] [address] ([facility]) (test code = [facility] [address] 1538) TROPONIN [id number] 08:12:00 Test Item Value Reference Range Interpretation Comments TROPONIN I ([facility]) (test code = 21.40 ng/mL 0.00-0.03 [facility]) Troponin I (TnI) levels must be interpreted [...] = 395) CK-MB Reference Range:<6.7 Normal6.7-10.0 Borderline>10.0 AbnormalPT/APTT 2017-04-14 04:53:00 Test Item Value Reference Range Interpretation Comments PROTIME (BEAKER) (test code = 17.1 seconds 11.7-14.7 H 759) INR (BEAKER) (test code = 370) 1.4 <=5.9 PARTIAL THROMBOPLASTIN TIME 53.3 seconds 22.5-36.0 H (BEAKER) (test code = 760) RECOMMENDED COUMADIN/WARFARIN INR THERAPY RANGESSTANDARD DOSE: 2.0 - 3.0 Includes: PROPHYLAXIS for venous thrombosis, systemic embolization; TREATMENT for venous thrombosis and/or pulmonary embolus.HIGH RISK: Target INR is 2.5-3.5 for patients with mechanical heart valves.PROTHROMBIN [id number] 04:52:00 Test Item Value Reference Range Interpretation Comments PROTIME (BEAKER) (test code = 17.1 seconds 11.7-14.7 H 759) INR (BEAKER) (test code = 370) 1.4 <=5.9 RECOMMENDED COUMADIN/WARFARIN INR THERAPY RANGESSTANDARD DOSE: 2.0 - 3.0 Includes: PROPHYLAXIS for venous thrombosis, systemic embolization; TREATMENT for venous thrombosis and/or pulmonary embolus.HIGH RISK: Target INR is 2.5-3.5 for patients with mechanical heart valves.BASIC METABOLIC [id number] 04:52:00 Test Item Value Reference Range Interpretation [...] PATIEN TS. CBC W/PLT COUNT & AUTO [id number] 04:38:00 Test Item Value Reference Range Interpretation [...] 0-1 PERCENT (BEAKER) (test code = 2801) [id number] 22:59:00 Test Item Value Reference Range Interpretation Comments PROTIME (BEAKER) (test code = 17.2 seconds 11.7-14.7 H 759) INR (BEAKER) (test code = 370) 1.4 <=5.9 PARTIAL THROMBOPLASTIN TIME 23.8 seconds 22.5-36.0 (BEAKER) (test code = 760) RECOMMENDED COUMADIN/WARFARIN INR THERAPY RANGESSTANDARD DOSE: 2.0 - 3.0 Includes: PROPHYLAXIS for venous thrombosis, systemic embolization; TREATMENT for venous thrombosis and/or pulmonary embolus.HIGH RISK: Target INR is 2.5-3.5 for patients with mechanical heart valves.CT, BRAIN, WITHOUT [id number] 22:32:00FINAL REPORT CT, BRAIN, WITHOUT CONTRAST INDICATION: Stroke TECHNIQUE: Noncontrast axial imaging was obtained from the vertex to the skull base. Axial images were reconstructed using a bone algorithm. DOSE REDUCTION: Dose modulation, iterative reconstruction, and/or weight-based adjustment of the mA/kV was utilized to reduce the radiation dose to as low as reasonably achievable. COMPARISON: Correlation to MRI examination approximately 21 hours prior FINDINGS: Newly conspicuous hyperattenuation in the region of right middle frontal gyrus infarct. Additionally, there is a faint bl ood in the region of the right parieto-occipital sulcus adjacent to known small cortical infarcts identified in the reference MR examination. Small, bilateral cortical infarcts are not well characterized in the current examination. There is no new large territory ischemic injury. No midline shift or hydrocephalus has developed. Osseous structures are unremarkable. IMPRESSION: Appearance is concerningfor hemorrhagic conversion of infarct in the right middle frontal gyrus. Additionally, findings suspicious for small volume parenchymal and subarachnoid blood in the region of the right parieto-occipital sulcus. Findings communicated to neurology housestaff at the time of dictation. Signed: JR Lowery Robert MDReport Verified Date/Time: 04/13/2017 22:32:02 Reading Location: [address] Reading Room [id number] 15:59:00 Test Item Value Reference Range Interpretation Comments PARTIAL THROMBOPLASTIN TIME 40.7 seconds 22.5-36.0 H (BEAKER) (test code = 760) CREATINE KINASE (CK), TOTAL AND [id number] 11:03:00 Test Item Value Reference Range Interpretation Comments CREATINE KINASE TOTAL (BEAKER) 304 U/L 29-200 H (test code = 380) CREATINE KINASE-MB (AKER) (test 4.2 ng/mL 0.0-6.6 code = 750) CREATINE KINASE-MB INDEX (BEAKER) 1.4 % (test code = 395) CK-MB Reference Range:<6.7 Normal6.7-10.0 Borderline>10.0 AbnormalTROPONIN [id number] 10:57:00 Test Item Value Reference Range Interpretation [...] failure, acidosis, acute neurological disease, and persistent tachyarrhythmia.[id number] 10:29:00 Test Item Value Reference Range Interpretation Comments PARTIAL THROMBOPLASTIN TIME 50.5 seconds 22.5-36.0 H (BEAKER) (test code = 760) CBC W/PLT COUNT & AUTO [id number] 04:51:00 Test Item Value Reference Range Interpretation [...] (BEAKER) (test code = 2801) BASIC METABOLIC [id number] 04:38:00 Test Item Value Reference Range Interpretation [...] NOT APPLICABLE FOR DIALYSIS PATIEN TS. FastingLIPID [id number] 04:38:00 Test Item Value Reference Range Interpretation Comments TRIGLYCERIDES (BEAKER) 97 mg/dL Speci men slightly (test code = 540) hemolyzed CHOLESTEROL (BEAKER) 166 mg/dL Specime n slightly (test code = 631) hemolyzed HDL CHOLESTEROL (BEAKER) 32 mg/dL (test code = 976) LDL CHOLESTEROL 115 mg/dL CALCULATED (BEAKER) (test code = 633) Triglyceride Reference Range: Low Risk <150 Borderline 150-199 High Risk 200- 499 Very High Risk >=500Cholesterol Reference Range: Low Risk <200 Borderline 200-239 High Risk >240HDL Cholesterol Reference Range: Low Risk >=60 High Risk <40LDL Cholesterol Reference Range: Optimal <100 Near Optimal 100-129 Borderline 130-159 High 160-189 Very High >=190 Fasting TROPONIN [id number] 02:32:00 Test Item Value Reference Range Interpretation Comments TROPONIN I (BEAKER) (test code = 33.95 ng/mL 0.00-0.03 397) Troponin I (TnI) levels [...] = 395) CK-MB Reference Range:<6.7 Normal6.7-10.0 Borderline>10.0 [id number] 2017-04-13 02:01:00 Test Item Value Reference Range Interpretation Comments PARTIAL THROMBOPLASTIN TIME 54.0 seconds 22.5-36.0 H (BEAKER) (test code = 760) Prior to initiating heparinMR, BRAIN, WITHOUT [id number] 01:51:00FINAL REPORT MR, BRAIN, WITHOUT CONTRAST, MR, MRA, NECK, WITHOUT IV CONTRAST, MR, MRA, BRAIN, WITHOUT CONTRAST INDICATION: Strokewith LV [...] There is a small to moderate-sized cortical i nfarct involving the right frontal lobe. There is correlating T2 and FLAIR signal abnormality. Thereis no hemorrhagic transformation. The overall distribution of [...] MRA HEAD: No flow-limiting stenosis, dissection, or aneurysm of the anterior circulation.No flow-limiting stenosis, dissection, or aneurysm of the posterior circulation. 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 This is consistent with the history of an LV thrombus.Unremarkable MRA of the head and neck. Signed: Gio Lovett MDReport Verified Date/Time: 04/13/2017 01:51:59 Reading Location: [address] Consult Reading Room MR, MRA, BRAIN, WITHOUT [id number] 01:51:00FINAL REPORT MR, BRAIN, WITHOUT CONTRAST, MR, MRA, NECK, WITHOUT IV CONTRAST, MR, MRA, BRAIN, WITHOUT CONTRAST INDICATION: Strokewith LV [...] There is a small to moderate-sized cortical i nfarct involving the right frontal lobe. There is correlating T2 and FLAIR signal abnormality. Thereis no hemorrhagic transformation. The overall distribution of [...] MRA HEAD: No flow-limiting stenosis, dissection, or aneurysm of the anterior circulation.No flow-limiting stenosis, dissection, or aneurysm of the posterior circulation. 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 This is consistent with the history of an LV thrombus.Unremarkable MRA of the head and neck. Signed: Gio Lovett MDReport Verified Date/Time: 04/13/2017 01:51:59 Reading Location: [address] Consult Reading Room MR, MRA, NECK, WITHOUT IV [id number] 01:51:00FINAL REPORT MR, BRAIN, WITHOUT CONTRAST, MR, MRA, NECK, WITHOUT IV CONTRAST, MR, MRA, BRAIN, WITHOUT CONTRAST INDICATION: Strokewith LV [...] There is a small to moderate-sized cortical i nfarct involving the right frontal lobe. There is correlating T2 and FLAIR signal abnormality. Thereis no hemorrhagic transformation. The overall distribution of [...] MRA HEAD: No flow-limiting stenosis, dissection, or aneurysm of the anterior circulation.No flow-limiting stenosis, dissection, or aneurysm of the posterior circulation. 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 This is consistent with the history of an LV thrombus.Unremarkable MRA of the head and neck. Signed: Gio Lovett MDReport Verified Date/Time: 04/13/2017 01:51:59 Reading Location: [facility] [id number] [facility] Consult Reading Room URINALYSIS W/ [id number] 00:39:00 Test Item Value Reference Range Interpretation [...] 1584) SOURCE(BEAKER) (test code = Urine, Voided 7727) HEMOGLOBIN [id number] 22:15:00 Test Item Value Reference Range Interpretation Comments HEMOGLOBIN A1C (BEAKER) (test code = 5.7 % 4.3-6.1 368) TROPONIN [id number] 21:26:00 Test Item Value Reference Range Interpretation [...] = 395) CK-MB Reference Range:<6.7 Normal6.7-10.0 Borderline>10.0 Abnormal COMPREHENSIVE METABOLIC [id number] 21:06:00 Test Item Value Reference Range Interpretation [...] NOT APPLICABLE FOR DIALYSIS PATIEN TS. PROTHROMBIN [id number] 21:02:00 Test Item Value Reference Range Interpretation Comments PROTIME (BEAKER) (test code = 17.4 seconds 11.7-14.7 H 759) INR (BEAKER) (test code = 370) 1.4 <=5.9 RECOMMENDED COUMADIN/WARFARIN INR THERAPY RANGESSTANDARD DOSE: 2.0 - 3.0 Includes: PROPHYLAXIS for venous thrombosis, systemic embolization; TREATMENT for venous thrombosis and/or pulmonary embolus.HIGH RISK: Target INR is 2.5-3.5 for patients with mechanical heart valves.PT/[id number] 21:02:00 Test Item Value Reference Range Interpretation Comments PROTIME (BEAKER) (test code = 17.4 seconds 11.7-14.7 H 759) INR (BEAKER) (test code = 370) 1.4 <=5.9 PARTIAL THROMBOPLASTIN TIME 29.2 seconds 22.5-36.0 (BEAKER) (test code = 760) RECOMMENDED COUMADIN/WARFARIN INR THERAPY RANGESSTANDARD DOSE: 2.0 - 3.0 Includes: PROPHYLAXIS for venous thrombosis, systemic embolization; TREATMENT for venous thrombosis and/or pulmonary embolus.HIGH RISK: Target INR is 2.5-3.5 for patients with mechanical heart valves.[id number] 21:02:00 Test Item Value Reference Range Interpretation Comments PARTIAL THROMBOPLASTIN TIME 29.2 seconds 22.5-36.0 (BEAKER) (test code = 760) CBC W/PLT COUNT & AUTO [id number] 20:56:00 Test Item Value Reference Range Interpretation [...] 0-1 PERCENT (BEAKER) (test code = 2801) COMPREHENSIVE METABOLIC [id number] 00:00:00 Test Item Value Reference Range Interpretation Comments GLUCOSE (test code = 2217) 97 MG/DL BUN (test code = 2208) 15 MG/DL CREATININE (test code = 2214) 1.07 MG/DL eGFR AMER. (test code 86 ML/MIN/1.73 = 06638) eGFR NON- AMER. (test 74 ML/MIN/1.73 code = 12151) CALC BUN/CREAT (test code = 14 RATIO 2235) SODIUM (test code = 2231) 139 MEQ/L POTASSIUM (test code = 2228) 4.2 MEQ/L CHLORIDE (test code = 2215) 98 MEQ/L CARBON DIOXIDE (test code = 26 MEQ/L 2206) CALCIUM (test code = 2209) 9.5 MG/DL PROTEIN, TOTAL (test code = 7.6 G/DL 2228) ALBUMIN (test code = 2201) 4.2 G/DL CALC GLOBULIN (test code = 3.4 G/DL 2240) CALC A/G RATIO (test code = 1.2 RATIO 2233) BILIRUBIN, TOTAL (test code = 0.2 MG/DL 2206) ALKALINE PHOSPHATASE (test 54 U/L code = 2204) AST (test code = 2218) 21 U/L ALT (test code = 2219) 15 U/L COMPREHENSIVE METABOLIC [id number] 00:00:00 Test Item Value Reference Range Interpretation Comments GLUCOSE (test code = 2217) 97 MG/DL BUN (test code = 2208) 15 MG/DL CREATININE (test code = 2214) 1.07 MG/DL eGFR AMER. (test code 86 ML/MIN/1.73 = 23475) eGFR NON- AMER. (test 74 ML/MIN/1.73 code = 13514) CALC BUN/CREAT (test code = 14 RATIO 2235) SODIUM (test code = 2231) 139 MEQ/L POTASSIUM (test code = 2228) 4.2 MEQ/L CHLORIDE (test code = 2215) 98 MEQ/L CARBON DIOXIDE (test code = 26 MEQ/L 2205) CALCIUM (test code = 2209) 9.5 MG/DL PROTEIN, TOTAL (test code = 7.6 G/DL 2228) ALBUMIN (test code = 2201) 4.2 G/DL CALC GLOBULIN (test code = 3.4 G/DL 2239) CALC A/G RATIO (test code = 1.2 RATIO 2234) BILIRUBIN, TOTAL (test code = 0.2 MG/DL 2206) ALKALINE PHOSPHATASE (test 54 U/L code = 2204) AST (test code = 2218) 21 U/L ALT (test code = 2219) 15 U/L LIPID [id number] 00:00:00 Test Item Value Reference Range Interpretation Comments CHOLESTEROL (test code = 2210) 220 MG/DL TRIGLYCERIDES (test code = 2232) 109 MG/DL HDL CHOLESTEROL (test code = 2220) 55 MG/DL CALC LDL CHOL (test code = 2237) 143 MG/DL RISK RATIO LDL/HDL (test code = 2.60 RATIO 2238) LIPID [id number] 00:00:00 Test Item Value Reference Range Interpretation Comments CHOLESTEROL (test code = 2210) 220 MG/DL TRIGLYCERIDES (test code = 2232) 109 MG/DL HDL CHOLESTEROL (test code = 2220) 55 MG/DL CALC LDL CHOL (test code = 2237) 143 MG/DL RISK RATIO LDL/HDL (test code = 2.60 RATIO 2238) CBC W/AUTO [id number] 00:00:00 Test Item Value Reference Range Interpretation Comments WBC (test code = 1001) 6.8 K/UL RBC (test code = 1002) 5.33 M/UL HEMOGLOBIN (test code = 1003) 14.2 G/DL HEMATOCRIT (test code = 1004) 42.7 % MCV (test code = 1005) 80.1 fL MCH (test code = 1006) 26.6 PG MCHC (test code = 1007) 33.3 G/DL RDW (test code = 1038) 13.9 % NEUTROPHILS (test code = 1008) 60.9 % LYMPHOCYTES (test code = 1010) 28.8 % MONOCYTES (test code = 1011) 8.3 % EOSINOPHILS (test code = 1012) 1.6 % BASOPHILS (test code = 1013) 0.4 % PLATELET COUNT (test code = 1015) 203 K/UL CBC W/AUTO [id number] 00:00:00 Test Item Value Reference Range Interpretation Comments WBC (test code = 1001) 6.8 K/UL RBC (test code = 1002) 5.33 M/UL HEMOGLOBIN (test code = 1003) 14.2 G/DL HEMATOCRIT (test code = 1004) 42.7 % MCV (test code = 1005) 80.1 fL MCH (test code = 1006) 26.6 PG MCHC (test code = 1007) 33.3 G/DL RDW (test code = 1038) 13.9 % NEUTROPHILS (test code = 1008) 60.9 % LYMPHOCYTES (test code = 1010) 28.8 % MONOCYTES (test code = 1011) 8.3 % EOSINOPHILS (test code = 1012) 1.6 % BASOPHILS (test code = 1013) 0.4 % PLATELET COUNT (test code = 1015) 203 K/UL CBC W/AUTO [id number] 00:00:00 Test Item Value Reference Range Interpretation Comments WBC (test code = 1001) 6.8 K/UL RBC (test code = 1002) 5.33 M/UL HEMOGLOBIN (test code = 1003) 14.2 G/DL HEMATOCRIT (test code = 1004) 42.7 % MCV (test code = 1005) 80.1 fL MCH (test code = 1006) 26.6 PG MCHC (test code = 1007) 33.3 G/DL RDW (test code = 1038) 13.9 % NEUTROPHILS (test code = 1008) 60.9 % LYMPHOCYTES (test code = 1010) 28.8 % MONOCYTES (test code = 1011) 8.3 % EOSINOPHILS (test code = 1012) 1.6 % BASOPHILS (test code = 1013) 0.4 % PLATELET COUNT (test code = 1015) 203 K/UL HEMOGLOBIN [id number] 00:00:00 Test Item Value Reference Range Interpretation Comments HEMOGLOBIN A1c (test code = 88203) 5.9 % HEMOGLOBIN [id number] 00:00:00 Test Item Value Reference Range Interpretation Comments HEMOGLOBIN A1c (test code = 61104) 5.9 % HEMOGLOBIN [id number] 00:00:00 Test Item Value Reference Range Interpretation Comments HEMOGLOBIN A1c (test code = 47857) 5.9 % [id number] 00:00:00 Test Item Value Reference Range Interpretation Comments TSH (test code = 2821) 2.160 UIU/ML [id number] 00:00:00 Test Item Value Reference Range Interpretation Comments TSH (test code = 2821) 2.160 UIU/ML [id number] 00:00:00 Test Item Value Reference Range Interpretation Comments TSH (test code = 2821) 2.160 UIU/ML PSA, [id number] 00:00:00 Test Item Value Reference Range Interpretation Comments PSA, TOTAL (test code = 2606) 3.40 NG/ML PSA, [id number] 00:00:00 Test Item Value Reference Range Interpretation Comments PSA, TOTAL (test code = 2606) 3.40 NG/ML PSA, [id number] 00:00:00 Test Item Value Reference Range Interpretation Comments PSA, TOTAL (test code = 2606) 3.40 NG/ML COMPREHENSIVE METABOLIC [id number] 00:00:00 Test Item Value Reference Range Interpretation Comments GLUCOSE (test code = 2217) 97 MG/DL BUN (test code = 2208) 15 MG/DL CREATININE (test code = 2214) 1.07 MG/DL eGFR AMER. (test code 86 ML/MIN/1.73 = 00698) eGFR NON- AMER. (test 74 ML/MIN/1.73 code = 09378) CALC BUN/CREAT (test code = 14 RATIO 2235) SODIUM (test code = 2231) 139 MEQ/L POTASSIUM (test code = 2228) 4.2 MEQ/L CHLORIDE (test code = 2215) 98 MEQ/L CARBON DIOXIDE (test code = 26 MEQ/L 2205) CALCIUM (test code = 2209) 9.5 MG/DL PROTEIN, TOTAL (test code = 7.6 G/DL 2228) ALBUMIN (test code = 2201) 4.2 G/DL CALC GLOBULIN (test code = 3.4 G/DL 2240) CALC A/G RATIO (test code = 1.2 RATIO 2234) BILIRUBIN, TOTAL (test code = 0.2 MG/DL 220) ALKALINE PHOSPHATASE (test 54 U/L code = 2204) AST (test code = 2218) 21 U/L ALT (test code = 2219) 15 U/L COMPREHENSIVE METABOLIC [id number] 00:00:00 Test Item Value Reference Range Interpretation Comments GLUCOSE (test code = 2217) 97 MG/DL BUN (test code = 2208) 15 MG/DL CREATININE (test code = 2214) 1.07 MG/DL eGFR AMER. (test code 86 ML/MIN/1.73 = 47157) eGFR NON- AMER. (test 74 ML/MIN/1.73 code = 58091) CALC BUN/CREAT (test code = 14 RATIO 2235) SODIUM (test code = 2231) 139 MEQ/L POTASSIUM (test code = 2228) 4.2 MEQ/L CHLORIDE (test code = 2215) 98 MEQ/L CARBON DIOXIDE (test code = 26 MEQ/L 6) CALCIUM (test code = 2209) 9.5 MG/DL PROTEIN, TOTAL (test code = 7.6 G/DL 2228) ALBUMIN (test code = 2201) 4.2 G/DL CALC GLOBULIN (test code = 3.4 G/DL 2240) CALC A/G RATIO (test code = 1.2 RATIO 2234) BILIRUBIN, TOTAL (test code = 0.2 MG/DL 2206) ALKALINE PHOSPHATASE (test 54 U/L code = 2204) AST (test code = 2218) 21 U/L ALT (test code = 2219) 15 U/L LIPID [id number] 00:00:00 Test Item Value Reference Range Interpretation Comments CHOLESTEROL (test code = 2210) 220 MG/DL TRIGLYCERIDES (test code = 2232) 109 MG/DL HDL CHOLESTEROL (test code = 2220) 55 MG/DL CALC LDL CHOL (test code = 2237) 143 MG/DL RISK RATIO LDL/HDL (test code = 2.60 RATIO 2238) LIPID [id number] 00:00:00 Test Item Value Reference Range Interpretation Comments CHOLESTEROL (test code = 2210) 220 MG/DL TRIGLYCERIDES (test code = 2232) 109 MG/DL HDL CHOLESTEROL (test code = 2220) 55 MG/DL CALC LDL CHOL (test code = 2237) 143 MG/DL RISK RATIO LDL/HDL (test code = 2.60 RATIO 2238) CBC W/AUTO [id number] 00:00:00 Test Item Value Reference Range Interpretation Comments WBC (test code = 1001) 6.8 K/UL RBC (test code = 1002) 5.33 M/UL HEMOGLOBIN (test code = 1003) 14.2 G/DL HEMATOCRIT (test code = 1004) 42.7 % MCV (test code = 1005) 80.1 fL MCH (test code = 1006) 26.6 PG MCHC (test code = 1007) 33.3 G/DL RDW (test code = 1038) 13.9 % NEUTROPHILS (test code = 1008) 60.9 % LYMPHOCYTES (test code = 1010) 28.8 % MONOCYTES (test code = 1011) 8.3 % EOSINOPHILS (test code = 1012) 1.6 % BASOPHILS (test code = 1013) 0.4 % PLATELET COUNT (test code = 1015) 203 K/UL CBC W/AUTO [id number] 00:00:00 Test Item Value Reference Range Interpretation Comments WBC (test code = 1001) 6.8 K/UL RBC (test code = 1002) 5.33 M/UL HEMOGLOBIN (test code = 1003) 14.2 G/DL HEMATOCRIT (test code = 1004) 42.7 % MCV (test code = 1005) 80.1 fL MCH (test code = 1006) 26.6 PG MCHC (test code = 1007) 33.3 G/DL RDW (test code = 1038) 13.9 % NEUTROPHILS (test code = 1008) 60.9 % LYMPHOCYTES (test code = 1010) 28.8 % MONOCYTES (test code = 1011) 8.3 % EOSINOPHILS (test code = 1012) 1.6 % BASOPHILS (test code = 1013) 0.4 % PLATELET COUNT (test code = 1015) 203 K/UL CBC W/AUTO [id number] 00:00:00 Test Item Value Reference Range Interpretation Comments WBC (test code = 1001) 6.8 K/UL RBC (test code = 1002) 5.33 M/UL HEMOGLOBIN (test code = 1003) 14.2 G/DL HEMATOCRIT (test code = 1004) 42.7 % MCV (test code = 1005) 80.1 fL MCH (test code = 1006) 26.6 PG MCHC (test code = 1007) 33.3 G/DL RDW (test code = 1038) 13.9 % NEUTROPHILS (test code = 1008) 60.9 % LYMPHOCYTES (test code = 1010) 28.8 % MONOCYTES (test code = 1011) 8.3 % EOSINOPHILS (test code = 1012) 1.6 % BASOPHILS (test code = 1013) 0.4 % PLATELET COUNT (test code = 1015) 203 K/UL HEMOGLOBIN [id number] 00:00:00 Test Item Value Reference Range Interpretation Comments HEMOGLOBIN A1c (test code = 38374) 5.9 % HEMOGLOBIN [id number] 00:00:00 Test Item Value Reference Range Interpretation Comments HEMOGLOBIN A1c (test code = 82162) 5.9 % HEMOGLOBIN [id number] 00:00:00 Test Item Value Reference Range Interpretation Comments HEMOGLOBIN A1c (test code = 97747) 5.9 % [id number] 00:00:00 Test Item Value Reference Range Interpretation Comments TSH (test code = 2821) 2.160 UIU/ML [id number] 00:00:00 Test Item Value Reference Range Interpretation Comments TSH (test code = 2821) 2.160 UIU/ML [id number] 00:00:00 Test Item Value Reference Range Interpretation Comments TSH (test code = 2821) 2.160 UIU/ML PSA, [id number] 00:00:00 Test Item Value Reference Range Interpretation Comments PSA, TOTAL (test code = 2606) 3.40 NG/ML PSA, [id number] 00:00:00 Test Item Value Reference Range Interpretation Comments PSA, TOTAL (test code = 2606) 3.40 NG/ML PSA, [id number] 00:00:00 Test Item Value Reference Range Interpretation Comments PSA, TOTAL (test code = 2606) 3.40 NG/ML COMPREHENSIVE METABOLIC [id number] 00:00:00 Test Item Value Reference Range Interpretation Comments GLUCOSE (test code = 2217) 97 MG/DL BUN (test code = 2208) 15 MG/DL CREATININE (test code = 2214) 1.07 MG/DL eGFR AMER. (test code 86 ML/MIN/1.73 = 27236) eGFR NON- AMER. (test 74 ML/MIN/1.73 code = 49583) CALC BUN/CREAT (test code = 14 RATIO 2235) SODIUM (test code = 2231) 139 MEQ/L POTASSIUM (test code = 2228) 4.2 MEQ/L CHLORIDE (test code = 2215) 98 MEQ/L CARBON DIOXIDE (test code = 26 MEQ/L 220) CALCIUM (test code = 2209) 9.5 MG/DL PROTEIN, TOTAL (test code = 7.6 G/DL 2228) ALBUMIN (test code = 2201) 4.2 G/DL CALC GLOBULIN (test code = 3.4 G/DL 2240) CALC A/G RATIO (test code = 1.2 RATIO 2234) BILIRUBIN, TOTAL (test code = 0.2 MG/DL 2206) ALKALINE PHOSPHATASE (test 54 U/L code = 2204) AST (test code = 2218) 21 U/L ALT (test code = 2219) 15 U/L COMPREHENSIVE METABOLIC [id number] 00:00:00 Test Item Value Reference Range Interpretation Comments GLUCOSE (test code = 2217) 97 MG/DL BUN (test code = 2208) 15 MG/DL CREATININE (test code = 2214) 1.07 MG/DL eGFR AMER. (test code 86 ML/MIN/1.73 = 32987) eGFR NON- AMER. (test 74 ML/MIN/1.73 code = 83622) CALC BUN/CREAT (test code = 14 RATIO 2235) SODIUM (test code = 2231) 139 MEQ/L POTASSIUM (test code = 2228) 4.2 MEQ/L CHLORIDE (test code = 2215) 98 MEQ/L CARBON DIOXIDE (test code = 26 MEQ/L 220) CALCIUM (test code = 2209) 9.5 MG/DL PROTEIN, TOTAL (test code = 7.6 G/DL 2228) ALBUMIN (test code = 2201) 4.2 G/DL CALC GLOBULIN (test code = 3.4 G/DL 2240) CALC A/G RATIO (test code = 1.2 RATIO 2234) BILIRUBIN, TOTAL (test code = 0.2 MG/DL 2206) ALKALINE PHOSPHATASE (test 54 U/L code = 2204) AST (test code = 2218) 21 U/L ALT (test code = 2219) 15 U/L LIPID [id number] 00:00:00 Test Item Value Reference Range Interpretation Comments CHOLESTEROL (test code = 2210) 220 MG/DL TRIGLYCERIDES (test code = 2232) 109 MG/DL HDL CHOLESTEROL (test code = 2220) 55 MG/DL CALC LDL CHOL (test code = 2237) 143 MG/DL RISK RATIO LDL/HDL (test code = 2.60 RATIO 2238) LIPID [id number] 00:00:00 Test Item Value Reference Range Interpretation Comments CHOLESTEROL (test code = 2210) 220 MG/DL TRIGLYCERIDES (test code = 2232) 109 MG/DL HDL CHOLESTEROL (test code = 2220) 55 MG/DL CALC LDL CHOL (test code = 2237) 143 MG/DL RISK RATIO LDL/HDL (test code = 2.60 RATIO 2238) CBC W/AUTO [id number] 00:00:00 Test Item Value Reference Range Interpretation Comments WBC (test code = 1001) 6.8 K/UL RBC (test code = 1002) 5.33 M/UL HEMOGLOBIN (test code = 1003) 14.2 G/DL HEMATOCRIT (test code = 1004) 42.7 % MCV (test code = 1005) 80.1 fL MCH (test code = 1006) 26.6 PG MCHC (test code = 1007) 33.3 G/DL RDW (test code = 1038) 13.9 % NEUTROPHILS (test code = 1008) 60.9 % LYMPHOCYTES (test code = 1010) 28.8 % MONOCYTES (test code = 1011) 8.3 % EOSINOPHILS (test code = 1012) 1.6 % BASOPHILS (test code = 1013) 0.4 % PLATELET COUNT (test code = 1015) 203 K/UL CBC W/AUTO [id number] 00:00:00 Test Item Value Reference Range Interpretation Comments WBC (test code = 1001) 6.8 K/UL RBC (test code = 1002) 5.33 M/UL HEMOGLOBIN (test code = 1003) 14.2 G/DL HEMATOCRIT (test code = 1004) 42.7 % MCV (test code = 1005) 80.1 fL MCH (test code = 1006) 26.6 PG MCHC (test code = 1007) 33.3 G/DL RDW (test code = 1038) 13.9 % NEUTROPHILS (test code = 1008) 60.9 % LYMPHOCYTES (test code = 1010) 28.8 % MONOCYTES (test code = 1011) 8.3 % EOSINOPHILS (test code = 1012) 1.6 % BASOPHILS (test code = 1013) 0.4 % PLATELET COUNT (test code = 1015) 203 K/UL CBC W/AUTO [id number] 00:00:00 Test Item Value Reference Range Interpretation Comments WBC (test code = 1001) 6.8 K/UL RBC (test code = 1002) 5.33 M/UL HEMOGLOBIN (test code = 1003) 14.2 G/DL HEMATOCRIT (test code = 1004) 42.7 % MCV (test code = 1005) 80.1 fL MCH (test code = 1006) 26.6 PG MCHC (test code = 1007) 33.3 G/DL RDW (test code = 1038) 13.9 % NEUTROPHILS (test code = 1008) 60.9 % LYMPHOCYTES (test code = 1010) 28.8 % MONOCYTES (test code = 1011) 8.3 % EOSINOPHILS (test code = 1012) 1.6 % BASOPHILS (test code = 1013) 0.4 % PLATELET COUNT (test code = 1015) 203 K/UL HEMOGLOBIN [id number] 00:00:00 Test Item Value Reference Range Interpretation Comments HEMOGLOBIN A1c (test code = 76961) 5.9 % HEMOGLOBIN [id number] 00:00:00 Test Item Value Reference Range Interpretation Comments HEMOGLOBIN A1c (test code = 42378) 5.9 % HEMOGLOBIN [id number] 00:00:00 Test Item Value Reference Range Interpretation Comments HEMOGLOBIN A1c (test code = 36791) 5.9 % [id number] 00:00:00 Test Item Value Reference Range Interpretation Comments TSH (test code = 2821) 2.160 UIU/ML [id number] 00:00:00 Test Item Value Reference Range Interpretation Comments TSH (test code = 2821) 2.160 UIU/ML [id number] 00:00:00 Test Item Value Reference Range Interpretation Comments TSH (test code = 2821) 2.160 UIU/ML PSA, [id number] 00:00:00 Test Item Value Reference Range Interpretation Comments PSA, TOTAL (test code = 2606) 3.40 NG/ML PSA, [id number] 00:00:00 Test Item Value Reference Range Interpretation Comments PSA, TOTAL (test code = 2606) 3.40 NG/ML PSA, [id number] 00:00:00 Test Item Value Reference Range Interpretation Comments PSA, TOTAL (test code = 2606) 3.40 NG/ML GC AND CHLAMYDIA, AMPLIFIED, [id number] 00:00:00 Test Item Value Reference Range Interpretation Comments GONORRHEA, TMA (test code = 55477) NEGATIVE CHLAMYDIA, TMA (test code = 49359) NEGATIVE TRICHOMONAS, [id number] 00:00:00 Test Item Value Reference Range Interpretation Comments TRICHOMONAS, MALE (test code = POSITIVE 11810) TRICHOMONAS, [id number] 00:00:00 Test Item Value Reference Range Interpretation Comments TRICHOMONAS, MALE (test code = POSITIVE 63441) GC AND CHLAMYDIA, AMPLIFIED, [id number] 00:00:00 Test Item Value Reference Range Interpretation Comments GONORRHEA, TMA (test code = 27609) NEGATIVE CHLAMYDIA, TMA (test code = 57609) NEGATIVE GC AND CHLAMYDIA, AMPLIFIED, [id number] 00:00:00 Test Item Value Reference Range Interpretation Comments GONORRHEA, TMA (test code = 63819) NEGATIVE CHLAMYDIA, TMA (test code = 87384) NEGATIVE TRICHOMONAS, [id number] 00:00:00 Test Item Value Reference Range Interpretation Comments TRICHOMONAS, MALE (test code = POSITIVE 68226) TRICHOMONAS, [id number] 00:00:00 Test Item Value Reference Range Interpretation Comments TRICHOMONAS, MALE (test code = POSITIVE 96300) GC AND CHLAMYDIA, AMPLIFIED, [id number] 00:00:00 Test Item Value Reference Range Interpretation Comments GONORRHEA, TMA (test code = 04452) NEGATIVE CHLAMYDIA, TMA (test code = 70580) NEGATIVE GC AND CHLAMYDIA, AMPLIFIED, [id number] 00:00:00 Test Item Value Reference Range Interpretation Comments GONORRHEA, TMA (test code = 67947) NEGATIVE CHLAMYDIA, TMA (test code = 55674) NEGATIVE TRICHOMONAS, [id number] 00:00:00 Test Item Value Reference Range Interpretation Comments TRICHOMONAS, MALE (test code = POSITIVE 89579) TRICHOMONAS, [id number] 00:00:00 Test Item Value Reference Range Interpretation Comments TRICHOMONAS, MALE (test code = POSITIVE 75356) GC AND CHLAMYDIA, AMPLIFIED, [id number] 00:00:00 Test Item Value Reference Range Interpretation Comments GONORRHEA, TMA (test code = 18090) NEGATIVE CHLAMYDIA, TMA (test code = 17661) NEGATIVE
[2022-11-07 04:24] LABS: Absolute Lymphocytes (CBC) 1.6 K/uL (0.7-4.9); Hematocrit 40.8 % (39.6-49.0); Lymphocytes % 42.2 % (15.3-44.8); MCV 82.7 fL (80-100); MPV 8.9 fL (7.6-11.3); RBC Red Blood Cell Count 4.93 M/uL (4.33-5.43)
[2022-11-07 04:40] LABS: Protime INR 4.11
[2022-11-07] MEDS ORDERED: DIPHENHYDRAMINE 50 MG/ML VIAL ONE (04:41)
[2022-11-07] MEDS ORDERED: METHYLPREDNISOLONE 125 MG INJ ONE (04:41)
[2022-11-07] MEDS ORDERED: FAMOTIDINE 20 MG/2 ML VIAL IV ONE (04:41)
[2022-11-07 04:56] LABS: ALT/SGPT 20 U/L (16-61); AST/SGOT 23 U/L (15-37); Albumin 3.1 g/dL (3.4-5.0); Alkaline Phosphatase 50 U/L (45-117); BUN Blood Urea Nitrogen 17 mg/dL (7-18); Bicarbonate 28 mEq/L (21-32); Bilirubin Total 0.3 mg/dL (0.2-1.0); Glomerular Filtration Rate 81 ml/min (=/>90); Glucose Level 98 mg/dL (74-106); NT PRO-BNP 148 pg/mL (<125); Potassium 3.5 mEq/L (3.5-5.1); Protein, Total 7.2 g/dL (6.4-8.2); Sodium Level 136 mEq/L (136-145); Troponin High Sensitivity 16.8 pg/mL (<58.9)
[2022-11-07 05:15] LABS: Bilirubin Direct < 0.1 mg/dL (0-0.2)
--- NOTE | 2022-11-07 05:41 | ER ---
Nurse's Notes [facility] Name: Hui Guevara Jr Age: 67 yrs Sex: Male : 1955 Arrival Date: 11/07/2022 Time: 03:38 Bed 8 Private MD: Diagnosis: Allergic contact dermatitis due to other agents;Elevated INR, over coagulation, Coumadin toxicity, acute allergic systemic reaction, bilateral facial swelling, bilateral periorbital swelling Presentation: 11/07 03:42 Chief complaint: Patient states: "It started yesterday. My face is all swollen and I'm as6 congested ". Coronavirus screen: At this time, the client does not indicate any symptoms associated with coronavirus-19. Ebola Screen: No symptoms or risks identified at this time. Initial Sepsis Screen: Does the patient meet any 2 criteria? No. Patient's initial sepsis screen is negative. Does the patient have a suspected source of infection? No. Patient's initial sepsis screen is negative. Risk Assessment: Do you want to hurt yourself or someone else? Patient reports no desire to harm self or others. Onset of symptoms was November 06, 2022. 03:42 Method Of Arrival: Ambulatory as6 03:42 Acuity: REUBEN 4 as6 Historical: - Allergies: 03:46 No Known Allergies; as6 - PMHx: 03:46 Cerebrovascular accident; Hypertension; Myocardial infarction; as6 - PSHx: 03:46 Heart Stents; as6 - Immunization history:: Client reports receiving the 2nd dose of the Covid vaccine, pfizer. - Social history:: Smoking status: Patient denies any tobacco usage or history of. - Family history:: not pertinent. Screenin:58 [facility] ED Fall Risk Assessment (Adult) History of falling in the last 3 months, jb4 including since admission No falls in past 3 months (0 pts) Confusion or Disorientation No (0 pts) Score/Fall Risk Level 0 - 2 = Low Risk Oriented to surroundings, Maintained a safe environment. Abuse screen: Denies threats or abuse. Nutritional screening: No deficits noted. Tuberculosis screening: No symptoms or risk factors identified. Assessment: 04:00 General: Appears in no apparent distress. comfortable, Behavior is calm, cooperative, jb4 appropriate for age. Pain: Denies pain. Neuro: Level of Consciousness is awake, alert, obeys commands, Oriented to person, place, time, situation. Cardiovascular: Patient's skin is warm and dry. Respiratory: Airway is patent Respiratory effort is even, unlabored, Respiratory pattern is regular, symmetrical. GI: No signs and/or symptoms were reported involving the gastrointestinal system. : No signs and/or symptoms were reported regarding the genitourinary system. EENT: No signs and/or symptoms were reported regarding the EENT system. Derm: Skin is intact, Skin is pink, warm \\T\\ dry. Musculoskeletal: Circulation, motion, and sensation intact. Range of motion: intact in all extremities. 05:42 Reassessment: Patient appears in no apparent distress at this time. Patient and/or jb4 family updated on plan of care and expected duration. Pain level reassessed. Patient is alert, oriented x 3, equal unlabored respirations, skin warm/dry/pink. Vital Signs: 03:42 BP 136 / 73; Pulse 59; Resp 18 S; Temp 98.4(TE); Pulse Ox 98% on R/A; Weight 79.38 kg as6 (R); Height 5 ft. 9 in. (R); Pain 0/10; 05:30 BP 158 / 105; Pulse 48; Resp 16; Pulse Ox 99% on R/A; jb4 03:42 Body Mass Index 25.84 (79.38 kg, 175.26 cm) as6 03:42 Pain Scale: Adult as6 ED Course: 03:39 Patient arrived in ED. jj6 03:46 Triage completed. as6 03:47 Arm band placed on. as6 03:51 Pj Wyatt MD is Attending Physician. sp4 05:30 Nishant Carballo, MARI is Primary Nurse. jb4 05:58 Patient has correct armband on for positive identification. Bed in low position. Call jb4 light in reach. Side rails up X 1. 05:58 No provider procedures requiring assistance completed. IV discontinued, intact, jb4 bleeding controlled, No redness/swelling at site. Pressure dressing applied. Administered Medications: 04:44 Drug: diphenhydrAMINE IVP 25 mg Route: IVP; Site: right antecubital; jb4 04:44 Not Given (Other Intervention Used): MethylPREDNISolone Sodium Succinate IM 125 mg IM jb4 once 04:44 Drug: Famotidine IVP 20 mg Route: IVP; Site: right antecubital; jb4 04:44 Drug: MethylPrednisoLONE IVP 125 mg Route: IVP; Site: right antecubital; jb4 Outcome: 05:41 Discharge ordered by . sp4 05:58 Discharged to home ambulatory. jb4 05:58 Condition: stable 05:58 Discharge instructions given to patient, Instructed on discharge instructions, follow up and referral plans. medication usage, Demonstrated understanding of instructions, follow-up care, medications, Prescriptions given X 2. 05:59 Patient left the ED. jb4 Signatures: Nishant Carballo RN RN jb4 Vernell Antonio6 Philippe Mayfield RN RN as6 Pj Wyatt MD MD sp4
--- NOTE | 2022-11-07 05:42 | EDPHYS ---
Physician Documentation [facility] Name: Hui Guevara Jr Age: 67 yrs Sex: Male : 1955 Arrival Date: 11/07/2022 Time: 03:38 Bed 8 Private MD: ED Physician Pj Wyatt HPI: 11/07 03:51 This 67 yrs old Black Male presents to ER via Ambulatory with complaints of Facial sp4 Swelling. 05:34 59-year-old male presents with acute onset of facial swelling starting yesterday. sp4 05:34 Patient reports bilateral periorbital swelling and erythema associated with itching in sp4 response to unknown stimulus. No prior similar symptoms, patient denied any trouble breathing or problems with throat swelling. 05:34 On additional history collection patient states he is on Coumadin daily for previous sp4 heart conditions, he is compliant with his Coumadin. Historical: - Allergies: 03:46 No Known Allergies; as6 - PMHx: 03:46 Cerebrovascular accident; Hypertension; Myocardial infarction; as6 - PSHx: 03:46 Heart Stents; as6 - Immunization history:: Client reports receiving the 2nd dose of the Covid vaccine, Moguj[employer]. - Social history:: Smoking status: Patient denies any tobacco usage or history of. - Family history:: not pertinent. ROS: 05:34 Constitutional: Negative for fever, chills, and weight loss, Eyes: Negative for injury, sp4 pain, redness, and discharge, positive bilateral periorbital swelling, ENT: Negative for injury, pain, and discharge, negative for throat swelling Neck: Negative for injury, pain, and swelling, Cardiovascular: Negative for chest pain, palpitations, and edema, Respiratory: Negative for shortness of breath, cough, wheezing, and pleuritic chest pain, Abdomen/GI: Negative for abdominal pain, nausea, vomiting, diarrhea, and constipation, Back: Negative for injury and pain, : Negative for injury, bleeding, discharge, and swelling, MS/Extremity: Negative for injury and deformity, Skin: Negative for injury, rash, and discoloration, Neuro: Negative for headache, weakness, numbness, tingling, and seizure, Psych: Negative for depression, anxiety, Allergy/Immunology: Negative for hives, rash, and allergies Endocrine: Negative for neck swelling, polydipsia, polyuria, polyphagia, and weight changes Hematologic/Lymphatic: Negative for swollen nodes, abnormal bleeding, and unusual bruising Exam: 05:34 Constitutional: This is a well developed, well nourished patient who is awake, alert, sp4 and in no acute distress. Head/Face: Normocephalic, atraumatic. Bilateral periorbital swelling, bilateral facial swelling, consistent with acute allergic reaction. Bilateral facial erythema consistent with acute allergic reaction or dermatitis Eyes: Pupils equal round and reactive to light, extra-ocular motions intact. Lids and lashes normal. Conjunctiva and sclera are not injected. Cornea within normal limits. Bilateral periorbital edema and the redness consistent with acute allergic reaction ENT: Nares patent. No nasal discharge, no septal abnormalities noted. Tympanic membranes are normal and external auditory canals are clear. Oropharynx with no redness, swelling, or masses, exudates, or evidence of obstruction, uvula midline. Mucous membranes moist. Neck: Trachea midline, no thyromegaly or masses palpated, and no cervical lymphadenopathy. Supple, full range of motion without nuchal rigidity, or vertebral point tenderness. No Meningismus. Chest/axilla: Normal chest wall appearance and motion. Nontender with no deformity. No lesions are appreciated. Cardiovascular: Regular rate and rhythm with a normal S1 and S2. No gallops, murmurs, or rubs. Normal PMI, no JVD. No pulse deficits. Respiratory: Lungs have equal breath sounds bilaterally, clear to auscultation and percussion. No rales, rhonchi or wheezes noted. No increased work of breathing, no retractions or nasal flaring. Abdomen/GI: Soft, non-tender, with normal bowel sounds. No distension or tympany. No guarding or rebound. No evidence of tenderness throughout. Back: No spinal tenderness. No costovertebral tenderness. Male : Normal genitalia with no discharge or lesions. Skin: Warm, dry with normal turgor. Normal color with no rashes, no lesions, and no evidence of cellulitis. MS/ Extremity: Pulses equal, no cyanosis. Neurovascular intact. Full, normal range of motion. Neuro: Awake and alert, GCS 15, oriented to person, place, time, and situation. Cranial nerves II-XII grossly intact. Motor strength 5/5 in all extremities. Sensory grossly intact. Psych: Awake, alert, with orientation to person, place and time. Behavior, mood, and affect are within normal limits Vital Signs: 03:42 BP 136 / 73; Pulse 59; Resp 18 S; Temp 98.4(TE); Pulse Ox 98% on R/A; Weight 79.38 kg as6 (R); Height 5 ft. 9 in. (R); Pain 0/10; 05:30 BP 158 / 105; Pulse 48; Resp 16; Pulse Ox 99% on R/A; jb4 03:42 Body Mass Index 25.84 (79.38 kg, 175.26 cm) as6 03:42 Pain Scale: Adult as6 MDM: 03:53 Patient medically screened. sp4 05:34 Differential Diagnosis Acute allergic reaction, angioedema, acute allergic dermatitis, sp4 contact dermatitis, facial cellulitis. Data reviewed: vital signs, nurses notes, lab test result(s), cardiac enzymes, CBC, electrolytes, hepatic panel, Coagulation panel reveals elevated INR. 05:34 ED course: Patient's condition consistent with acute allergic reaction versus acute sp4 allergic dermatitis versus acute systemic reaction to some allergen. Patient was given IV medications for acute allergic reaction, will prescribe p.o. prednisone, and also p.o. Benadryl with the next 5 days. 11/07 03:51 Order name: Basic Metabolic Panel; Complete Time: 05:27 sp4 11/07 03:51 Order name: CBC with Diff; Complete Time: 04:51 sp4 11/07 03:51 Order name: LFT's; Complete Time: 05:27 sp4 11/07 03:51 Order name: NT PRO-BNP; Complete Time: 05:27 sp4 11/07 03:51 Order name: PT-INR; Complete Time: 04:51 sp4 11/07 03:51 Order name: Troponin HS; Complete Time: 05:27 sp4 11/07 03:51 Order name: IV Saline Lock; Complete Time: 04:21 sp4 11/07 03:51 Order name: Labs collected and sent; Complete Time: 04:21 sp4 11/07 03:51 Order name: O2 Per Protocol; Complete Time: 04:21 sp4 11/07 03:51 Order name: O2 Sat Monitoring; Complete Time: 04:22 sp4 Administered Medications: 04:44 Drug: diphenhydrAMINE IVP 25 mg Route: IVP; Site: right antecubital; jb4 04:44 Not Given (Other Intervention Used): MethylPREDNISolone Sodium Succinate IM 125 mg IM jb4 once 04:44 Drug: Famotidine IVP 20 mg Route: IVP; Site: right antecubital; jb4 04:44 Drug: MethylPrednisoLONE IVP 125 mg Route: IVP; Site: right antecubital; jb4 Disposition Summary: 11/07/22 05:41 Discharge Ordered Location: Home sp4 Problem: new sp4 Symptoms: have improved sp4 Condition: Stable sp4 Diagnosis - Allergic contact dermatitis due to other agents sp4 - Elevated INR, over coagulation, Coumadin toxicity, acute allergic systemic sp4 reaction, bilateral facial swelling, bilateral periorbital swelling Followup: sp4 - With: Private Physician - When: 2 - 3 days - Reason: Recheck today's complaints Discharge Instructions: - Discharge Summary Sheet sp4 - Contact Dermatitis, [id number] sp4 Forms: - Thank You Letter sp4 Prescriptions: - Benadryl 25 mg Oral Capsule - take 1 capsule by ORAL route every 6 hours As needed; 30 tablet; Refills: 0, sp4 Product Selection Permitted - Prednisone 20 mg Oral Tablet - take 2 tablets by ORAL route once daily for 5 days; 10 tablet; Refills: 0, sp4 Product Selection Permitted Signatures: Dispatcher [employer] Nishant Handley, RN RN jb4 Philippe Mayfield RN RN as6 Pj Wyatt MD MD sp4
[2022-11-07 06:10] VITALS: BP 158/105; TEMP 98.4; O2SAT 99
== END 2022-11-07 05:59 | disposition home or self-care (01) ==
LOC: ER 03:38
DX: L23.89 Allergic contact dermatitis due to other agents (principal); T45.515A Adverse effect of anticoagulants, initial encounter
CPT/HCPCS: 36415; 80048; 80076; 83880; 84484; 85025; 85610; 96374; 96375; 99284; J1200; J2930